=== PATIENT | male | born 1965 | race Caucasian/White ===

== ENCOUNTER 2023-09-25 12:35 | Outpatient (OUT) | payer BC, SELFPAY ==
--- NOTE | 2023-09-25 12:42 | US_ITS ---
[address] [address] Patient Name: YESSENIA BEST MRN: [id number] date: 1965 Sex: M Assigned Patient Location: [place] Current Patient Location: US Accession/Order Number: [id number] Exam Date: 09/25/2023 12:43 Report Date: 09/25/2023 13:12 At the request of: SHAIKH JACOB Procedure: US abdomen limited EXAM: US abdomen limited HISTORY: inguinal hernia of right side without obstruction K40.90 COMPARISON: None. TECHNIQUE: Real-time Limited abdomen ultrasound. Findings: There is a 1.1 x 1.2 x 1.9 cm fat-containing hernia to the patient's palpable abnormality. Impression 1. Small fat-containing hernia. Electronically authenticated by: KENYON SHIPMAN Date: 09/25/2023 13:12
== END 2023-09-25 12:36 | disposition home or self-care (01) ==
LOC: US 12:36
PROVIDERS: PCP Internal Medicine; Visit Provider Internal Medicine
DX: K40.90 Unilateral inguinal hernia, without obstruction or gangrene, not specified as recurrent (principal)
CPT/HCPCS: 76705

== ENCOUNTER 2024-07-03 06:31 | Outpatient (OUT) | payer SELFPAY ==
--- OUTSIDE RECORDS SUMMARY | 2024-07-03 06:35 | XMS_ITS | CCD ---
Author Organization [facility] Care Team Providers Care Pipe Changer Name Role Phone SHAIKH Yelitza JAMES Admitting Unavailable SHAIKH Yelitza JAMES Attending Unavailable RODNEY BECERRA Primary Care Unavailable SHAIKH Yelitza JAMES Consulting Unavailable RODNEY BECERRA Admitting Unavailable RODNEY BECERRA Attending Unavailable RODNEY BECERRA Primary Care Unavailable RODNEY BECERRA Consulting Unavailable SHAIKH JAMES Attending Unavailable SHAIKH JAMES Attending Unavailable LULU OLMSTEAD Attending Unavailable FAITH ZACARIAS Attending UnavailODILON Samson Attending Unavailable FAITH ZACARIAS Referring Ava James MD, Unavailable Luther Madrid MD Primary Care Provider Faith Zacarias NP Unavailable Medications Current Medications Medication Drug Class(es) Dates Sig (Normalized) Sig (Original) amLODIPine 5 mg oral tablet (2 sources) Dihydropyridine Calcium Channel Tera Start: 05-31-2024 take 1 tablet by mouth once daily amLODIPine (Norvasc) 5 MG tablet Indications: Essential (primary) hypertension (CMS/HCC) Take 1 tablet (5 mg) by mouth Daily 30 tablet 2 05/31/2024 Active Start: 08-20-2023 End: 05-27-2024 take 1 tablet by mouth in the morning amLODIPine (Norvasc) 5 MG tablet Take 1 tablet by mouth in the morning. 08/20/2023 05/27/2024 Discontinued (Reorder) atorvastatin 40 mg oral tablet (2 sources) HMG-CoA Reductase Inhibitor Start: 05-31-2024 take 1 tablet by mouth once daily atorvastatin (Lipitor) 40 MG tablet Indications: Other hyperlipidemia (CMS/HCC) Take 1 tablet (40 mg) by mouth Daily 90 tablet 05/31/2024 Active Start: 08-30-2023 End: 05-27-2024 take 1 tablet by mouth in the morning atorvastatin (Lipitor) 40 MG tablet Take 1 tablet by mouth in the morning. 08/30/2023 05/27/2024 Discontinued (Reorder) hydroCHLOROthiazide 25 mg / losartan potassium 100 mg oral tablet (2 sources) Thiazide Diuretic, Angiotensin 2 Receptor Tera Start: 05-31-2024 take 1 tablet by mouth once daily losartan-hydroCHLOROthiazide (Hyzaar) 100-25 MG tablet Indications: Essential (primary) hypertension (CMS/HCC) , Benign essential hypertension (CMS/HCC) Take 1 tablet by mouth Daily 90 tablet 1 05/31/2024 Active Start: 12-08-2023 End: 05-27-2024 take 1 tablet by mouth once daily losartan-hydroCHLOROthiazide (Hyzaar) 10 0-25 MG tablet Indications: Essential (primary) hypertension (CMS/HCC) , Benign essential hypertension (CMS/HCC) TAKE 1 TABLET BY MOUTH EVERY DAY 90 tablet 1 12/08/2023 05/27/2024 Discontinued (Reorder) 3 ml insulin aspart, human 100 unt/ml pen injector (2 sources) Insulin Analog Start: 05-31-2024 insulin aspart (NovoLOG FLEXPEN) 100 UNIT/ML pen Indications: Type 2 diabetes mellitus without complication, with long-term current use of insulin (CMS/HCC) Inject 10 Units under the skin in the morning and 10 Units at noon and 10 Units in the evening. Inject before meals. (Max daily 45 units/day; add 2 units 151-200; 4 units 201-250; 6 units 251-300; 8 units 301-350). 10 mL 2 05/31/2024 Active Start: 07-07-2023 End: 05-27-2024 NovoLOG FLEXPEN 100 UNIT/ML pen Inject 10 Units under the skin in the morning and 10 Units at noon and 10 Units in the evening. Inject before meals. (Max daily 45 units/day; add 2 units 151-200; 4 units 201-250; 6 units 251-300; 8 units 301-350). 07/07/2023 05/27/2024 Discontinued (Reorder) 3 ml insulin glargine 100 unt/ml pen injector (2 sources) Insulin Analog Start: 05-31-2024 End: 11-27-2024 insulin glargine (Lantus SoloStar) 100 UNIT/ML pen Indications: Type 2 Diabetes Mellitus Inject 40 Units under the skin at bedtime 36 mL 1 05/31/2024 11/27/2024 Active Start: 10-06-2023 End: 05-27-2024 insulin glargine (Lantus Felicitas oStar) 100 UNIT/ML pen Indications: Type 2 Diabetes Mellitus Inject 40 Units under the skin at bedtime 36 mL 1 10/06/2023 05/27/2024 Discontinued (Reorder) latanoprost 0.05 mg/ml ophthalmic solution (1 source) Prostaglandin Analog Start: 07-04-2023 take 1 drop(s) into the eye(s) at bedtime latanoprost (Xalatan) 0.005 % ophthalmic solution Administer 1 drop into both eyes at bedtime 07/04/2023 Active omeprazole 40 mg delayed release oral capsule (2 sources) Proton Pump Inhibitor Start: 05-31-2024 End: 11-27-2024 take 1 capsule by mouth before mealtime omeprazole (PriLOSEC) [address] capsule Indications: Gastroesophageal reflux disease without esophagitis Take 1 capsule (40 mg) by mouth in the morning. Take before meals. Do not crush or chew.. 90 capsule 1 05/31/2024 11/27/2024 Active Start: 02-23-2024 End: 05-27-2024 take 1 capsule by mouth before mealtime omeprazole (PriLOSEC) [address] capsule Indications: Gastroesophageal reflux disease without esophagitis Take 1 capsule (40 mg) by mouth in the morning. Take before meals. Do not crush or chew.. 90 capsule 1 02/23/2024 05/27/2024 Discontinued (Reorder) semaglutide 7 mg oral tablet (2 sources) Start: 05-31-2024 End: 08-29-2024 take 1 tablet by mouth before mealtime semaglutide (Rybelsus) 7 MG tablet Indications: Type 2 diabetes mellitus without complication, with long-term current use of insulin ([facility]) Take 1 tablet (7 mg) by mouth in the morning. Take before meals. Do not eat for 30 minutes after using the medications. 90 tablet 05/31/2024 08/29/2024 Active Start: 04-21-2024 End: 05-27-2024 take 1 tablet by mouth before mealtime semaglutide (Rybelsus) 7 MG tablet Indications: Type 2 diabetes mellitus without complication, with long-term current use of insulin ([facility]) Take 1 tablet (7 mg) by mouth in the morning. Take before meals. Do not eat for 30 minutes after using the medications. 90 tablet 04/21/2024 05/27/2024 Discontinued (Reorder) Problems Active Problems Problem Classification Problem Date Documented Da te Episodic/Chronic Diabetes mellitus with complications (5 sources) Type 2 diabetes mellitus with unspecified complications; Translations: [TYPE 2 DM W/UNS COMPLICATIONS] Onset: 06-28-2021 Chronic Diabetes mellitus without complication (3 sources) Type 2 diabetes mellitus without complication; Translations: [Type 2 diabetes mellitus without complications] Onset: 10-06-2023 05-31-2024 Chronic Disorders of lipid metabolism (3 sources) Hyperlipidemia, unspecified; Translations: [Hyperlipidemia] Onset: 06-05-2022 05-31-2024 Chronic Esophageal disorders (3 sources) Gastro-esophageal reflux disease without esophagitis; Translations: [Gastroesophageal reflux disease without esophagitis] Onset: 06-28-2021 05-27-2024 Chronic Essential hypertension (4 sources) Essential (primary) hypertension; Translations: [Essential hypertension] Onset: 06-05-2022 05-27-2024 Chronic Other screening for suspected conditions (not mental disorders or infectious disease) (2 sources) Encounter for screening for malignant neoplasm of prostate; Translations: [Patient encounter status] Onset: 06-28-2021 04-21-2024 Episodic Past or Other Problems Problem Classification Problem Date Documented Da te Episodic/Chronic Abdominal hernia (1 source) Right inguinal hernia ; Translations: [Unilateral inguinal hernia, without obstruction or gangrene, not specified as recurrent] Onset: 10-06-2023 10-06-2023 Episodic Other gastrointestinal disorders (1 source) Esophageal dysphagia; Translations: [Other dysphagia] Onset: 10-06-2023 10-06-2023 Episodic Other skin disorders (1 source) Eruption; Translations: [Rash and other nonspecific skin eruption] Onset: 01-01-2024 01-01-2024 Episodic Spondylosis; intervertebral disc disorders; other back problems (1 source) Chronic low back pain; Translations: [Chronic right-sided low back pain without sciatica] Onset: 10-06-2023 10-06-2023 Episodic Results Test Name Value Interpretation Reference Range Facil ity CBC AUTO DIFFon 05-31-2022 BASO # 0.0 103/ul Normal 0.0-0.1 [facility] Comment on above: Performed By: #### C BC #### [facility] [address] [place] [address] Dr. Karen Sawyer Basophils/100 WBC (Bld) 0.4 % Normal 0.2-2.0 [facility] Comment on above: Performed By: #### C BC #### [facility] [address] [place] [address] Dr. Karen Sawyer EO # 0.2 103/ul Normal 0.0-0.7 [facility] Comment on above: Performed By: #### C BC #### [facility] [address] [place] [address] Dr. Karen Sawyer Eosinophils/100 WBC (Bld) 3.1 % Normal 0.9-7.0 [facility] Comment on above: Performed By: #### C BC #### [facility] [address] [place] [address] Dr. Karen Sawyer Erythrocyte distribution width (RBC) [Ratio] 12.3 % Normal 11.0-15.0 [facility] Comment on above: Performed By: #### C BC #### [facility] [address] [place] [address] Dr. Karen Sawyer Hematocrit (Bld) [Volume fraction] 38.6 % Critically low 42.0-54.0 [facility] Comment on above: Performed By: #### C BC #### [facility] [address] [place] [address] Dr. Karen Sawyer Hemoglobin (Bld) [Mass/Vol] 12.9 g/dL Critically low 14.0-18.0 [facility] Comment on above: Performed By: #### C BC #### [facility] [address] [place] [address] Dr. Karen Sawyer IG # 0.03 10e3/ul Normal 0.00-0.03 [facility] Comment on above: Performed By: #### C BC #### [facility] [address] [place] [address] Dr. Karen Sawyer IG % 0.6 % Critically high 0.0-0.5 [facility] Comment on above: Performed By: #### C BC #### [facility] [address] [place] [address] Dr. Karen Sawyer LYMPH # 1.7 103/ul Normal 1.2-3.8 [facility] Comment on above: Performed By: #### C BC #### [facility] [address] [place] [address] Dr. Karen Sawyer Lymphocytes/100 WBC (Bld) 32.1 % Normal 20.5-60.0 [facility] Comment on above: Performed By: #### C BC #### [facility] [address] [place] [address] Dr. Karen Sawyer MANUAL DIFF REQ NO Normal [facility] Comment on above: Performed By: #### C BC #### [facility] [address] [place] [address] Dr. Karen Sawyer MCH (RBC) [Entitic mass] 31.2 pg Normal 25.9-34.0 [facility] Comment on above: Performed By: #### C BC #### [facility] [address] [place] [address] Dr. Karen Sawyer MCHC (RBC) [Mass/Vol] 33.4 g/dL Normal 29.9-35.2 [facility] Comment on above: Performed By: #### C BC #### [facility] [address] [place] [address] Dr. Karen Sawyer MCV (RBC) [Entitic vol] 93.2 fL Normal 80.0-94.0 [facility] Comment on above: Performed By: #### C BC #### [facility] [address] [place] [address] Dr. Karen Sawyer MONO # 0.3 103/ul Normal 0.3-0.8 [facility] Comment on above: Performed By: #### C BC #### [facility] [address] [address] [address] Karen Sawyer Monocytes/100 WBC (Bld) 6.0 % Normal 1.7-12.0 [facility] Comment on above: Performed By: #### C BC #### [facility] [address] [address] [address] Karen Sawyer NEUT # 3.0 103/ul Normal 1.4-6.5 [facility] Comment on above: Performed By: #### C BC #### [facility] [address] [address] [address] Karen Sawyer Neutrophils/100 WBC (Bld) 57.8 % Normal 43.0-75.0 [facility] Comment on above: Performed By: #### C BC #### [facility] [address] [place] [address] Dr. Karen Sawyer Platelet mean volume (Bld) [Entitic vol] 8.2 fL Critically low 9.5-13.5 [facility] Comment on above: Performed By: #### C BC #### [facility] [address] [place] [address] Dr. Karen Sawyer PLT 175 103/ul Normal 150-450 [facility] Comment on above: Performed By: #### C BC #### [facility] [address] [place] [address] Dr. Karen Sawyer RBC 4.14 106/ul Critically low 4.70-6.10 [facility] Comment on above: Performed By: #### C BC #### [facility] [address] [place] [address] Dr. Karen Sawyer WBC 5.2 103/ul Normal 4.0-11.0 [facility] Comment on above: Performed By: #### C BC #### [facility] [address] [place] [address] Dr. Karen Sawyer GLYCOHEMOGLOBIN A1Con 2021 ADA RECOMMENDATION SEE BELOW Normal [facility] Comment on above: Result Comment: ADA RECOMMENDED LIMIT 4.0 - 6.0 ADA THERAPEUTIC TARGET < 7.0 ACTION SUGGESTED > 7.0 Performed By: #### A 1C #### [facility] [address] [place] [address] Dr. Karen Sawyer Glucose [Mass/Vol] 134 mg/dL Normal [facility] Comment on above: Performed By: #### A 1C #### [facility] [address] [place] [address] Dr. Karen Sawyer HbA1c (Bld) [Mass fraction] 6.3 % Critically high 4.5-6.2 [facility] Comment on above: Performed By: #### A 1C #### [facility] [address] [place] [address] Dr. Karen Sawyer LIPID PROFILEon 05-31-2022 CHOL-HDL RATIO NORM SEE BELOW Normal [facility] Comment on above: Result Comment: 3.3 - 4.4 LOW RISK 4.4 - 7.1 AVERAGE RISK 7.1 - 11.0 MODERATE RISK >11.0 HIGH RISK Performed By: #### C MP, LIPID #### [facility] [address] [place] [address] Dr. Karen Sawyer Cholesterol [Mass/Vol] 127 mg/dL Normal <=200 [facility] Comment on above: Performed By: #### C MP, LIPID #### [facility] [address] [place] [address] Dr. Karen Sawyer Cholesterol in HDL [Mass/Vol] 46 mg/dL Normal 40-60 [facility] Comment on above: Performed By: #### C MP, LIPID #### [facility] [address] [place] [address] Dr. Karen Sawyer Cholesterol in LDL [Mass/Vol] 66.6 mg/dL Normal [facility] Comment on above: Performed By: #### C MP, LIPID #### [facility] [address] [place] [address] Dr. Karen Sawyer Cholesterol.total/Cho lesterol in HDL [Mass ratio] 2.8 {ratio} Normal [facility] Comment on above: Performed By: #### C MP, LIPID #### [facility] [address] [address] [address] Karen Sawyer HDL NORMAL > or = 60 mg/dl - LOW CARDIOVASCULAR RISK <40 mg/dl - HIGH CARDIOVASCULAR RISK Normal [facility] Comment on above: Performed By: #### C MP, LIPID #### [facility] [address] [address] [address] Karen Sawyer LDL CALC NORMAL SEE BELOW Normal [facility] Comment on above: Result Comment: <100 mg/dl OPTIMAL 100 - 129 mg/dl NEAR OR ABOVE OPTIMAL 130 - 159 mg/dl BORDERLINE HIGH 160 - 189 mg/dl HIGH >190 mg/dl VERY HIGH Performed By: #### C MP, LIPID #### [facility] [address] [place] [address] Dr. Karen Sawyer Triglyceride [Mass/Vol] 72 mg/dL Normal <=150 [facility] Comment on above: Performed By: #### C MP, LIPID #### [facility] [address] [place] [address] Dr. Karen Sawyer VLDL CALC 14.4 mg/dL Normal [facility] Comment on above: Performed By: #### C MP, LIPID #### [facility] [address] [place] [address] Dr. Karen Sawyer PROF 14(COMP METB)on 022 Albumin [Mass/Vol] 3.8 g/dL Normal 3.4-5.0 [facility] Comment on above: Performed By: #### C MP, LIPID #### [facility] [address] [place] [address] Dr. Karen Sawyer Albumin/Globulin [Mass ratio] 1.1 {ratio} Normal [facility] Comment on above: Performed By: #### C MP, LIPID #### [facility] [address] [place] [address] Dr. Karen Sawyer ALP [Catalytic activity/Vol] 65 U/L Normal 46-116 [facility] Comment on above: Performed By: #### C MP, LIPID #### [facility] [address] [place] [address] Dr. Karen Sawyer ALT [Catalytic activity/Vol] 42 U/L Normal 16-63 [facility] Comment on above: Performed By: #### C MP, LIPID #### [facility] [address] [place] [address] Dr. Karen Sawyer Anion gap [Moles/Vol] 12.1 mmol/L Normal [facility] Comment on above: Performed By: #### C MP, LIPID #### [facility] [address] [address] [address] Karen Sawyer AST [Catalytic activity/Vol] 21 U/L Normal 15-37 [facility] Comment on above: Performed By: #### C MP, LIPID #### [facility] [address] [place] [address] Dr. Karen Sawyer Bilirubin [Mass/Vol] 0.2 mg/dL Normal 0.2-1.0 [facility] Comment on above: Performed By: #### C MP, LIPID #### [facility] [address] [place] [address] Dr. Karen Sawyer Calcium [Mass/Vol] 8.8 mg/dL Normal 8.5-10.1 [facility] Comment on above: Performed By: #### C MP, LIPID #### [facility] [address] [place] [address] Dr. Karen Sawyer Chloride [Moles/Vol] 105 mmol/L Normal 98-107 [facility] Comment on above: Performed By: #### C MP, LIPID #### [facility] [address] [place] [address] Dr. Karen Sawyer CO2 [Moles/Vol] 25.6 mmol/L Normal 21.0-32.0 [facility] Comment on above: Performed By: #### C MP, LIPID #### [facility] [address] [place] [address] Dr. Karen Sawyer Creatinine [Mass/Vol] 1.03 mg/dL Normal 0.70-1.30 [facility] Comment on above: Performed By: #### C MP, LIPID #### [facility] [address] [place] [address] Dr. Karen Sawyer EGFR-AF SAMOAN >60 Normal >=60 [facility] Comment on above: Performed By: #### C MP, LIPID #### [facility] [address] [address] [address] Karen Sawyer EGFR-NON AF SAMOAN >60 Normal >=60 [facility] Comment on above: Performed By: #### C MP, LIPID #### [facility] [address] [address] [address] Karen Sawyer Globulin (S) [Mass/Vol] 3.5 g/dL Normal [facility] Comment on above: Performed By: #### C MP, LIPID #### [facility] [address] [address] [address] Karen Sawyer Glucose [Mass/Vol] 118 mg/dL Critically high 74-106 [facility] Comment on above: Performed By: #### C MP, LIPID #### [facility] [address] [address] [address] Karen Sawyer Potassium [Moles/Vol] 4.7 mmol/L Normal 3.5-5.1 [facility] Comment on above: Performed By: #### C MP, LIPID #### [facility] [address] [address] [address] Karen Sawyer Protein [Mass/Vol] 7.3 g/dL Normal 6.4-8.2 [facility] Comment on above: Performed By: #### C MP, LIPID #### [facility] [address] [address] [address] Karen Sawyer Sodium [Moles/Vol] 138 mmol/L Normal 136-145 [facility] Comment on above: Performed By: #### C MP, LIPID #### [facility] [address] [address] [address] Karen Sawyer Urea nitrogen [Mass/Vol] 20.0 mg/dL Critically high 7.0-18.0 [facility] Comment on above: Performed By: #### C MP, LIPID #### [facility] [address] [address] [address] Karen Sawyer Urea nitrogen/Creatinine [Mass ratio] 19.4 mg/mg Normal [facility] Comment on above: Performed By: #### C MP, LIPID #### [facility] [address] [place] [address] Dr. Karen Sawyer CBC AUTO DIFFon 06-21-2021 BASO # 0.0 103/ul Normal 0.0-0.1 [facility] Comment on above: Performed By: #### C BC #### [facility] [address] [place] [address] Dr. Karen Sawyer Basophils/100 WBC (Bld) 0.4 % Normal 0.2-2.0 [facility] Comment on above: Performed By: #### C BC #### [facility] [address] [place] [address] Dr. Karen Sawyer EO # 0.1 103/ul Normal 0.0-0.7 [facility] Comment on above: Performed By: #### C BC #### [facility] [address] [place] [address] Dr. Karen Sawyer Eosinophils/100 WBC (Bld) 2.7 % Normal 0.9-7.0 [facility] Comment on above: Performed By: #### C BC #### [facility] [address] [place] [address] Dr. Karen Sawyer Erythrocyte distribution width (RBC) [Ratio] 12.2 % Normal 11.0-15.0 [facility] Comment on above: Performed By: #### C BC #### [facility] [address] [place] [address] Dr. Karen Sawyer Hematocrit (Bld) [Volume fraction] 37.7 % Critically low 42.0-54.0 [facility] Comment on above: Performed By: #### C BC #### [facility] [address] [place] [address] Dr. Karen Sawyer Hemoglobin (Bld) [Mass/Vol] 12.9 g/dL Critically low 14.0-18.0 [facility] Comment on above: Performed By: #### C BC #### [facility] [address] [place] [address] Dr. Karen Sawyer IG # 0.02 10e3/ul Normal 0.00-0.03 [facility] Comment on above: Performed By: #### C BC #### [facility] [address] [place] [address] Dr. Karen Sawyer IG % 0.4 % Normal 0.0-0.5 [facility] Comment on above: Performed By: #### C BC #### [facility] [address] [place] [address] Dr. Karen Sawyer LYMPH # 1.7 103/ul Normal 1.2-3.8 [facility] Comment on above: Performed By: #### C BC #### [facility] [address] [place] [address] Dr. Karen Sawyer Lymphocytes/100 WBC (Bld) 37.6 % Normal 20.5-60.0 [facility] Comment on above: Performed By: #### C BC #### [facility] [address] [place] [address] Dr. Karen Sawyer MANUAL DIFF REQ NO Normal [facility] Comment on above: Performed By: #### C BC #### [facility] [address] [place] [address] Dr. Karen Sawyer MCH (RBC) [Entitic mass] 31.2 pg Normal 25.9-34.0 [facility] Comment on above: Performed By: #### C BC #### [facility] [address] [place] [address] Dr. Karen Sawyer MCHC (RBC) [Mass/Vol] 34.2 g/dL Normal 29.9-35.2 [facility] Comment on above: Performed By: #### C BC #### [facility] [address] [place] [address] Dr. Karen Sawyer MCV (RBC) [Entitic vol] 91.3 fL Normal 80.0-94.0 [facility] Comment on above: Performed By: #### C BC #### [facility] [address] [place] [address] Dr. Karen Sawyer MONO # 0.2 103/ul Critically low 0.3-0.8 [facility] Comment on above: Performed By: #### C BC #### [facility] [address] [address] [address] Karen Sawyer Monocytes/100 WBC (Bld) 5.1 % Normal 1.7-12.0 [facility] Comment on above: Performed By: #### C BC #### [facility] [address] [address] [address] Karen Sawyer NEUT # 2.4 103/ul Normal 1.4-6.5 [facility] Comment on above: Performed By: #### C BC #### [facility] [address] [address] [address] Karen Sawyer Neutrophils/100 WBC (Bld) 53.8 % Normal 43.0-75.0 [facility] Comment on above: Performed By: #### C BC #### [facility] [address] [address] [address] Karen Sawyer Platelet mean volume (Bld) [Entitic vol] 8.6 fL Critically low 9.5-13.5 [facility] Comment on above: Performed By: #### C BC #### [facility] [address] [address] [address] Karen Sawyer PLT 142 103/ul Critically low 150-450 [facility] Comment on above: Performed By: #### C BC #### [facility] [address] [address] [address] Karen Sawyer RBC 4.13 106/ul Critically low 4.70-6.10 [facility] Comment on above: Performed By: #### C BC #### [facility] [address] [address] [address] Karen Sawyer WBC 4.5 103/ul Normal 4.0-11.0 [facility] Comment on above: Performed By: #### C BC #### [facility] [address] [address] [address] Karen Sawyer GLYCOHEMOGLOBIN A1Con 2020 ADA RECOMMENDATION ADA THERAPEUTIC TARGET 6.0 - 7.0 ACTION SUGGESTED > 7.0 Normal [facility] Comment on above: Performed By: #### A 1C #### [facility] [address] [address] [address] Karen Sawyer Glucose [Mass/Vol] 137 mg/dL Normal [facility] Comment on above: Performed By: #### A 1C #### [facility] [address] [place] [address] Dr. Karen Sawyer HbA1c (Bld) [Mass fraction] 6.4 % Critically high <=6.0 [facility] Comment on above: Performed By: #### A 1C #### [facility] [address] [place] [address] Dr. Karen Sawyer H PYLORI ANTIBODYon 06-21-20 21 H PYLORI Negative Normal NEGATIVE [facility] Comment on above: Performed By: #### H PYL #### [facility] [address] [place] [address] Dr. Karen Sawyer LIPID PROFILEon 06-21-2021 CHOL-HDL RATIO NORM SEE BELOW Normal [facility] Comment on above: Result Comment: 3.3 - 4.4 LOW RISK 4.4 - 7.1 AVERAGE RISK 7.1 - 11.0 MODERATE RISK >11.0 HIGH RISK Performed By: #### L IPID, BMP #### [facility] [address] [place] [address] Dr. Karen Sawyer Cholesterol [Mass/Vol] 146 mg/dL Normal <=200 [facility] Comment on above: Performed By: #### L IPID, BMP #### [facility] [address] [place] [address] Dr. Karen Sawyer Cholesterol in HDL [Mass/Vol] 58 mg/dL Normal [facility] Comment on above: Performed By: #### L IPID, BMP #### [facility] [address] [place] [address] Dr. Karen Sawyer Cholesterol in LDL [Mass/Vol] 56.8 mg/dL Normal [facility] Comment on above: Performed By: #### L IPID, BMP #### [facility] [address] [place] [address] Dr. Karen Sawyer Cholesterol.total/Cho lesterol in HDL [Mass ratio] 2.5 {ratio} Normal [facility] Comment on above: Performed By: #### L IPID, BMP #### [facility] [address] [address] [address] Karen Sawyer HDL NORMAL > or = 60 mg/dl - LOW CARDIOVASCULAR RISK <40 mg/dl - HIGH CARDIOVASCULAR RISK Normal [facility] Comment on above: Performed By: #### L IPID, BMP #### [facility] [address] [address] [address] Karen Sawyer LDL CALC NORMAL SEE BELOW Normal [facility] Comment on above: Result Comment: <100 mg/dl OPTIMAL 100 - 129 mg/dl NEAR OR ABOVE OPTIMAL 130 - 159 mg/dl BORDERLINE HIGH 160 - 189 mg/dl HIGH >190 mg/dl VERY HIGH Performed By: #### L IPID, BMP #### [facility] [address] [address] [address] Karen Sawyer Triglyceride [Mass/Vol] 156 mg/dL Critically high <=150 [facility] Comment on above: Performed By: #### L IPID, BMP #### [facility] [address] [address] [address] Karen Sawyer VLDL CALC 31.2 mg/dL Normal [facility] Comment on above: Performed By: #### L IPID, BMP #### [facility] [address] [address] [address] Karen Sawyer PROF CHEM 8 (BAS METB)on Anion gap [Moles/Vol] 17.4 mmol/L Normal [facility] Comment on above: Performed By: #### L IPID, BMP #### [facility] [address] [address] [address] Karen Sawyer Calcium [Mass/Vol] 8.8 mg/dL Normal 8.4-10.2 [facility] Comment on above: Performed By: #### L IPID, BMP #### [facility] [address] [address] [address] Karen Sawyer Chloride [Moles/Vol] 103 mmol/L Normal 98-107 [facility] Comment on above: Performed By: #### L IPID, BMP #### [facility] [address] [address] [address] Karen Sawyer CO2 [Moles/Vol] 23.8 mmol/L Normal 22.0-30.0 [facility] Comment on above: Performed By: #### L IPID, BMP #### [facility] [address] [address] [address] Karen Sawyer Creatinine [Mass/Vol] 1.01 mg/dL Normal 0.66-1.25 [facility] Comment on above: Performed By: #### L IPID, BMP #### [facility] [address] [place] [address] Dr. Karen Sawyer EGFR-AF SAMOAN >60 Normal >=60 [facility] Comment on above: Performed By: #### L IPID, BMP #### [facility] [address] [place] [address] Dr. Karen Sawyer EGFR-NON AF SAMOAN >60 Normal >=60 [facility] Comment on above: Performed By: #### L IPID, BMP #### [facility] [address] [address] [address] Karen Sawyer Glucose [Mass/Vol] 158 mg/dL Critically high 74-106 [facility] Comment on above: Performed By: #### L IPID, BMP #### [facility] [address] [address] [address] Karen Sawyer Potassium [Moles/Vol] 4.2 mmol/L Normal 3.4-5.0 [facility] Comment on above: Performed By: #### L IPID, BMP #### [facility] [address] [address] [address] Karen Sawyer Sodium [Moles/Vol] 140 mmol/L Normal 137-145 [facility] Comment on above: Performed By: #### L IPID, BMP #### [facility] [address] [address] [address] Karen Sawyer Urea nitrogen [Mass/Vol] 21.0 mg/dL Critically high 9.0-20.0 [facility] Comment on above: Performed By: #### L IPID, BMP #### [facility] [address] [address] [address] Karen Sawyer Urea nitrogen/Creatinine [Mass ratio] 20.8 mg/mg Normal [facility] Comment on above: Performed By: #### L IPID, BMP #### [facility] [address] [address] [address] 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 Phone: [facility] Comment on above: Other hyperlipidemia (CMS/HCC) (Primary Dx); Type 2 diabetes mellitus without complication, with long-term current use of insulin (CMS/HCC); Essential (primary) hypertension (CMS/HCC); Benign essential hypertension (CMS/HCC); Gastroesophageal reflux disease without esophagitis Start: 05-06-2024 End: 05-06-2024 ambulatory ODILON SOFIA Not Available Start: 04-21-2024 End: 04-21-2024 ambulatory FAITH ZACARIAS Not Available Start: 01-28-2024 End: 01-28-2024 ambulatory LULU OLMSTEAD Not Available Start: 01-01-2024 End: 01-01-2024 ambulatory SHAIKH JACOB Not Available Start: 10-06-2023 End: 10-06-2023 ambulatory SHAIKH JACOB Not Available Start: 05-31-2022 End: 06-01-2022 ambulatory SHAIKH Yelitza JAMES Facility:[facility] Start: 06-28-2021 Encounter for genera l adult medical examination without abnormal findings RODNEY BECERRA [facility] Start: 06-21-2021 End: 06-22-2021 ambulatory RODNEY BECERRA Facility:[facility] Start: 06-21-2021 End: 06-22-2021 Encounter for general adult medical examination without abnormal findings RODNEY BECERRA Facility:[facility] Procedures Date Procedure Procedure Detail Performing Clinician Start: 06-21-2021 PSA screening SHAIKH COLT HARVEY Comment on above: Performed By: #### P [facility] #### [facility] [address] [address] [address] Karen Sawyer Plan of Treatment Date Care Activity Detail Author Start: 05-14-2025 Glaucoma screening Diabetes: R etinopathy Screening [facility] Start: 07-22-2024 End: 07-22-2024 Patient encounter procedure 07/22/2024 9:00 AM EST Office Visit [facility] [address] [facility] [address] [place] [id number] Odilon Sofia, DPBrown [address] [facility] [address] [place] [address] [facility] Start: 07-21-2024 End: 07-21-2024 Patient encounter procedure 07/21/2024 8:00 AM EST Office Visit [facility] [address] [place] [phone] Faith Zacarias, YARELY [address] [place] [phone] [facility] Start: 04-18-2024 Influenza vaccination Influenza Vacc ine (#1) [facility] Start: 11-28-2023 Hemoglobin A1c measurement Diabetes: Hemoglobin A1C [facility] Start: 09-25-2019 Urine screening for protein Diabetes: Urine Protein Screening [facility] Start: 1965 Screening for malign ant neoplasm of colon [facility] Payers Date Payer Category Payer [facility] [id number] 2022 Unknown [id number] 1965 Unknown [id number] 1964 Unknown [id number] 1964 Unknown [id number] 1964 Unknown [id number] 1964 Unknown [id number] 1964 Unknown [id number] 1964 Unknown [id number] 1959 Private Health Insurance [id number] Social History Date Type Detail Facility Start: 01-01-2024 Tobacco smoking stat [facility] Never smoked tobacco [facility] Start: 05-06-2024 Alcoholic beverage intake Current drinker of alcohol (finding) [facility] Start: 04-21-2024 End: 05-06-2024 Alcoholic beverage intake [facility] Start: 04-21-2024 End: 05-06-2024 Tobacco use panel [facility] Start: 1965 Sex assigned at Not on file [facility] NEGATED: Highlighted rowStart: NINF History of tobacco use Passive smoker [facility] Medical Equipment Procedure Code Equipment Code Equipment Origin al Text Equipment Identifier Dates [id number] Start: 11-28-2022 End: 05-27-2024 Inject 1 Lancet under the skin 4 (four) times a day as needed (Hyperglycemia) [id number] Start: 05-31-2024 Evaluation note Note Date & Type Note Facility Evaluation note Diagnosis Primary hypertension ([facility])- Primary Unspecified essential hypertension Gastroesophageal reflux disease without esophagitis Esophageal reflux Type 2 diabetes mellitus without complication, with long-term current use of insulin (CMS/HCC) Other hyperlipidemia (CMS/HCC) Esophageal dysphagia Dysphagia, pharyngoesophageal phase Chronic right-sided low back pain without sciatica Reducible right inguinal hernia Primary hypertension (CMS/HCC)- Primary Unspecified essential hypertension Gastroesophageal reflux disease without esophagitis Esophageal reflux Reducible right inguinal hernia Type 2 diabetes mellitus without complication, with long-term current use of insulin (CMS/HCC) Other hyperlipidemia (CMS/HCC) Rash Rash and other nonspecific skin eruption Primary hypertension (CMS/HCC)- Primary Unspecified essential hypertension Gastroesophageal reflux disease without esophagitis Esophageal reflux Type 2 diabetes mellitus without complication, with long-term current use of insulin (CMS/HCC) Other hyperlipidemia (CMS/HCC) Screening for colon cancer Special screening for malignant neoplasms, colon Lumbar back pain Lumbago Other hyperlipidemia (CMS/HCC)- Primary Type 2 diabetes mellitus without complication, with long-term current use of insulin (CMS/HCC) Essential (primary) hypertension (CMS/HCC) Unspecified essential hypertension Benign essential hypertension (CMS/HCC) Essential hypertension, benign Gastroesophageal reflux disease without esophagitis Esophageal reflux documented in this encounter [facility] Summary Purpose Family History No Family History Records FoundNo Family History Records Found Advance Directives No Advanced Directives Records FoundNo Advanced Directives Records Found Additional Source Comments (unrecognized sect ion and content) No Status Records FoundNo Status Records Found INFORMATION SOURCE (unrecogn ized section and content) DATE CREATED AUTHOR 06/10/2022 [facility] DATE CREATED AUTHOR AUTHOR'S ORGANIZ ATION 05/08/2024 [facility] Care Teams (unrecognized sec tion and content) Pipe Changer Relationship Specialty Start Date End Date Shaikh James MD [address] [place] [phone] PCP - [place] [facility] 11/17/23 Luther Madrid MD [address] [place] [phone] PCP - General Family Medicine 04/08/24 Faith Zacarias NP [address] [place] [address] Nurse Practitioner Family Medicine 04/08/24 FOR RECORDS PERTAINING TO PATIENTS WHO ARE OR HAVE BEEN ENROLLED IN A CHEMICAL DEPENDENCY/SUBSTANCEABUSE PROGRAM, SOME INFORMATION MAY BE OMITTED. This clinical summary was aggregated from multiple sources. Caution should be exercised in using it in the provision of clinical care. This summary normalizes information from multiple sources, and as a consequence, information in this document may materially change the coding, format and clinical context of patient data. In addition, data may be omitted in some cases. CLINICAL DECISIONS SHOULD BE BASED ON THE PRIMARY CLINICAL RECORDS. [employer] provides no warranty or guarantee of the accuracy or completeness of information in this document.
[2024-07-03 07:38] LABS: Creatinine Urine Random 113.51 mg/dL (20.00-300.00); Microalbumin Urine Random <1.3 mg/dL (<=30.0)
== END 2024-07-03 06:32 | disposition home or self-care (01) ==
LOC: LAB 06:32
PROVIDERS: PCP Internal Medicine; Visit Provider Internal Medicine
DX: E78.49 Other hyperlipidemia (principal); E11.9 Type 2 diabetes mellitus without complications; Z79.4 Long term (current) use of insulin
CPT/HCPCS: 36415; 82043; 82570; 83721

== ENCOUNTER 2024-07-16 08:33 | Outpatient (OUT) | payer BC, SELFPAY ==
--- OUTSIDE RECORDS SUMMARY | 2024-07-16 08:37 | XMS_ITS | CCD ---
Author Organization [facility] Care Team Providers Care Product Manufacturing Professional Name Role Phone SHAIKH Madhuri MARQUEZ Admitting Unavailable SHAIKH Madhuri MARQUEZ Attending Unavailable RODNEY BECERRA Primary Care Unavailable SHAIKH Madhuri MARQUEZ Consulting Unavailable RODNEY BECERRA Admitting Unavailable RODNEY BECERRA Attending Unavailable RODNEY BECERRA Primary Care Unavailable RODNEY BECERRA Consulting Unavailable SHAIKH MARQUEZ Attending Unavailable SHAIKH MARQUEZ Attending Unavailable LULU OLMSTEAD Attending Unavailable FAITH HAYWARD Attending UnavailODILON Samson Attending Unavailable FAITH HAYWARD Referring Ava Marquez MD, Unavailable Luther Madrid MD Primary Care Provider [phone] Faith Hayward NP Unavailable Medications Current Medications Medication Drug Class(es) Dates Sig (Normalized) Sig (Original) amLODIPine 5 mg oral tablet (3 sources) Dihydropyridine Calcium Channel Tera Start: 05-31-2024 [...] Discontinued (Reorder) atorvastatin 40 mg oral tablet (3 sources) HMG-CoA Reductase Inhibitor Start: 05-31-2024 take [...] / losartan potassium 100 mg oral tablet (3 sources) Thiazide Diuretic, Angiotensin 2 Receptor Tera [...] insulin aspart, human 100 unt/ml pen injector (3 sources) Insulin Analog Start: 05-31-2024 insulin aspart [...] ml insulin glargine 100 unt/ml pen injector (3 sources) Insulin Analog Start: 05-31-2024 End: 11-27-2024 [...] Discontinued (Reorder) latanoprost 0.05 mg/ml ophthalmic solution (2 sources) Prostaglandin Analog Start: 07-04-2023 take 1 drop(s) into the eye(s) at bedtime latanoprost (Xalatan) 0.005 % ophthalmic solution Administer 1 drop into both eyes at bedtime 07/04/2023 Active omeprazole 40 mg delayed release oral capsule (3 sources) Proton Pump Inhibitor Start: 05-31-2024 End: [...] Discontinued (Reorder) semaglutide 7 mg oral tablet (3 sources) Start: 05-31-2024 End: 08-29-2024 take 1 tablet by mouth before mealtime semaglutide (Rybelsus) 7 MG tablet Indications: Type 2 diabetes mellitus without complication, with long-term current use of insulin ([facility]) Take 1 tablet (7 mg) by mouth in the morning. Take before meals. Do not eat for 30 minutes after using the medications. 90 tablet 05/31/2024 08/29/2024 Active Start: 04-21-2024 End: 05-27-2024 take 1 tablet by mouth before mealtime semaglutide (Rybelsus) 7 MG tablet Indications: Type 2 diabetes mellitus without complication, with long-term current use of insulin ([facility]) Take 1 tablet (7 mg) by mouth [...] Onset: 06-28-2021 Chronic Diabetes mellitus without complication (4 sources) Type 2 diabetes mellitus without complication; Translations: [Type 2 diabetes mellitus without complications] Onset: 10-06-2023 05-31-2024 Chronic Disorders of lipid metabolism (4 sources) Hyperlipidemia, unspecified; Translations: [Hyperlipidemia] Onset: 06-05-2022 05-31-2024 Chronic Esophageal disorders (4 sources) Gastro-esophageal reflux disease without esophagitis; Translations: [Gastroesophageal reflux disease without esophagitis] Onset: 06-28-2021 05-27-2024 Chronic Essential hypertension (5 sources) Essential (primary) hypertension; Translations: [Essential hypertension] Onset: 06-05-2022 05-27-2024 Chronic Other screening for suspected conditions (not mental disorders or infectious disease) (3 sources) Encounter for screening for malignant neoplasm of prostate; Translations: [Patient encounter status] Onset: 06-28-2021 04-21-2024 Episodic Past or Other Problems Problem Classification Problem Date Documented Da te Episodic/Chronic Abdominal hernia (2 sources) Right inguinal hernia ; Translations: [Unilateral inguinal hernia, without obstruction or gangrene, not specified as recurrent] Onset: 10-06-2023 10-06-2023 Episodic Other gastrointestinal disorders (2 sources) Esophageal dysphagia; Translations: [Other dysphagia] Onset: 10-06-2023 10-06-2023 Episodic Other skin disorders (2 sources) Eruption; Translations: [Rash and other nonspecific skin eruption] Onset: 01-01-2024 01-01-2024 Episodic Spondylosis; intervertebral disc disorders; other back problems (2 sources) Chronic low back pain; Translations: [Chronic right-sided low back pain without sciatica] Onset: 10-06-2023 10-06-2023 Episodic Results Test Name Value Interpretation Reference Range Facility PARAS CMPon 07-05-2024 Albumin [Mass/Vol] 3.7 g/dL 3.4 - 5.0 g/dL NO [facility] ALBUMIN GLOBULIN RATIO 0.9 [facility] ALP [Catalytic activity/Vol] 68 U/L 46 - 116 U/L [facility] ALT [Catalytic activity/Vol] 54 U/L 16 - 63 U/L [facility] Anion gap [Moles/Vol] 19 mmol/L NOM [facility] AST [Catalytic activity/Vol] 45 U/L High 15 - 37 U/L [facility] Bilirubin [Mass/Vol] 0.5 mg/dL 0.2 - 1 .0 mg/dL [facility] Calcium [Mass/Vol] 9.3 mg/dL 8.5 - 10. 1 mg/dL [facility] Chloride [Moles/Vol] 104 mmol/L 98 - 10 7 mmol/L [facility] CO2 [Moles/Vol] 23.3 mmol/L 21.0 - 32.0 mmol/L [facility] Creatinine [Mass/Vol] 1.39 mg/dL High 0.70 - 1.30 mg/dL [facility] GFR/1.73 sq M.predicted CKD-EPI (S/P/Bld) [Vol rate/Area] >60 >=60 mL/min/1.73m 2 [facility] Globulin (S) [Mass/Vol] 4 g/dL [facility] Glucose [Mass/Vol] 153 mg/dL High 74 - 106 mg/dL NO [facility] Potassium [Moles/Vol] 4.3 mmol/L 3.5 - 5.1 mmol/L [facility] Protein [Mass/Vol] 7.7 g/dL 6.4 - 8.2 g/dL NO [facility] Sodium [Moles/Vol] 142 mmol/L 136 - 145 mmol/L [facility] TBH EGFR-NON AF SALVADOREAN 52 Low >=60 mL/min/1.73m 2 [facility] Urea nitrogen [Mass/Vol] 19 mg/dL High 7.0 - 18.0 mg/dL [facility] Urea nitrogen/Creatinine [Mass ratio] 13.7 mg/mg [facility] LIPID PANELon 07-05-2024 CHOL HDL RATIO 3.5 [facility] Comment on above: 3.3 - 4.4 LOW RISK 4.4 - 7.1 AVERAGE RISK 7.1 - 11.0 MODERATE RISK >11.0 HIGH RISK Cholesterol [Mass/Vol] 135 mg/dL NINF - 200 mg/dL [facility] Cholesterol in HDL [Mass/Vol] 39 mg/dL Low 40 - 60 mg/dL [facility] Comment on above: > or =60 mg/dl - LOW CARDIOVASCULAR RISK <40 mg/dl - HIGH CARDIOVASCULAR RISK Magnesium [Mass/Vol] 128.8 mg/dL [facility] Triglyceride [Mass/Vol] 644 mg/dL High NINF - 150 mg/dL [facility] No Panel Informationon 07-05 Interpretation and review of laboratory results Abnormal [facility] CBC AUTO DIFFon 07-05-20 24 BASOPHILS ABSOLUTE AUTO 0 [facility] Basophils/100 WBC (Bld) 0.8 % 0.2 - 2.0 % [facility] Eosinophils/100 WBC (Bld) 3.8 % 0.9 - 7.0 % [facility] Erythrocyte distribution width (RBC) [Ratio] 13 % 11.0 - 15.0 % [facility] Hematocrit (Bld) [Volume fraction] 38.9 % Low 42.0 - 54.0 % [facility] Hemoglobin (Bld) [Mass/Vol] 13.5 g/dL Low 14.0 - 18.0 g/dL [facility] IMMATURE GRANULOCYTES ABS AUTO 0.02 [facility] Immature granulocytes/100 WBC (Bld) 0.4 % 0.0 - 0.5 % [facility] LYMPHOCYTES ABSOLUTE AUTO 1.6 [facility] Lymphocytes/100 WBC (Bld) 33.1 % 20.5 - 60.0 % [facility] MCH (RBC) [Entitic mass] 31.7 pg 25.9 - 34.0 pg [facility] MCHC (RBC) [Mass/Vol] 34.7 g/dL 29.9 - 35.2 g/dL [facility] MCV (RBC) [Entitic vol] 91.3 fL 80.0 - 94.0 fL [facility] MONOCYTES ABSOLUTE AUTO 0.2 Low [facility] Monocytes/100 WBC (Bld) 5 % 1.7 - 12.0 % [facility] NEUTROPHILS ABSOLUTE AUTO 2.7 [facility] Neutrophils/100 WBC (Bld) 56.9 % 43.0 - 75.0 % [facility] Platelet mean volume (Bld) [Entitic vol] 8.9 fL Low 9.5 - 13.5 fL [facility] EO # 0.2 [facility]BC [facility]T [facility] RBC 4.26 Low [facility] WBC 4.8 [facility] DIRECT LDLon 07-05-2024 Magnesium [Mass/Vol] 38 mg/dL [facility] Comment on above: <100 mg/dl OPTIMAL 100-129 mg/dl NEAR OR ABOVE OPTIMAL 130-159 mg/dl BORDERLINE HIGH 160-189 mg/dl HIGH >190 mg/dl VERY HIGH TBH GLYCOHEMOGLOBIN A1Con Glucose [Mass/Vol] 143 mg/dL [facility] HbA1c (Bld) [Mass fraction] 6.6 % High 4.5 - 6.2 % [facility] Comment on above: ADA RECOMMENDED LIMI T 4.0 - 6.0 ADA THERAPEUTIC TARGET < 7.0 ACTION SUGGESTED > 7.0 PARAS CMPon 07-03-2024 Albumin [Mass/Vol] 3.7 g/dL 3.4 - 5.0 g/dL [facility] ALBUMIN GLOBULIN RATIO 0.9 [facility] ALP [Catalytic activity/Vol] 68 U/L 46 - 116 U/L [facility] ALT [Catalytic activity/Vol] 54 U/L 16 - 63 U/L [facility] Anion gap [Moles/Vol] 19 mmol/L [facility] AST [Catalytic activity/Vol] 45 U/L High 15 - 37 U/L [facility] Bilirubin [Mass/Vol] 0.5 mg/dL 0.2 - 1 .0 mg/dL [facility] Calcium [Mass/Vol] 9.3 mg/dL 8.5 - 10. 1 mg/dL [facility] Chloride [Moles/Vol] 104 mmol/L 98 - 10 7 mmol/L [facility] CO2 [Moles/Vol] 23.3 mmol/L 21.0 - 32.0 mmol/L [facility] Creatinine [Mass/Vol] 1.39 mg/dL High 0.70 - 1.30 mg/dL [facility] GFR/1.73 sq M.predicted CKD-EPI (S/P/Bld) [Vol rate/Area] >60 >=60 mL/min/1.73m 2 [facility] Globulin (S) [Mass/Vol] 4 g/dL [facility] Glucose [Mass/Vol] 153 mg/dL High 74 - 106 mg/dL NO [facility] Potassium [Moles/Vol] 4.3 mmol/L 3.5 - 5.1 mmol/L [facility] Protein [Mass/Vol] 7.7 g/dL 6.4 - 8.2 g/dL NO [facility] Sodium [Moles/Vol] 142 mmol/L 136 - 145 mmol/L [facility] EGFR-NON AF [place] 52 Low >=60 mL/min/1.73m 2 [facility] Urea nitrogen [Mass/Vol] 19 mg/dL High 7.0 - 18.0 mg/dL [facility] Urea nitrogen/Creatinine [Mass ratio] 13.7 mg/mg [facility] LIPID PANELon 07-03-2024 CHOL HDL RATIO 3.5 [facility] hcare Comment on above: 3.3 - 4.4 LOW RISK 4.4 - 7.1 AVERAGE RISK 7.1 - 11.0 MODERATE RISK >11.0 HIGH RISK Cholesterol [Mass/Vol] 135 mg/dL NINF - 200 mg/dL [facility] Cholesterol in HDL [Mass/Vol] 39 mg/dL Low 40 - 60 mg/dL [facility] Comment on above: > or =60 mg/dl - LOW CARDIOVASCULAR RISK <40 mg/dl - HIGH CARDIOVASCULAR RISK Magnesium [Mass/Vol] 128.8 mg/dL [facility] Triglyceride [Mass/Vol] 644 mg/dL High NINF - 150 mg/dL [facility] No Panel Informationon 07-03 Interpretation and review of laboratory results Abnormal [facility] CBC AUTO DIFFon 07-03-20 24 BASOPHILS ABSOLUTE AUTO 0 [facility] Basophils/100 WBC (Bld) 0.8 % 0.2 - 2.0 % [facility] Eosinophils/100 WBC (Bld) 3.8 % 0.9 - 7.0 % [facility] Erythrocyte distribution width (RBC) [Ratio] 13 % 11.0 - 15.0 % [facility] Hematocrit (Bld) [Volume fraction] 38.9 % Low 42.0 - 54.0 % [facility] Hemoglobin (Bld) [Mass/Vol] 13.5 g/dL Low 14.0 - 18.0 g/dL [facility] IMMATURE GRANULOCYTES ABS AUTO 0.02 [facility] Immature granulocytes/100 WBC (Bld) 0.4 % 0.0 - 0.5 % [facility] Interpretation and review of laboratory results Abnormal [facility] LYMPHOCYTES ABSOLUTE AUTO 1.6 [facility] Lymphocytes/100 WBC (Bld) 33.1 % 20.5 - 60.0 % [facility] MCH (RBC) [Entitic mass] 31.7 pg 25.9 - 34.0 pg [facility] MCHC (RBC) [Mass/Vol] 34.7 g/dL 29.9 - 35.2 g/dL [facility] MCV (RBC) [Entitic vol] 91.3 fL 80.0 - 94.0 fL [facility] MONOCYTES ABSOLUTE AUTO 0.2 Low [facility] Monocytes/100 WBC (Bld) 5 % 1.7 - 12.0 % [facility] NEUTROPHILS ABSOLUTE AUTO 2.7 [facility] Neutrophils/100 WBC (Bld) 56.9 % 43.0 - 75.0 % [facility] Platelet mean volume (Bld) [Entitic vol] 8.9 fL Low 9.5 - 13.5 fL [facility] EO # 0.2 [facility] NRBC 0 [facility] PLT 183 [facility] RBC 4.26 Low [facility] WBC 4.8 [facility] DIRECT LDLon 07-03-2024 Magnesium [Mass/Vol] 38 mg/dL [facility] Comment on above: <100 mg/dl OPTIMAL 100-129 mg/dl NEAR OR ABOVE OPTIMAL 130-159 mg/dl BORDERLINE HIGH 160-189 mg/dl HIGH >190 mg/dl VERY HIGH TB GLYCOHEMOGLOBIN A1Con Glucose [Mass/Vol] 143 mg/dL [facility] HbA1c (Bld) [Mass fraction] 6.6 % High 4.5 - 6.2 % [facility] Comment on above: ADA RECOMMENDED LIMI T 4.0 - 6.0 ADA THERAPEUTIC TARGET < 7.0 ACTION SUGGESTED > 7.0 Interpretation and review of laboratory results Abnormal [facility] MICROALB CREAT RATIO RAN DOMon 07-03-2024 CREATININE URINE RANDOM 113.51 mg/dL 20.00 - 300.00 mg/dL [facility] MICROALBUMIN URINE RANDOM <1.3 NINF - 30.0 mg/dL [facility]O DIFFon 05-31-2022 BASO # 0.0 103/ul Normal 0.0-0.1 [facility] Comment on above: Performed By: #### C BC #### [facility] [address] [place] [address] Dr. Karen Sawyer Basophils/100 WBC (Bld) 0.4 % Normal 0.2-2.0 [facility] Comment on above: Performed By: #### C BC #### [facility] [address] [place] [address] Dr. Karen Sawyer EO # 0.2 103/ul Normal 0.0-0.7 [facility] Comment on above: Performed By: #### C BC #### [facility] [address] [place] [address] Dr. Karen Sawyer Eosinophils/100 WBC (Bld) 3.1 % Normal 0.9-7.0 [facility] Comment on above: Performed By: #### C BC #### [facility] [address] [place] [address] Dr. Karen Sawyer Erythrocyte distribution width (RBC) [Ratio] 12.3 % Normal 11.0-15.0 [facility] Comment on above: Performed By: #### C BC #### [facility] [address] [place] [address] Dr. Karen Sawyer Hematocrit (Bld) [Volume fraction] 38.6 % Critically low 42.0-54.0 [facility] Comment on above: Performed By: #### C BC #### [facility] [address] [place] [address] Dr. Karen Sawyer Hemoglobin (Bld) [Mass/Vol] 12.9 g/dL Critically low 14.0-18.0 [facility] Comment on above: Performed By: #### C BC #### [facility] [address] [place] [address] Dr. Karen Sawyer IG # 0.03 10e3/ul Normal 0.00-0.03 [facility] Comment on above: Performed By: #### C BC #### [facility] [address] [place] [address] Dr. Karen Sawyer IG % 0.6 % Critically high 0.0-0.5 [facility] Comment on above: Performed By: #### C BC #### [facility] [address] [place] [address] Dr. Karen Sawyer LYMPH # 1.7 103/ul Normal 1.2-3.8 [facility] Comment on above: Performed By: #### C BC #### [facility] [address] [place] [address] Dr. Karen Sawyer Lymphocytes/100 WBC (Bld) 32.1 % Normal 20.5-60.0 [facility] Comment on above: Performed By: #### C BC #### [facility] [address] [place] [address] Dr. Karen Sawyer MANUAL DIFF REQ NO Normal [facility] Comment on above: Performed By: #### C BC #### [facility] [address] [place] [address] Dr. Karen Sawyer MCH (RBC) [Entitic mass] 31.2 pg Normal 25.9-34.0 [facility] Comment on above: Performed By: #### C BC #### [facility] [address] [place] [address] Dr. Karen Sawyer MCHC (RBC) [Mass/Vol] 33.4 g/dL Normal 29.9-35.2 [facility] Comment on above: Performed By: #### C BC #### [facility] [address] [place] [address] Dr. Karen Sawyer MCV (RBC) [Entitic vol] 93.2 fL Normal 80.0-94.0 [facility] Comment on above: Performed By: #### C BC #### [facility] [address] [place] [address] Dr. Karen Sawyer MONO # 0.3 103/ul Normal 0.3-0.8 [facility] Comment on above: Performed By: #### C BC #### [facility] [address] [address] [address] Karen Sawyer Monocytes/100 WBC (Bld) 6.0 % Normal 1.7-12.0 [facility] Comment on above: Performed By: #### C BC #### [facility] [address] [place] [address] Dr. Karen Sawyer NEUT # 3.0 103/ul Normal 1.4-6.5 [facility] Comment on above: Performed By: #### C BC #### [facility] [address] [place] [address] Dr. Karen Sawyer Neutrophils/100 WBC (Bld) 57.8 % Normal 43.0-75.0 [facility] Comment on above: Performed By: #### C BC #### [facility] [address] [place] [address] Dr. Karen Sawyer Platelet mean volume (Bld) [Entitic vol] 8.2 fL Critically low 9.5-13.5 [facility] Comment on above: Performed By: #### C BC #### [facility] [address] [place] [address] Dr. Karen Sawyer PLT 175 103/ul Normal 150-450 [facility] Comment on above: Performed By: #### C BC #### [facility] [address] [place] [address] Dr. Karen Sawyer RBC 4.14 106/ul Critically low 4.70-6.10 [facility] Comment on above: Performed By: #### C BC #### [facility] [address] [place] [address] Dr. Karen Sawyer WBC 5.2 103/ul Normal 4.0-11.0 [facility] Comment on above: Performed By: #### C BC #### [facility] [address] [place] [address] Dr. Karen Sawyer GLYCOHEMOGLOBIN A1Con 2021 ADA RECOMMENDATION SEE BELOW Normal [facility] Comment on above: Result Comment: ADA RECOMMENDED LIMIT 4.0 - 6.0 ADA THERAPEUTIC TARGET < 7.0 ACTION SUGGESTED > 7.0 Performed By: #### A 1C #### [facility] [address] [place] [address] Dr. Karen Sawyer Glucose [Mass/Vol] 134 mg/dL Normal [facility] Comment on above: Performed By: #### A 1C #### [facility] [address] [place] [address] Dr. Karen Sawyer HbA1c (Bld) [Mass fraction] 6.3 % Critically high 4.5-6.2 [facility] Comment on above: Performed By: #### A 1C #### [facility] [address] [place] [address] Dr. Karen Sawyer LIPID PROFILEon 05-31-2022 CHOL-HDL RATIO NORM SEE BELOW Normal [facility] Comment on above: Result Comment: 3.3 - 4.4 LOW RISK 4.4 - 7.1 AVERAGE RISK 7.1 - 11.0 MODERATE RISK >11.0 HIGH RISK Performed By: #### C MP, LIPID #### [facility] [address] [place] [address] Dr. Karen Sawyer Cholesterol [Mass/Vol] 127 mg/dL Normal <=200 [facility] Comment on above: Performed By: #### C MP, LIPID #### [facility] [address] [place] [address] Dr. Karen Sawyer Cholesterol in HDL [Mass/Vol] 46 mg/dL Normal 40-60 [facility] Comment on above: Performed By: #### C MP, LIPID #### [facility] [address] [place] [address] Dr. Karen Sawyer Cholesterol in LDL [Mass/Vol] 66.6 mg/dL Normal [facility] Comment on above: Performed By: #### C MP, LIPID #### [facility] [address] [address] [address] Karen Sawyer Cholesterol.total/Cho lesterol in HDL [Mass ratio] 2.8 {ratio} Normal [facility] Comment on above: Performed By: #### C MP, LIPID #### [facility] [address] [address] [address] Karen Sawyer HDL NORMAL > or = 60 mg/dl - LOW CARDIOVASCULAR RISK <40 mg/dl - HIGH CARDIOVASCULAR RISK Normal [facility] Comment on above: Performed By: #### C MP, LIPID #### [facility] [address] [address] [address] Karen Sawyer LDL CALC NORMAL SEE BELOW Normal [facility] Comment on above: Result Comment: <100 mg/dl OPTIMAL 100 - 129 mg/dl NEAR OR ABOVE OPTIMAL 130 - 159 mg/dl BORDERLINE HIGH 160 - 189 mg/dl HIGH >190 mg/dl VERY HIGH Performed By: #### C MP, LIPID #### [facility] [address] [address] [address] Karen Sawyer Triglyceride [Mass/Vol] 72 mg/dL Normal <=150 [facility] Comment on above: Performed By: #### C MP, LIPID #### [facility] [address] [place] [address] Dr. Karen Sawyer VLDL CALC 14.4 mg/dL Normal [facility] Comment on above: Performed By: #### C MP, LIPID #### [facility] [address] [address] [address] Karen Sawyer PROF 14(COMP METB)on 022 Albumin [Mass/Vol] 3.8 g/dL Normal 3.4-5.0 [facility] Comment on above: Performed By: #### C MP, LIPID #### [facility] [address] [place] [address] Dr. Karen Sawyer Albumin/Globulin [Mass ratio] 1.1 {ratio} Normal [facility] Comment on above: Performed By: #### C MP, LIPID #### [facility] [address] [address] [address] Karen Sawyer ALP [Catalytic activity/Vol] 65 U/L Normal 46-116 [facility] Comment on above: Performed By: #### C MP, LIPID #### [facility] [address] [place] [address] Dr. Karen Sawyer ALT [Catalytic activity/Vol] 42 U/L Normal 16-63 [facility] Comment on above: Performed By: #### C MP, LIPID #### [facility] [address] [place] [address] Dr. Karen Sawyer Anion gap [Moles/Vol] 12.1 mmol/L Normal [facility] Comment on above: Performed By: #### C MP, LIPID #### [facility] [address] [place] [address] Dr. Karen Sawyer AST [Catalytic activity/Vol] 21 U/L Normal 15-37 [facility] Comment on above: Performed By: #### C MP, LIPID #### [facility] [address] [place] [address] Dr. Karen Sawyer Bilirubin [Mass/Vol] 0.2 mg/dL Normal 0.2-1.0 [facility] Comment on above: Performed By: #### C MP, LIPID #### [facility] [address] [place] [address] Dr. Karen Sawyer Calcium [Mass/Vol] 8.8 mg/dL Normal 8.5-10.1 [facility] Comment on above: Performed By: #### C MP, LIPID #### [facility] [address] [place] [address] Dr. Karen Sawyer Chloride [Moles/Vol] 105 mmol/L Normal 98-107 [facility] Comment on above: Performed By: #### C MP, LIPID #### [facility] [address] [place] [address] Dr. Karen Sawyer CO2 [Moles/Vol] 25.6 mmol/L Normal 21.0-32.0 [facility] Comment on above: Performed By: #### C MP, LIPID #### [facility] [address] [place] [address] Dr. Karen Sawyer Creatinine [Mass/Vol] 1.03 mg/dL Normal 0.70-1.30 [facility] Comment on above: Performed By: #### C MP, LIPID #### [facility] [address] [address] [address] Karen Sawyer EGFR-AF SALVADOREAN >60 Normal >=60 [facility] Comment on above: Performed By: #### C MP, LIPID #### [facility] [address] [address] [address] Karen Sawyer EGFR-NON AF SALVADOREAN >60 Normal >=60 [facility] Comment on above: Performed By: #### C MP, LIPID #### [facility] [address] [address] [address] Karen Sawyer Globulin (S) [Mass/Vol] 3.5 g/dL Normal [facility] Comment on above: Performed By: #### C MP, LIPID #### [facility] [address] [place] [address] Dr. Karen Sawyer Glucose [Mass/Vol] 118 mg/dL Critically high 74-[address] [facility] Comment on above: Performed By: #### C MP, LIPID #### [facility] [address] [address] [address] Karen Sawyer Potassium [Moles/Vol] 4.7 mmol/L Normal 3.5-5.1 [facility] Comment on above: Performed By: #### C MP, LIPID #### [facility] [address] [place] [address] Dr. Karen Sawyer Protein [Mass/Vol] 7.3 g/dL Normal 6.4-8.2 [facility] Comment on above: Performed By: #### C MP, LIPID #### [facility] [address] [address] [address] Karen Sawyer Sodium [Moles/Vol] 138 mmol/L Normal 136-145 [facility] Comment on above: Performed By: #### C MP, LIPID #### [facility] [address] [address] [address] Karen Sawyer Urea nitrogen [Mass/Vol] 20.0 mg/dL Critically high 7.0-18.0 [facility] Comment on above: Performed By: #### C MP, LIPID #### [facility] [address] [place] [address] Dr. Karen Sawyer Urea nitrogen/Creatinine [Mass ratio] 19.4 mg/mg Normal [facility] Comment on above: Performed By: #### C MP, LIPID #### [facility] [address] [place] [address] Dr. Karen Sawyer CBC AUTO DIFFon 06-21-2021 BASO # 0.0 103/ul Normal 0.0-0.1 [facility] Comment on above: Performed By: #### C BC #### [facility] [address] [place] [address] Dr. Karen Sawyer Basophils/100 WBC (Bld) 0.4 % Normal 0.2-2.0 [facility] Comment on above: Performed By: #### C BC #### [facility] [address] [place] [address] Dr. Karen Sawyer EO # 0.1 103/ul Normal 0.0-0.7 [facility] Comment on above: Performed By: #### C BC #### [facility] [address] [place] [address] Dr. Karen Sawyer Eosinophils/100 WBC (Bld) 2.7 % Normal 0.9-7.0 [facility] Comment on above: Performed By: #### C BC #### [facility] [address] [place] [address] Dr. Karen Sawyer Erythrocyte distribution width (RBC) [Ratio] 12.2 % Normal 11.0-15.0 [facility] Comment on above: Performed By: #### C BC #### [facility] [address] [place] [address] Dr. Karen Sawyer Hematocrit (Bld) [Volume fraction] 37.7 % Critically low 42.0-54.0 [facility] Comment on above: Performed By: #### C BC #### [facility] [address] [place] [address] Dr. Karen Sawyer Hemoglobin (Bld) [Mass/Vol] 12.9 g/dL Critically low 14.0-18.0 [facility] Comment on above: Performed By: #### C BC #### [facility] [address] [place] [address] Dr. Karen Sawyer IG # 0.02 10e3/ul Normal 0.00-0.03 [facility] Comment on above: Performed By: #### C BC #### [facility] [address] [place] [address] Dr. Karen Sawyer IG % 0.4 % Normal 0.0-0.5 [facility] Comment on above: Performed By: #### C BC #### [facility] [address] [place] [address] Dr. Karen Sawyer LYMPH # 1.7 103/ul Normal 1.2-3.8 [facility] Comment on above: Performed By: #### C BC #### [facility] [address] [place] [address] Dr. Karen Sawyer Lymphocytes/100 WBC (Bld) 37.6 % Normal 20.5-60.0 [facility] Comment on above: Performed By: #### C BC #### [facility] [address] [place] [address] Dr. Karen Sawyer MANUAL DIFF REQ NO Normal [facility] Comment on above: Performed By: #### C BC #### [facility] [address] [place] [address] Dr. Karen Sawyer MCH (RBC) [Entitic mass] 31.2 pg Normal 25.9-34.0 [facility] Comment on above: Performed By: #### C BC #### [facility] [address] [place] [address] Dr. Karen Sawyer MCHC (RBC) [Mass/Vol] 34.2 g/dL Normal 29.9-35.2 [facility] Comment on above: Performed By: #### C BC #### [facility] [address] [place] [address] Dr. Karen Sawyer MCV (RBC) [Entitic vol] 91.3 fL Normal 80.0-94.0 [facility] Comment on above: Performed By: #### C BC #### [facility] [address] [address] [address] Karen Sawyer MONO # 0.2 103/ul Critically low 0.3-0.8 [facility] Comment on above: Performed By: #### C BC #### [facility] [address] [address] [address] Karen Sawyer Monocytes/100 WBC (Bld) 5.1 % Normal 1.7-12.0 [facility] Comment on above: Performed By: #### C BC #### [facility] [address] [place] [address] Dr. Karen Sawyer NEUT # 2.4 103/ul Normal 1.4-6.5 [facility] Comment on above: Performed By: #### C BC #### [facility] [address] [place] [address] Dr. Karen Sawyer Neutrophils/100 WBC (Bld) 53.8 % Normal 43.0-75.0 [facility] Comment on above: Performed By: #### C BC #### [facility] [address] [place] [address] Dr. Karen Sawyer Platelet mean volume (Bld) [Entitic vol] 8.6 fL Critically low 9.5-13.5 [facility] Comment on above: Performed By: #### C BC #### [facility] [address] [place] [address] Dr. Karen Sawyer PLT 142 103/ul Critically low 150-450 [facility] Comment on above: Performed By: #### C BC #### [facility] [id number] [address] Karen Sawyer RBC 4.13 106/ul Critically low 4.70-6.10 [facility] Comment on above: Performed By: #### C BC #### [facility] [address] [place] [address] Dr. Karen Sawyer WBC 4.5 103/ul Normal 4.0-11.0 [facility] Comment on above: Performed By: #### C BC #### [facility] [address] [address] [address] Karen Sawyer GLYCOHEMOGLOBIN A1Con 2020 ADA RECOMMENDATION ADA THERAPEUTIC TARGET 6.0 - 7.0 ACTION SUGGESTED > 7.0 Normal [facility] Comment on above: Performed By: #### A 1C #### [facility] [address] [address] [address] Karen Sawyer Glucose [Mass/Vol] 137 mg/dL Normal [facility] Comment on above: Performed By: #### A 1C #### [facility] [address] [address] [address] Karen Sawyer HbA1c (Bld) [Mass fraction] 6.4 % Critically high <=6.0 [facility] Comment on above: Performed By: #### A 1C #### [facility] [address] [address] [address] Karen Sawyer H PYLORI ANTIBODYon 06-21-20 21 H PYLORI Negative Normal NEGATIVE [facility] Comment on above: Performed By: #### H PYL #### [facility] [address] [address] [address] Karen Sawyer LIPID PROFILEon 06-21-2021 CHOL-HDL RATIO NORM SEE BELOW Normal [facility] Comment on above: Result Comment: 3.3 - 4.4 LOW RISK 4.4 - 7.1 AVERAGE RISK 7.1 - 11.0 MODERATE RISK >11.0 HIGH RISK Performed By: #### L IPID, BMP #### [facility] [address] [place] [address] Dr. Karen Sawyer Cholesterol [Mass/Vol] 146 mg/dL Normal <=200 [facility] Comment on above: Performed By: #### L IPID, BMP #### [facility] [address] [address] [address] Karen Sawyer Cholesterol in HDL [Mass/Vol] 58 mg/dL Normal [facility] Comment on above: Performed By: #### L IPID, BMP #### [facility] [address] [address] [address] Karen Sawyer Cholesterol in LDL [Mass/Vol] 56.8 mg/dL Normal [facility] Comment on above: Performed By: #### L IPID, BMP #### [facility] [address] [address] [address] Karen Sawyer Cholesterol.total/Cho lesterol in HDL [Mass ratio] 2.5 {ratio} Normal [facility] Comment on above: Performed By: #### L IPID, BMP #### [facility] [address] [address] [address] Karen Sawyer HDL NORMAL > or = 60 mg/dl - LOW CARDIOVASCULAR RISK <40 mg/dl - HIGH CARDIOVASCULAR RISK Normal [facility] Comment on above: Performed By: #### L IPID, BMP #### [facility] [address] [place] [address] Dr. Karen Sawyer LDL CALC NORMAL SEE BELOW Normal [facility] Comment on above: Result Comment: <100 mg/dl OPTIMAL 100 - 129 mg/dl NEAR OR ABOVE OPTIMAL 130 - 159 mg/dl BORDERLINE HIGH 160 - 189 mg/dl HIGH >190 mg/dl VERY HIGH Performed By: #### L IPID, BMP #### [facility] [address] [place] [address] Dr. Karen Sawyer Triglyceride [Mass/Vol] 156 mg/dL Critically high <=150 [facility] Comment on above: Performed By: #### L IPID, BMP #### [facility] [address] [place] [address] Dr. Karen Sawyer VLDL CALC 31.2 mg/dL Normal [facility] Comment on above: Performed By: #### L IPID, BMP #### [facility] [address] [place] [address] Dr. Karen Sawyer PROF CHEM 8 (BAS METB)on Anion gap [Moles/Vol] 17.4 mmol/L Normal [facility] Comment on above: Performed By: #### L IPID, BMP #### [facility] [address] [place] [address] Dr. Karen Sawyer Calcium [Mass/Vol] 8.8 mg/dL Normal 8.4-10.2 [facility] Comment on above: Performed By: #### L IPID, BMP #### [facility] [address] [place] [address] Dr. Karen Sawyer Chloride [Moles/Vol] 103 mmol/L Normal 98-107 [facility] Comment on above: Performed By: #### L IPID, BMP #### [facility] [address] [place] [address] Dr. Kaern Sawyer CO2 [Moles/Vol] 23.8 mmol/L Normal 22.0-30.0 [facility] Comment on above: Performed By: #### L IPID, BMP #### [facility] [address] [place] [address] Dr. Karen Sawyer Creatinine [Mass/Vol] 1.01 mg/dL Normal 0.66-1.25 [facility] Comment on above: Performed By: #### L IPID, BMP #### [facility] [address] [place] [address] Dr. Karen Sawyer EGFR-AF SALVADOREAN >60 Normal >=60 [facility] Comment on above: Performed By: #### L IPID, BMP #### [facility] [address] [place] [address] Dr. Karen Sawyer EGFR-NON AF SALVADOREAN >60 Normal >=60 [facility] Comment on above: Performed By: #### L IPID, BMP #### [facility] [address] [place] [address] Dr. Karen Sawyer Glucose [Mass/Vol] 158 mg/dL Critically high 74-[address] [facility] Comment on above: Performed By: #### L IPID, BMP #### [facility] [address] [place] [address] Dr. Karen Sawyer Potassium [Moles/Vol] 4.2 mmol/L Normal 3.4-5.0 [facility] Comment on above: Performed By: #### L IPID, BMP #### [facility] [address] [place] [address] Dr. Karen Sawyer Sodium [Moles/Vol] 140 mmol/L Normal 137-145 [facility] Comment on above: Performed By: #### L IPID, BMP #### [facility] [address] [address] [address] Karen Sawyer Urea nitrogen [Mass/Vol] 21.0 mg/dL Critically high 9.0-20.0 [facility] Comment on above: Performed By: #### L IPID, BMP #### [facility] [address] [address] [address] Karen Sawyer Urea nitrogen/Creatinine [Mass ratio] 20.8 mg/mg Normal [facility] Comment on above: Performed By: #### L IPID, BMP #### [facility] [address] [address] [address] Karen Sawyer Encounters Encounter Date Encounter Type Care Provider Facility Start: 07-03-2024 End: 07-03-2024 Clinisync Result Encounter Shaikh Jimmy ZHONG Work Phone: [facility] Unsolicited Start: 07-03-2024 End: 07-03-2024 Clinisync Result Encounter Shaikh Jimmy ZHONG Work Phone: [facility] Unsolicited Start: 05-27-2024 End: 05-31-2024 Refill Faith Hayward CERTIFIED FI[employer] INVESTIGATOR Work Phone: [facility] Comment on above: Other hyperlipidemia (CMS/HCC) (Primary Dx); Type 2 diabetes mellitus without complication, with long-term current use of insulin (CMS/HCC); Essential (primary) hypertension (CMS/HCC); Benign essential hypertension (CMS/HCC); Gastroesophageal reflux disease without esophagitis Start: 05-06-2024 End: 05-06-2024 ambulatory ODILON SOFIA Not Available Start: 04-21-2024 End: 04-21-2024 ambulatory FAITH HAYWARD Not Available Start: 01-28-2024 End: 01-28-2024 ambulatory LULU OLMSTEAD Not Available Start: 01-01-2024 End: 01-01-2024 ambulatory SHAIKH JIMMY Not Available Start: 10-06-2023 End: 10-06-2023 ambulatory SHAIKH JIMMY Not Available Start: 05-31-2022 End: 06-01-2022 ambulatory SHAIKH Madhuri MARQUEZ Facility:[facility] Start: 06-28-2021 Encounter for genera l adult medical examination without abnormal findings RODNEY BECERRA [facility] Start: 06-21-2021 End: 06-22-2021 ambulatory RODNEY BECERRA Facility:[facility] Start: 06-21-2021 End: 06-22-2021 Encounter for general adult medical examination without abnormal findings RODNEY BECERRA Facility:[facility] Procedures Date Procedure Procedure Detail Performing Clinician Start: 07-03-2024 PARAS CMP Shaikh Caesar pepe MD Work Phone: Start: 07-03-2024 Lipid panel Shaikh Caesar pepe MD Work Phone: Start: 07-03-2024 [facility] CBC AUTO DIFF Shaik madhuri Marquez MD Work Phone: Start: 07-03-2024 [facility] DIRECT LDL Shaikh Shavon burgos MD Work Phone: Start: 07-03-2024 [facility] GLYCOHEMOGLOBIN A1C Shaikh Jimmy ZHONG Work Phone: Start: 07-03-2024 [facility] MICROALB CREAT R ATIO RANDOM Shaikh Jimmy ZHONG Work Phone: Start: 06-21-2021 PSA screening SHAIKH [facility]T [facility] Comment on above: Performed By: #### P [facility] #### [facility] [address] [place] [address] Dr. Karen Sawyer Plan of Treatment Date Care Activity Detail Author Start: 05-14-2025 Glaucoma screening Diabetes: R etinopathy Screening [facility] Start: 07-22-2024 End: 07-22-2024 Patient encounter procedure 07/22/2024 9:00 AM EST Office Visit [facility] [address] [facility] [address] [place] [id number] Odilon Sofia, VALERIO [address] [address] [facility] Start: 07-21-2024 End: 07-21-2024 Patient encounter procedure 07/21/2024 8:00 AM EST Office Visit [facility] [address] [place] [address] Faith Hayward, YARELY [address] [place] [address] [facility] Start: 04-18-2024 Influenza vaccination Influenza Vacc ine (#1) [facility] Start: 11-28-2023 Hemoglobin A1c measurement Diabetes: Hemoglobin A1C [facility] Start: 09-25-2019 Urine screening for protein Diabetes: Urine Protein Screening [facility] Start: 1965 Screening for malign ant neoplasm of colon [facility] Payers Date Payer Category Payer [facility] er [id number] 2022 Unknown [id number] 1965 Unknown [id number] 1965 Unknown [id number] [id number] 1964 Unknown [id number] 1964 Unknown [id number] 1964 Unknown [id number] 1964 Unknown [id number] 1964 Unknown [id number] 1960 Private Health Insurance [id number] Social History Date Type Detail Facility Start: 01-01-2024 Tobacco smoking stat [facility] Never smoked tobacco [facility] Start: 05-06-2024 Alcoholic beverage intake Current drinker of alcohol (finding) [facility] Start: 04-21-2024 End: 05-06-2024 Alcoholic beverage intake [facility] Start: 04-21-2024 End: 05-06-2024 Tobacco use panel [facility] Start: 1965 Sex assigned at Not on file [facility] NEGATED: Highlighted rowStart: NINF History of tobacco use Passive smoker [facility] Medical Equipment Procedure Code Equipment Code Equipment Origin al Text Equipment Identifier Dates [id number] Start: 11-28-2022 End: 05-27-2024 Inject 1 Lancet under the skin 4 (four) times a day as needed (Hyperglycemia) [id number] Start: 05-31-2024 Evaluation note Note Date & Type Note Facility Evaluation note Diagnosis Primary hypertension ([facility]/HCC)- Primary Unspecified essential hypertension Gastroesophageal reflux disease [...] content) DATE CREATED AUTHOR 06/10/2022 [facility] DATE CREATED AUTHOR AUTHOR'S ORGANIZ ATION 05/08/2024 [facility] Care Teams (unrecognized sec tion and content) Product Manufacturing Professional Relationship Specialty Start Date End Date Shaikh Marquez MD [address] [place] [id number] PCP - [employer] 11/17/23 Luther Madrid MD [address] [place] [address] PCP - General Family Medicine 04/08/24 Faith Hayward NP [address] [place] [address] Nurse Practitioner Family Medicine 04/08/24 Product Manufacturing Professional Relationship Specialty Start Date End Date Shaikh Marquez MD [address] [place] [address] PCP - [employer] 11/17/23 Luther Madrid MD [address] [place] [address] PCP - General Family Medicine 04/08/24 Faith Hayward NP [address] [place] [address] [place] [address] Nurse Practitioner Family Medicine 04/08/24 FOR RECORDS [...] BE BASED ON THE PRIMARY CLINICAL RECORDS. [employer] provides no warranty or guarantee of the accuracy or completeness of information in this document.
--- NOTE | 2024-07-16 08:43 | XR_ITS ---
The [address] [address] Patient Name: YESSENIA BEST MRN: [id number] date: 1965 Sex: M Assigned Patient Location: [facility] Current Patient Location: Accession/Order Number: [id number] Exam Date: 07/16/2024 08:45 Report Date: 07/18/2024 12:26 At the request of: FRANCIA ZACARIAS Procedure: XR lumbar spine 6V w bending EXAMINATION: XR lumbar spine 6V w bending HISTORY: Lumbar back pain M54.50 COMPARISON: No relevant comparison available. FINDINGS: BONES: Mild/moderate degenerative facet arthropathy L4-L5, L5-S1. Normal height and alignment of the vertebral bodies. No fracture spondylolisthesis; no change in alignment during flexion and extension. DISC SPACES: No significant disc height narrowing, subluxation, or endplate abnormality. PARASPINOUS: Negative. No paraspinous abnormality is seen. OTHER: Negative. XR/XR lumbar spine 6V w bending IMPRESSION: 1. No appreciable acute abnormality. 2. Mild degenerative changes. Electronically authenticated by: TALON GIANG Date: 07/18/2024 12:26
== END 2024-07-16 08:34 | disposition home or self-care (01) ==
LOC: RAD 08:35
DX: M54.50 Low back pain, unspecified (principal)
CPT/HCPCS: 72114

== ENCOUNTER 2024-07-28 07:57 | Outpatient (OUT) | payer BC, SELFPAY ==
--- OUTSIDE RECORDS SUMMARY | 2024-07-28 08:04 | XMS_ITS | CCD ---
Author Organization [facility] Care Team Providers Care As400 Administrator Name Role Phone SHAIKH Madhuri MARQUEZ Admitting Unavailable SHAIKH Madhuri MARQUEZ Attending Unavailable RODNEY BECERRA Primary Care Unavailable SHAIKH Madhuri MARQUEZ Consulting Unavailable RODNEY BECERRA Admitting Unavailable RODNEY BECERRA Attending Unavailable RODNEY BECERRA Primary Care Unavailable RODNEY BECERRA Consulting Unavailable Shaikh Marquez MD Unavailable Luther Madrid MD Primary Care Provider [phone] Faith Hayward NP Unavailable SHAIKH MARQUEZ Attending Unavailable SHAIKH MARQUEZ Attending Unavailable LULU OLMSTEAD Attending Unavailable FAITH HAYWARD Attending ODILON Son Attending Unavailable FAITH HAYWARD Referring FAITH Real Attending Ava blue Medications Current Medications Medication Drug Class(es) Dates Sig (Normalized) Sig (Original) amLODIPine 10 mg oral tablet (8 sources) Dihydropyridine Calcium Channel Tear Start: 07-21-2024 End: 07-21-2025 take 1 tablet by mouth once daily amLODIPine (Norvasc) 10 MG tablet Indications: Essential (primary) hypertension (CMS/HCC) Take 1 tablet (10 mg) by mouth Daily 30 tablet 11 07/21/2024 07/21/2025 Active Start: 05-31-2024 End: 07-21-2024 take 1 tablet by mouth once daily amLODIPine (Norvasc) 5 MG tablet Indications: Essential (primary) hypertension (CMS/HCC) Take 1 tablet (5 mg) by mouth Daily 30 tablet 2 05/31/2024 07/21/2024 Discontinued (Dose adjustment) Start: 08-20-2023 End: 05-27-2024 take 1 tablet by mouth in the morning amLODIPine (Norvasc) 5 MG tablet Take 1 tablet by mouth in the morning. 08/20/2023 05/27/2024 Discontinued (Reorder) atorvastatin 40 mg oral tablet (6 sources) HMG-CoA Reductase Inhibitor Start: 05-31-2024 take [...] / losartan potassium 100 mg oral tablet (6 sources) Thiazide Diuretic, Angiotensin 2 Receptor Tera [...] insulin aspart, human 100 unt/ml pen injector (6 sources) Insulin Analog Start: 05-31-2024 insulin aspart [...] ml insulin glargine 100 unt/ml pen injector (6 sources) Insulin Analog Start: 05-31-2024 End: 11-27-2024 [...] Discontinued (Reorder) latanoprost 0.05 mg/ml ophthalmic solution (5 sources) Prostaglandin Analog Start: 07-04-2023 take 1 drop(s) into the eye(s) at bedtime latanoprost (Xalatan) 0.005 % ophthalmic solution Administer 1 drop into both eyes at bedtime 07/04/2023 Active omeprazole 40 mg delayed release oral capsule (6 sources) Proton Pump Inhibitor Start: 05-31-2024 End: [...] Discontinued (Reorder) semaglutide 7 mg oral tablet (6 sources) Start: 05-31-2024 End: 08-29-2024 take 1 tablet by mouth before mealtime semaglutide (Rybelsus) 7 MG tablet Indications: Type 2 diabetes mellitus without complication, with long-term current use of insulin (CMS/HCC) Take 1 tablet (7 mg) by mouth in the morning. Take before meals. Do not eat for 30 minutes after using the medications. 90 tablet 05/31/2024 08/29/2024 Active Start: 04-21-2024 End: 05-27-2024 take 1 tablet by mouth before mealtime semaglutide (Rybelsus) 7 MG tablet Indications: Type 2 diabetes mellitus without complication, with long-term current use of insulin (CMS/HCC) Take 1 tablet (7 mg) by mouth [...] Onset: 06-28-2021 Chronic Diabetes mellitus without complication (9 sources) Type 2 diabetes mellitus without complication; Translations: [Type 2 diabetes mellitus without complications] Onset: 10-06-2023 05-31-2024 Chronic Disorders of lipid metabolism (9 sources) Hyperlipidemia, unspecified; Translations: [Hyperlipidemia] Onset: 06-05-2022 05-31-2024 Chronic Esophageal disorders (7 sources) Gastro-esophageal reflux disease without esophagitis; Translations: [Gastroesophageal reflux disease without esophagitis] Onset: 06-28-2021 05-27-2024 Chronic Essential hypertension (12 sources) Essential (primary) hypertension; Translations: [Essential hypertension] Onset: 06-05-2022 05-27-2024 Chronic Immunizations and screening for infectious disease (4 sources) Needs influenza immunization; Translations: [Encounter for immunization] Onset: 07-21-2024 07-21-2024 Episodic Other screening for suspected conditions (not mental disorders or infectious disease) (6 sources) Encounter for screening for malignant neoplasm of prostate; Translations: [Patient encounter status] Onset: 06-28-2021 04-21-2024 Episodic Spondylosis; intervertebral disc disorders; other back problems (4 sources) Disorder of lumbar spine; Translations: [Spondylosis without myelopathy or radiculopathy, lumbar region] Onset: 07-21-2024 07-21-2024 Chronic Spondylosis; intervertebral disc disorders; other back problems (11 sources) Chronic low back pain; Translations: [Chronic right-sided low back pain without sciatica] Onset: 10-06-2023 10-06-2023 Episodic Past or Other Problems Problem Classification Problem Date Documented Da te Episodic/Chronic Abdominal hernia (5 sources) Right inguinal hernia ; Translations: [Unilateral inguinal hernia, without obstruction or gangrene, not specified as recurrent] Onset: 10-06-2023 10-06-2023 Episodic Other gastrointestinal disorders (5 sources) Esophageal dysphagia; Translations: [Other dysphagia] Onset: 10-06-2023 10-06-2023 Episodic Other skin disorders (5 sources) Eruption; Translations: [Rash and other nonspecific skin eruption] Onset: 01-01-2024 01-01-2024 Episodic Results Test Name Value Interpretation Reference Range Facility PARAS CMPon 07-05-2024 Albumin [Mass/Vol] 3.7 g/dL 3.4 - 5.0 g/dL [facility] ALBUMIN GLOBULIN RATIO 0.9 [facility] ALP [Catalytic activity/Vol] 68 U/L 46 - 116 U/L [facility] ALT [Catalytic activity/Vol] 54 U/L 16 - 63 U/L [facility] Anion gap [Moles/Vol] 19 mmol/L [facility] AST [Catalytic activity/Vol] 45 U/L High 15 - 37 U/L [facility] Bilirubin [Mass/Vol] 0.5 mg/dL 0.2 - 1 .0 mg/dL [facility] Calcium [Mass/Vol] 9.3 mg/dL 8.5 - 10. 1 mg/dL [facility] Chloride [Moles/Vol] 104 mmol/L 98 - 10 7 mmol/L [facility] CO2 [Moles/Vol] 23.3 mmol/L 21.0 - 32.0 mmol/L [facility] Creatinine [Mass/Vol] 1.39 mg/dL High 0.70 - 1.30 mg/dL [facility] GFR/1.73 sq M.predicted CKD-EPI (S/P/Bld) [Vol rate/Area] >60 >=60 mL/min/1.73m 2 [facility] Globulin (S) [Mass/Vol] 4 g/dL [facility] Glucose [Mass/Vol] 153 mg/dL High 74 - 106 mg/dL NO MS [facility] Potassium [Moles/Vol] 4.3 mmol/L 3.5 - 5.1 mmol/L [facility] Protein [Mass/Vol] 7.7 g/dL 6.4 - 8.2 g/dL NO [facility] Sodium [Moles/Vol] 142 mmol/L 136 - 145 mmol/L [facility] TB EGFR-NON AF AUSTRALIAN 52 Low >=60 mL/min/1.73m 2 [facility] Urea nitrogen [Mass/Vol] 19 mg/dL High 7.0 - 18.0 mg/dL [facility] Urea nitrogen/Creatinine [Mass ratio] 13.7 mg/mg [facility] LIPID PANELon 07-05-2024 CHOL HDL RATIO 3.5 [facility] Comment on above: 3.3 - 4.4 LOW RISK 4.4 - 7.1 AVERAGE RISK 7.1 - 11.0 MODERATE RISK >11.0 HIGH RISK Cholesterol [Mass/Vol] 135 mg/dL NINF - 200 mg/dL [facility] Cholesterol in HDL [Mass/Vol] 39 mg/dL Low 40 - 60 mg/dL [facility] Comment on above: > or =60 mg/dl - LOW CARDIOVASCULAR RISK <40 mg/dl - HIGH CARDIOVASCULAR RISK Magnesium [Mass/Vol] 128.8 mg/dL [facility] Triglyceride [Mass/Vol] 644 mg/dL High NINF - 150 mg/dL [facility] No Panel Informationon 07-05 Interpretation and review of laboratory results Abnormal [facility] e TB CBC AUTO DIFFon 07-05-20 24 BASOPHILS ABSOLUTE AUTO 0 [facility] Basophils/100 WBC (Bld) 0.8 % 0.2 - 2.0 % [facility] Eosinophils/100 WBC (Bld) 3.8 % 0.9 - 7.0 % [facility] Erythrocyte distribution width (RBC) [Ratio] 13 % 11.0 - 15.0 % [facility] Hematocrit (Bld) [Volume fraction] 38.9 % Low 42.0 - 54.0 % [facility] Hemoglobin (Bld) [Mass/Vol] 13.5 g/dL Low 14.0 - 18.0 g/dL [facility] IMMATURE GRANULOCYTES ABS AUTO 0.02 [facility] Immature granulocytes/100 WBC (Bld) 0.4 % 0.0 - 0.5 % [facility] LYMPHOCYTES ABSOLUTE AUTO 1.6 [facility] Lymphocytes/100 WBC (Bld) 33.1 % 20.5 - 60.0 % [facility] MCH (RBC) [Entitic mass] 31.7 pg 25.9 - 34.0 pg [facility] MCHC (RBC) [Mass/Vol] 34.7 g/dL 29.9 - 35.2 g/dL [facility] MCV (RBC) [Entitic vol] 91.3 fL 80.0 - 94.0 fL [facility] MONOCYTES ABSOLUTE AUTO 0.2 Low [facility] Monocytes/100 WBC (Bld) 5 % 1.7 - 12.0 % [facility] NEUTROPHILS ABSOLUTE AUTO 2.7 [facility] Neutrophils/100 WBC (Bld) 56.9 % 43.0 - 75.0 % [facility] Platelet mean volume (Bld) [Entitic vol] 8.9 fL Low 9.5 - 13.5 fL [facility] EO # 0.2 [facility] NRBC 0 [facility] TB PLT 183 [facility] RBC 4.26 Low [facility] TB WBC 4.8 [facility] DIRECT LDLon 07-05-2024 Magnesium [Mass/Vol] 38 mg/dL [facility] Comment on above: <100 mg/dl OPTIMAL 100-129 mg/dl NEAR OR ABOVE OPTIMAL 130-159 mg/dl BORDERLINE HIGH 160-189 mg/dl HIGH >190 mg/dl VERY HIGH TB GLYCOHEMOGLOBIN A1Con Glucose [Mass/Vol] 143 mg/[facility] HbA1c (Bld) [Mass fraction] 6.6 % High 4.5 - 6.2 % [facility] Comment on above: ADA RECOMMENDED LIMI T 4.0 - 6.0 ADA THERAPEUTIC TARGET < 7.0 ACTION SUGGESTED > 7.0 PARAS CMPon 07-03-2024 Albumin [Mass/Vol] 3.7 g/dL 3.4 - 5.0 g/dL NO [facility] ALBUMIN GLOBULIN RATIO 0.9 [facility] ALP [Catalytic activity/Vol] 68 U/L 46 - 116 U/L [facility] ALT [Catalytic activity/Vol] 54 U/L 16 - 63 U/L [facility] Anion gap [Moles/Vol] 19 mmol/L [facility] AST [Catalytic activity/Vol] 45 U/L High 15 - 37 U/L [facility] Bilirubin [Mass/Vol] 0.5 mg/dL 0.2 - 1 .0 mg/dL [facility] Calcium [Mass/Vol] 9.3 mg/dL 8.5 - 10. 1 mg/dL [facility] Chloride [Moles/Vol] 104 mmol/L 98 - 10 7 mmol/L [facility] CO2 [Moles/Vol] 23.3 mmol/L 21.0 - 32.0 mmol/L [facility] Creatinine [Mass/Vol] 1.39 mg/dL High 0.70 - 1.30 mg/dL [facility] GFR/1.73 sq M.predicted CKD-EPI (S/P/Bld) [Vol rate/Area] >60 >=60 mL/min/1.73m 2 [facility] Globulin (S) [Mass/Vol] 4 g/dL [facility] Glucose [Mass/Vol] 153 mg/dL High 74 - 106 mg/dL NO [facility] Potassium [Moles/Vol] 4.3 mmol/L 3.5 - 5.1 mmol/L [facility] Protein [Mass/Vol] 7.7 g/dL 6.4 - 8.2 g/dL NO [facility] Sodium [Moles/Vol] 142 mmol/L 136 - 145 mmol/L [facility] TBH EGFR-NON AF AUSTRALIAN 52 Low >=60 mL/min/1.73m 2 [facility] Urea nitrogen [Mass/Vol] 19 mg/dL High 7.0 - 18.0 mg/dL [facility] Urea nitrogen/Creatinine [Mass ratio] 13.7 mg/mg [facility] LIPID PANELon 07-03-2024 CHOL HDL RATIO 3.5 [facility] Comment on above: 3.3 - 4.4 LOW RISK 4.4 - 7.1 AVERAGE RISK 7.1 - 11.0 MODERATE RISK >11.0 HIGH RISK Cholesterol [Mass/Vol] 135 mg/dL NINF - 200 mg/dL [facility] Cholesterol in HDL [Mass/Vol] 39 mg/dL Low 40 - 60 mg/dL [facility] Comment on above: > or =60 mg/dl - LOW CARDIOVASCULAR RISK <40 mg/dl - HIGH CARDIOVASCULAR RISK Magnesium [Mass/Vol] 128.8 mg/dL [facility] Triglyceride [Mass/Vol] 644 mg/dL High NINF - 150 mg/dL [facility] No Panel Informationon 07-03 Interpretation and review of laboratory results Abnormal [facility] CBC AUTO DIFFon 07-03-20 24 BASOPHILS ABSOLUTE AUTO 0 [facility] Basophils/100 WBC (Bld) 0.8 % 0.2 - 2.0 % [facility] Eosinophils/100 WBC (Bld) 3.8 % 0.9 - 7.0 % [facility] Erythrocyte distribution width (RBC) [Ratio] 13 % 11.0 - 15.0 % [facility] Hematocrit (Bld) [Volume fraction] 38.9 % Low 42.0 - 54.0 % [facility] Hemoglobin (Bld) [Mass/Vol] 13.5 g/dL Low 14.0 - 18.0 g/dL [facility] IMMATURE GRANULOCYTES ABS AUTO 0.02 [facility] Immature granulocytes/100 WBC (Bld) 0.4 % 0.0 - 0.5 % [facility] Interpretation and review of laboratory results Abnormal [facility] LYMPHOCYTES ABSOLUTE AUTO 1.6 [facility] Lymphocytes/100 WBC (Bld) 33.1 % 20.5 - 60.0 % [facility] MCH (RBC) [Entitic mass] 31.7 pg 25.9 - 34.0 pg [facility] MCHC (RBC) [Mass/Vol] 34.7 g/dL 29.9 - 35.2 g/dL [facility] MCV (RBC) [Entitic vol] 91.3 fL 80.0 - 94.0 fL [facility] MONOCYTES ABSOLUTE AUTO 0.2 Low [facility] Monocytes/100 WBC (Bld) 5 % 1.7 - 12.0 % [facility] NEUTROPHILS ABSOLUTE AUTO 2.7 [facility] Neutrophils/100 WBC (Bld) 56.9 % 43.0 - 75.0 % [facility] Platelet mean volume (Bld) [Entitic vol] 8.9 fL Low 9.5 - 13.5 fL [facility] are TBH EO # 0.2 [facility] NRBC 0 [facility] TB PLT 183 [facility] TB RBC 4.26 Low [facility] TB WBC 4.8 [facility] DIRECT LDLon 07-03-2024 Magnesium [Mass/Vol] 38 mg/dL [facility] Comment on above: <100 mg/dl OPTIMAL 100-129 mg/dl NEAR OR ABOVE OPTIMAL 130-159 mg/dl BORDERLINE HIGH 160-189 mg/dl HIGH >190 mg/dl VERY HIGH TBH GLYCOHEMOGLOBIN A1Con Glucose [Mass/Vol] 143 mg/dL [facility] HbA1c (Bld) [Mass fraction] 6.6 % High 4.5 - 6.2 % [facility] Comment on above: ADA RECOMMENDED LIMI T 4.0 - 6.0 ADA THERAPEUTIC TARGET < 7.0 ACTION SUGGESTED > 7.0 Interpretation and review of laboratory results Abnormal [facility] MICROALB CREAT RATIO RAN DOMon 07-03-2024 CREATININE URINE RANDOM 113.51 mg/dL 20.00 - 300.00 mg/dL [facility] MICROALBUMIN URINE RANDOM <1.3 NINF - 30.0 mg/dL [facility] CBC AUTO DIFFon 05-31-2022 BASO # 0.0 103/ul Normal 0.0-0.1 [facility] Comment on above: Performed By: #### C BC #### [facility] [address] [place] [address] Dr. Karen Sawyer Basophils/100 WBC (Bld) 0.4 % Normal 0.2-2.0 [facility] Comment on above: Performed By: #### C BC #### [facility] [address] [place] [address] Dr. Karen Sawyer EO # 0.2 103/ul Normal 0.0-0.7 [facility] Comment on above: Performed By: #### C BC #### [facility] [address] [place] [address] Dr. Karen Sawyer Eosinophils/100 WBC (Bld) 3.1 % Normal 0.9-7.0 [facility] Comment on above: Performed By: #### C BC #### [facility] [address] [place] [address] Dr. Karen Sawyer Erythrocyte distribution width (RBC) [Ratio] 12.3 % Normal 11.0-15.0 [facility] Comment on above: Performed By: #### C BC #### [facility] [address] [place] [address] Dr. Karen Sawyer Hematocrit (Bld) [Volume fraction] 38.6 % Critically low 42.0-54.0 [facility] Comment on above: Performed By: #### C BC #### [facility] [address] [place] [address] Dr. Karen Sawyer Hemoglobin (Bld) [Mass/Vol] 12.9 g/dL Critically low 14.0-18.0 [facility] Comment on above: Performed By: #### C BC #### [facility] [address] [place] [address] Dr. Karen Sawyer IG # 0.03 10e3/ul Normal 0.00-0.03 [facility] Comment on above: Performed By: #### C BC #### [facility] [address] [place] [address] Dr. Karen Sawyer IG % 0.6 % Critically high 0.0-0.5 [facility] Comment on above: Performed By: #### C BC #### [facility] [address] [place] [address] Dr. Karen Sawyer LYMPH # 1.7 103/ul Normal 1.2-3.8 [facility] Comment on above: Performed By: #### C BC #### [facility] [address] [place] [address] Dr. Karen Sawyer Lymphocytes/100 WBC (Bld) 32.1 % Normal 20.5-60.0 [facility] Comment on above: Performed By: #### C BC #### [facility] [address] [place] [address] Dr. Karen Sawyer MANUAL DIFF REQ NO Normal [facility] Comment on above: Performed By: #### C BC #### [facility] [address] [place] [address] Dr. Karen Sawyer MCH (RBC) [Entitic mass] 31.2 pg Normal 25.9-34.0 [facility] Comment on above: Performed By: #### C BC #### [facility] [address] [place] [address] Dr. Karen Sawyer MCHC (RBC) [Mass/Vol] 33.4 g/dL Normal 29.9-35.2 [facility] Comment on above: Performed By: #### C BC #### [facility] [address] [place] [address] Dr. Karen Sawyer MCV (RBC) [Entitic vol] 93.2 fL Normal 80.0-94.0 [facility] Comment on above: Performed By: #### C BC #### [facility] [address] [place] [address] Dr. Karen Sawyer MONO # 0.3 103/ul Normal 0.3-0.8 [facility] Comment on above: Performed By: #### C BC #### [facility] [address] [place] [address] Dr. Karen Sawyer Monocytes/100 WBC (Bld) 6.0 % Normal 1.7-12.0 [facility] Comment on above: Performed By: #### C BC #### [facility] [address] [place] [address] Dr. Karen Saweyr NEUT # 3.0 103/ul Normal 1.4-6.5 [facility] Comment on above: Performed By: #### C BC #### [facility] [address] [place] [address] Dr. Karen Sawyer Neutrophils/100 WBC (Bld) 57.8 % Normal 43.0-75.0 [facility] Comment on above: Performed By: #### C BC #### [facility] [address] [place] [address] Dr. Karen Sawyer Platelet mean volume (Bld) [Entitic vol] 8.2 fL Critically low 9.5-13.5 [facility] Comment on above: Performed By: #### C BC #### [facility] [address] [place] [address] Dr. Karen Sawyer PLT 175 103/ul Normal 150-450 [facility] Comment on above: Performed By: #### C BC #### [facility] [address] [address] [address] Karen Sawyer RBC 4.14 106/ul Critically low 4.70-6.10 [facility] Comment on above: Performed By: #### C BC #### [facility] [address] [address] [address] Karen Sawyer WBC 5.2 103/ul Normal 4.0-11.0 [facility] Comment on above: Performed By: #### C BC #### [facility] [address] [place] [address] Dr. Karen Sawyer GLYCOHEMOGLOBIN A1Con 2021 ADA RECOMMENDATION SEE BELOW Normal [facility] Comment on above: Result Comment: ADA RECOMMENDED LIMIT 4.0 - 6.0 ADA THERAPEUTIC TARGET < 7.0 ACTION SUGGESTED > 7.0 Performed By: #### A 1C #### [facility] [address] [place] [address] Dr. Karen Sawyer Glucose [Mass/Vol] 134 mg/dL Normal [facility] Comment on above: Performed By: #### A 1C #### [facility] [address] [place] [address] Dr. Karen Sawyer HbA1c (Bld) [Mass fraction] 6.3 % Critically high 4.5-6.2 [facility] Comment on above: Performed By: #### A 1C #### [facility] [address] [place] [address] Dr. Karen Sawyer LIPID PROFILEon 05-31-2022 CHOL-HDL RATIO NORM SEE BELOW Normal [facility] Comment on above: Result Comment: 3.3 - 4.4 LOW RISK 4.4 - 7.1 AVERAGE RISK 7.1 - 11.0 MODERATE RISK >11.0 HIGH RISK Performed By: #### C MP, LIPID #### [facility] [address] [address] [address] Karen Sawyer Cholesterol [Mass/Vol] 127 mg/dL Normal <=200 [facility] Comment on above: Performed By: #### C MP, LIPID #### [facility] [address] [address] [address] Karen Sawyer Cholesterol in HDL [Mass/Vol] 46 mg/dL Normal 40-60 [facility] Comment on above: Performed By: #### C MP, LIPID #### [facility] [address] [address] [address] Karen Sawyer Cholesterol in LDL [Mass/Vol] 66.6 mg/dL Normal [facility] Comment on above: Performed By: #### C MP, LIPID #### [facility] [address] [address] [address] Karen Sawyer Cholesterol.total/Cho lesterol in HDL [Mass ratio] 2.8 {ratio} Normal [facility] Comment on above: Performed By: #### C MP, LIPID #### [facility] [address] [address] [address] Karen Sawyer HDL NORMAL > or = 60 mg/dl - LOW CARDIOVASCULAR RISK <40 mg/dl - HIGH CARDIOVASCULAR RISK Normal [facility] Comment on above: Performed By: #### C MP, LIPID #### [facility] [address] [address] [address] Karen Sawyer LDL CALC NORMAL SEE BELOW Normal [facility] Comment on above: Result Comment: <100 mg/dl OPTIMAL 100 - 129 mg/dl NEAR OR ABOVE OPTIMAL 130 - 159 mg/dl BORDERLINE HIGH 160 - 189 mg/dl HIGH >190 mg/dl VERY HIGH Performed By: #### C MP, LIPID #### [facility] [address] [address] [address] Karen Sawyer Triglyceride [Mass/Vol] 72 mg/dL Normal <=150 [facility] Comment on above: Performed By: #### C MP, LIPID #### [facility] [address] [address] [address] Karen Sawyer VLDL CALC 14.4 mg/dL Normal [facility] Comment on above: Performed By: #### C MP, LIPID #### [facility] [address] [place] [address] Dr. Karen Sawyer PROF 14(COMP METB)on 05-31- 022 Albumin [Mass/Vol] 3.8 g/dL Normal 3.4-5.0 [facility] Comment on above: Performed By: #### C MP, LIPID #### [facility] [address] [place] [address] Dr. Karen Sawyer Albumin/Globulin [Mass ratio] 1.1 {ratio} Normal [facility] Comment on above: Performed By: #### C MP, LIPID #### [facility] [address] [place] [address] Dr. Karen Sawyer ALP [Catalytic activity/Vol] 65 U/L Normal 46-116 [facility] Comment on above: Performed By: #### C MP, LIPID #### [facility] [address] [place] [address] Dr. Karen Sawyer ALT [Catalytic activity/Vol] 42 U/L Normal 16-63 [facility] Comment on above: Performed By: #### C MP, LIPID #### [facility] [address] [place] [address] Dr. Karen Sawyer Anion gap [Moles/Vol] 12.1 mmol/L Normal [facility] Comment on above: Performed By: #### C MP, LIPID #### [facility] [address] [place] [address] Dr. Karen Sawyer AST [Catalytic activity/Vol] 21 U/L Normal 15-37 [facility] Comment on above: Performed By: #### C MP, LIPID #### [facility] [address] [place] [address] Dr. Karen Sawyer Bilirubin [Mass/Vol] 0.2 mg/dL Normal 0.2-1.0 [facility] Comment on above: Performed By: #### C MP, LIPID #### [facility] [address] [place] [address] Dr. Karen Sawyer Calcium [Mass/Vol] 8.8 mg/dL Normal 8.5-10.1 [facility] Comment on above: Performed By: #### C MP, LIPID #### [facility] [address] [place] [address] Dr. Karen Sawyer Chloride [Moles/Vol] 105 mmol/L Normal 98-107 [facility] Comment on above: Performed By: #### C MP, LIPID #### [facility] [address] [place] [address] Dr. Karen Sawyer CO2 [Moles/Vol] 25.6 mmol/L Normal 21.0-32.0 [facility] Comment on above: Performed By: #### C MP, LIPID #### [facility] [address] [place] [address] Dr. Karen Sawyer Creatinine [Mass/Vol] 1.03 mg/dL Normal 0.70-1.30 [facility] Comment on above: Performed By: #### C MP, LIPID #### [facility] [address] [place] [address] Dr. Karen Sawyer EGFR-AF AUSTRALIAN >60 Normal >=60 [facility] Comment on above: Performed By: #### C MP, LIPID #### [facility] [address] [place] [address] Dr. Karen Sawyer EGFR-NON AF AUSTRALIAN >60 Normal >=60 [facility] Comment on above: Performed By: #### C MP, LIPID #### [facility] [address] [place] [address] Dr. Karen Sawyer Globulin (S) [Mass/Vol] 3.5 g/dL Normal [facility] Comment on above: Performed By: #### C MP, LIPID #### [facility] [address] [place] [address] Dr. Karen Sawyer Glucose [Mass/Vol] 118 mg/dL Critically high 74-106 [facility] Comment on above: Performed By: #### C MP, LIPID #### [facility] [address] [place] [address] Dr. Karen Sawyer Potassium [Moles/Vol] 4.7 mmol/L Normal 3.5-5.1 [facility] Comment on above: Performed By: #### C MP, LIPID #### [facility] [address] [place] [address] Dr. Karen Sawyer Protein [Mass/Vol] 7.3 g/dL Normal 6.4-8.2 [facility] Comment on above: Performed By: #### C MP, LIPID #### [facility] [address] [place] [address] Dr. Karen Sawyer Sodium [Moles/Vol] 138 mmol/L Normal 136-145 [facility] Comment on above: Performed By: #### C MP, LIPID #### [facility] [address] [place] [address] Dr. Karen Sawyer Urea nitrogen [Mass/Vol] 20.0 mg/dL Critically high 7.0-18.0 [facility] Comment on above: Performed By: #### C MP, LIPID #### [facility] [address] [place] [address] Dr. Karen Sawyer Urea nitrogen/Creatinine [Mass ratio] 19.4 mg/mg Normal [facility] Comment on above: Performed By: #### C MP, LIPID #### [facility] [address] [place] [address] Dr. Karen Sawyer CBC AUTO DIFFon 06-21-2021 BASO # 0.0 103/ul Normal 0.0-0.1 [facility] Comment on above: Performed By: #### C BC #### [facility] [address] [place] [address] Dr. Karen Sawyer Basophils/100 WBC (Bld) 0.4 % Normal 0.2-2.0 [facility] Comment on above: Performed By: #### C BC #### [facility] [address] [place] [address] Dr. Karen Sawyer EO # 0.1 103/ul Normal 0.0-0.7 [facility] Comment on above: Performed By: #### C BC #### [facility] [address] [place] [address] Dr. Karen Sawyer Eosinophils/100 WBC (Bld) 2.7 % Normal 0.9-7.0 [facility] Comment on above: Performed By: #### C BC #### [facility] [address] [place] [address] Dr. Karen Sawyer Erythrocyte distribution width (RBC) [Ratio] 12.2 % Normal 11.0-15.0 [facility] Comment on above: Performed By: #### C BC #### [facility] [address] [place] [address] Dr. Karen Sawyer Hematocrit (Bld) [Volume fraction] 37.7 % Critically low 42.0-54.0 [facility] Comment on above: Performed By: #### C BC #### [facility] [address] [place] [address] Dr. Karen Sawyer Hemoglobin (Bld) [Mass/Vol] 12.9 g/dL Critically low 14.0-18.0 [facility] Comment on above: Performed By: #### C BC #### [facility] [address] [place] [address] Dr. Karen Sawyer IG # 0.02 10e3/ul Normal 0.00-0.03 [facility] Comment on above: Performed By: #### C BC #### [facility] [address] [place] [address] Dr. Karen Sawyer IG % 0.4 % Normal 0.0-0.5 [facility] Comment on above: Performed By: #### C BC #### [facility] [address] [place] [address] Dr. Karen Sawyer LYMPH # 1.7 103/ul Normal 1.2-3.8 [facility] Comment on above: Performed By: #### C BC #### [facility] [address] [place] [address] Dr. Karen Sawyer Lymphocytes/100 WBC (Bld) 37.6 % Normal 20.5-60.0 [facility] Comment on above: Performed By: #### C BC #### [facility] [address] [place] [address] Dr. Karen Sawyer MANUAL DIFF REQ NO Normal [facility] Comment on above: Performed By: #### C BC #### [facility] [address] [place] [address] Dr. Karen Sawyer MCH (RBC) [Entitic mass] 31.2 pg Normal 25.9-34.0 [facility] Comment on above: Performed By: #### C BC #### [facility] [address] [place] [address] Dr. Karen Sawyer MCHC (RBC) [Mass/Vol] 34.2 g/dL Normal 29.9-35.2 [facility] Comment on above: Performed By: #### C BC #### [facility] [address] [place] [address] Dr. Karen Sawyer MCV (RBC) [Entitic vol] 91.3 fL Normal 80.0-94.0 [facility] Comment on above: Performed By: #### C BC #### [facility] [address] [place] [address] Dr. Karen Sawyer MONO # 0.2 103/ul Critically low 0.3-0.8 [facility] Comment on above: Performed By: #### C BC #### [facility] [address] [place] [address] Dr. Karen Sawyer Monocytes/100 WBC (Bld) 5.1 % Normal 1.7-12.0 [facility] Comment on above: Performed By: #### C BC #### [facility] [address] [place] [address] Dr. Karen Sawyer NEUT # 2.4 103/ul Normal 1.4-6.5 [facility] Comment on above: Performed By: #### C BC #### [facility] [address] [place] [address] Dr. Karen Sawyer Neutrophils/100 WBC (Bld) 53.8 % Normal 43.0-75.0 [facility] Comment on above: Performed By: #### C BC #### [facility] [address] [place] [address] Dr. Karen Sawyer Platelet mean volume (Bld) [Entitic vol] 8.6 fL Critically low 9.5-13.5 [facility] Comment on above: Performed By: #### C BC #### [facility] [address] [address] [address] Karen Sawyer PLT 142 103/ul Critically low 150-450 [facility] Comment on above: Performed By: #### C BC #### [facility] [address] [address] [address] Karen Sawyer RBC 4.13 106/ul Critically low 4.70-6.10 [facility] Comment on above: Performed By: #### C BC #### [facility] [address] [address] [address] Karen Sawyer WBC 4.5 103/ul Normal 4.0-11.0 [facility] Comment on above: Performed By: #### C BC #### [facility] [address] [address] [address] Karen Sawyer GLYCOHEMOGLOBIN A1Con 2020 ADA RECOMMENDATION ADA THERAPEUTIC TARGET 6.0 - 7.0 ACTION SUGGESTED > 7.0 Normal [facility] Comment on above: Performed By: #### A 1C #### [facility] [address] [address] [address] Karen Sawyer Glucose [Mass/Vol] 137 mg/dL Normal [facility] Comment on above: Performed By: #### A 1C #### [facility] [address] [address] [address] Karen Sawyer HbA1c (Bld) [Mass fraction] 6.4 % Critically high <=6.0 [facility] Comment on above: Performed By: #### A 1C #### [facility] [address] [address] [address] Karen Sawyer H PYLORI ANTIBODYon 06-21-20 21 H PYLORI Negative Normal NEGATIVE [facility] Comment on above: Performed By: #### H PYL #### [facility] [address] [address] [address] Karen Sawyer LIPID PROFILEon 06-21-2021 CHOL-HDL RATIO NORM SEE BELOW Normal [facility] Comment on above: Result Comment: 3.3 - 4.4 LOW RISK 4.4 - 7.1 AVERAGE RISK 7.1 - 11.0 MODERATE RISK >11.0 HIGH RISK Performed By: #### L IPID, BMP #### [facility] [address] [address] [address] Karen Sawyer Cholesterol [Mass/Vol] 146 mg/dL Normal <=200 [facility] Comment on above: Performed By: #### L IPID, BMP #### [facility] [address] [address] [address] Karen Sawyer Cholesterol in HDL [Mass/Vol] 58 mg/dL Normal [facility] Comment on above: Performed By: #### L IPID, BMP #### [facility] [address] [address] [address] Karen Sawyer Cholesterol in LDL [Mass/Vol] 56.8 mg/dL Normal [facility] Comment on above: Performed By: #### L IPID, BMP #### [facility] [address] [address] [address] Karen Sawyer Cholesterol.total/Cho lesterol in HDL [Mass ratio] 2.5 {ratio} Normal [facility] Comment on above: Performed By: #### L IPID, BMP #### [facility] [address] [address] [address] Karen Sawyer HDL NORMAL > or = 60 mg/dl - LOW CARDIOVASCULAR RISK <40 mg/dl - HIGH CARDIOVASCULAR RISK Normal [facility] Comment on above: Performed By: #### L IPID, BMP #### [facility] [address] [address] [address] Karen Sawyer LDL CALC NORMAL SEE BELOW Normal [facility] Comment on above: Result Comment: <100 mg/dl OPTIMAL 100 - 129 mg/dl NEAR OR ABOVE OPTIMAL 130 - 159 mg/dl BORDERLINE HIGH 160 - 189 mg/dl HIGH >190 mg/dl VERY HIGH Performed By: #### L IPID, BMP #### [facility] [address] [address] [address] Karen Sawyer Triglyceride [Mass/Vol] 156 mg/dL Critically high <=150 [facility] Comment on above: Performed By: #### L IPID, BMP #### [facility] [address] [place] [address] Dr. Karen Sawyer VLDL CALC 31.2 mg/dL Normal [facility] Comment on above: Performed By: #### L IPID, BMP #### [facility] [address] [place] [address] Dr. Karen Sawyer PROF CHEM 8 (BAS METB)on Anion gap [Moles/Vol] 17.4 mmol/L Normal [facility] Comment on above: Performed By: #### L IPID, BMP #### [facility] [address] [place] [address] Dr. Karen Sawyer Calcium [Mass/Vol] 8.8 mg/dL Normal 8.4-10.2 [facility] Comment on above: Performed By: #### L IPID, BMP #### [facility] [address] [place] [address] Dr. Karen Sawyer Chloride [Moles/Vol] 103 mmol/L Normal 98-107 [facility] Comment on above: Performed By: #### L IPID, BMP #### [facility] [address] [place] [address] Dr. Karen Sawyer CO2 [Moles/Vol] 23.8 mmol/L Normal 22.0-30.0 [facility] Comment on above: Performed By: #### L IPID, BMP #### [facility] [address] [place] [address] Dr. Karen Sawyer Creatinine [Mass/Vol] 1.01 mg/dL Normal 0.66-1.25 [facility] Comment on above: Performed By: #### L IPID, BMP #### [facility] [address] [place] [address] Dr. Karen Sawyer EGFR-AF AUSTRALIAN >60 Normal >=60 [facility] Comment on above: Performed By: #### L IPID, BMP #### [facility] [address] [place] [address] Dr. Karen Sawyer EGFR-NON AF AUSTRALIAN >60 Normal >=60 [facility] Comment on above: Performed By: #### L IPID, BMP #### [facility] [address] [place] [address] Dr. Karen Sawyer Glucose [Mass/Vol] 158 mg/dL Critically high 74-106 [facility] Comment on above: Performed By: #### L IPID, BMP #### [facility] [address] [place] [address] Dr. Karen Sawyer Potassium [Moles/Vol] 4.2 mmol/L Normal 3.4-5.0 [facility] Comment on above: Performed By: #### L IPID, BMP #### [facility] [address] [place] [address] Dr. Karen Sawyer Sodium [Moles/Vol] 140 mmol/L Normal 137-145 [facility] Comment on above: Performed By: #### L IPID, BMP #### [facility] [address] [place] [address] Dr. Karen Sawyer Urea nitrogen [Mass/Vol] 21.0 mg/dL Critically high 9.0-20.0 [facility] Comment on above: Performed By: #### L IPID, BMP #### [facility] [address] [place] [address] Dr. Karen Sawyer Urea nitrogen/Creatinine [Mass ratio] 20.8 mg/mg Normal [facility] Comment on above: Performed By: #### L IPID, BMP #### [facility] [address] [place] [address] Dr. Karen Sawyer Vital Signs Date Time Vital Sign Value Performing Clinician Rodney quinonez 07-21-2024 07:53-0500 Body height 188 cm Faith Hayward [employer]REE FELLER OPERATOR Work Phone: [facility] 07-21-2024 07:53-0500 Body mass index (BMI) [Ratio] 30.96 kg/m2 Faith Hayward [employer]REE FELLER OPERATOR Work Phone: [facility] 07-21-2024 07:53-0500 Body temperature 97.7 [degF] Faith Caputok TREE FELLER OPERATOR Work Phone: [facility] 07-21-2024 07:53-0500 Body weight 109.36 kg Faith Caputok TREE FELLER OPERATOR Work Phone: [facility] 07-21-2024 07:53-0500 Diastolic blood pressure 82 mm[Hg] Faith Legertrick TREE FELLER OPERATOR Work Phone: [facility] 07-21-2024 07:53-0500 Heart rate 78 /min Faith Legertrick TREE FELLER OPERATOR Work Phone: [facility] 07-21-2024 07:53-0500 Respiratory rate 16 /min Faith Caputok TREE FELLER OPERATOR Work Phone: [facility] 07-21-2024 07:53-0500 SaO2% (BldA) [Mass fraction] 98 % Faith Caputok TREE FELLER OPERATOR Work Phone: [facility] 07-21-2024 07:53-0500 Systolic blood pressure 142 mm[Hg] Faith Legertrick TREE FELLER OPERATOR Work Phone: [facility] Encounters Encounter Date Encounter Type Care Provider Facility Start: 07-21-2024 End: 07-21-2024 Bamboo flowsheet Faith Caputok TREE FELLER OPERATOR Work Phone: [facility] Start: 07-21-2024 End: 07-21-2024 Bamboo flowsheet Faith Legertrick TREE FELLER OPERATOR Work Phone: [facility] Start: 07-21-2024 End: 07-21-2024 Office outpatient visit 15 minutes Faith Caputok TREE FELLER OPERATOR Work Phone: [facility] Comment on above: Flu vaccine need (Pr imary Dx); Essential (primary) hypertension (CMS/HCC); Other hyperlipidemia (CMS/HCC); Type 2 diabetes mellitus without complication, with long-term current use of insulin (CMS/HCC); Primary hypertension (CMS/HCC); Chronic right-sided low back pain without sciatica; Lumbar arthropathy Start: 07-21-2024 End: 07-21-2024 ambulatory FAITH COOKZPATRICK Not Available Start: 07-03-2024 End: 07-03-2024 Clinisync Result Encounter Shaikh Jimmy ZHONG Work Phone: [facility] Unsolicited Start: 07-03-2024 End: 07-03-2024 Clinisync Result Encounter Shaikh Jimmy ZHONG Work Phone: [facility] Unsolicited Start: 05-27-2024 End: 05-31-2024 Refill Faith Cookzpatrick TREE FELLER OPERATOR Work Phone: [facility] Comment on above: Other hyperlipidemia (CMS/HCC) (Primary Dx); Type 2 diabetes mellitus without complication, with long-term current use of insulin (CMS/HCC); Essential (primary) hypertension (CMS/HCC); Benign essential hypertension (CMS/HCC); Gastroesophageal reflux disease without esophagitis Start: 05-06-2024 End: 05-06-2024 ambulatory ODILON Barron VINCENT Not Available Start: 04-21-2024 End: 04-21-2024 ambulatory FAITH COOKZPATRICK Not Available Start: 01-28-2024 End: 01-28-2024 ambulatory LULU OLMSTEAD Not Available Start: 01-01-2024 End: 01-01-2024 ambulatory SHAIKH JIMMY Not Available Start: 10-06-2023 End: 10-06-2023 ambulatory SHAIKH JIMMY Not Available Start: 05-31-2022 End: 06-01-2022 ambulatory SHAIKH Madhuri MARQUEZ Facility:[facility]1 Start: 06-28-2021 Encounter for genera l adult medical examination without abnormal findings RODNEY BECERRA [facility] Start: 06-21-2021 End: 06-22-2021 ambulatory RODNEY BECERRA Facility:[facility] Start: 06-21-2021 End: 06-22-2021 Encounter for general adult medical examination without abnormal findings RODNEY BECERRA Facility:[facility] Procedures Date Procedure Procedure Detail Performing Clinician Start: 07-03-2024 PARAS CMP Shaikh Caesar pepe MD Work Phone: Start: 07-03-2024 Lipid panel Shaikh Caesar pepe MD Work Phone: Start: 07-03-2024 [facility] CBC AUTO DIFF Shaik madhuri Marquez MD Work Phone: Start: 07-03-2024 [facility] DIRECT LDL Shaikh Shavon burgos MD Work Phone: Start: 07-03-2024 [facility] GLYCOHEMOGLOBIN A1C Shaikh Jimmy ZHONG Work Phone: Start: 07-03-2024 [facility] MICROALB CREAT R ATIO RANDOM Shaikh Jimmy ZHONG Work Phone: Start: 06-21-2021 PSA screening SHAIKH COLT HARVEY Comment on above: Performed By: #### [facility] #### [facility] [address] [place] [address] Dr. Karen Sawyer Plan of Treatment Date Care Activity Detail Author Start: 05-14-2025 Glaucoma screening Diabetes: R etinopathy Screening [facility] Start: 10-20-2024 End: 10-20-2024 Patient encounter procedure 10/20/2024 7:30 AM EST Office Visit [facility] [address] [place] [address] Faith Hayward NP [address] [place] [address] [facility] Start: 07-22-2024 End: 07-22-2024 Patient encounter procedure 07/22/2024 9:00 AM EST Office Visit [facility] [address] [facility] [address] [place] [address] Odilon Sofia DPM [address] [facility] [address] [place] [address] [facility] Start: 07-21-2024 End: 07-21-2024 Patient encounter procedure [facility] Comment on above: Arrived Start: 04-18-2024 Influenza vaccination Influenza Vacc ine (#1) [facility] Start: 11-28-2023 Hemoglobin A1c measurement Diabetes: Hemoglobin A1C [facility] Start: 09-25-2019 Urine screening for protein Diabetes: Urine Protein Screening [facility] Start: 1965 Screening for malign ant neoplasm of colon [facility] Immunizations Immunization Date Immunization Notes Care Provider Fa carolinety 07-21-2024 Influenza, injectabl e, Madin Rhona Canine Kidney, preservative free, quadrivalent Faith Hayward TREE FELLER OPERATOR Work Phone: [facility] Payers Date Payer Category Payer [facility] er [id number] 2022 Unknown [id number] 1965 Unknown [id number] 1964 Unknown [id number] 1964 Unknown [id number] 1964 Unknown [id number] 1964 Unknown [id number] 1964 Unknown [id number] 1964 Unknown [id number] 1964 Unknown [id number] 1960 Private Health Insurance [id number] Social History Date Type Detail Facility Start: 01-01-2024 Tobacco smoking stat [facility] Never smoked tobacco [facility] Start: 05-06-2024 Alcoholic beverage intake Current drinker of alcohol (finding) [facility] Start: 04-21-2024 End: 05-06-2024 Alcoholic beverage intake [facility] Start: 04-21-2024 End: 05-06-2024 Tobacco use panel [facility] Start: 1965 Sex assigned at Not on file [facility] NEGATED: Highlighted rowStart: NINF History of tobacco use Passive smoker [facility] Medical Equipment Procedure Code Equipment Code Equipment Origin al Text Equipment Identifier Dates [id number] Start: 11-28-2022 End: 05-27-2024 Inject 1 Lancet under the skin 4 (four) times a day as needed (Hyperglycemia) [id number] Start: 05-31-2024 History of Present illness Narrative 07-21-2024 Faith Hayward, YARELY - 07/21/2024 8:21 AM Margoth Hayward, YARELY - 07/21/2024 8:21 AM Margoth Hayward NP - 07/21/2024 8:21 AM Margoth Hayward, YARELY - 07/21/2024 8:00 AM EST Note Date & Type Note Facility 07-21-2024 History of Presen t illness Narrative Associated Problem(s): Type 2 diabetes mellitus without complication, with long-term current use of insulin ([facility]) A1C needs completed Novolog 10units TID Lantus 40u nightly Rybelsus 7mg Most recent labs: hemoglobin A1C Average FSBS range from BGs range between 105 and 230 No episode of hypoglycemia No medication adverse effects reported by the patient. Patient educated on lifestyle modifications, dietary restrictions, signs and symptoms of hypoglycemia/hyperglycemia and importance of eating regular consistent meals. Stressed upon importance of checking blood glucose at home and bring blood glucose log to appointments. All questions, concerns answered and addressed. Encouraged to call office if persistent hypoglycemia/hyperglycemia on home glucose monitoring noted. Associated Problem(s): Other hyperlipidemia (CMS/HCC) Currently taking Atorvastatin 40mg Denies any myalgias. Continue current regimen. Associated Problem(s): Essential (primary) hypertension (CMS/HCC) Labs need completed Currently taking Amlodipine 5mg Losartan- hydrochlorothiazide 25-100mg Checks BP at home; Averages are 130's-150's. Denies orthostatic changes, dizziness, cough, shortness of breath, swelling in extremities. Will increase amlodipine to 10mg today Subjective Patient ID: Padilla Haro is a 59 y.o. male who presents for Follow-up, Hypertension, and Hyperlipidemia. HPI Is scheduled for colonoscopy on 08/04/2024 Had Xrays done- shows mild facet arthropathy. Is agreeable to PM referral at this time. HTN: Labs need completed Currently taking Amlodipine 5mg Losartan- hydrochlorothiazide 25-100mg Checks BP at home; Averages are 130's-150's. Denies orthostatic changes, dizziness, cough, shortness of breath, swelling in extremities. Will increase amlodipine to 10mg today HLD: Currently taking Atorvastatin 40mg Denies any myalgias. Continue current regimen. Component Ref Range & Units 2 wk ago (07/03/24) 2 wk ago (07/03/24) 2 wk ago (07/03/24) 2 wk ago (07/03/24) 2 wk ago (07/03/24) 2 wk ago (07/03/24) 2 wk ago (07/03/24) TRIGLYCERIDES <=150 mg/dL 644 High 142 R 33.1 R 644 High 142 R 33.1 R 113.51 R CHOLESTEROL <=200 mg/dL 135 4.3 R 0.4 R 135 4.3 R 0.4 R HDL CHOLESTEROL 40 - 60 mg/dL 39 Low 19.0 R 2.7 R 39 Low CM 19.0 R 2.7 R Comment: > or =60 mg/dl - LOW CARDIOVASCULAR RISK <40 mg/dl - HIGH CARDIOVASCULAR RISK VLDL CHOLESTEROL mg/dL 128.8 153 High R 1.6 R 128.8 153 High R 1.6 R CHOL HDL RATIO 3.5 0.5 R 0.2 Low R 3.5 CM 0.5 R 0.2 Low R Comment: 3.3 - 4.4 LOW RISK 4.4 - 7.1 AVERAGE RISK 7.1 - 11.0 MODERATE RISK >11.0 HIGH RISK ASPARTATE AMINO TRANSFERASE 45 High R 0.02 R 45 High R 0.02 R ALANINE AMINOTRANSFERASE 54 R 54 R ALKALINE PHOSPHATASE 68 R 68 R TOTAL PROTEIN 7.7 R 7.7 R ALBUMIN LEVEL 3.7 R 3.7 R ALBUMIN GLOBULIN RATIO 0.9 0.9 Resulting Agency [facility] DMII: A1C needs completed Novolog 10units TID Lantus 40u nightly Rybelsus 7mg Most recent labs: hemoglobin A1C Average FSBS range from BGs range between 105 and 230 No episode of hypoglycemia No medication adverse effects reported by the patient. Patient educated on lifestyle modifications, dietary restrictions, signs and symptoms of hypoglycemia/hyperglycemia and importance of eating regular consistent meals. Stressed upon importance of checking blood glucose at home and bring blood glucose log to appointments. All questions, concerns answered and addressed. Encouraged to call office if persistent hypoglycemia/hyperglycemia on home glucose monitoring noted. Review of Systems Constitutional: Negative for activity change, appetite change, chills, diaphoresis, fatigue, fever and unexpected weight change. HENT: Negative for congestion, ear pain, rhinorrhea, sinus pressure, sinus pain, sneezing, sore throat, trouble swallowing and voice change. Eyes: Negative for visual disturbance. Respiratory: Negative for cough, chest tightness, shortness of breath and wheezing. Cardiovascular: Negative for chest pain, palpitations and leg swelling. Gastrointestinal: Negative for abdominal distention, abdominal pain, blood in stool, constipation, diarrhea and vomiting. Genitourinary: Negative for decreased urine volume, dysuria, flank pain, frequency, hematuria and urgency. Musculoskeletal: Positive for arthralgias. Negative for gait problem, joint swelling and myalgias. Skin: Negative for rash. Neurological: Negative for dizziness, tremors, syncope, weakness, light-headedness and headaches. Psychiatric/Behavioral: Negative for decreased concentration and suicidal ideas. The patient is not nervous/anxious. Hematological: Does not bruise/bleed easily. Endocrine: Negative for cold intolerance, heat intolerance, polydipsia, polyphagia and polyuria. Objective Physical Exam Vitals reviewed. Constitutional: Appearance: Normal appearance. HENT: Head: Normocephalic and atraumatic. Right Ear: Tympanic membrane normal. Left Ear: Tympanic membrane normal. Nose: Nose normal. Mouth/Throat: Mouth: Mucous membranes are moist. Pharynx: Oropharynx is clear. Eyes: Pupils: Pupils are equal, round, and reactive to light. Cardiovascular: Rate and Rhythm: Normal rate and regular rhythm. Pulses: Normal pulses. Heart sounds: Normal heart sounds. Pulmonary: Effort: Pulmonary effort is normal. Breath sounds: Normal breath sounds. Abdominal: General: Abdomen is flat. Bowel sounds are normal. Palpations: Abdomen is soft. Musculoskeletal: General: Normal range of motion. Cervical back: Normal range of motion. Skin: General: Skin is warm and dry. Capillary Refill: Capillary refill takes less than 2 seconds. Neurological: General: No focal deficit present. Mental Status: He is alert and oriented to person, place, and time. Psychiatric: Mood and Affect: Mood normal. Behavior: Behavior normal. Assessment/Plan Problem List Items Addressed This Visit Essential (primary) hypertension ([facility]) - Primary Labs need completed Currently taking Amlodipine 5mg Losartan- hydrochlorothiazide 25-100mg Checks BP at home; Averages are 130's-150's. Denies orthostatic changes, dizziness, cough, shortness of breath, swelling in extremities. Will increase amlodipine to 10mg today Relevant Medications amLODIPine (Norvasc) 10 MG tablet Other hyperlipidemia ([facility]) Currently taking Atorvastatin 40mg Denies any myalgias. Continue current regimen. Type 2 diabetes mellitus without complication, with long-term current use of insulin ([facility]) A1C needs completed Novolog 10units TID Lantus 40u nightly Rybelsus 7mg Most recent labs: hemoglobin A1C Average FSBS range from BGs range between 105 and 230 No episode of hypoglycemia No medication adverse effects reported by the patient. Patient educated on lifestyle modifications, dietary restrictions, signs and symptoms of hypoglycemia/hyperglycemia and importance of eating regular consistent meals. Stressed upon importance of checking blood glucose at home and bring blood glucose log to appointments. All questions, concerns answered and addressed. Encouraged to call office if persistent hypoglycemia/hyperglycemia on home glucose monitoring noted. Chronic right-sided low back pain without sciatica Relevant Orders Ambulatory referral to Pain Medicine Lumbar arthropathy Relevant Orders Ambulatory referral to Pain Medicine documented in this encounter [facility] Evaluation note Note Date & Type Note Facility Evaluation note Diagnosis Primary hypertension (CMS/HCC)- Primary Unspecified essential hypertension [...] reflux documented in this encounter [facility] Evaluation note Note Date & Type Note Facility Evaluation note Diagnosis Primary hypertension (CMS/HCC)- Primary Unspecified essential hypertension [...] malignant neoplasms, colon Lumbar back pain Lumbago Flu vaccine need- Primary Essential (primary) hypertension (CMS/HCC) Unspecified essential hypertension Other hyperlipidemia (CMS/HCC) Type 2 diabetes mellitus without complication, with long-term current use of insulin (CMS/HCC) Primary hypertension (CMS/HCC) Unspecified essential hypertension Chronic right-sided low back pain without sciatica Lumbar arthropathy Lumbosacral spondylosis without myelopathy Tinea pedis, unspecified laterality- Primary Diabetes mellitus due to underlying condition with diabetic polyneuropathy, 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) Onychomycosis Dermatophytosis of nail Toe pain, left Pain in soft tissues of limb Toe pain, right Pain in soft tissues of limb documented in this encounter [facility] Summary Purpose Family History No Family History Records FoundNo Family History Records Found Advance Directives No Advanced Directives Records FoundNo Advanced Directives Records Found Additional Source Comments (unrecognized sect ion and content) No Status Records FoundNo Status Records Found INFORMATION SOURCE (unrecogn ized section and content) DATE CREATED AUTHOR 06/10/2022 [facility] DATE CREATED AUTHOR AUTHOR'S ORGANIZ ATION 07/23/2024 [facility] EPIC Care Teams (unrecognized sec tion and content) [id number] Administrator Relationship Specialty Start Date End Date Shaikh Marquez MD [address] [place] [address] PCP - [place] [employer] 11/17/23 Luther Madrid MD [address] [place] [phone] PCP - General Family Medicine 04/08/24 Faith Hayward NP [address] [place] [address] Nurse Practitioner Family Medicine 04/08/24 [email or web address] Administrator Relationship Specialty Start Date End Date Shaikh Marquez MD [address] [place] [phone] PCP - [place] [employer] 11/17/23 Luther Madrid MD [address] [place] [phone] PCP - General Family Medicine 04/08/24 Faith Hayward NP [address] [place] [address] Nurse Practitioner Family Medicine 04/08/24 [email or web address] Administrator Relationship Specialty Start Date End Date Shaikh Marquez MD [address] [place] [phone] PCP - [place] [employer] 11/17/23 Luther Madrid MD [address] [place] [phone] PCP - General Family Medicine 04/08/24 Faith Hayward NP [address] [place] [address] Nurse Practitioner Family Medicine 04/08/24 [id number] Administrator Relationship Specialty Start Date End Date Shaikh Marquez MD [address] [place] [address] PCP - [facility] 11/17/23 Luther Madrid MD [address] [place] [address] PCP - General Family Medicine 04/08/24 Faith Hayward NP [address] [place] [address] Nurse Practitioner Family Medicine 04/08/24 Reason for Visit (unrecogniz ed section and content) Reason Comments Follow-up Hypertension Hyperlipidemia FOR RECORDS PERTAINING TO PATIENTS WHO ARE [...] BE BASED ON THE PRIMARY CLINICAL RECORDS. [facility]. provides no warranty or guarantee of the accuracy or completeness of information in this document.
--- NOTE | 2024-07-28 08:14 | P.CN_ITS ---
Consult Note: HPI Data of Consult Patient: new to practice Requesting Physician: Leesa Hernandez NP Primary Care Provider: FRANCIA ZACARIAS Consult Narrative Reason for consult: chronic low back pain Narrative: Padilla Haro a pleasant 59 year old male presents for evaluation of chronic low back pain. Patient reports pain worsened 1 year ago without incident. Low back pain right>left without weakness of LE, denies loss of bowel or bladder. 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 Patient has continued to engage in HEP without benefit. no change with heat or ice. Has trialed sophie aspirin with mild relief. Pt states he was not given any muscle relaxers, NSAIDs, or steroids for his pain. Recent lumbar xray shows facet arthropathy and lumbar DDD. cc:: CC: Leesa Hernandez NP Review of Systems ROS Status of ROS 10 or more systems reviewed and unremark able except as noted in history and below Musculoskeletal Reports: back pain; Denies: extremity pain Exam Constitutional Documenting provider has reviewed patient's vital signs: yes Common normals: no apparent distress, oriented x3, healthy appearing, alert and well nourished General appearance: cooperative HENMT Common normals: normocephalic, hearing grossly normal bilaterally and moist oral mucous membranes Head and scalp: normocephalic Eye Common normals: PERRL Pupil: PERRL Neck & C-Spine Common normals: full ROM General: normal visual inspection Chest Common normals: inspection of chest normal Respiratory Common normals: normal respiratory effort, no retractions and no use of acces cam muscles Back & Pelvis Lumbar spine/lower back: ROM limited, pain with ROM, lumbar spinal tenderness, paraspinal muscle tenderness and paraspinal muscle spasm Sacroiliac joints: SI joints normal Other: positive facet loading spasming noted to right paralumbar muscle negative radiculopathy positive right SLR negative right wilfrid(patricks), gaenslens, thigh thrust, compression test Neuro Common normals: oriented x3, CN's II-XII intact bilaterally, moves all extremities, no focal motor deficits, no sensory deficits noted and deep tendon reflexes 2+ bilaterally Sensorium/orientation: alert Motor exam: strength 5/5 throughout and no movement abnormalities noted Psych Common normals: mental status grossly normal, thought process normal, cooperative, affect normal, speech normal and activity/motor behavior normal Speech: normal speech Thought process: normal thought process Results Additional Findings Additional findings: If on a controlled substance or opioids, I have checked an [place] report on this patient and there are no aberrancies noted in the prescribing history.??If on a controlled substance or opioid a drug screen was completed and reviewed within the last year, and if there has not been a drug screen completed we ordered one today to monitor higher risk, state monitored pain medication use. As part of providing excellent, safe, comprehensive care, the following was completed at our patient's visit: 1. A medication reconciliation and review to ensure accurate knowledge of current/active medications, including asking our patients to inform us about any [id number] medications or herbal remedies/nutritional supplements/alternative remedies. 2. A review to specifically ensure our patients have had annual screening for screening for depression, screening for tobacco use, and screening for unhealthy alcohol use. For concerning screenings had a discussion with the patient, provided patient education, and recommended follow-up with primary care provider when appropriate. If patient noted with a risk of falling, they received education on strength, gait, and balance training to prevent future risk of falling. Assessment and Plan Assessment and Plan (1) Lumbar degenerative disc disease: (2) Chronic bilateral low back pain without sciatica: (3) Myalgia: (4) Lumbar spondylosis: Plan update lumbar MRI without contrast to further assess lumbar DDD to assess for interventional therapy vs NS consult as pt has had chronic low back pain for 1 year without improvement start baclofen 5-10mg TID PRN pain/spasms, risks vs benefits reviewed continue HEP as tolerated continue sophie ASA PRN f/u to review MRI
== END 2024-07-28 07:58 | disposition home or self-care (01) ==
PROVIDERS: Visit Provider Nurse Practitioner
DX: M51.369 Other intervertebral disc degeneration, lumbar region without mention of lumbar back pain or lower extremity pain (principal); M54.50 Low back pain, unspecified; M79.18 Myalgia, other site; M47.816 Spondylosis without myelopathy or radiculopathy, lumbar region
CPT/HCPCS: G0463

== ENCOUNTER 2024-07-30 07:14 | Outpatient (OUT) | payer BC, SELFPAY ==
--- OUTSIDE RECORDS SUMMARY | 2024-07-30 07:16 | XMS_ITS | CCD ---
Author Organization [facility] Care Team Providers Care Shingle Catcher Name Role Phone SHAIKH Madhuri MARQUEZ Admitting Unavailable SHAIKH Madhuri MARQUEZ Attending Unavailable RODNEY BECERRA Primary Care Unavailable SHAIKH Madhuri MARQUEZ Consulting Unavailable RODNEY BECERRA Admitting Unavailable RODNEY BECERRA Attending Unavailable RODNEY BECERRA Primary Care Unavailable RODNEY BECERRA Consulting Unavailable Shaikh Marquez MD Unavailable Luther Madrid MD Primary Care Provider [phone] Faith Hayward NP Unavailable SHAIKH MARQUEZ Attending Unavailable SHAIKH MARQUEZ Attending Unavailable LULU OLMSTEAD Attending Unavailable FAITH HAYWARD Attending ODILON Son Attending Unavailable FAITH HAYWARD Referring FAITH Real Attending Ava blue Medications Current Medications Medication Drug Class(es) Dates Sig (Normalized) Sig (Original) amLODIPine 10 mg oral tablet (8 sources) Dihydropyridine Calcium Channel Tera Start: 07-21-2024 End: 07-21-2025 take 1 tablet [...] [Mass/Vol] 3.7 g/dL 3.4 - 5.0 g/dL [facility] ALBUMIN GLOBULIN RATIO 0.9 [facility] ALP [Catalytic activity/Vol] 68 U/L 46 - 116 U/L [facility] ALT [Catalytic activity/Vol] 54 U/L 16 - 63 U/L [facility] Anion gap [Moles/Vol] 19 mmol/L [facility] AST [Catalytic activity/Vol] 45 U/L High 15 - 37 U/L [facility] Bilirubin [Mass/Vol] 0.5 mg/dL 0.2 - 1 .0 mg/dL [facility] Calcium [Mass/Vol] 9.3 mg/dL 8.5 - 10. 1 mg/dL [facility] Chloride [Moles/Vol] 104 mmol/L 98 - 10 7 mmol/L [facility] CO2 [Moles/Vol] 23.3 mmol/L 21.0 - 32.0 mmol/L [facility] Creatinine [Mass/Vol] 1.39 mg/dL High 0.70 - 1.30 mg/dL [facility] GFR/1.73 sq M.predicted CKD-EPI (S/P/Bld) [Vol rate/Area] >60 >=60 mL/min/1.73m 2 [facility] Globulin (S) [Mass/Vol] 4 g/dL [facility] Glucose [Mass/Vol] 153 mg/dL High 74 - 106 mg/dL NO MS [facility] Potassium [Moles/Vol] 4.3 mmol/L 3.5 - 5.1 mmol/L [facility] Protein [Mass/Vol] 7.7 g/dL 6.4 - 8.2 g/dL NO [facility] Sodium [Moles/Vol] 142 mmol/L 136 - 145 mmol/L [facility] TB EGFR-NON AF NAMIBIAN 52 Low >=60 mL/min/1.73m 2 [facility] Urea nitrogen [Mass/Vol] 19 mg/dL High 7.0 - 18.0 mg/dL [facility] Urea nitrogen/Creatinine [Mass ratio] 13.7 mg/mg [facility] LIPID PANELon 07-05-2024 [facility]5 [facility] Comment on above: 3.3 - 4.4 LOW RISK 4.4 - 7.1 AVERAGE RISK 7.1 - 11.0 MODERATE RISK >11.0 HIGH RISK Cholesterol [Mass/Vol] 135 mg/dL NINF - 200 mg/dL [facility] Cholesterol in HDL [Mass/Vol] 39 mg/dL Low 40 - 60 mg/dL [facility] Comment on above: > or =60 mg/dl - LOW CARDIOVASCULAR RISK <40 mg/dl - HIGH CARDIOVASCULAR RISK Magnesium [Mass/Vol] 128.8 mg/dL [facility] Triglyceride [Mass/Vol] 644 mg/dL High NINF - 150 mg/dL [facility] No Panel Informationon 07-05 Interpretation and review of laboratory results Abnormal [facility] e TB CBC AUTO DIFFon 07-05-20 24 BASOPHILS ABSOLUTE AUTO 0 [facility] Basophils/100 WBC (Bld) 0.8 % 0.2 - 2.0 % [facility] Eosinophils/100 WBC (Bld) 3.8 % 0.9 - 7.0 % [facility] Erythrocyte distribution width (RBC) [Ratio] 13 % 11.0 - 15.0 % [facility] Hematocrit (Bld) [Volume fraction] 38.9 % Low 42.0 - 54.0 % [facility] Hemoglobin (Bld) [Mass/Vol] 13.5 g/dL Low 14.0 - 18.0 g/dL [facility] IMMATURE GRANULOCYTES ABS AUTO 0.02 [facility] Immature granulocytes/100 WBC (Bld) 0.4 % 0.0 - 0.5 % [facility] LYMPHOCYTES ABSOLUTE AUTO 1.6 [facility] Lymphocytes/100 WBC (Bld) 33.1 % 20.5 - 60.0 % [facility] MCH (RBC) [Entitic mass] 31.7 pg 25.9 - 34.0 pg [facility] MCHC (RBC) [Mass/Vol] 34.7 g/dL 29.9 - 35.2 g/dL [facility] MCV (RBC) [Entitic vol] 91.3 fL 80.0 - 94.0 fL [facility] MONOCYTES ABSOLUTE AUTO 0.2 Low [facility] Monocytes/100 WBC (Bld) 5 % 1.7 - 12.0 % [facility] NEUTROPHILS ABSOLUTE AUTO 2.7 [facility] Neutrophils/100 WBC (Bld) 56.9 % 43.0 - 75.0 % [facility] Platelet mean volume (Bld) [Entitic vol] 8.9 fL Low 9.5 - 13.5 fL [facility]H EO # 0.2 [facility] NRBC 0 [facility] TB PLT 183 [facility] RBC 4.26 Low [facility] TB WBC 4.8 [facility] TB[facility] DIRECT LDLon 07-05-2024 Magnesium [Mass/Vol] 38 mg/dL [facility] Comment on above: <100 mg/dl OPTIMAL 100-129 mg/dl NEAR OR ABOVE OPTIMAL 130-159 mg/dl BORDERLINE HIGH 160-189 mg/dl HIGH >190 mg/dl VERY HIGH TB GLYCOHEMOGLOBIN A1Con Glucose [Mass/Vol] 143 mg/dL [facility] HbA1c (Bld) [Mass fraction] 6.6 % High 4.5 - 6.2 % [facility] Comment on above: ADA RECOMMENDED LIMI T 4.0 - 6.0 ADA THERAPEUTIC TARGET < 7.0 ACTION SUGGESTED > 7.0 PARAS CMPon 07-03-2024 Albumin [Mass/Vol] 3.7 g/dL 3.4 - 5.0 g/dL NO [facility] ALBUMIN GLOBULIN RATIO 0.9 [facility] ALP [Catalytic activity/Vol] 68 U/L 46 - 116 U/L [facility] ALT [Catalytic activity/Vol] 54 U/L 16 - 63 U/L [facility] Anion gap [Moles/Vol] 19 mmol/L [facility] AST [Catalytic activity/Vol] 45 U/L High 15 - 37 U/L [facility] Bilirubin [Mass/Vol] 0.5 mg/dL 0.2 - 1 .0 mg/dL [facility] Calcium [Mass/Vol] 9.3 mg/dL 8.5 - 10. 1 mg/dL [facility] Chloride [Moles/Vol] 104 mmol/L 98 - 10 7 mmol/L [facility] CO2 [Moles/Vol] 23.3 mmol/L 21.0 - 32.0 mmol/L [facility] Creatinine [Mass/Vol] 1.39 mg/dL High 0.70 - 1.30 mg/dL [facility] GFR/1.73 sq M.predicted CKD-EPI (S/P/Bld) [Vol rate/Area] >60 >=60 mL/min/1.73m 2 [facility] Globulin (S) [Mass/Vol] 4 g/dL [facility] Glucose [Mass/Vol] 153 mg/dL High 74 - 106 mg/dL NO [facility] Potassium [Moles/Vol] 4.3 mmol/L 3.5 - 5.1 mmol/L [facility] Protein [Mass/Vol] 7.7 g/dL 6.4 - 8.2 g/dL NO [facility] Sodium [Moles/Vol] 142 mmol/L 136 - 145 mmol/L [facility] TBH EGFR-NON AF NAMIBIAN 52 Low >=60 mL/min/1.73m 2 [facility] Urea nitrogen [Mass/Vol] 19 mg/dL High 7.0 - 18.0 mg/dL [facility] Urea nitrogen/Creatinine [Mass ratio] 13.7 mg/mg [facility] LIPID PANELon 07-03-2024 CHOL HDL RATIO 3.5 [facility] Comment on above: 3.3 - 4.4 LOW RISK 4.4 - 7.1 AVERAGE RISK 7.1 - 11.0 MODERATE RISK >11.0 HIGH RISK Cholesterol [Mass/Vol] 135 mg/dL NINF - 200 mg/dL [facility] Cholesterol in HDL [Mass/Vol] 39 mg/dL Low 40 - 60 mg/dL [facility] Comment on above: > or =60 mg/dl - LOW CARDIOVASCULAR RISK <40 mg/dl - HIGH CARDIOVASCULAR RISK Magnesium [Mass/Vol] 128.8 mg/dL [facility] Triglyceride [Mass/Vol] 644 mg/dL High NINF - 150 mg/dL [facility] No Panel Informationon 07-03 Interpretation and review of laboratory results Abnormal [facility] CBC AUTO DIFFon 07-03-20 24 BASOPHILS ABSOLUTE AUTO 0 [facility] Basophils/100 WBC (Bld) 0.8 % 0.2 - 2.0 % [facility] Eosinophils/100 WBC (Bld) 3.8 % 0.9 - 7.0 % [facility] Erythrocyte distribution width (RBC) [Ratio] 13 % 11.0 - 15.0 % [facility] Hematocrit (Bld) [Volume fraction] 38.9 % Low 42.0 - 54.0 % [facility] Hemoglobin (Bld) [Mass/Vol] 13.5 g/dL Low 14.0 - 18.0 g/dL [facility] IMMATURE GRANULOCYTES ABS AUTO 0.02 [facility] Immature granulocytes/100 WBC (Bld) 0.4 % 0.0 - 0.5 % [facility] Interpretation and review of laboratory results Abnormal [facility] LYMPHOCYTES ABSOLUTE AUTO 1.6 [facility] Lymphocytes/100 WBC (Bld) 33.1 % 20.5 - 60.0 % [facility] MCH (RBC) [Entitic mass] 31.7 pg 25.9 - 34.0 pg [facility] MCHC (RBC) [Mass/Vol] 34.7 g/dL 29.9 - 35.2 g/dL [facility] MCV (RBC) [Entitic vol] 91.3 fL 80.0 - 94.0 fL [facility] MONOCYTES ABSOLUTE AUTO 0.2 Low [facility] Monocytes/100 WBC (Bld) 5 % 1.7 - 12.0 % [facility] NEUTROPHILS ABSOLUTE AUTO 2.7 [facility] Neutrophils/100 WBC (Bld) 56.9 % 43.0 - 75.0 % [facility] Platelet mean volume (Bld) [Entitic vol] 8.9 fL Low 9.5 - 13.5 fL [facility] are TBH EO # 0.2 [facility] NRBC 0 [facility] TB PLT 183 [facility] TB RBC 4.26 Low [facility] TB WBC 4.8 [facility] DIRECT LDLon 07-03-2024 Magnesium [Mass/Vol] 38 mg/dL [facility] Comment on above: <100 mg/dl OPTIMAL 100-129 mg/dl NEAR OR ABOVE OPTIMAL 130-159 mg/dl BORDERLINE HIGH 160-189 mg/dl HIGH >190 mg/dl VERY HIGH TBH GLYCOHEMOGLOBIN A1Con Glucose [Mass/Vol] 143 mg/dL [facility] HbA1c (Bld) [Mass fraction] 6.6 % High 4.5 - 6.2 % [facility] Comment on above: ADA RECOMMENDED LIMI T 4.0 - 6.0 ADA THERAPEUTIC TARGET < 7.0 ACTION SUGGESTED > 7.0 Interpretation and review of laboratory results Abnormal [facility] MICROALB CREAT RATIO RAN DOMon 07-03-2024 CREATININE URINE RANDOM 113.51 mg/dL 20.00 - 300.00 mg/dL [facility] MICROALBUMIN URINE RANDOM <1.3 NINF - 30.0 mg/dL [facility] e CBC AUTO DIFFon 05-31-2022 BASO # 0.0 103/ul Normal 0.0-0.[address] [facility] Comment on above: Performed By: #### C BC #### [facility] [address] [place] [address] Dr. Karen Sawyer Basophils/100 WBC (Bld) 0.4 % Normal 0.2-2.0 [facility] Comment on above: Performed By: #### C BC #### [facility] [address] [place] [address] Dr. Karen Sawyer EO # 0.2 103/ul Normal 0.0-0.7 [facility] Comment on above: Performed By: #### C BC #### [facility] [address] [place] [address] Dr. Karen Sawyer Eosinophils/100 WBC (Bld) 3.1 % Normal 0.9-7.[address] [facility] Comment on above: Performed By: #### C BC #### [facility] [address] [place] [address] Dr. Karen Sawyer Erythrocyte distribution width (RBC) [Ratio] 12.3 % Normal 11.0-15.[address] [facility] Comment on above: Performed By: #### C BC #### [facility] [address] [place] [address] Dr. Karen Sawyer Hematocrit (Bld) [Volume fraction] 38.6 % Critically low 42.0-54.[address] [facility] Comment on above: Performed By: #### C BC #### [facility] [address] [place] [address] Dr. Karen Sawyer Hemoglobin (Bld) [Mass/Vol] 12.9 g/dL Critically low 14.0-18.[address] [facility] Comment on above: Performed By: #### C BC #### [facility] [address] [place] [address] Dr. Karen Sawyer IG # 0.03 10e3/ul Normal 0.00-0.[address] [facility] Comment on above: Performed By: #### C BC #### [facility] [address] [place] [address] Dr. Karen Sawyer IG % 0.6 % Critically high 0.0-0.5 [facility] Comment on above: Performed By: #### C BC #### [facility] [address] [place] [address] Dr. Karen Sawyer LYMPH # 1.7 103/ul Normal 1.2-3.8 [facility] Comment on above: Performed By: #### C BC #### [facility] [address] [place] [address] Dr. Karen Sawyer Lymphocytes/100 WBC (Bld) 32.1 % Normal 20.5-60.[address] [facility] Comment on above: Performed By: #### C BC #### [facility] [address] [place] [address] Dr. Karen Sawyer MANUAL DIFF REQ NO Normal [facility] Comment on above: Performed By: #### C BC #### [facility] [address] [place] [address] Dr. Karen Sawyer MCH (RBC) [Entitic mass] 31.2 pg Normal 25.9-34.[address] [facility] Comment on above: Performed By: #### C BC #### [facility] [address] [place] [address] Dr. Karen Sawyer MCHC (RBC) [Mass/Vol] 33.4 g/dL Normal 29.9-35.[address] [facility] Comment on above: Performed By: #### C BC #### [facility] [address] [place] [address] Dr. Karen Sawyer MCV (RBC) [Entitic vol] 93.2 fL Normal 80.0-94.[address] [facility] Comment on above: Performed By: #### C BC #### [facility] [address] [place] [address] Dr. Karen Sawyer MONO # 0.3 103/ul Normal 0.3-0.[address] [facility] Comment on above: Performed By: #### C BC #### [facility] [address] [place] [address] Dr. Karen Sawyer Monocytes/100 WBC (Bld) 6.0 % Normal 1.7-12.[address] [facility] Comment on above: Performed By: #### C BC #### [facility] [address] [place] [address] Dr. Karen Sawyer NEUT # 3.0 103/ul Normal 1.4-6.5 [facility] Comment on above: Performed By: #### C BC #### [facility] [address] [place] [address] Dr. Karen Sawyer Neutrophils/100 WBC (Bld) 57.8 % Normal 43.0-75.[address] [facility] Comment on above: Performed By: #### C BC #### [facility] [address] [place] [address] Dr. Karen Sawyer Platelet mean volume (Bld) [Entitic vol] 8.2 fL Critically low 9.5-13.[address] [facility] Comment on above: Performed By: #### C BC #### [facility] [address] [place] [address] Dr. Karen Sawyer PLT 175 103/ul Normal 150-[address] [facility] Comment on above: Performed By: #### C BC #### [facility] [address] [address] [address] Karen Sawyer RBC 4.14 106/ul Critically low 4.70-6.10 [facility] Comment on above: Performed By: #### C BC #### [facility] [address] [address] [address] Karen Sawyer WBC 5.2 103/ul Normal 4.0-11.[address] [facility] Comment on above: Performed By: #### C BC #### [facility] [address] [place] [address] Dr. Karen Sawyer GLYCOHEMOGLOBIN A1Con 2021 ADA RECOMMENDATION SEE BELOW Normal [facility] Comment on above: Result Comment: ADA RECOMMENDED LIMIT 4.0 - 6.0 ADA THERAPEUTIC TARGET < 7.0 ACTION SUGGESTED > 7.0 Performed By: #### A 1C #### [facility] [address] [place] [address] Dr. Karen Sawyer Glucose [Mass/Vol] 134 mg/dL Normal [facility] Comment on above: Performed By: #### A 1C #### [facility] [address] [place] [address] Dr. Karen Sawyer HbA1c (Bld) [Mass fraction] 6.3 % Critically high 4.5-6.[address] [facility] Comment on above: Performed By: #### A 1C #### [facility] [address] [place] [address] Dr. Karen Sawyer LIPID PROFILEon 05-31-2022 CHOL-HDL RATIO NORM SEE BELOW Normal [facility] Comment on above: Result Comment: 3.3 - 4.4 LOW RISK 4.4 - 7.1 AVERAGE RISK 7.1 - 11.0 MODERATE RISK >11.0 HIGH RISK Performed By: #### C MP, LIPID #### [facility] [address] [address] [address] Karen Sawyer Cholesterol [Mass/Vol] 127 mg/dL Normal <=[address] [facility] Comment on above: Performed By: #### C MP, LIPID #### [facility] [address] [address] [address] Karen Sawyer Cholesterol in HDL [Mass/Vol] 46 mg/dL Normal 40-[address] [facility] Comment on above: Performed By: #### C MP, LIPID #### [facility] [address] [address] [address] Karen Sawyer Cholesterol in LDL [Mass/Vol] 66.6 mg/dL Normal [facility] Comment on above: Performed By: #### C MP, LIPID #### [facility] [address] [address] [address] Karen Sawyer Cholesterol.total/Cho lesterol in HDL [Mass ratio] 2.8 {ratio} Normal [facility] Comment on above: Performed By: #### C MP, LIPID #### [facility] [address] [address] [address] Karen Sawyer HDL NORMAL > or = 60 mg/dl - LOW CARDIOVASCULAR RISK <40 mg/dl - HIGH CARDIOVASCULAR RISK Normal [facility] Comment on above: Performed By: #### C MP, LIPID #### [facility] [address] [address] [address] Karen Sawyer LDL CALC NORMAL SEE BELOW Normal [facility] Comment on above: Result Comment: <100 mg/dl OPTIMAL 100 - 129 mg/dl NEAR OR ABOVE OPTIMAL 130 - 159 mg/dl BORDERLINE HIGH 160 - 189 mg/dl HIGH >190 mg/dl VERY HIGH Performed By: #### C MP, LIPID #### [facility] [address] [address] [address] Karen Sawyer Triglyceride [Mass/Vol] 72 mg/dL Normal <=[address] [facility] Comment on above: Performed By: #### C MP, LIPID #### [facility] [address] [address] [address] Karen Sawyer VLDL CALC 14.4 mg/dL Normal [facility] Comment on above: Performed By: #### C MP, LIPID #### [facility] [address] [place] [address] Dr. Karen Sawyer PROF 14(COMP METB)on 05-31- 022 Albumin [Mass/Vol] 3.8 g/dL Normal 3.4-5.0 [facility] Comment on above: Performed By: #### C MP, LIPID #### [facility] [address] [place] [address] Dr. Karen Sawyer Albumin/Globulin [Mass ratio] 1.1 {ratio} Normal [facility] Comment on above: Performed By: #### C MP, LIPID #### [facility] [address] [place] [address] Dr. Karen Sawyer ALP [Catalytic activity/Vol] 65 U/L Normal 46-[address] [facility] Comment on above: Performed By: #### C MP, LIPID #### [facility] [address] [place] [address] Dr. Karen Sawyer ALT [Catalytic activity/Vol] 42 U/L Normal 16-[address] [facility] Comment on above: Performed By: #### C MP, LIPID #### [facility] [address] [place] [address] Dr. Karen Sawyer Anion gap [Moles/Vol] 12.1 mmol/L Normal [facility] Comment on above: Performed By: #### C MP, LIPID #### [facility] [address] [place] [address] Dr. Kraen Sawyer AST [Catalytic activity/Vol] 21 U/L Normal 15-[address] [facility] Comment on above: Performed By: #### C MP, LIPID #### [facility] [address] [place] [address] Dr. Karen Sawyer Bilirubin [Mass/Vol] 0.2 mg/dL Normal 0.2-1.[address] [facility] Comment on above: Performed By: #### C MP, LIPID #### [facility] [address] [place] [address] Dr. Karen Sawyer Calcium [Mass/Vol] 8.8 mg/dL Normal 8.5-10.1 [facility] Comment on above: Performed By: #### C MP, LIPID #### [facility] [address] [place] [address] Dr. Karen Sawyer Chloride [Moles/Vol] 105 mmol/L Normal 98-[address] [facility] Comment on above: Performed By: #### C MP, LIPID #### [facility] [address] [place] [address] Dr. Karen Sawyer CO2 [Moles/Vol] 25.6 mmol/L Normal 21.0-32.[address] [facility] Comment on above: Performed By: #### C MP, LIPID #### [facility] [address] [place] [address] Dr. Karen Sawyer Creatinine [Mass/Vol] 1.03 mg/dL Normal 0.70-1.[address] [facility] Comment on above: Performed By: #### C MP, LIPID #### [facility] [address] [place] [address] Dr. Karen Sawyer EGFR-AF NAMIBIAN >60 Normal >=[address] [facility] Comment on above: Performed By: #### C MP, LIPID #### [facility] [address] [place] [address] Dr. Karen Sawyer EGFR-NON AF NAMIBIAN >60 Normal >=[address] [facility] Comment on above: Performed By: #### C MP, LIPID #### [facility] [address] [place] [address] Dr. Karen Sawyer Globulin (S) [Mass/Vol] 3.5 g/dL Normal [facility] Comment on above: Performed By: #### C MP, LIPID #### [facility] [address] [place] [address] Dr. Karen Sawyer Glucose [Mass/Vol] 118 mg/dL Critically high 74-106 [facility] Comment on above: Performed By: #### C MP, LIPID #### [facility] [address] [place] [address] Dr. Karen Sawyer Potassium [Moles/Vol] 4.7 mmol/L Normal 3.5-5.[address] [facility] Comment on above: Performed By: #### C MP, LIPID #### [facility] [address] [place] [address] Dr. Karen Sawyer Protein [Mass/Vol] 7.3 g/dL Normal 6.4-8.2 [facility] Comment on above: Performed By: #### C MP, LIPID #### [facility] [address] [place] [address] Dr. Karen Sawyer Sodium [Moles/Vol] 138 mmol/L Normal 136-145 [facility] Comment on above: Performed By: #### C MP, LIPID #### [facility] [address] [place] [address] Dr. Karen Sawyer Urea nitrogen [Mass/Vol] 20.0 mg/dL Critically high 7.0-18.[address] [facility] Comment on above: Performed By: #### C MP, LIPID #### [facility] [address] [place] [address] Dr. Karen Sawyer Urea nitrogen/Creatinine [Mass ratio] 19.4 mg/mg Normal [facility] Comment on above: Performed By: #### C MP, LIPID #### [facility] [address] [place] [address] Dr. Karen Sawyer CBC AUTO DIFFon 06-21-2021 BASO # 0.0 103/ul Normal 0.0-0.[address] [facility] Comment on above: Performed By: #### C BC #### [facility] [address] [place] [address] Dr. Karen Sawyer Basophils/100 WBC (Bld) 0.4 % Normal 0.2-2.0 [facility] Comment on above: Performed By: #### C BC #### [facility] [address] [place] [address] Dr. Karen Sawyer EO # 0.1 103/ul Normal 0.0-0.[address] [facility] Comment on above: Performed By: #### C BC #### [facility] [address] [place] [address] Dr. Karen Sawyer Eosinophils/100 WBC (Bld) 2.7 % Normal 0.9-7.[address] [facility] Comment on above: Performed By: #### C BC #### [facility] [address] [place] [address] Dr. Karen Sawyer Erythrocyte distribution width (RBC) [Ratio] 12.2 % Normal 11.0-15.[address] [facility] Comment on above: Performed By: #### C BC #### [facility] [address] [place] [address] Dr. Karen Sawyer Hematocrit (Bld) [Volume fraction] 37.7 % Critically low 42.0-54.[address] [facility] Comment on above: Performed By: #### C BC #### [facility] [address] [place] [address] Dr. Karen Sawyer Hemoglobin (Bld) [Mass/Vol] 12.9 g/dL Critically low 14.0-18.[address] [facility] Comment on above: Performed By: #### C BC #### [facility] [address] [place] [address] Dr. Karen Sawyer IG # 0.02 10e3/ul Normal 0.00-0.[address] [facility] Comment on above: Performed By: #### C BC #### [facility] [address] [place] [address] Dr. Karen Sawyer IG % 0.4 % Normal 0.0-0.[address] [facility] Comment on above: Performed By: #### C BC #### [facility] [address] [place] [address] Dr. Karen Sawyer LYMPH # 1.7 103/ul Normal 1.2-3.8 [facility] Comment on above: Performed By: #### C BC #### [facility] [address] [place] [address] Dr. Karen Sawyer Lymphocytes/100 WBC (Bld) 37.6 % Normal 20.5-60.[address] [facility] Comment on above: Performed By: #### C BC #### [facility] [address] [place] [address] Dr. Karen Sawyer MANUAL DIFF REQ NO Normal [facility] Comment on above: Performed By: #### C BC #### [facility] [address] [place] [address] Dr. Karen Sawyer MCH (RBC) [Entitic mass] 31.2 pg Normal 25.9-34.[address] [facility] Comment on above: Performed By: #### C BC #### [facility] [address] [place] [address] Dr. Karen Sawyer MCHC (RBC) [Mass/Vol] 34.2 g/dL Normal 29.9-35.[address] [facility] Comment on above: Performed By: #### C BC #### [facility] [address] [place] [address] Dr. Karen Sawyer MCV (RBC) [Entitic vol] 91.3 fL Normal 80.0-94.[address] [facility] Comment on above: Performed By: #### C BC #### [facility] [address] [place] [address] Dr. Karen Sawyer MONO # 0.2 103/ul Critically low 0.3-0.8 [facility] Comment on above: Performed By: #### C BC #### [facility] [address] [place] [address] Dr. Karen Sawyer Monocytes/100 WBC (Bld) 5.1 % Normal 1.7-12.[address] [facility] Comment on above: Performed By: #### C BC #### [facility] [address] [place] [address] Dr. Karen Sawyer NEUT # 2.4 103/ul Normal 1.4-6.5 [facility] Comment on above: Performed By: #### C BC #### [facility] [address] [place] [address] Dr. Karen Sawyer Neutrophils/100 WBC (Bld) 53.8 % Normal 43.0-75.[address] [facility] Comment on above: Performed By: #### C BC #### [facility] [address] [place] [address] Dr. Karen Sawyer Platelet mean volume (Bld) [Entitic vol] 8.6 fL Critically low 9.5-13.[address] [facility] Comment on above: Performed By: #### C BC #### [facility] [address] [address] [address] Karen Sawyer PLT 142 103/ul Critically low 150-450 [facility] Comment on above: Performed By: #### C BC #### [facility] [address] [address] [address] Karen Sawyer RBC 4.13 106/ul Critically low 4.70-6.10 [facility] Comment on above: Performed By: #### C BC #### [facility] [address] [address] [address] Karen Sawyer WBC 4.5 103/ul Normal 4.0-11.[address] [facility] Comment on above: Performed By: #### C BC #### [facility] [address] [address] [address] Karen Sawyer GLYCOHEMOGLOBIN A1Con 2020 ADA RECOMMENDATION ADA THERAPEUTIC TARGET 6.0 - 7.0 ACTION SUGGESTED > 7.[address] [facility] Comment on above: Performed By: #### A 1C #### [facility] [address] [address] [address] Karen Sawyer Glucose [Mass/Vol] 137 mg/dL Normal [facility] Comment on above: Performed By: #### A 1C #### [facility] [address] [address] [address] Karen Sawyer HbA1c (Bld) [Mass fraction] 6.4 % Critically high <=6.[address] [facility] Comment on above: Performed By: #### A 1C #### [facility] [address] [address] [address] Karen Sawyer H PYLORI ANTIBODYon 06-21-20 21 H PYLORI Negative Normal NEGATIVE [facility] Comment on above: Performed By: #### H PYL #### [facility] [address] [address] [address] Karen Sawyer LIPID PROFILEon 06-21-2021 CHOL-HDL RATIO NORM SEE BELOW Normal [facility] Comment on above: Result Comment: 3.3 - 4.4 LOW RISK 4.4 - 7.1 AVERAGE RISK 7.1 - 11.0 MODERATE RISK >11.0 HIGH RISK Performed By: #### L IPID, BMP #### [facility] [address] [address] [address] Karen Sawyer Cholesterol [Mass/Vol] 146 mg/dL Normal <=[address] [facility] Comment on above: Performed By: #### L IPID, BMP #### [facility] [address] [address] [address] Karen Sawyer Cholesterol in HDL [Mass/Vol] 58 mg/dL Normal [facility] Comment on above: Performed By: #### L IPID, BMP #### [facility] [address] [address] [address] Karen Sawyer Cholesterol in LDL [Mass/Vol] 56.8 mg/dL Normal [facility] Comment on above: Performed By: #### L IPID, BMP #### [facility] [address] [address] [address] Karen Sawyer Cholesterol.total/Cho lesterol in HDL [Mass ratio] 2.5 {ratio} Normal [facility] Comment on above: Performed By: #### L IPID, BMP #### [facility] [address] [address] [address] Karen Sawyer HDL NORMAL > or = 60 mg/dl - LOW CARDIOVASCULAR RISK <40 mg/dl - HIGH CARDIOVASCULAR RISK Normal [facility] Comment on above: Performed By: #### L IPID, BMP #### [facility] [address] [address] [address] Karen Sawyer LDL CALC NORMAL SEE BELOW Normal [facility] Comment on above: Result Comment: <100 mg/dl OPTIMAL 100 - 129 mg/dl NEAR OR ABOVE OPTIMAL 130 - 159 mg/dl BORDERLINE HIGH 160 - 189 mg/dl HIGH >190 mg/dl VERY HIGH Performed By: #### L IPID, BMP #### [facility] [address] [address] [address] Karen Sawyer Triglyceride [Mass/Vol] 156 mg/dL Critically high <=150 [facility] Comment on above: Performed By: #### L IPID, BMP #### [facility] [address] [place] [address] Dr. Karen Sawyer VLDL CALC 31.2 mg/dL Normal [facility] Comment on above: Performed By: #### L IPID, BMP #### [facility] [address] [place] [address] Dr. Karen Sawyer PROF CHEM 8 (BAS METB)on Anion gap [Moles/Vol] 17.4 mmol/L Normal [facility] Comment on above: Performed By: #### L IPID, BMP #### [facility] [address] [place] [address] Dr. Karen Sawyer Calcium [Mass/Vol] 8.8 mg/dL Normal 8.4-10.2 [facility] Comment on above: Performed By: #### L IPID, BMP #### [facility] [address] [place] [address] Dr. Karen Sawyer Chloride [Moles/Vol] 103 mmol/L Normal 98-[address] [facility] Comment on above: Performed By: #### L IPID, BMP #### [facility] [address] [place] [address] Dr. Karen Sawyer CO2 [Moles/Vol] 23.8 mmol/L Normal 22.0-30.[address] [facility] Comment on above: Performed By: #### L IPID, BMP #### [facility] [address] [place] [address] Dr. Karen Sawyer Creatinine [Mass/Vol] 1.01 mg/dL Normal 0.66-1.[address] [facility] Comment on above: Performed By: #### L IPID, BMP #### [facility] [address] [place] [address] Dr. Karen Saywer EGFR-AF NAMIBIAN >60 Normal >=[address] [facility] Comment on above: Performed By: #### L IPID, BMP #### [facility] [address] [place] [address] Dr. Karen Sawyer EGFR-NON AF NAMIBIAN >60 Normal >=[address] [facility] Comment on above: Performed By: #### L IPID, BMP #### [facility] [address] [place] [address] Dr. Karen Sawyer Glucose [Mass/Vol] 158 mg/dL Critically high 74-106 [facility] Comment on above: Performed By: #### L IPID, BMP #### [facility] [address] [place] [address] Dr. Karen Sawyer Potassium [Moles/Vol] 4.2 mmol/L Normal 3.4-5.[address] [facility] Comment on above: Performed By: #### L IPID, BMP #### [facility] [address] [place] [address] Dr. Karen Sawyer Sodium [Moles/Vol] 140 mmol/L Normal 137-145 [facility] Comment on above: Performed By: #### L IPID, BMP #### [facility] [address] [place] [address] Dr. Karen Sawyer Urea nitrogen [Mass/Vol] 21.0 mg/dL Critically high 9.0-20.[address] [facility] Comment on above: Performed By: #### L IPID, BMP #### [facility] [address] [place] [address] Dr. Karen Sawyer Urea nitrogen/Creatinine [Mass ratio] 20.8 mg/mg Normal [facility] Comment on above: Performed By: #### L IPID, BMP #### [facility] [address] [place] [address] Dr. Karen Sawyer Vital Signs Date Time Vital Sign Value Performing Clinician Rodney quinonez 07-21-2024 07:53-0500 Body height 188 cm Faith Hayward [employer] Work Phone: [facility] 07-21-2024 07:53-0500 Body mass index (BMI) [Ratio] 30.96 kg/m2 Faith Hayward [employer] Work Phone: [facility] 07-21-2024 07:53-0500 Body temperature 97.7 [degF] Faith Caputok [employer] Work Phone: [facility] 07-21-2024 07:53-0500 Body weight 109.36 kg Faith Caputok [employer] Work Phone: [facility] 07-21-2024 07:53-0500 Diastolic blood pressure 82 mm[Hg] Faith Legertrick [employer] Work Phone: [facility] 07-21-2024 07:53-0500 Heart rate 78 /min Faith Legertrick [employer] Work Phone: [facility] 07-21-2024 07:53-0500 Respiratory rate 16 /min Faith Caputok [employer] Work Phone: [facility] 07-21-2024 07:53-0500 SaO2% (BldA) [Mass fraction] 98 % Faith Caputok [employer] Work Phone: [facility] 07-21-2024 07:53-0500 Systolic blood pressure 142 mm[Hg] Faith Legertrick [employer] Work Phone: [facility] Encounters Encounter Date Encounter Type Care Provider Facility Start: 07-21-2024 End: 07-21-2024 Bamboo flowsheet Faith Caputok [employer] Work Phone: [facility] Start: 07-21-2024 End: 07-21-2024 Bamboo flowsheet Faith Legertrick [employer] Work Phone: [facility] Start: 07-21-2024 End: 07-21-2024 Office outpatient visit 15 minutes Faith Caputok [employer] Work Phone: [facility] Comment on above: Flu vaccine [...] Start: 05-27-2024 End: 05-31-2024 Refill Faith Cookzpatrick [employer] Work Phone: [facility] Comment on [...] medical examination without abnormal findings RODNEY BECERRA [facility] Start: 06-21-2021 End: 06-22-2021 ambulatory RODNEY BECERRA Facility:[facility]1 Start: 06-21-2021 End: 06-22-2021 Encounter for general adult medical examination without abnormal findings RODNEY BECERRA Facility:[facility]1 Procedures Date Procedure Procedure Detail Performing Clinician Start: 07-03-2024 PARAS CMP Shaikh Caesar pepe MD Work Phone: Start: 07-03-2024 Lipid panel Shaikh Caesar pepe MD Work Phone: Start: 07-03-2024 [facility] CBC AUTO DIFF Shaik madhuri Marquez MD Work Phone: Start: 07-03-2024 [facility] DIRECT LDL Shaikh Shavon burgos MD Work Phone: Start: 07-03-2024 [facility] GLYCOHEMOGLOBIN A1C Shaikh Jimmy ZHONG Work Phone: Start: 07-03-2024 [facility] MICROALB CREAT R ATIO RANDOM Shaikh Jimmy ZHONG Work Phone: Start: 06-21-2021 PSA screening SHAIKH COLT HARVEY Comment on above: Performed By: #### P [facility] #### [facility] [address] [place] [address] Dr. Karen Sawyer Plan of Treatment Date Care Activity Detail Author Start: 05-14-2025 Glaucoma screening Diabetes: R etinopathy Screening [facility] Start: 10-20-2024 End: 10-20-2024 Patient encounter procedure 10/20/2024 7:30 AM EST Office Visit [facility] [address] [place] [address] Faith Hayward NP [address] [facility] [place] [address] [facility] Start: 07-22-2024 End: 07-22-2024 Patient encounter procedure 07/22/2024 9:00 AM EST Office Visit [facility] [address] [facility] [address] [place] [address] Odilon Sofia DPM [address] [facility] [address] [place] [address] [facility] Start: 07-21-2024 [...] Canine Kidney, preservative free, quadrivalent Faith Hayward [employer] Work Phone: [facility] Payers Date Payer Category Payer [facility] [id number] 2022 Unknown [id number] 1965 Unknown [id number] 1965 Unknown [id number] [id number] 1965 Unknown [id number] [id number] 1964 Unknown [id number] [id number] 1964 Unknown [id number] [id number] 1964 Unknown [id number] 1964 Unknown [id number] [id number] 1965 Unknown [id number] 1960 Private Health Insurance [id number] Social History Date Type Detail Facility Start: 01-01-2024 Tobacco smoking stat [facility] Never smoked tobacco [facility] Start: 05-06-2024 Alcoholic beverage intake Current drinker of alcohol (finding) [facility] Start: 04-21-2024 End: 05-06-2024 Alcoholic beverage intake [facility] Start: 04-21-2024 End: 05-06-2024 Tobacco use panel [facility] Start: 1965 Sex assigned at Not on file [facility] NEGATED: Highlighted rowStart: NINF History of tobacco use Passive smoker [facility] Medical Equipment Procedure Code Equipment Code Equipment Origin al Text Equipment Identifier Dates [id number] Start: 11-28-2022 End: 05-27-2024 Inject 1 Lancet under the skin 4 (four) times a day as needed (Hyperglycemia) [id number] Start: 05-31-2024 History of Present illness Narrative [...] complication, with long-term current use of insulin ([facility]) A1C needs completed Novolog 10units TID Lantus [...] ALBUMIN GLOBULIN RATIO 0.9 0.9 Resulting Agency [facility] DMII: A1C needs completed Novolog 10units TID [...] Items Addressed This Visit Essential (primary) hypertension ([facility]) - Primary Labs need completed Currently taking Amlodipine 5mg Losartan- hydrochlorothiazide 25-100mg Checks BP at home; Averages are 130's-150's. Denies orthostatic changes, dizziness, cough, shortness of breath, swelling in extremities. Will increase amlodipine to 10mg today Relevant Medications amLODIPine (Norvasc) 10 MG tablet Other hyperlipidemia ([facility]) Currently taking Atorvastatin 40mg Denies any myalgias. Continue current regimen. 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 ([facility]) Onychomycosis Dermatophytosis of nail Toe pain, left [...] content) DATE CREATED AUTHOR 06/10/2022 [facility] pital DATE CREATED AUTHOR AUTHOR'S ORGANIZ ATION 07/23/2024 [facility] dical Specialists EPIC Care Teams (unrecognized sec tion and content) Shingle Catcher Relationship Specialty Start Date End Date Shaikh Marquez MD [address] [place] [address] PCP - [employer] 11/17/23 Luther Madrid MD [address] [place] [address] PCP - General Family Medicine 04/08/24 Faith Hayward NP [address] [place] [address] Nurse Practitioner Family Medicine 04/08/24 Shingle Catcher Relationship Specialty Start Date End Date Shaikh Marquez MD [address] [place] [address] PCP - [employer] 11/17/23 Luther Madrid MD [address] [place] [address] PCP - General Family Medicine 04/08/24 Faith Hayward NP [address] [place] [address] Nurse Practitioner Family Medicine 04/08/24 Shingle Catcher Relationship Specialty Start Date End Date Shaikh Marquez MD [address] [place] [address] PCP - [employer] 11/17/23 Luther Madrid MD [address] [place] [address] PCP - General Family Medicine 04/08/24 Faith Hayward NP [address] [place] [address] Nurse Practitioner Family Medicine 04/08/24 Shingle Catcher Relationship Specialty Start Date End Date Shaikh Marquez MD [address] [place] [address] PCP - [facility] 11/17/23 Luther Madrid MD [address] [place] [address] PCP - General Family Medicine 04/08/24 Faith Hayward NP [address] [place] [address] Nurse Practitioner Family Medicine 04/08/24 [...] BE BASED ON THE PRIMARY CLINICAL RECORDS. [facility] [employer] [facility]. provides no warranty or guarantee of the accuracy or completeness of information in this document.
--- NOTE | 2024-07-30 07:20 | MR_ITS ---
The [address] [address] Patient Name: YESSENIA BEST MRN: [id number] date: 1965 Sex: M Assigned Patient Location: [facility] Current Patient Location: [facility] Accession/Order Number: [id number] Exam Date: 07/30/2024 08:04 Report Date: 07/30/2024 14:44 At the request of: LINDA LEBLANC Procedure: MR lumbar spine wo con EXAMINATION: MR lumbar spine wo con HISTORY: intervertebral disc degeneration, lumbar region COMPARISON: No relevant comparison available. TECHNIQUE: A variety of imaging planes and parameters were utilized for visualization of suspected pathology. FINDINGS: For the purposes of numbering, sagittal T2 image # 8 extends from the T11 vertebral body superiorly to the S2 level inferiorly. PARASPINAL AREA: Normal with no visible mass. BONES: Normal alignment of the lumbar vertebral bodies with no acute fracture or spondylolisthesis. Mild degenerative spondylosis and facet osteoarthropathy CORD/CAUDA EQUINA: Normal caliber, contour, and signal intensity. DISC LEVELS: 12-L1: No significant disc/facet abnormality, spinal stenosis, or foraminal stenosis. L1-L2: No significant disc/facet abnormality, spinal stenosis, or foraminal stenosis. L2-L3: No significant disc/facet abnormality, spinal stenosis, or foraminal stenosis. L3-L4: No significant disc/facet abnormality, spinal stenosis, or foraminal stenosis. L4-L5: No significant disc/facet abnormality, spinal stenosis, or foraminal stenosis. L5-S1: No significant disc/facet abnormality, spinal stenosis, or foraminal stenosis. MR/MR lumbar spine wo con IMPRESSION: No significant disc bulge or herniation. No central or foraminal stenosis. Electronically authenticated by: ANGIE AMADO Date: 07/30/2024 14:44
--- NOTE | 2024-07-30 07:20 | XR_ITS ---
The [address] [address] Patient Name: YESSENIA BEST MRN: [id number] date: 1965 Sex: M Assigned Patient Location: [facility] Current Patient Location: [facility] Accession/Order Number: [id number] Exam Date: 07/30/2024 07:30 Report Date: 07/30/2024 07:58 At the request of: LINDA LEBLANC Procedure: XR ankle RT 2V PROCEDURE: XR ankle RT 2V COMPARISON: None. HISTORY: PRE-MRI SCREENING FINDINGS: BONES:Remote fibular fracture with internal fixation utilizing a plate and screws. Moderate degenerative changes with joint space narrowing marginal osteophyte formation. Moderate enthesopathic spurring of the calcaneus SOFT TISSUES:Negative. No visible soft tissue swelling. EFFUSION:None visible. OTHER: Negative. XR/XR ankle RT 2V IMPRESSION: Moderate degenerative changes. Remote internal fixation of a fibular fracture with a metallic plate Electronically authenticated by: ANGIE AMADO Date: 07/30/2024 07:58
== END 2024-07-30 07:15 | disposition home or self-care (01) ==
LOC: RAD 07:14
PROVIDERS: Visit Provider Nurse Practitioner
DX: M51.369 Other intervertebral disc degeneration, lumbar region without mention of lumbar back pain or lower extremity pain (principal); M54.50 Low back pain, unspecified
CPT/HCPCS: 72148; 73600

== ENCOUNTER 2025-05-10 13:24 | Emergency (ER) | payer BC, SELFPAY ==
[2025-05-10 13:42] VITALS: BP 158/93; PULSE 96; TEMP 36.7; O2SAT 98; BMI 31.2
[2025-05-10 17:40] LABS: Glucose Urine UA NEGATIVE (NEGATIVE)
--- NOTE | 2025-05-10 17:44 | CT_ITS ---
[address] [address] Patient Name: YESSENIA BEST MRN: [id number] date: 1965 Sex: M Assigned Patient Location: ER Current Patient Location: ER Accession/Order Number: [id number] Exam Date: 05/10/2025 17:53 Report Date: 05/10/2025 18:13 At the request of: GISELA FOURNIER Procedure: CT abdomen pelvis wo con CT ABDOMEN AND PELVIS WITHOUT INTRAVENOUS CONTRAST: CLINICAL HISTORY: right flank pain COMPARISON: None TECHNIQUE: Spiral images were obtained through the abdomen and pelvis without intravenous contrast. This CT exam was performed using one or more following dose reduction techniques: Automated exposure control, adjustment of the mA and/or kV according to patient size, or use of iterative reconstruction technique. FINDINGS: Lung Bases: [No focal opacity. Minimal left basilar atelectasis and or scarring.] Organs:Fatty liver. Gallbladder with gallstones versus sludge. Spleen, adrenals, pancreas unremarkable. Right renal calculus 3 to 4 mm in size involving the interpolar region. No hydronephrosis. No left-sided calculi or left-sided hydronephrosis. No urolithiasis.[ GI: Mild retained stool throughout the colon. No bowel obstruction. Colonic diverticulosis. Appendix unremarkable.[ Pelvis:[Bladder wall thickening could relate to under distention versus cystitis. Prostate slightly heterogeneous. Tiny fat-containing inguinal hernias.] Peritoneum/Retroperitoneum:No free air or free fluid. Oxhv-mw-dwtymtob plaque involving the nonaneurysmal aorta. No bulky adenopathy.[ Abd wall/Bones:No suspicious osseous lesion. Hdgo-ui-vqtsrkzf changes.[ CT/CT abdomen pelvis wo con IMPRESSION: Right-sided interpolar calculus 3-4 mm in size. No hydronephrosis. Bladder wall thickening possibly related to under distention versus cystitis, correlate with urinalysis findings. Suspected gallstones versus sludge within the gallbladder. Fatty infiltration liver. Colonic diverticulosis. Impression dictated by: Parmjit Lima M.D. 05/10/2025 6:13 PM Dictation Location: [address] [place] [address] Electronically authenticated by: [id number] Y Date: 05/10/2025 18:13
--- OUTSIDE RECORDS SUMMARY | 2025-05-10 17:45 | XMS_ITS | Encounter Summary ---
Author Organization [facility] Address [address] [place] [address] Care Team Providers Care Meter Installer Name Role Phone Shaikh FARHEEN Marquez Unavailable [phone] Luther Madrid MD Primary Care Provider [phone] Faith Hayward STAVE AND BOLT EQUALIZER Unavailable [phone] Carmela Tate OD Unavailable Luther Madrid MD Primary Care Provider [phone] Encounter Details Date Type Department Care Team (Late st Contact Info) Description 07/30/2024 Clinisync Result Encounter [facility] External Department Unsolicited Provider, Generic External Data Social History Tobacco Use Types Packs/Day Years Used Date Smoking Tobacco: Never Passive Smoke Exposure: Never Alcohol Use Standard Drinks/Week Comments Yes 24 (1 standard drink = 0.6 oz pu re alcohol) PHQ-2 Answer Date Recorded Patient Health Questionnaire-2 Score 0 01/01/2024 Sex and Gender Information Value Date Recorded Sex Assigned at Not on file Legal Sex Male 7:16 PM EDT Gender Identity Not on file Sexual Orientation Not on file documented as of this encounter Plan of Treatment Not on file documented as of this encounter Procedures Procedure Name Priority Date/Time Associated Diagnosis Comments MR LUMBAR SPINE WO CON 07/30/2024 2:44 PM EST documented in this encounter Results * MR LUMBAR SPINE WO CON (07/30/2024 2:44 PM EST) Anatomical Region Laterality Modality Other 07/30/2024 2:44 PM EST Narrative 07/30/2024 2:46 PM [place] [address] Magnetic Resonance Report Signed Patient: PADILLA HARO MR#: [id number] : 1965 Acct:[id number] Age/Sex: 59 / M ADM Date: 07/30/24 Loc: [facility] Attending Dr: Leesa Leblanc NP Ordering Physician: Leesa Leblanc NP Date of Service: 07/30/24 Procedure(s): MR lumbar spine wo con Accession Number(s): [id number] cc: FAITH HAYWARD; Leesa Leblanc NP [place] [address] Patient Name: PADILLA HARO MRN: [id number] date: 1965 Sex: M Assigned Patient Location: [facility] Current Patient Location: [facility] Accession/Order Number: [id number] Exam Date: 07/30/2024 08:04 Report Date: 07/30/2024 14:44 At the request of: LEESA LEBLANC Procedure: MR lumbar spine wo con EXAMINATION: MR lumbar spine wo con HISTORY: intervertebral disc degeneration, lumbar region COMPARISON: No relevant comparison available. TECHNIQUE: A variety of imaging planes and parameters were utilized for visualization of suspected pathology. FINDINGS: For the purposes of numbering, sagittal T2 image # 8 extends from the T11 vertebral body superiorly to the S2 level inferiorly. PARASPINAL AREA: Normal with no visible mass. BONES: Normal alignment of the lumbar vertebral bodies with no acute fracture or spondylolisthesis. Mild degenerative spondylosis and facet osteoarthropathy CORD/CAUDA EQUINA: Normal caliber, contour, and signal intensity. DISC LEVELS: 12-L1: No significant disc/facet abnormality, spinal stenosis, or foraminal stenosis. L1-L2: No significant disc/facet abnormality, spinal stenosis, or foraminal stenosis. L2-L3: No significant disc/facet abnormality, spinal stenosis, or foraminal stenosis. L3-L4: No significant disc/facet abnormality, spinal stenosis, or foraminal stenosis. L4-L5: No significant disc/facet abnormality, spinal stenosis, or foraminal stenosis. L5-S1: No significant disc/facet abnormality, spinal stenosis, or foraminal stenosis. MR/MR lumbar spine wo con IMPRESSION: No significant disc bulge or herniation. No central or foraminal stenosis. Electronically authenticated by: ANGIE AMADO Date: 07/30/2024 14:44 Dictated By: Angie Amado M.D. Signed By: 07/30/24 1446 DD/ 43 TD/TT: Commercial Sales Representative: Procedure Note Radiology, Radiologist, MD - 07/30/2024 [place] [address] Magnetic Resonance Report Signed Patient: PADILLA HARO DMR#: [id number] : 1965Acct:[id number] Age/Sex: 59 / MADM Date: 07/30/24 Loc: [facility] Attending Dr: Leesa Leblanc NP Ordering Physician: Leesa Leblanc NP Date of Service: 07/30/24 Procedure(s): MR lumbar spine wo con Accession Number(s): [id number] cc: ANDRZEJ HAYWARD Anna NP [place] [address] Patient Name: PADILLA HARO MRN: [id number] date: 1965 Sex: M Assigned Patient Location: [facility] Current Patient Location: [facility] Accession/Order Number: [id number] Exam Date: 07/30/2024 08:04 Report Date: 07/30/2024 14:44 At the request of: LEESA LEBLANC Procedure: MR lumbar spine wo con EXAMINATION: MR lumbar spine wo con HISTORY: intervertebral disc degeneration, lumbar region COMPARISON: No relevant comparison available. TECHNIQUE: A variety of imaging planes and parameters were utilized for visualization of suspected pathology. FINDINGS: For the purposes of numbering, sagittal T2 image # 8 extends from the T11 vertebral body superiorly to the S2 level inferiorly. PARASPINAL AREA: Normal with no visible mass. BONES: Normal alignment of the lumbar vertebral bodies with no acutefracture or spondylolisthesis. Mild degenerative spondylosis and facetosteoarthropathy CORD/CAUDA EQUINA: Normal caliber, contour, and signal intensity. DISC LEVELS: 12-L1: No significant disc/facet abnormality, spinal stenosis, orforaminal stenosis. L1-L2: No significant disc/facet abnormality, spinal stenosis, orforaminal stenosis. L2-L3: No significant disc/facet abnormality, spinal stenosis, orforaminal stenosis. L3-L4: No significant disc/facet abnormality, spinal stenosis, orforaminal stenosis. L4-L5: No significant disc/facet abnormality, spinal stenosis, orforaminal stenosis. L5-S1: No significant disc/facet abnormality, spinal stenosis, orforaminal stenosis. MR/MR lumbar spine wo con IMPRESSION: No significant disc bulge or herniation. No central or foraminal stenosis. Electronically authenticated by: ANGIE AMADO Date: 07/30/2024 14:44 Dictated By: Angie Amado M.D. Signed By:07/30/241445 DD/ 43 TD/TT: Commercial Sales Representative: us Generic External Data Provider [facility] Final Result documented in this encounter Visit Diagnoses Not on filedocumented in this encounter Care Teams Meter Installer Relationship Specialty Start Date End Date Shaikh Marquez MD [address] [place] [address] PCP - [facility] 11/17/23 Luther Madrid MD [address] [place] [address] PCP - General Family Medicine 04/08/24 12/28/24 Luther Madrid MD [address] [place] [address] PCP - General Family Medicine 12/29/24 Faith Hayward NP [address] [place] [address] Nurse Practitioner Family Medicine 04/08/24 10/18/24 Carmela Tate OD [address] [place] [address] Referring Physician Optometry 09/21/24 documented as of this encounter
--- OUTSIDE RECORDS SUMMARY | 2025-05-10 17:45 | XMS_ITS | Encounter Summary ---
Author Organization [facility] Address [address] [place] [address] Care Team Providers Care Fundraising Director Name Role Phone Shaikh FARHEEN Marquez Unavailable [phone] Luther Madrid MD Primary Care Provider [phone] Faith Hayward HEAD SUGAR REPROCESS OPERATOR Unavailable Carmela Tate OD Unavailable Luther Madrid MD Primary Care Provider [phone] Encounter Details Date Type Department Care Team [...] Procedure Name Priority Date/Time Associated Diagnosis Comments XR ANKLE 2 VIEWS RIGHT 07/30/2024 7:58 AM EST documented in this encounter Results * XR ankle 2 views right (07/30/2024 7:58 AM EST) Anatomical Region Laterality Modality Lower Extremities, Ankle Right Radiogr aphic Imaging 07/30/2024 7:58 AM EST Narrative 07/30/2024 8:00 [place] [address] XRay Report Signed Patient: PADILLA HARO MR#: [id number] : 1965 Acct:[id number] Age/Sex: 59 / M ADM Date: 07/30/24 Loc: [facility] Attending Dr: Leesa Leblanc NP Ordering Physician: Leesa Leblanc NP Date of Service: 07/30/24 Procedure(s): XR ankle RT 2V Accession Number(s): [id number] cc: ANDRZEJ HAYWARD Anna NP [place] [address] Patient Name: PADILLA HARO MRN: [id number] date: 1965 Sex: M Assigned Patient Location: [facility] Current Patient Location: [facility] Accession/Order Number: [id number] Exam Date: 07/30/2024 07:30 Report Date: 07/30/2024 07:58 At the request of: LEESA LEBLANC Procedure: XR ankle RT 2V PROCEDURE: XR ankle RT 2V COMPARISON: None. HISTORY: PRE-MRI SCREENING FINDINGS: BONES:Remote fibular fracture with internal fixation utilizing a plate and screws. Moderate degenerative changes with joint space narrowing marginal osteophyte formation. Moderate enthesopathic spurring of the calcaneus SOFT TISSUES:Negative. No visible soft tissue swelling. EFFUSION:None visible. OTHER: Negative. XR/XR ankle RT 2V IMPRESSION: Moderate degenerative changes. Remote internal fixation of a fibular fracture with a metallic plate Electronically authenticated by: ANGIE AMADO Date: 07/30/2024 07:58 Dictated By: Angie Amado M.D. Signed By: 07/30/24 0800 DD/ 0758 TD/TT: Windows Deployment Technician: Procedure Note Radiology, Radiologist, - 07/30/2024 The [place] [id number] XRay Report Signed Patient: PADILLA HARO DMR#: [id number] : 1965Acct:[id number] Age/Sex: 59 / MADM Date: 07/30/24 Loc: RAD Attending Dr: Leesa Leblanc HEAD SUGAR REPROCESS OPERATOR Ordering Physician: Leesa Leblanc NP Date of Service: 07/30/24 Procedure(s): XR ankle RT 2V Accession Number(s): [id number] cc: ANDRZEJ HAYWARD Anna NP [place] [id number] Patient Name: PADILLA HARO MRN: [facility]:[id number] date: 1965 Sex: M Assigned Patient Location: [facility] Current Patient Location: RAD Accession/Order Number: [id number] Exam Date: 07/30/2024 07:30 Report Date: 07/30/2024 07:58 At the request of: LEESA LEBLANC Procedure: XR ankle RT 2V PROCEDURE: XR ankle RT 2V COMPARISON: None. HISTORY: PRE-MRI SCREENING FINDINGS: BONES:Remote fibular fracture with internal fixation utilizing a plate and screws. Moderate degenerative changes with joint space narrowing marginal osteophyte formation. Moderate enthesopathic spurring of the calcaneus SOFT TISSUES:Negative. No visible soft tissue swelling. EFFUSION:None visible. OTHER: Negative. XR/XR ankle RT 2V IMPRESSION: Moderate degenerative changes. Remote internal fixation of a fibular fracture with a metallic plate Electronically authenticated by: ANGIE AMADO Date: 07/30/2024 07:58 Dictated By: Angie Amado M.D. Signed By:07/30/24 0800 DD/ 0758 TD/TT: Windows Deployment Technician: Generic External Data Provider IMG XR PROCEDURES Final Result documented in this encounter Visit Diagnoses Not on filedocumented in this encounter Care Teams Fundraising Director Relationship Specialty Start Date End Date Shaikh Marquez MD [address] [place] [phone] PCP - [facility] 11/17/23 Luther Madrid MD [address] [place] [address] PCP - General Family Medicine 04/08/24 12/28/24 Luther Madrid MD [address] [place] [address] PCP - General Family Medicine 12/29/24 Faith Hayward NP [address] [place] [address] Nurse Practitioner Family Medicine 04/08/24 10/18/24 Carmela Tate OD [address] [place] [address] Referring Physician Optometry 09/21/24 documented as of this encounter
--- OUTSIDE RECORDS SUMMARY | 2025-05-10 17:45 | XMS_ITS | Encounter Summary ---
Author Organization [facility] Address [address] [place] [address] Care Team Providers Care Internet Specialist Name Role Phone Shaikh FARHEEN Marquez Unavailable [phone] Luther Madrid MD Primary Care Provider [phone] Faith Hayward WAGON DRILLER Unavailable [phone] Carmela Tate OD Unavailable Luther Madrid MD Primary Care Provider [phone] Encounter Details Date Type Department Care Team (Late st Contact Info) Description 07/18/2024 Clinisync Result Encounter [facility] External Department Unsolicited Faith Hayward NP Social History Tobacco Use Types Packs/Day Years [...] Name Priority Date/Time Associated Diagnosis Comments XR LUMBAR SPINE 6V W BENDING 07/18/2024 12:26 PM EST documented in this encounter Results * XR LUMBAR SPINE 6V W BENDING (07/18/2024 12:26 PM EST) Anatomical Region Laterality Modality Other 07/18/2024 12:2 6 PM EST Narrative 07/18/2024 12:29 PM EST The [address] [address] XRay Report Signed Patient: PADILLA HARO MR#: [id number] : 1965 Acct:[id number] Age/Sex: 59 / M ADM Date: 07/16/24 Loc: [facility] Attending Dr: FAITH HAYWARD Ordering Physician: FAITH HAYWARD Date of Service: 07/16/24 Procedure(s): XR lumbar spine 6V w bending Accession Number(s): [id number] cc: FAITH HAYWARD [place] [address] Patient Name: PADILLA HARO MRN: [id number] date: 1965 Sex: M Assigned Patient Location: [facility] Current Patient Location: Accession/Order Number: [id number] Exam Date: 07/16/2024 08:45 Report Date: 07/18/2024 12:26 At the request of: FAITH HAYWARD Procedure: XR lumbar spine 6V w bending EXAMINATION: XR lumbar spine 6V w bending HISTORY: Lumbar back pain M54.50 COMPARISON: No relevant comparison available. FINDINGS: BONES: Mild/moderate degenerative facet arthropathy L4-L5, L5-S1. Normal height and alignment of the vertebral bodies. No fracture spondylolisthesis; no change in alignment during flexion and extension. DISC SPACES: No significant disc height narrowing, subluxation, or endplate abnormality. PARASPINOUS: Negative. No paraspinous abnormality is seen. OTHER: Negative. XR/XR lumbar spine 6V w bending IMPRESSION: 1. No appreciable acute abnormality. 2. Mild degenerative changes. Electronically authenticated by: ELMO KNOX Date: 07/18/2024 12:26 Dictated By: Elmo Konx M.D. Signed By: 07/18/24 1229 DD/ 1226 TD/TT: Balance Recesser: Procedure Note Radiology, Radiologist, MD - 07/18/[address] [place] [address] XRay Report Signed Patient: PADILLA HARO DMR#: [id number] : 1965Acct:[id number] Age/Sex: 59 / MADM Date: 07/16/24 Loc: [facility] Attending Dr: FAITH HAYWARD Ordering Physician: FAITH HAYWARD Date of Service: 07/16/24 Procedure(s): XR lumbar spine 6V w bending Accession Number(s): [id number] cc: FAITH HAYWARD [place] [address] Patient Name: PADILLA HARO MRN: [id number] date: 1965 Sex: M Assigned Patient Location: [facility] Current Patient Location: Accession/Order Number: [id number] Exam Date: 07/16/2024 08:45 Report Date: 07/18/2024 12:26 At the request of: FAITH HAYWARD Procedure: XR lumbar spine 6V w bending EXAMINATION: XR lumbar spine 6V w bending HISTORY: Lumbar back pain M54.50 COMPARISON: No relevant comparison available. FINDINGS: BONES: Mild/moderate degenerative facet arthropathy L4-L5, L5-S1. Normal height and alignment of the vertebral bodies. No fracture spondylolisthesis; no change in alignment during flexion and extension. DISC SPACES: No significant disc height narrowing, subluxation, orendplate abnormality. PARASPINOUS: Negative. No paraspinous abnormality is seen. OTHER: Negative. XR/XR lumbar spine 6V w bending IMPRESSION: 1. No appreciable acute abnormality. 2. Mild degenerative changes. Electronically authenticated by: ELMO KNOX Date: 07/18/2024 12:26 Dictated By: Elmo Knox M.D. Signed By:07/18/24 1229 DD/ 1226 TD/TT: Balance Recesser: Faith Hayward WAGON DRILLER [facility] Final Result documented in this encounter Visit Diagnoses Not on filedocumented in this encounter Care Teams Internet Specialist Relationship Specialty Start Date End Date Shaikh Marquez MD [address] [place] [address] [facility] 11/17/23 Luther Madrid MD [address] [place] [address] PCP - General Family Medicine 04/08/24 12/28/24 Luther Madrid MD [address] [place] [address] PCP - General Family Medicine 12/29/24 Faith Hayward NP [address] [place] [address] Nurse Practitioner Family Medicine 04/08/24 10/18/24 Carmela Tate OD [address] [place] [address] Referring Physician Optometry 09/21/24 documented as of this encounter
--- OUTSIDE RECORDS SUMMARY | 2025-05-10 17:45 | XMS_ITS | Encounter Summary ---
Author Organization [facility] Address [address] [place] [address] Care Team Providers Care Dough Sheeter Name Role Phone Shaikh FARHEEN Marquez Primary Care Provider [phone] Shaikh FARHEEN Marquez Primary Care Provider Shaikh FARHEEN Marquez Unavailable [phone] Luther Madrid MD Primary Care Provider Faith Hayward HANDBAG DESIGNER Unavailable Carmela Tate OD Unavailable Luther Madrid MD Primary Care Provider [phone] Encounter Details Date Type Department Care Team (Late st Contact Info) Description 09/25/2023 Clinisync Result Encounter [facility] External Department Unsolicited Shaikh Marquez MD [address] [place] [address] Social History Tobacco Use Types Packs/Day Years Used Date Smoking Tobacco: Never Assessed Sex and Gender Information Value Date Recorded Sex Assigned at Not on file Legal Sex Male 7:16 PM EDT Gender Identity Not on file Sexual Orientation Not on file documented as of this encounter Plan of Treatment Not on file documented as of this encounter Procedures Procedure Name Priority Date/Time Associated Diagnosis Comments US ABDOMEN LIMITED 09/25/2023 1: 12 PM EST documented in this encounter Results * US ABDOMEN LIMITED (09/25/2023 1:12 PM EST) Anatomical Region Laterality Modality Other 09/25/2023 1:12 PM EST Narrative 09/25/2023 1:15 [place] [address] Ultrasound Report Signed Patient: PADILLA HARO MR#: [id number] : 1965 Acct:[id number] Age/Sex: 58 / M ADM Date: 09/25/23 Loc: US Attending Dr: Shaikh Jimmy Cortes Ordering Physician: Shaikh Sophia Marquez Date of Service: 09/25/23 Procedure(s): US abdomen limited Accession Number(s): [id number] cc: Shaikh Sophia Marquez [place] [address] Patient Name: PADILLA HARO MRN: [id number] date: 1965 Sex: M Assigned Patient Location: US Current Patient Location: [place] Accession/Order Number: [id number] Exam Date: 09/25/2023 12:43 Report Date: 09/25/2023 13:12 At the request of: SHAIKH JIMMY Procedure: US abdomen limited EXAM: US abdomen limited HISTORY: inguinal hernia of right side without obstruction K40.90 COMPARISON: None. TECHNIQUE: Real-time Limited abdomen ultrasound. Findings: There is a 1.1 x 1.2 x 1.9 cm fat-containing hernia to the patient's palpable abnormality. Impression 1. Small fat-containing hernia. Electronically authenticated by: KENYON HAMILTON Date: 09/25/2023 13:12 Dictated By: Kenyon Hamilton M.D. Signed By: 09/25/23 1315 DD/ 1312 TD/TT: Respiratory Scientist: Procedure Note Radiology, Radiologist, - 09/25/2023 The [place] [id number] Ultrasound Report Signed Patient: PADILLA HARO DMR#: [id number] : 1965Acct:[id number] Age/Sex: 58 / MADM Date: 09/25/23 Loc: US Attending Dr: Shaikh Jimmy Cortes Ordering Physician: Shaikh Sophia Marquez Date of Service: 09/25/23 Procedure(s): US abdomen limited Accession Number(s): [id number] cc: Shaikh Sophia Marquez [place] [address] Patient Name: PADILLA HARO MRN: [facility]:[id number] date: 1965 Sex: M Assigned Patient Location: US Current Patient Location: US Accession/Order Number: [id number] Exam Date: 09/25/2023 12:43 Report Date: 09/25/2023 13:12 At the request of: SHAIKH JIMMY Procedure: US abdomen limited EXAM: US abdomen limited HISTORY: inguinal hernia of right side without obstruction K40.90 COMPARISON: None. TECHNIQUE: Real-time Limited abdomen ultrasound. Findings: There is a 1.1 x 1.2 x 1.9 cm fat-containing hernia to the patient'spalpable abnormality. Impression 1. Small fat-containing hernia. Electronically authenticated by: KENYON HAMILTON Date: 09/25/2023 13:12 Dictated By: Kenyon Hamilton M.D. Signed By:09/25/23 1315 DD/ 1312 TD/TT: Respiratory Scientist: Shaikh Jimmy ZHONG [facility] Final Result documented in this encounter Visit Diagnoses Not on filedocumented in this encounter Care Teams Dough Sheeter Relationship Specialty Start Date End Date Shaikh Marquez MD PCP - General Internal Medicine 08/18/22 09/30/23 Shaikh Marquez MD [address] [place] [address] PCP - General Internal Medicine 10/01/23 04/07/24 Shaikh Marquez MD [address] [place] [address] PCP - [facility] 11/17/23 Luther Madrid MD [address] [place] [address] PCP - General Family Medicine 04/08/24 12/28/24 Luther Madrid MD [address] [place] [address] PCP - General Family Medicine 12/29/24 Faith Hayward NP [address] [place] [address] Nurse Practitioner Family Medicine 04/08/24 10/18/24 Carmela Tate OD [address] [place] [address] Referring Physician Optometry 09/21/24 documented as of this encounter
--- OUTSIDE RECORDS SUMMARY | 2025-05-10 17:45 | XMS_ITS | Encounter Summary ---
Author Organization [facility] Address [address] [facility] [place] [place] [address] Care Team Providers Care Stenotype Operator Name Role Phone Shaikh FARHEEN Marquez Primary Care Provider [phone] Shaikh FARHENE Marquez Unavailable [phone] Luther Madrid MD Primary Care Provider [phone] Faith Hayward MISSION COORDINATOR Unavailable [phone] Carmela Tate OD Unavailable Luther Madrid MD Primary Care Provider [phone] Encounter Details Date Type Department Care Team (Late st Contact Info) Description 10/15/2023 Orders Only [facility] [place] [facility] [address] [place] [address] Shaikh Marquez MD [address] [place] [address] Social History Tobacco Use Types Packs/Day Years Used Date Smoking Tobacco: Never Passive Smoke Exposure: Past Alcohol Use Standard Drinks/Week Comments Yes 24 (1 standard drink = 0.6 oz pu re alcohol) PHQ-2 Answer Date Recorded Patient Health Questionnaire-2 Score 0 10/06/2023 Sex and Gender Information Value Date Recorded Sex Assigned at Not on file Legal Sex Male 7:16 PM EDT Gender Identity Not on file Sexual Orientation Not on file documented as of this encounter Plan of Treatment Not on file documented as of this encounter Procedures Procedure Name Priority Date/Time Associated Diagnosis Comments US ABDOMEN Routine 09/25/2023 9:30 AM EST documented in this encounter Results * US abdomen (09/25/2023 9:30 AM EST) Anatomical Region Laterality Modality Abdomen Ultrasound us Shaikh Jimmy ZHONG IMG US PROCEDURES Final Result documented in this encounter Visit Diagnoses Not on filedocumented in this encounter Care Teams Stenotype Operator Relationship Specialty Start Date End Date Shaikh Marquez MD [address] [place] [address] PCP - General Internal Medicine 10/01/23 04/07/24 Shaikh Marquez MD [address] [place] [address] PCP - [facility] 11/17/23 Luther Madrid MD [address] [place] [address] PCP - General Family Medicine 04/08/24 12/28/24 Luther Madrid MD [address] [place] [address] PCP - General Family Medicine 12/29/24 Faith Hayward NP [address] [place] [address] Nurse Practitioner Family Medicine 04/08/24 10/18/24 Carmela Tate OD [address] [place] [address] Referring Physician Optometry 09/21/24 documented as of this encounter
--- OUTSIDE RECORDS SUMMARY | 2025-05-10 17:45 | XMS_ITS | Clinical Summary ---
Author Organization nap- [facility] Att[facility] Parents tem Address [id number] [address] [place] [address] Care Team Providers Care Puddler Pile Driving Name Role Phone Berny Parra MD Primary Care Provider [phone] Social History Tobacco Use Types Packs/Day Years Used Date Smoking Tobacco: Never Assessed Childcare Answer Date Recorded Childcare Unknown 01/27/2019 Employment Answer Date Recorded Employment Unknown 01/27/2019 Purpose - Life Answer Date Recorded Purpose and direction in life Unknown Sex and Gender Information Value Date Recorded Sex Assigned at Not on file Legal Sex Male 11:21 AM EDT Gender Identity Not on file Sexual Orientation Not on file Plan of Treatment Not on file Medical Devices Not on file Insurance [employer] Care Teams Puddler Pile Driving Relationship Specialty Start Date End Date Berny Parra MD [address] [place] [address] PCP - General Family Medicine 09/25/18
--- OUTSIDE RECORDS SUMMARY | 2025-05-10 17:45 | XMS_ITS | Encounter Summary ---
Author Organization [facility] Address [address] [facility] [place] [address] Care Team Providers Care Assistant Softball Coach Name Role Phone Shaikh FARHEEN Marquez Primary Care Provider [phone] Shaikh FARHEEN Marquez Unavailable [phone] Luther Madrid MD Primary Care Provider [phone] Faith Hayward [place] ATTENDANT Unavailable [phone] Carmela Tate OD Unavailable Luther Madrid MD Primary Care Provider [phone] Reason for Visit * Reason Comments Med Refill Encounter Details Date Type Department Care Team (Late st Contact Info) Description [facility]/10[facility] [address] [place] [address] Shaikh Marquez MD [address] [place] [id number] Type 2 diabetes mellitus with unspecified complications (HCC) Social History Tobacco Use Types Packs/Day Years [...] on file documented as of this encounter Miscellaneous Notes * Telephone Encounter - Shaikh Jimmy MD - 12/11/2023 9:40 AM EDT Approving, but needs appt for additional refills. documented in this encounter Plan of Treatment Not on file documented as of this encounter Visit Diagnoses Diagnosis Type 2 diabetes mellitus with unspecified complications (HCC) documented in this encounter Care Teams Assistant Softball Coach Relationship Specialty Start Date End Date Shaikh Marquez MD [address] [place] [phone] PCP - General Internal Medicine 10/01/23 04/07/24 Shaikh Marquez MD [address] [place] [address] PCP - [facility] 11/17/23 Luther Madrid MD [address] [place] [phone] PCP - General Family Medicine 04/08/24 12/28/24 Luther Madrid MD [address] [place] [phone] PCP - General Family Medicine 12/29/24 Faith Hayward NP [address] [place] [address] Nurse Practitioner Family Medicine 04/08/24 10/18/24 Carmela Tate OD [address] [place] [address] Referring Physician Optometry 09/21/24 documented as of this encounter
--- OUTSIDE RECORDS SUMMARY | 2025-05-10 17:45 | XMS_ITS | Clinical Summary ---
Author Organization [facility] Address [address] [place] [address] Care Team Providers Care Biosolids Management Technician Name Role Phone Shaikh FARHEEN Marquez Unavailable [phone] Carmela Tate OD Unavailable Luther Madrid MD Primary Care Provider [phone] Allergies No known active allergies Medications latanoprost (Xalatan) 0.005 % ophthalmic solution Administer 1 drop into both eyes at bedtime 3 Active insulin pen needle (B-D UF III MINI PEN NEEDLES) 31G x 5 mm miscIndications:Ty pe 2 diabetes mellitus without complication, with long-term current use of insulin (HCC) Inject 1 each under the skin in the morning and 1 each at noon and 1 each in the evening and 1 each before bedtime. 100 each 3 4 Active Microlet Lancets miscIndications:Ty pe 2 diabetes mellitus without complication, with long-term current use of insulin (HCC) Inject 1 Lancet under the skin 4 (four) times a day as needed (Hyperglycemia ) 100 each 3 4 Active insulin aspart (NovoLOG FLEXPEN) 100 UNIT/ML penIndications:Typ e 2 diabetes mellitus without complication, with long-term current use of insulin (HCC) Inject 10 Units under the skin in the morning and 10 Units at noon and 10 Units in the evening. Inject before meals. (Max daily 45 units/day; add 2 units 151-200; 4 units 201-250; 6 units 251-300; 8 units 301-350). 10 mL 2 4 Active amLODIPine (Norvasc) 10 MG tabletIndications: Essential (primary) hypertension Take 1 tablet (10 mg) by mouth Daily 30 tablet 11 4 025 Active Prednisolon-Moxifl ox-Bromfenac 1-0.5-0.075 % solutionIndication s:Age-related nuclear cataract of both eyes Administer 1 drop into affected eye(s) in the morning and 1 drop at noon and 1 drop in the evening and 1 drop before bedtime. 10 mL 1 5 Active losartan-hydroCHLO ROthiazide (Hyzaar) 100-25 MG tabletIndications: Essential (primary) hypertension,Benig n essential hypertension TAKE 1 TABLET BY MOUTH EVERY DAY 90 tablet 1 5 Active insulin glargine (Lantus SoloStar) 100 UNIT/ML penIndications:Typ e 2 Diabetes Mellitus INJECT 40 UNITS UNDER THE SKIN AT BEDTIME 45 each 1 5 Active celecoxib (CeleBREX) 200 MG capsuleIndications :Lumbar spondylosis Take 1 capsule (200 mg) by mouth in the morning and 1 capsule (200 mg) before bedtime. Take with food. 60 capsule 3 5 Active semaglutide (Rybelsus) 7 MG tabletIndications: Type 2 diabetes mellitus without complication, with long-term current use of insulin (HCC) Take 1 tablet (7 mg) by mouth in the morning. Take before meals. Do not eat for 30 minutes after using the medications. 90 tablet 5 Active Prednisolon-Moxifl ox-Bromfenac 1-0.5-0.075 % solutionIndication s:Age-related nuclear cataract of both eyes Administer 1 drop into affected eye(s) in the morning and 1 drop at noon and 1 drop in the evening and 1 drop before bedtime. 10 mL 1 5 Active atorvastatin (Lipitor) 40 MG tabletIndications: Other hyperlipidemia Take 1 tablet (40 mg) by mouth Daily 90 tablet 5 Active omeprazole (PriLOSEC) [address] capsuleIndications :Gastroesophageal reflux disease without esophagitis Take 1 capsule (40 mg) by mouth in the morning. Take before meals. Do not crush or chew. 90 capsule 1 5 025 Active methocarbamol (Robaxin) 750 MG tabletIndications: Lumbar spondylosis Take 1 tablet (750 mg) by mouth 4 (four) times a day as needed for muscle spasms 60 tablet 2 Active Active Problems Problem Noted Date Diagnosed Date Pseudophakia 12/01/2024 Type 2 diabetes mellitus with polyneuropathy 11/2024 Assessment & Plan (10/19/2024 9:58 AM EST): Follow with podiatry. Age-related nuclear cataract of both eyes 2024 Primary open angle glaucoma (POAG) of both eyes, mild stage 09/21/2024 Lumbar spondylosis 07/21/2024 Assessment & Plan (01/21/2025 9:40 AM EDT): Pain unchanged and try robaxin PRN. Use heat and massage PRN. Continue home PT exercises. Assessment & Plan (10/19/2024 9:57 AM EST): Pain unchanged and start celebrex daily. Use zanaflex PRN. Use heat and massage PRN. Continue home PT exercises. Flu vaccine need 07/21/2024 Screening for colon cancer 04/21/2024 Essential (primary) hypertension 10/06/2023 Assessment & Plan (01/21/2025 9:39 AM EDT): BP elevated but controlled at home and monitor PRN. Assessment & Plan (10/19/2024 9:56 AM EST): BP controlled and monitor PRN. Assessment & Plan (07/21/2024 8:21 AM EST): Labs need completed Currently taking Amlodipine 5mg Losartan- hydrochlorothiazide 25-100mg Checks BP at home; Averages are 130's-150's. Denies orthostatic changes, dizziness, cough, shortness of breath, swelling in extremities. Will increase amlodipine to 10mg today Assessment & Plan (04/21/2024 8:14 AM EDT): Labs need completed Currently taking Amlodipine 5mg Losartan- hydrochlorothiazide 25-100mg Checks BP at home; Averages are 130's-150's. Denies orthostatic changes, dizziness, cough, shortness of breath, swelling in extremities. Continue current regimen. Assessment & Plan (01/01/2024 9:08 AM EDT): BP well controlled. On average less than 130/90. Tolerating Anti hypertensive w/o adverse effects. C/w norvasc, losartan/hydrochlorothiazide. Order labs Assessment & Plan (10/06/2023 10:13 AM EST): BP well controlled. On average less than 130/90. Tolerating Anti hypertensive w/o adverse effects. Denies lightheadedness, dizziness, syncope, presyncope. Patient encouraged to continue with home BP monitoring and call office if he experiences orthostatic symptoms or persistently elevated BP. Labs reviewed - normal electrolytes. C/w norvasc, losartan/hydrochlorothiazide. Hypertriglyceridemia 10/06/2023 Assessment & Plan (07/21/2024 8:21 AM EST): Currently taking Atorvastatin 40mg Denies any myalgias. Continue current regimen. Assessment & Plan (04/21/2024 8:14 AM EDT): Currently taking Atorvastatin 40mg Denies any myalgias. Continue current regimen. Lipid panel needs completed Assessment & Plan (01/01/2024 9:15 AM EDT): LDL at goal but elevated TAG> 400 - patient was not fasting. C/w lipitor Risk factors - T2 DM, HTN, Obesity Cw/ same. Fasting lipid panel ordered Assessment & Plan (10/06/2023 10:18 AM EST): LDL at goal but elevated TAG> 400 - patient was not fasting. C/w lipitor Risk factors - T2 DM, HTN, Obesity Cw/ same. Fasting lipid panel before next appt. Type 2 diabetes mellitus wit hout complication, with long-term current use of insulin 10/06/2023 Assessment & Plan (01/21/2025 9:40 AM EDT): Not checking BS and due for A1C. Stick to ADA diet and limit carbs. Assessment & Plan (10/19/2024 9:57 AM EST): BS variable and due for A1C. Stick to ADA diet and limit carbs. Assessment & Plan (07/21/2024 8:21 AM EST): A1C needs completed Novolog 10units TID Lantus [...] persistent hypoglycemia/hyperglycemia on home glucose monitoring noted. Assessment & Plan (04/21/2024 8:17 AM EDT): A1C needs completed Novolog 10units TID Lantus [...] persistent hypoglycemia/hyperglycemia on home glucose monitoring noted. Continue current regimen Assessment & Plan (01/01/2024 9:14 AM EDT): Most recent labs: hemoglobin A1C 6.8 09/10 Average FSBS range from BGs consistently in an acceptable range No episode of hypoglycemia No medication adverse effects reported by the patient. On 40 units, Novolog 10 units TID. He is also supposed to be on Trulicity 3 mg/week but has not been able to use it because of shortage. Will switch to Rybelsus. Assessment & Plan (10/06/2023 10:17 AM EST): Most recent labs: hemoglobin A1C 6.8 09/10 Average FSBS range from BGs consistently in an acceptable range No episode of hypoglycemia No medication adverse [...] persistent hypoglycemia/hyperglycemia on home glucose monitoring noted. Switched to Lantus from Levemir due to coverage - c/w 40 units, Novolog 10 units TID. He is also on Trulicity 3 mg/week. Previously was on Ozempic but had to switch due to drug shortage/low supplies. Gastroesophageal reflux disease without esophagi tis 10/06/2023 Assessment & Plan (01/21/2025 9:39 AM EDT): Symptoms controlled with omeprazole and continue. Assessment & Plan (10/19/2024 9:56 AM EST): Symptoms controlled with omeprazole and continue. Assessment & Plan (04/21/2024 8:18 AM EDT): On Omeprazole 40mg Daily. Reports symptoms feel well controlled at this time. Continue current regimen. Assessment & Plan (01/01/2024 9:09 AM EDT): Started on omeprazole for reflux symptoms, along with dysphagia. Symptoms resolved with Omeprazole. Did not see GI and did not get EGD Assessment & Plan (10/06/2023 10:16 AM EST): Reports daily reflux symptoms, along with dysphagia. He feels food gets stuck in his chest and he has move it down with water. Denies weight loss. Symptoms present daily for a few months. Never had EGD. Trial of Omeprazole. Refer to GI for EGD as patient is above 55, has associated dysphagia. Esophageal dysphagia 10/06/2023 Reducible right inguinal hernia 10/06/2023 Assessment & Plan (01/01/2024 9:10 AM EDT): Reducible, intermittently painful. US shows small fat containing hernia. Referred to General Surgery for their recommendation. Assessment & Plan (10/06/2023 10:15 AM EST): Reducible, intermittently painful. US shows small fat containing hernia. Referred to General Surgery for their recommendation. Educated patient on worrisome signs and symptoms and that he should seek urgent/emergent care if he has persistent/intractable pain. Resolved Problems Problem Noted Date Diagnosed Date Resolved Date Rash 01/01/2024 01/21/2025 Assessment & Plan (01/01/2024 9:27 AM EDT): Maculopapular rash over hands. Not pruritic. Suspect this could be due to wearing gloves at work. Patient started using new pair of gloves issues to him by his work. Recommended switching gloves and re-assess if rash improves. Rash has not progressed since onset and stable. Ongoing for a month Chronic right-sided low back pain without sciatica 10/06/2023 10/19/2024 Assessment & Plan (10/06/2023 10:19 AM EST): Reports intermittent right sided low back pain. Usually when he gets up from seated position. No hx of trauma/surgery. No radiation or neurological symptoms. Given his age, ongoing symptoms for over a year or so, will get an XR. Conservatives measures/treatment for now. Immunizations Immunization Administration Dates Next Due Influenza, injectable, MDCK, preservative free, quadrivalent 07/21/2024 Family History Medical History Relation Name Comments Diabetes Father Pts parents pas sed away at a very young age Diabetes Mother Pts parents pas sed away at a very young age Relation Name Status Comments Father Mother Social History Tobacco Use Types Packs/Day Years Used Date Smoking Tobacco: Never Passive Smoke Exposure: Never Tobacco Cessation:Counseling Given: Yes Alcohol Use Standard Drinks/Week Comments Yes 24 (1 standard drink = 0.6 oz pu re alcohol) PHQ-2 Answer Date Recorded Patient Health Questionnaire-2 Score 0 01/01/2024 Sex and Gender Information Value Date Recorded Sex Assigned at Not on file Legal Sex Male 7:16 PM EDT Gender Identity Not on file Sexual Orientation Not on file Last Filed Vital Signs Vital Sign Reading Time Taken Comments Blood Pressure 160/72 01/21/2025 9:09 AM EDT Pulse 102 01/21/2025 9:09 AM EDT Temperature 36.6 C (97.8 F) 01/21/2025 9:09 AM EDT Respiratory Rate 18 01/21/2025 9:09 AM EDT Oxygen Saturation 95% 01/21/2025 9:09 AM EDT Inhaled Oxygen Concentration - - Weight 107 kg (236 lb) 01/21/2025 9:09 AM EDT Height 188 cm (6' 2 ) 01/21/2025 9:09 AM EDT Body Mass Index 30.3 01/21/2025 9:09 AM EDT Plan of Treatment Health Maintenance Due Date Last Done Comments CT Colonography 1964 FIT-DNA 1964 FIT 1965 FOBT 1965 Sigmoidoscopy 1965 Diabetes: Hemoglobin A1C 12/31/2024 024, 08/29/2023, 09/25/2018 Influenza Vaccine (#1) 2025 07/21/2024 Diabetes: Urine Protein Screening 07/03/2025 07/03/2024, 09/25/2018, 09/25/2018 Diabetes: Retinopathy Screening 09/21/2026 09/21/2024, 09/21/2024, 09/21/2024, Additional history exists Colonoscopy 08/04/2034 08/04/2024, 08/04/2024 Colorectal Cancer Screening 08/04/2034 Procedures Procedure Name Priority Date/Time Associated Diagnosis Comments DIABETIC RETINOPATHY SCREENING - OU - BOTH EYES Routine 07/26/2024 8:29 AM EST from Last 3 Months or Most Recently Relevant to Health Maintenance Results * Diabetic Retinopathy Screening - OU - Both Eyes (07/26/2024 8:29 AM EST) Anatomical Region Laterality Modality Head Other Faith Hayward NP OPHTH PHOTOGRAPHY Final Result from Last 3 Months or Most Recently Relevant to Health Maintenance Insurance BS Care Teams Biosolids Management Technician Relationship Specialty Start Date End Date Shaikh Marquez MD [address] [place] [address] PCP - [employer] 11/17/23 Luther Madrid MD [address] [place] [address] PCP - General Family Medicine 12/29/24 Carmela Tate OD [address] [place] [address] Referring Physician Optometry 09/21/24
[2025-05-10 18:02] LABS: Hematocrit 41.2 % (42.0-54.0); Hemoglobin 14.4 g/dL (14.0-18.0); Immature Granulocytes Abs Auto 0.01 10^3/uL (0.00-0.03); Immature Granulocytes Pct Auto 0.2 % (0.0-0.5); Lymphocytes Absolute Auto 1.6 10^3/uL (1.2-3.8); Mean Corpuscular HGB Conc 35.0 g/dL (29.9-35.2); Mean Corpuscular Hemoglobin 32.0 pg (25.9-34.0); Mean Corpuscular Volume 91.6 fL (80.0-94.0); Platelet Count 184 10^3/uL (150-450); Red Blood Count 4.50 10^6/uL (4.70-6.10); White Blood Count 4.2 10^3/uL (4.0-11.0)
[2025-05-10] MEDS: KETOROLAC TROMETHAMINE 30 MG/ML VIAL IVP (18:03)
[2025-05-10] MEDS: ORPHENADRINE 60 MG/2 ML VIAL IV (18:03)
[2025-05-10 18:21] LABS: Alanine Aminotransferase 37 U/L (16-63); Albumin Globulin Ratio 0.9; Albumin Level 4.4 g/dL (3.4-5.0); Alkaline Phosphatase 83 U/L (46-116); Anion Gap 14.4; Aspartate Amino Transferase 20 U/L (15-37); Blood Urea Nitrogen 28.0 mg/dL (7.0-18.0); Calcium 9.7 mg/dL (8.5-10.1); Carbon Dioxide 25.4 mmol/L (21.0-32.0); Chloride 100 mmol/L (98-107); Estimated GFR (African America 54 (>=60 mL/min/1.73m^2); Estimated GFR (Non-African Ame 44 (>=60 mL/min/1.73m^2); Globulin 4.7 g/dL; Glucose 141 mg/dL (74-106); Potassium 3.8 mmol/L (3.5-5.1); Sodium 136 mmol/L (136-145); Total Protein 9.1 g/dL (6.4-8.2)
--- NOTE | 2025-05-10 18:21 | US_ITS ---
[facility] [place] [id number] Patient Name: YESSENIA BEST MRN: [id number] date: 1965 Sex: M Assigned Patient Location: ED.MAIN Current Patient Location: ED.MAIN Accession/Order Number: [id number] Exam Date: 05/10/2025 18:42 Report Date: 05/10/2025 19:48 At the request of: GISELA FOURNIER Procedure: US right upper quadrant Right upper quadrant ultrasound Indication right upper quadrant pain getting worse Comparison CT abdomen pelvis 05/10/2025 FINDINGS: Fatty infiltration liver. Normal hepatopedal blood flow main portal vein. Echogenic foci within the gallbladder suggestive of sludge and/or gallstones. Negative Cardona's sign. Unremarkable wall thickness. No pericholecystic fluid. Pancreas obscured by bowel gas. Right kidney 12.6 x 5.4 x 5.6 cm in size. No hydronephrosis. Echogenic stone noted 6 x 5 x 5 mm in size. US/US right upper quadrant IMPRESSION: Fatty infiltration liver.. Right-sided calculus, nonobstructive. Cholelithiasis versus sludge. Obscured pancreas Impression dictated by: Parmjit Lima M.D. 05/10/2025 7:48 PM Dictation Location: [place] [address] Electronically authenticated by: [id number] Y Date: 05/10/2025 19:48
[2025-05-10] MEDS: 0.9 % SODIUM CHLORIDE 1,000 ML 1000 ML IV (18:37)
[2025-05-10 19:05] LABS: Lipase 43.0 U/L (16.0-77.0)
--- NOTE | 2025-05-10 20:55 | ED_ITS ---
HPI HPI - General Adult General Chief complaint: Back Pain/Injury Stated complaint: back pain Time Seen by Provider: 05/10/25 14:46 Source: patient Mode of arrival: walk-in Limitations: no limitations History of Present Illness HPI narrative: Patient presents to the ED with right-sided flank pain that has been present for approximately 2? weeks. He was previously evaluated by his primary care provider and was prescribed baclofen for a presumed muscle strain. He also followed up with pain management, where a spinal injection was discussed, but he reports the pain feels deeper and is sometimes positional. The pain does not radiate and is not associated with numbness, weakness, saddle anesthesia, bowel incontinence, or urinary retention. He denies fevers, chills, nausea, vomiting, or history of kidney disease. No recent illnesses. Related Data Home Medications ?Medication ?Instructions ?Recorded ?Confirmed amlodipine 10 mg tablet 10 mg PO DAILY 07/28/2407/18 baclofen 10 mg tablet 10 mg PO TID 07/28/24 insulin aspart U-100 100 unit/mL 1 sliding scale dose subcut 07/28/24 07/28/24 (3 mL) subcutaneous pen (Novolog USEASDIRECTD FlexPen U-100 Insulin aspart) insulin glargine 100 unit/mL (3 40 unit subcut QPM 07/1107/28/24 mL) subcutaneous pen (Lantus Solostar U-100 Insulin) losartan 100 1 tab PO DAILY 07/28/2407/18 mg-hydrochlorothiazide 25 mg tablet (Hyzaar) omeprazole 40 mg capsule,delayed 40 mg PO DAILY 07/28/24 release semaglutide 7 mg tablet (Rybelsus) 7 mg PO DAILY 07/2807/28/24 Previous Rx's ?Medication ?Instructions ?Recorded baclofen 10 mg tablet See Rx Instructions .Route 1 09/28/23 .COMPLEX PRN muscle spasm #90 tabs hydrocodone 5 mg-acetaminophen 325 1 tab PO Q8H PRN pa in #10 tabs 05/10/25 mg tablet ketorolac 10 mg tablet 10 mg PO Q8H PRN Pain, Moder ate 5 05/10/25 days #15 tabs Allergies Allergy/AdvReac Type Severity Reaction Status Date / Time No Known Drug Allergies Allergy Verified 05/10/25 13:38 Opioid HPI Opioid Management Most Recent Opioid Data: Last Pain Scale 10 Today, 17:55 PFSH PFSH Social History Little interest or pleasure in doing things: not at all Feeling down, depressed, or hopeless: not at all Exam Narrative Exam Narrative: * General: Appears uncomfortable but is alert, oriented, and nontoxic-appearing. * Vital Signs: Stable and afebrile. * Cardiac: Regular rate and rhythm, no murmurs. * Respiratory: Clear to auscultation bilaterally, no distress. * Abdomen: Soft, nondistended, nontender, no rebound or guarding. * Back: Right CVA tenderness present. No midline vertebral tenderness. * Neuro: Negative straight leg raise bilaterally. No focal neurologic deficits. * Extremities: Good distal pulses in all four extremities. No edema. Constitutional Vital Signs, click to edit/add: Last Vital Signs Temp 98.1 F 05/10/25 13:42 Pulse 96 H 05/10/25 13:42 Resp 20 05/10/25 13:42 BP 158/93 H 05/10/25 13:42 Pulse Ox 98 05/10/25 13:42 O2 Del Method Room Air 05/10/25 13:42 Course Vital Signs Vital signs: Vital Signs Temperature 98.1 F 05/10/25 13:42 Pulse Rate 96 H 05/10/25 13:42 Respiratory Rate 20 05/10/25 13:42 Blood Pressure 158/93 H 05/10/25 13:42 Pulse Oximetry 98 05/10/25 13:42 Oxygen Delivery Method Room Air 05/10/25 13:42 Temperature 98.1 F 05/10/25 13:42 Pulse Rate 96 H 05/10/25 13:42 Respiratory Rate 20 05/10/25 13:42 Blood Pressure 158/93 H 05/10/25 13:42 Pulse Oximetry 98 05/10/25 13:42 Oxygen Delivery Method Room Air 05/10/25 13:42 Medical Decision Making MDM Narrative Medical decision making narrative: This is a patient presenting with right flank pain of 2? weeks? duration. He is afebrile, hemodynamically stable, and without red flag neurologic symptoms. Exam is notable for right CVA tenderness but no midline spinal tenderness or abdominal peritoneal signs. Labs reveal mild renal insufficiency (Cr 1.5, BUN 28) but otherwise unremarkable electrolytes and normal white count, arguing against infection. CT imaging shows a 4?5 mm right kidney stone without hydronephrosis. RUQ ultrasound showed gallstones or sludge but no evidence of acute cholecystitis or biliary obstruction, and LFTs are normal. There is no evidence of UTI or sepsis. Patient was treated with IV fluids, Toradol, and Norflex with significant improvement in pain. Given reassuring workup, lack of obstruction, and absence of systemic symptoms, patient is safe for outpatient management. He was advised to follow up with urology for further evaluation and management of nephrolithiasis. Supportive care at home, including pain management, hydration, and return precautions for worsening pain, fever, inability to urinate, or vomiting, were discussed and agreed upon. Diagnostics: * CT abdomen/pelvis: 4?5 mm right kidney stone, no hydronephrosis * Ultrasound: Gallstones/sludge noted but no obstruction, normal bile ducts * Labs: Creatinine 1.5, BUN 28, glucose 141, protein 9.1, electrolytes unremarkable, WBC 4.2, LFTs normal, UA negative Lab Data Labs: Lab Results 05/10/25 05/10/25 05/10/25 Range/Units 16:00 17:32 17:52 WBC 4.2 (4.0-11.0) 10^3/uL RBC 4.50 L (4.70-6.10) 10^6/uL Hgb 14.4 (14.0-18.0) g/dL Hct 41.2 L (42.0-54.0) % MCV 91.6 (80.0-94.0) fL MCH 32.0 (25.9-34.0) pg MCHC 35.0 (29.9-35.2) g/dL RDW 12.9 (11.0-15.0) % Plt Count 184 (150-450) 10^3/uL MPV 9.0 L (9.5-13.5) fL Neut % (Auto) 51.6 (43.0-75.0) % Lymph % (Auto) 37.8 (20.5-60.0) % Haskell % (Auto) 5.5 (1.7-12.0) % Eos % (Auto) 3.9 (0.9-7.0) % Baso % (Auto) 1.0 (0.2-2.0) % Neut # (Auto) 2.1 (1.4-6.5) 10^3/uL Lymph # (Auto) 1.6 (1.2-3.8) 10^3/uL Haskell # (Auto) 0.2 L (0.3-0.8) 10^3/uL Eos # (Auto) 0.2 (0.0-0.7) 10^3/uL Baso # (Auto) 0.0 (0.0-0.1) 10^3/uL Abs Immat Gran (auto) 0.01 (0.00-0.03) 10^3/uL Imm/Tot Granulo (auto) 0.2 (0.0-0.5) % Sodium 136 (136-145) mmol/L Potassium 3.8 (3.5-5.1) mmol/L Chloride 100 (98-107) mmol/L Carbon Dioxide 25.4 (21.0-32.0) mmol/L Anion Gap 14.4 BUN 28.0 H (7.0-18.0) mg/dL Creatinine 1.59 H (0.70-1.30) mg/dL Est GFR ( Amer) 54 L (>=60 mL/min/1.73m^2) Est GFR (Non-Af Amer) 44 L (>=60 mL/min/1.73m^2) BUN/Creatinine Ratio 17.6 Glucose 141 H (74-106) mg/dL Calcium 9.7 (8.5-10.1) mg/dL Total Bilirubin 0.6 (0.2-1.0) mg/dL AST 20 (15-37) U/L ALT 37 (16-63) U/L Alkaline Phosphatase 83 (46-116) U/L Total Protein 9.1 H (6.4-8.2) g/dL Albumin 4.4 (3.4-5.0) g/dL Globulin 4.7 g/dL Albumin/Globulin Ratio 0.9 Lipase 43.0 (16.0-77.0) U/L Urine Color Lt. yellow (YELLOW) Urine Clarity Clear (CLEAR) Urine pH 6.0 (5.0-9.0) Ur Specific [place] 1.020 (1.005-1.025) Urine Protein Negative (NEG/TRACE) mg/dL Urine Glucose (UA) Negative (NEGATIVE) mg/dL Urine Ketones Negative (NEGATIVE) mg/dL Urine Occult Blood Negative (NEGATIVE) Urine Nitrite Negative (NEGATIVE) Urine Bilirubin Negative (NEGATIVE) Urine Urobilinogen 0.2 (0.2-1.0) EU/dL Ur Leukocyte Esterase Negative (NEGATIVE) Discharge Plan Discharge Chief Complaint: Back Pain/Injury Clinical Impression: Acute right flank pain, Renal calculus, right Patient Disposition: Home, Self-Care Time of Disposition Decision: 21:02 Condition: Good Prescriptions / Home Meds: New hydrocodone-acetaminophen 5-325 mg tablet 1 tab PO Q8H PRN (Reason: pain) Qty: 10 0RF ketorolac 10 mg tablet 10 mg PO Q8H PRN (Reason: Pain, Moderate) 5 Days Qty: 15 0RF No Action amlodipine 10 mg tablet 10 mg PO DAILY insulin glargine [Lantus Solostar U-100 Insulin] 100 unit/mL (3 mL) insulin pen 40 unit subcut QPM losartan-hydrochlorothiazide [Hyzaar] 100-25 mg tablet 1 tab PO DAILY insulin aspart U-100 [Novolog FlexPen U-100 Insulin] 100 unit/mL (3 mL) insulin pen 1 sliding scale dose subcut USEASDIRECTD omeprazole 40 mg capsule,delayed release(DR/EC) 40 mg PO DAILY Rybelsus 7 mg tablet 7 mg PO DAILY baclofen 10 mg tablet 10 mg PO TID baclofen 10 mg tablet See Rx Instructions .ROUTE .COMPLEX PRN (Reason: muscle spasm) Qty: 90 0RF Rx Instructions: 5-10MG PO TID PRN Print Language: Belarusian Instructions: Renal Colic (ED) Additional Instructions: Diagnosis: Right kidney stone (5?4 mm) What We Found Today: * Your CT scan showed a small kidney stone on the right side. * No signs of infection or blockage of the kidney were found. * Your liver and gallbladder tests were normal. * Bloodwork showed normal kidney function except for a slightly elevated creatinine. * Pain improved after IV medications. Care at Home: * Take Toradol as prescribed for pain. Use only as directed. Do not take additional NSAIDs (ibuprofen, naproxen, etc.) while on Toradol. * Drink plenty of water (at least 8?10 glasses daily) unless told otherwise by your doctor. Staying hydrated helps pass the stone. * Use a strainer (if provided) to try and catch the stone for your urologist to examine. * Rest and avoid heavy lifting until you feel better. Follow-Up: * You have been referred to urology. Please call their office to schedule an appointment as soon as possible. * Follow up with your primary care doctor for ongoing monitoring. Return to the ED Immediately If: * Fever or chills develop * Severe worsening flank or abdominal pain * Nausea/vomiting prevents you from keeping fluids down * Blood in urine increases or urine output decreases significantly * New weakness, numbness, or inability to urinate Additional Notes: * Pain may come and go as the stone moves. * Passing the stone can take days to weeks, depending on its size and location. Referrals: Luther Madrid MD [Primary Care Provider, Family Practice] - 1 week Frankie Chambers MD [Physician, Urology] - As soon as possible Referral Note: Call tomorrow to set up follow up
[2025-05-10] MEDS: HYDROCODONE/ACET 5-325 MG TABLET 1 TAB PO (21:29)
== END 2025-05-10 21:42 | disposition home or self-care (01) ==
PROVIDERS: Physician Assistant; Emergency Provider Emergency Medicine; PCP Family Medicine
DX: N20.0 Calculus of kidney (principal); R10.9 Unspecified abdominal pain
CPT/HCPCS: 36415; 74176; 76705; 80053; 81003; 83690; 85025; 96374; 96375; 99284; 99285; J1885; J2360

== ENCOUNTER 2025-08-17 07:15 | Outpatient (OUT) | payer BC, SELFPAY ==
--- OUTSIDE RECORDS SUMMARY | 2025-08-17 07:18 | XMS_ITS | Clinical Summary ---
Author Organization [facility] Healthcare Address [address] [place] [address] Care Team Providers Care Seat Scooper Machine Name Role Phone Shaikh FARHEEN Marquez Unavailable [phone] Carmela Tate OD Unavailable Luther Madrid MD Primary Care Provider [phone] Allergies No known active allergies Medications MedicationSigDispense QuantityRefillsLast FilledStart DateEnd DateStatus latanoprost (Xalatan) 0.005 % ophthalmic solution Administer 1 drop into both eyes at ooajoxv6907/04/2023ctive insulin pen needle (B-D UF III MINI PEN NEEDLES) 31G x 5 mm misc Indications:Type 2 diabetes mellitus without complication, with long-term current use of insulin (HCC)Inject 1 each under the skin in the morning and 1 each at noon and 1 each in the evening and 1 eachbefore bedtime. 100 each ctive Microlet Lancets misc Indications:Type 2 diabetes mellitus without complication, with long-term current use of insulin (HCC)Inject 1 Lancet under the skin 4 (four) times a day as needed (Hyperglycemia) 100 each ctive insulin aspart (NovoLOG FLEXPEN) 100 UNIT/ML pen Indications:Type 2 diabetes mellitus without complication, with long-term current use of insulin (HCC)Inject 10 Units under the skin in the morning and 10 Units at noon and 10 Units in the evening. Inject before meals. (Max daily 45 units/day; add 2 units 151-200; 4 units 201-250; 6 units 251-300; 8 units 301-350). 10 mL ctive amLODIPine (Norvasc) 10 MG tablet Indications:Essential (primary) hypertensionTake 1 tablet (10 mg) by mouth Daily 30 tablet 1114Active Ypbffpgyhqm-Hoppiahs-Zzkgggaik 1-0.5-0.075 % solution Indications:Age-related nuclear cataract of both eyesAdminister 1 drop into affected eye(s) in the morning and 1 drop at noon and 1 drop in the evening and 1 drop before bedtime. 10 mL 5Active losartan-hydroCHLOROthiazide (Hyzaar) 100-25 MG tablet Indications:Essential (primary) hypertension,Benign essential hypertensionTAKE 1 TABLET BY MOUTH EVERY DAY 90 tablet 5Active insulin glargine (Lantus SoloStar) 100 UNIT/ML pen Indications:Type 2 Diabetes MellitusINJECT 40 UNITS UNDER THE SKIN AT BEDTIME 45 each 5Active celecoxib (CeleBREX) 200 MG capsule Indications:Lumbar spondylosisTake 1 capsule (200 mg) by mouth in the morning and 1 capsule (200 mg) before bedtime. Take with food. 60 capsule 5Active semaglutide (Rybelsus) 7 MG tablet Indications:Type 2 diabetes mellitus without complication, with long-term current use of insulin (HCC)Take 1 tablet (7 mg) by mouth in the morning. Take before meals. Do not eat for 30 minutes after using the medications. 90 tablet 5Active Zwxhxoclspf-Mfymtutv-Gedfakrpx 1-0.5-0.075 % solution Indications:Age-related nuclear cataract of both eyesAdminister 1 drop into affected eye(s) in the morning and 1 drop at noon and 1 drop in the evening and 1 drop before bedtime. 10 mL 5Active atorvastatin (Lipitor) 40 MG tablet Indications:Other hyperlipidemiaTake 1 tablet (40 mg) by mouth Daily 90 tablet 5Active omeprazole (PriLOSEC) [address] capsule Indications:Gastroesophageal reflux disease without esophagitisTake 1 capsule (40 mg) by mouth in the morning. Take before meals. Do not crush or chew. 90 capsule 5Active methocarbamol (Robaxin) 750 MG tablet Indications:Lumbar spondylosisTake 1 tablet (750 mg) by mouth 4 (four) times a day as needed for muscle spasms 60 tablet 5Active Active Problems ProblemNoted DateDiagnosed ZnbxGzemdkmnkgca16/16/2025Type 2 diabetes mellitus with xrnppkbpatocnf99/04/2025 Assessment & Plan (10/19/2024 9:58 AM EST): Follow with podiatry. Age-related nuclear cataract of both eyes09/21/2024Primary open angle glaucoma (POAG) of both eyes, mild stage09/21/2024Lumbar yuahrybdwdt32/04/2024 Assessment & Plan (01/21/2025 9:40 AM EDT): Pain unchanged and try robaxin PRN. Use heat and massage PRN. Continue home PT exercises. Assessment & Plan (10/19/2024 9:57 AM EST): Pain unchanged and start celebrex daily. Use zanaflex PRN. Use heat and massage PRN. Continue home PT exercises. Flu vaccine need07/21/2024Screening for colon ymykvj2404/21/2024Essential (primary) zrhtviztdxsd49/19/2024 Assessment & Plan (01/21/2025 9:39 AM EDT): [...] reviewed - normal electrolytes. C/w norvasc, losartan/hydrochlorothiazide. Snqzmqypneeveqjmswix61/19/2024 Assessment & Plan (07/21/2024 8:21 AM EST): [...] before next appt. Type 2 diabetes mellitus without complication, with long-term current use of mxoisoq3810/06/2023 Assessment & Plan (01/21/2025 9:40 AM EDT): [...] EDT): Most recent labs: hemoglobin A1C 6.8 1 Average FSBS range from BGs consistently in [...] Novolog 10 units TID. He is also onTrulicity 3 mg/week. Previously was on Ozempic but had to switch due to drug shortage/low supplies. Gastroesophageal reflux disease without ywhzaamhick66/19/2024 Assessment & Plan (01/21/2025 9:39 AM EDT): [...] symptoms, along with dysphagia. Symptoms resolved with Omeprazole.Did not see GI and did not get [...] is above 55, has associated dysphagia. Esophageal qmwiuvkbd95/19/2024educible right inguinal foadty3810/06/2023 Assessment & Plan (01/01/2024 9:10 AM EDT): [...] if he has persistent/intractable pain. Resolved Problems ProblemNoted DateDiagnosed DateResolved WmheUhvs43/01/2025 Assessment & Plan (01/01/2024 9:27 AM EDT): Maculopapular rash over hands. Not pruritic. Suspect this could be due to wearing gloves at work. Patient started using new pair of gloves issues to him by his work. Recommended switching gloves and re-assess if rash improves. Rash has not progressed since onset and stable. Ongoing for a month Chronic right-sided low back pain without tqgnntab59/11/2024 Assessment & Plan (10/06/2023 10:19 AM EST): Reports intermittent right sided low back pain. Usually when he gets up from seated position. No hxof trauma/surgery. No radiation or neurological symptoms. Given his age, ongoing symptoms for over a year or so, will get an XR. Conservatives measures/treatment for now. Immunizations ImmunizationAdministration DatesNext DueInfluenza, injectable, MDCK, preservative free, torhjrqvetqy40/04/2024 Family History Medical HistoryRelationNameCommentsDiabetesFatherPts parents at a very young ageDiabetesMotherPts parents at a very young ageRelation NameStatusCommentsFatherDeceasedMotherDeceased Social History Tobacco UseTypesPacks/DayYears UsedDateSmoking Tobacco: NeverPassive Smoke Exposure: Never Tobacco Cessation:Counseling Given: Yes Alcohol UseStandard Drinks/ZgyfYdivytjnXaz61 (1 standard drink = 0.6 oz pure alcohol)PHQ-2AnswerDate RecordedPatient Health Questionnaire-2 Ihrnd254 Sex and Gender InformationValueDate RecordedSex Assigned at BirthNot on file Legal VzaYvga7910/30/2022 7:16 PM EDTGender IdentityNot on fileSexual Orientation Not on file Last Filed Vital Signs Vital SignReadingTime TakenCommentsBlood Qnenejux193/7206 9:09 AM EDT Ghzcw54920 9:09 AM TNXMnfdimzwxwg69.6 ??C (97.8 ??F)01/21/2025 9:09 AM EDTRespiratory Agjw5373 9:09 AM EDTOxygen Pxgpivvkgs87%01/21/2025 9:09 AM EDTInhaled Oxygen Concentration--Saowpf609 kg (236 lb)01/21/2025 9:09 AM EDT Axvyns708 cm (6' 2 )01/21/2025 9:09 AM EDTBody Mass Index30.306 9:09 AM EDT Plan of Treatment Health MaintenanceDue DateLast DoneCommentsCT Sdjtfxejjagn1964FIT-DNA 1964FIT1964FOBT03/23/19643052Jdbhzkypdmemu1964Pneumococcal Vaccine: Pediatrics (0 to 5 Years) and At-Risk Patients (6 to 64 Years) (1 of 2 - PCV)1983Diabetes: Hemoglobin A1C, 08/29/2023, 09/25/2018Influenza Vaccine (#1)/4Diabetes: Urine Protein Pvayucgsb66, 09/25/2018, 09/25/2018Diabetes: Retinopathy Neqaumyam88, 09/21/2024, 09/21/2024, Additional history exists Zqhyvpntymk93, 4Colorectal Cancer Yjfktsklz06/18/2034 Procedures Procedure NamePriorityDate/TimeAssociated DiagnosisCommentsDIABETIC RETINOPATHY SCREENING - OU - BOTH ROBFQkdjwdz98/09/2024 8:29 AM ESTfrom Last 3 Months or Most Recently Relevant to Health Maintenance Results * Diabetic Retinopathy Screening - OU - Both Eyes (07/26/2024 8:29 AM EST) Anatomical RegionLateralityModalityHeadOther Narrative Authorizing ProviderResult TypeResult StatusBrabida Hayward NPOPHTH PHOTOGRAPHYFinal Result from Last 3 Months or Most Recently Relevant to Health Maintenance Insurance Care Teams Team MemberRelationshipSpecialtyStart DateEnd Date ElizwShaikh pepe MD [address] [place] [address] PCP - [place] [facility]11/17/23 Luther Madrid MD [address] [place] [address] PCP - GeneralFamily Medicine12/29/24 Carmela Tate OD [address] [place] [address] Referring PhysicianOptometry09/21/24
--- OUTSIDE RECORDS SUMMARY | 2025-08-17 07:19 | XMS_ITS | CCD ---
Author Organization [facility] Care Team Providers Care Human Factors Specialist Name Role Phone SHAIKH Yelitza MARQUEZ Admitting Unavailable SHAIKH Yelitza MARQUEZ Attending Unavailable RODNEY BECERRA Primary Care Unavailable SHAIKH Yelitza MARQUEZ Consulting Unavailable RODNEY BECERRA Admitting Unavailable RODNEY BECERRA Attending Unavailable RODNEY BECERRA Primary Care Unavailable RODNEY BECERRA Consulting Unavailable Shaikh Marquez MD Unavailable Luther Church MD Primary Care Provider [phone] Yesy PRITCHETT, Francia Unavailable Carlos Escobedo Attending Unavailable Carlos Escobedo Admitting Unavailable Francia Hayward Primary Care Unavaila Carmela High OD Unavailable Yesy BULL RIVETER, Francia Unavailable [phone] Luther Church MD Primary Care Provider [phone] JOSSELIN AMAYA Attending Unavailable LUTHER CHURCH Attending Unavailable JOSSELIN AMAYA Attending Unavailable JOSSELIN AMAYA Attending Unavailable LUTHER CHURCH Attending Unavailable LULU OLMSTEAD Attending Unavailable FRANCIA HAYWARD Attending UnavailODILON Samson Attending Unavailable FRANCIA HAYWARD Referring UnavailFRANCIA Leon Attending UnavailLUTHER Burns Primary Care Physician [phone] Shaikh Marquez MD Unavailable Luther Church MD Primary Care Provider Yesy PRITCHETT, Francia Unavailable Luther Church MD Primary Care Provider [phone] Shaikh Marquez MD Primary Care Provider Shaikh Marquez MD Primary Care Provider [phone] Ana Lilia Mendoza Attending Unavailable Ana Lilia Mendoza Referring Unavailable Ana Lilia Mendoza Admitting Unavailable Ana Lilia Mendoza Attending Unavailable Ana Lilia Mendoza Attending Unavailable Allergies Allergy ClassificationReported Allergen(s)Allergy TypeDate of OnsetReaction(s) Facility (1 source)No Known Medication Allergies; Translations: [No Known Medication Allergies]Propensity to adverse reactions (disorder)[facility] Medications Current Medications MedicationDrug Class(es)DatesSig (Normalized)Sig (Original)3 ML insulin glargine-yfgn 100 UNT/ML Pen Injector (1 source)Start: 84-17-1702Kbmwgdc Glargine Prefilled Pen 100 units/mL subcutaneous solution See Instructions, Refills(s) 0 Start Date: 06/13/25 Status: Ordered Repeat number: 1amLODIPine 10 mg oral tablet (20 sources)Dihydropyridine Calcium Channel BlockerStart: 07-21-2024 End: 74-87-8089lhpg 1 tablet by mouth once dailyamLODIPine (Norvasc) 10 MG tablet Indications: Essential (primary) hypertension Take 1 tablet (10 mg) by mouth Daily 30 tablet 11 07/21/2024 07/21/2025 ActiveStart: 05-31-2024 End: 34-76-3593bblm 1 tablet by mouth once dailyamLODIPine (Norvasc) 5 MG tablet Indications: Essential (primary) hypertension (CMS/HCC) Take 1 tablet (5 mg) by mouth Daily 30 tablet 2 05/31/2024 07/21/2024 Discontinued (Dose adjustment) Start: 08-20-2023 End: 33-82-1475qlqt 1 tablet by mouth in the morningamLODIPine (Norvasc) 5 MG tablet Take 1 tablet by mouth in the morning. 08/20/2023 05/27/2024 Discontinued (Reorder)atorvastatin 40 mg oral tablet (20 sources)HMG-CoA Reductase InhibitorStart: 00-84-2973nbolsuxhlqfi 40 mg Tab 40 mg = 1 tab(s), Refills(s) 0 Start Date: 06/13/25 Status: Ordered Repeat nu mber: 1Start: 48-36-7016hkkg 1 tablet by mouth once dailyatorvastatin (Lipitor) 40 MG tablet Indications: Other hyperlipidemia Take 1 tablet (40 mg) by mouth Daily 90 tablet 12/02/2024 ActiveStart: 05-31-2024 End: 35-29-1487eazb 1 tablet by mouth once dailyatorvastatin (Lipitor) 40 MG tablet Indications: Other hyperlipidemia TAKE 1 TABLET BY MOUTH EVERY DAY 90 tablet 08/30/2024 ActiveStart: 08-30-2023 End: 92-85-9220jzuv 1 tablet by mouth in the morningatorvastatin (Lipitor) 40 MG tablet Take 1 tablet by mouth in the morning. 08/30/2023 05/27/2024 Discontinued (Reorder)baclofen 10 mg oral tablet (2 sources)gamma-Aminobutyric Acid-ergic AgonistStart: 07-28-2024 End: 54-18-3796rkdk 0.5-1 tablets by mouth three times daily as needed for muscle spasmsbaclofen (Lioresal) 10 MG tablet TAKE 0.5 TO 1 TABLET BY MOUTH 3 TIMES A DAY NEEDED FOR MUSCLE SPASMS 07/28/2024 10/19/2024 Discontinued celecoxib 200 mg oral capsule (8 sources)Nonsteroidal Anti-inflammatory DrugStart: 40-70-9073cilf 1 capsule by mouth in the morningcelecoxib (CeleBREX) 200 MG capsule Indications: Lumbar spondylosis Take 1 capsule (200 mg) by mouth in the morning and 1 capsule (200 mg) before bedtime. Take with food. 60 capsule 3 10/19/2024 Active hydroCHLOROthiazide 25 mg / losartan potassium 100 mg oral tablet (20 sources)Thiazide Diuretic, Angiotensin 2 Receptor BlockerStart: 06-13-2025 hydrochlorothiazide-losartan 25 mg-100 mg Tab 1 tab(s), Refill(s) 0 Start Date: 06/13/25 Status: Ordered Repeat number: 1Start: 05-31-2024 End: 82-87-1219ynne 1 tablet by mouth once dailylosartan-hydroCHLOROthiazide (Hyzaar) 100-25 MG tablet Indications: Essential (primary) hypertension (CMS/HCC) , Benign essential hypertension (CMS/HCC) TAKE 1 TABLET BY MOUTH EVERY DAY 90 tablet 1 09/28/2024 ActiveStart: 12-08-2023 End: 44-18-5791cwsu 1 tablet by mouth once dailylosartan-hydroCHLOROthiazide (Hyzaar) 100-25 MG tablet Indications: Essential (primary) hypertension (CMS/HCC) , Benign essential hypertension (CMS/HCC) TAKE 1 TABLET BY MOUTH EVERY DAY 90 tablet 1 12/08/2023 05/27/2024 Discontinued (Reorder)3 ml insulin aspart, human 100 unt/ml pen injector (20 sources)Insulin AnalogStart: 28-65-3637qcuboqb aspart (NovoLOG FLEXPEN) 100 UNIT/ML pen Indications: Type 2 diabetes mellitus without complication, with long-term current use of insulin ([facility]) Inject 10 Units under the skin in the morning and 10 Units at noon and 10 Units in the evening. Inject before meals. (Max daily 45 units/day; add 2 units 151-200; 4 units 201-250; 6 units 251-300; 8 units 301-350). 10 mL 2 05/31/2024 ActiveStart: 07-07-2023 End: 81-67-6855DjxoIRY FLEXPEN 100 UNIT/ML pen Inject 10 Units under the skin in the morning and 10 Units at noon and 10 Units in the evening. Inject before meals. (Max daily 45 units/day; add 2 units 151-200; 4 units 201-250; 6 units 251-300; 8 units 301-350). 07/07/2023 05/27/2024 Discontinued (Reorder)3 ml insulin glargine 100 unt/ml pen injector (20 sources)Insulin AnalogStart: 19-09-3214Msmkxl Solostar Pen 100 units/mL subcutaneous solution See Instructions, Refills(s) 0 Start Date: 06/13/25 Status: Ordered Repeat number: 1Start: 05-31-2024 End: 53-63-8282oscitkp glargine (Lantus SoloStar) 100 UNIT/ML pen Indications: Type 2 Diabetes Mellitus INJECT 40 UNITS UNDER THE SKIN AT BEDTIME 45 each 1 10/08/2024 04/06/2025 ActiveStart: 10-06-2023 End: 81-59-2435rxxpiff glargine (Lantus SoloStar) 100 UNIT/ML pen Indications: Type 2 Diabetes Mellitus Inject 40 Units under the skin at bedtime 36 mL 1 10/06/2023 05/27/2024 Discontinued (Reorder)methocarbamol 750 mg oral tablet (3 sources)Muscle RelaxantStart: 38-97-2450erihrptcqdfgq 750 mg Tab 1,500 mg = 2 tab(s), Refills(s) 0 Start Date: 06/13/25 Status: Ordered Repeat number: 1Start: 79-10-8079cuqd 1 tablet by mouth four times daily as needed for muscle spasms methocarbamol (Robaxin) 750 MG tablet Indications: Lumbar spondylosis Take 1 tablet (750 mg) by mouth 4 (four) times a day as needed for muscle spasms 60 tablet 2 01/21/2025 ActiveStart: 67-43-0113htaw 1 tablet by mouth four times daily as needed for muscle spasmsmethocarbamol (Robaxin) 750 MG tablet Indications: Lumbar spondylosis Take 1 tablet (750 mg) by mouth 4 (four) times a day as needed for muscle spasms 60 tablet 2 01/21/2025 Activeomeprazole 40 mg delayed release oral capsule (20 sources)Proton Pump InhibitorStart: 12-29-2024 End: 54-83-2672akkymnvrzb 40 mg Cap-DR 40 mg = 1 cap(s), Refills(s) 0 Start Date: 06/13/25 Status: Ordered Repeat number: 1Start: 02-23-2024 End: 41-88-9793ilse 1 capsule by mouth before mealtimeomeprazole (PriLOSEC) [address] capsule Indications: Gastroesophageal reflux disease without esophagitis Take 1 capsule (40 mg) by mouth in the morning. Take before meals. Do not crush or chew.. 90 capsule 1 05/31/2024 CgbezbVtyrjmkibtp-Nmqvdqrd-Umepaeuyn 1-0.5-0.075 % solution (17 sources)Start: 68-58-1054Sxdddridsmp-Moxiflox-Bromfenac 1-0.5-0.075 % solution Indications: Age-related nuclear cataract of both eyes Administer 1 drop into affected eye(s) in the morning and 1 drop at noon and 1 drop in the evening and 1 drop before bedtime. 10 mL 1 11/02/2024 ActiveStart: 09-21-2024 Fpsieapabqq-Iakvsdth-Tvaxaliei 1-0.5-0.075 % solution Indications: Age-related nuclear cataract of both eyes Administer 1 drop into affected eye(s) in the morning and 1 drop at noon and 1 drop in theevening and 1 drop before bedtime. 10 mL 1 09/21/2024 Activesemaglutide 7 mg oral tablet (20 sources)Start: 10-26-2024 End: 03-68-6278drdh 1 tablet by mouth before mealtimesemaglutide (Rybelsus) 7 MG tablet Indications: Type 2 diabetes mellitus without complication, withlong-term current use of insulin Take 1 tablet (7 mg) by mouth in the morning. Take before meals. Do not eat for 30 minutes after using the medications. 90 tablet 10/26/2024 01/24/2025 ActiveStart: 01-01-2024 End: 99-31-5590mgyk 1 tablet by mouth before mealtimesemaglutide (Rybelsus) 7 MG tablet Indications: Type 2 diabetes mellitus without complication, withlong-term current use of insulin ([facility]) Take 1 tablet (7 mg) by mouth in the morning. Take before meals. Do not eat for 30 minutes after using the medications. 90 tablet 05/31/2024 Activetamsulosin hydrochloride 0.4 mg oral capsule (1 source)alpha-Adrenergic BlockerStart: 00-17-9019zavt 1 capsule by mouth once dailyFlomax 0.4 mg Cap 0.4 mg = 1 cap(s), Oral, Daily, # 30 cap(s), Refills(s) 3, Pharmacy: [facility]/pharmacy#[id number], 188, cm, 06/13/25 9:15:00 EDT, Height/Length Dosing, 113.3, kg, 06/13/25 9:15:00 EDT, WeightDosing Start Date: 06/13/25 Status: Ordered Quantity: 30.0 Unit: cap(s) Repeat number: 4tiZANidine 4 mg oral tablet (8 sources)Central alpha-2 Adrenergic AgonistStart: 10-19-2024 End: 50-96-7941zfpg 1 tablet by mouth three times daily as needed for muscle spasmstiZANidine (Zanaflex) 4 MG tablet Indications: Lumbar spondylosis Take 1 tablet (4 mg) by mouth 3 (three) times a day as needed for muscle spasms 60 tablet 2 10/19/2024 01/21/2025 Discontinued Completed/Discontinued Medications MedicationDrug Class(es)DatesSig (Normalized)Sig (Original)latanoprost 0.05 mg/ml ophthalmic solution (20 sources)Prostaglandin AnalogStart: 67-86-9126ymfengjgdan Opth 0.005% Felicitas 1 drop(s), Refill(s) 0 Start Date: 06/13/25 Status: Ordered Repeat number: 1Start: 77-79-3722cdwg 1 drop(s) into the eye(s) at bedtimelatanoprost (Xalatan) 0.005 % ophthalmic solution Administer 1 drop into both eyes at bedtime 07/04/2023 Active Problems Active Problems Problem ClassificationProblemDateDocumented DateEpisodic/ChronicCalculus of urinary tract (1 source)Kidney stone; Translations: [Calculus of kidney]Onset: 06-13-2025 EpisodicCataract (20 sources)Bilateral age-related nuclear cataracts; Translations: [Age-related nuclear cataract, bilateral]Onset: 217180-30-0369FpwpjuqDaljpugk mellitus with complications (20 sources)Type 2 diabetes mellitus with unspecified complications; Translations: [Polyneuropathy due to diabetes mellitus]Onset: 99-73-2966Xsztwvd Diabetes mellitus without complication (20 sources)Type 2 diabetes mellitus without complication; Translations: [Type 2 diabetes mellitus without complications]Onset: hronic Disorders of lipid metabolism (20 sources)Hyperlipidemia, unspecified; Translations: [Hyperlipidemia]Onset: 028099-49-0156XezeocpXnbvgbqwhc disorders (20 sources)Gastro-esophageal reflux disease without esophagitis; Translations: [Gastroesophageal reflux disease without esophagitis]Onset: ChronicEssential hypertension (20 sources)Essential (primary) hypertension; Translations: [Essential hypertension]Onset: 134504-53-4667NtzhekeBxvbfqtp (16 sources)Primary open angle glaucoma; Translations: [Primary open-angle glaucoma, bilateral, mild stage]Onset: 111972-77-4848TwhxhowNhurgpjq (1 source)GlaucomaOnset: 707350-13-7762Axtgqonnebn; intervertebral disc disorders; other back problems (20 sources)Disorder of lumbar spine; Translations: [Spondylosis without myelopathy or radiculopathy, lumbar region]Onset: hronic Unclassified (1 source)Patient encounter statusOnset: Past or Other Problems Problem ClassificationProblemDateDocumented DateEpisodic/ChronicAbdominal hernia (20 sources)Right inguinal hernia ; Translations: [Unilateral inguinal hernia, without obstruction or gangrene,not specified as recurrent]Onset: 10-06-2023 13-14-2584QfivgpwdVtfaqxiuiodug and screening for infectious disease (20 sources)Needs influenza immunization; Translations: [Encounter for immunization]Onset: 421834-40-6123FzrklkffMtvlfuj (4 sources)Onychomycosis; Translations: [Tinea unguium]31-13-8368KohaojeqMmnio connective tissue disease (2 sources)Pain of toes of bilateral feet; Translations: [Pain in right toe(s)] 88-55-7529KzdekpmqNomah gastrointestinal disorders (20 sources)Esophageal dysphagia; Translations: [Other dysphagia]Onset: 697180-34-8386HyuqffgoWmbvl screening for suspected conditions (not mental disorders or infectious disease) (20 sources)Encounter for screening for malignant neoplasm of prostate; Translations: [Patient encounter status]Onset: 788287-62-9726ZkvcehhoLemes skin disorders (20 sources)Eruption; Translations: [Rash and other nonspecific skin eruption] Onset: 01-01-2024 Resolved: 271792-21-3826ExunjpukAdkfnvod codes; unclassified (1 source)Requires influenza virus vaccinationOnset: EpisodicSpondylosis; intervertebral disc disorders; other back problems (20 sources)Chronic low back pain; Translations: [Chronic right-sided low back pain without sciatica]Onset: 10-06-2023 Resolved: 996571-60-6642FfmwwzfrEzpdhhkgjamm (1 source)Flank pain, unspecified side; Translations: [Flank pain, unspecified side]Onset: 06-13-2025 Results Test NameValueInterpretationReference RangeFacilityUS Renalon [id number] Renal Exam Date/Time: 06/20/2025 07:58 EST Reason for Exam: N20.0;Pain Report IMPRESSION: NEGATIVE ULTRASOUND OF THE KIDNEYS. CLINICAL HISTORY: Pain, N20.0. Right low back pain COMPARISON: None available. COMMENT: The right kidney measures approximately 12.3 cm in length, with renal cortical thickness of approximately 1.5 cm. The left kidney measures approximately 13.1 cm in length, with renal cortical thickness of approximately 2.0 cm. Cortical medullary differentiation is maintained. No solid or cystic renal lesions. No shadowing calculi or hydronephrosis. Ordering Provider: Ana Lilia Mendoza FINAL REPORT Dictated: 06/21/2025 2:26 pm Sean Mazariegos DO Signed (Electronic Signature): 06/21/2025 2:26 pm Signed by: Sean Mazariegos DO Transcribed by: RADHA Technologist: STEPHANIAThe University of Toledo Medical CenterXR Abdomen 1 Viewon [id number] Abdomen 1 ViewExam Date/Time: 06/20/2025 07:28 EST Reason for Exam: N20.0;Flank pain Report IMPRESSION: NO URINARY TRACT CALCULI IDENTIFIED BY RADIOGRAPHY. EXAMINATION: XR Abdomen 1 View HISTORY: Flank pain TECHNIQUE: Frontal view of the abdomen and pelvis COMPARISON: None available FINDINGS: No calcifications identified over the bilateral renal shadows or expected course of the ureters. Nonobstructive bowel gas pattern. No evidence of free air. No acute osseous abnormality. Ordering Provider: Ana Lilia Mendoza FINAL REPORT Dictated: 06/21/2025 2:25 pm Sean Mazariegos DO Signed (Electronic Signature): 06/21/2025 2:25 pm Signed by: Sean Mazariegos DO Transcribed by: RADHA Technologist: LukeCincinnati Children's Hospital Medical CenterAmbulatory Visit Summaryon 83-13-3795Zyaejefhrs Visit SummaryAmbulatory Visit Summary YESSENIA HARO DOB:1965 Visit Date:06/13/2025 Ambulatory Visit Instructions Your Diagnosis Kidney stone Flank pain Your Care Team Attending Physician - Ana Lilia Borges Primary Care Physician - LUTHER CHURCH MD This Is Your Medications List tamsulosin (Flomax 0.4 mg Cap) Contact prescribing physician if questions or concerns amlodipine (amLODIPine 10 mg Tab) atorvastatin (atorvastatin 40 mg Tab) hydrochlorothiazide-losartan (hydrochlorothiazide-losartan 25 mg-100 mg Tab) insulin glargine (Insulin Glargine Prefilled Pen 100 units/mL subcutaneous solution) insulin glargine (Lantus Solostar Pen 100 units/mL subcutaneous solution) latanoprost ophthalmic (latanoprost Opth 0.005% Felicitas) methocarbamol (methocarbamol 750 mg Tab) omeprazole (omeprazole 40 mg Cap-DR) Discharge Vitals Heart Rate (Peripheral) 66 Respiratory Rate 16 Blood Pressure 128/70 Height 188 cm Height 74 in Weight 113.3 kg Weight 249.783 lb BMI 32.06 What to do next You Need to Schedule the Following Appointments Follow Up with Ana Lilia Borges, URL When: Comments: pending KUB/BOOM Where: You Need to Complete the Following US Renal, 06/13/25, Routine, Order for future visit, Transport Mode: Ambulatory, Reason: Pain, No, Kidney stone Flank pain, pp_set_radiology_subspecialty, [facility] - [facility] XR Abdomen 1 View, 06/13/25, Routine, Order for future visit, Transport Mode: Ambulatory, Reason: Flank pain, No, Kidney stone Flank pain, pp_set_radiology_subspecialty, [facility] - [facility] Medications What How Much When Instructions New tamsulosin (Flomax 0.4 mg Cap) 1 Capsules By Mouth Every day Refills: 3 Pickup at [facility]/pharmacy #[id number] Unchanged amlodipine (amLODIPine 10 mg Tab) 1 Tablets Contact prescribing physician if questions orconcerns Unchanged atorvastatin (atorvastatin 40 mg Tab) 1 Tablets Contact prescribing physician if questions or concerns Unchanged hydrochlorothiazide-losartan (hydrochlorothiazide-losartan 25 mg-100 mg Tab) 1 Tablets Contact prescribing physician if questions or concerns Unchanged insulin glargine (Insulin Glargine Prefilled Pen 100 units/ mL subcutaneous solution) Seeinstructions Contact prescribing physician if questions or concerns Unchanged insulin glargine (Lantus Solostar Pen 100 units/ mL subcutaneous solution) See instructions Contact prescribing physician if questions or concerns Unchanged latanoprost ophthalmic (latanoprost Opth 0.005% Felicitas) 1 Drops Contact prescribing physician if questions or concerns Unchanged methocarbamol (methocarbamol 750 mg Tab) 2 Tablets Contact prescribing physician if questions or concerns Unchanged omeprazole (omeprazole 40 mg Cap-DR) 1 Capsules Contact prescribing physician if questions or concerns Pharmacy Information [facility]/pharmacy #[id number]: [address], [place] [phone] Allergies No Known Medication Allergies Problems Ongoing - Any problem that you are currently receiving treatment for. Artificial lens present Bilateral age-related nuclear cataracts Esophageal dysphagia Essential hypertension Gastroesophageal reflux disease without esophagitis Hypertriglyceridemia Lumbar spondylosis Patient encounter status Polyneuropathy due to type 2 diabetes mellitus Primary open angle glaucoma of bilateral eyes Requires influenza virus vaccination.. Right inguinal hernia Type 2 diabetes mellitus Patient Survey You may receive a survey via text or e-mail asking about your office visit. Please share your experience with us by completing your survey. We appreciate your feedback and thank you for choosing us for your care. Education Materials Kidney Stones Kidney stones are rock-like masses that form inside of the kidneys. Kidneys are organs that make pee (urine). A kidney stone may move into other parts of the urinary tract, including: ??? The tubes that connect the kidneys to the bladder (ureters). ??? The bladder. ??? The tube that carries urine out of the body (urethra). Kidney stones can cause very bad pain and can block the flow of pee. The stone usually leaves your body through your pee. A doctor may need to take out the stone. What are the causes? Kidney stones may be caused by: ??? Too much calcium in the body. This may be caused by too much parathyroid hormone in the blood. ??? Uric acid crystals in the bladder. The body makes uric acid when you eat certain foods. ??? Narrowing of one or both of the ureters. ??? A kidney blockage that you were born with. ??? Past surgery on the kidney or the ureters. What increases the risk? You are more likely to develop this condition if: ??? You have had a kidney stone in the past. ??? Other people in your family have had kidney stones. ??? You do not drink enough water. ??? You eat a diet that is high in protein, salt (sodium) (more content not included)...NormalFisher [facility] CampusUrology Office/Clinic Noteon [id number] Office/Clinic NoteUrology Office/Clinic Note Chief Complaint Pt here for hospital follow up HPI Staff 60 year old male new patient here for follow up to [facility] 05/10/25 due to right flank pain CT abdomen & Pelvis wo con 05/10/25- right sided interpolar calculus 3-4mm- no hydronephrosis. Bladder wall thickening Creatinine 1.59 Pt is unable to produce urine sample today Pt complains of rt low flank pain and discomfort with voiding Pt denies pain/burning denies visible blood History of Present Illness Staff HPI reviewed and agree. Review of Systems PHQ Score Initial Depression Screen Score: 0 SCORE no fever, chills, malaise, myalgia. no rash/lesions. no chest pain, palpitations, or SOB. no abdominal pain, nausea, vomiting. no unilateral calf swelling, redness, pain Physical Exam Vitals & Measurements HR: 66(Peripheral) RR: 16 BP: 128/70 HT: 188 cm HT: 74 in WT: 113.3 kg WT: 249.783 lb BMI: 32.06 General: nontoxic, well-nourished, appears stated age Mouth: moist mucosa Lungs: normal respiratory effort Cardio: regular rate, good distal perfusion Abdomen: nondistended, no suprapubic distention or tenderness, no CVA tenderness Neurologic: Grossly normal Skin: No rashes or suspicious lesions Assessment/Plan New patient [facility] ER follow up. Pt present with his fiance today. 1. Kidney stone (N20.0: Calculus of kidney) 05/10/25 [facility] ER follow up for R flank pain x 2 1/2 weeks. 05/10/25 BUN 28, Cr 1.59, GFR 54 05/10/25 CT abd/pelvis w/o con - R renal calculus 3-4mm, no hydro. Bladder wall thickening possibly related to under distention vs cystitis. Pt here for ER follow up. Today, patient reports that pain initially was higher in his flank but now is around his belt line and radiates to the front of his abdomen. Pt reports weak stream. Pt denies any gross hematuria. Pt reports that he has been passing fragments for about 2 weeks after ER visit. Discussed with patient that typically stone will not break up on it's own and that stones that are in the kidney do not cause pain. I did discuss with patient that we should obtain some repeat imaging to see if the stone is moving as he now c/o pain in the front of his abdomen. Pt reports his pain is more of a discomfort and not severe like it was in ER. Pt requesting pain medication, advised patient to take Motrin/Ibuprofen at this time until imaging resulted. If severe pain returns, call our of office or go to ER. Pt agreeable. Will also provide patient with Flomax and advised him to greatly increase fluid intake. Advised patient that stones <5mm have a 95% chance of passing on their own. Based on imaging, will proceed with plan. Discussed that since it has been about a month and patient's kidney function was slightly elevated, if ureteral stone present, will schedule patientappt with MD to discuss stone treatment. If no ureteral stone present, can consider prostatitis treatment due to weak stream and pain. If flank pain continues after prostatitis treatment, discussed with patient that his pain may be more MS related. Pt reports that he has had a recent MRI at [facility] andwas set up to get epidural injections but did not return to pain clinic. Pt agreeable to plan. -KUB/BOOM at [facility] [place] now, will call with results -If ureteral stone present, schedule appt with MD to discuss surgical intervention -If no ureteral stone present, consider prostatitis treatment x6 weeks -Flomax 0.4mg PO daily for MET -Greatly increase fluid intake -Motrin/Ibuprofen for mild pain, return to ER for severe pain -If treating for prostatitis, follow up 8 weeks with PVR Ordered: E&M of New Patient Moderate 45-59 Min 67453 US Renal XR Abdomen 1 View 2. Flank pain (R10.A0: Flank pain, unspecified side) -See #1 Ordered: E&M of New Patient Moderate 45-59 Min 40898 US Renal XR Abdomen 1 View Orders: tamsulosin, 0.4 mg = 1 cap(s), Oral, Daily, # 30 cap(s), Refills(s) 3, Pharmacy: [facility]/pharmacy #[id number], 188, cm, 06/13/25 9:15:00 EDT, Height/Length Dosing, 113.3, kg, 06/13/25 9:15:00 EDT, Weight Dosing Follow-up With When Contact Information Ana Lilia Borges, URL Additional Instructions: pending KUB/BOOM Patient Education Kidney Stones, Mzup-uf-Vqlq Total time spent reviewing previous notes/results/external documents, preparing the chart, conducting the encounter with the patient and family, ordering tests/medications, and documenting the encounter was 40 minutes. Problem List/Past Medical History Ongoing Artificial lens present Bilateral age-related nuclear cataracts Esophageal dysphagia Essential hypertension Gastroesophageal reflux disease without esophagitis Hypertriglyceridemia Lumbar spondylosis Patient encounter status Polyneuropathy due to type 2 diabetes mellitus Primary open angle glaucoma of bilateral eyes Requires influenza virus vaccination.. Right inguinal hernia Type 2 diabetes mellitus Historical No qualifying data Medications amLODIPine 10 mg Tab, 10 mg= 1 tab (more content not included)...[facility] Mentor HospitalComment on above:Result Comment: Electronically Signed By: Ana Lilia Borges\.br\Date and Time Signed: 06/13/25 10:01 EDTOphthalmic OCT panelon 91-84-4552BKXMJefferson Memorial Hospital Eye Images reviewed and comparison made to baseline, Images reviewed. To assess optic nerve function and for use in future follow-up. Reliability: good and adequate. Left Eye Images reviewed and comparison made to baseline, Images reviewed. To assess optic nerve function and for use in future follow-up. Reliability: borderline. Notes Good nerve fiber layer (NFL) thickness both eyes (OU). Stable.[facility] LincolnOphthalmic OCT panelon 13-20-1484Jaxjhjtxm Study observation (narrative)[facility] [employer]US Eye+Orbit - bilateralon 54-84-3331Bumaeltha: Cataract both eyes (OU) Testing Indication: Performed for preop measurements in the determination of an intraocular lens (IOL) for both eyes (OU) Test Reliability: Good quality both eyes (OU) Interpretation: Good measurements for intraocular lens (IOL) calculation purposes. Calculation made for both eyes (OU).[facility] Radiology Study observation (narrative)[facility]okside CampusGlucose Poct Glucometerson 97-89-6340Zailyjz0Isq3: Cleaned MeterNoDuke Raleigh Hospital Physician GroupComment on above:Result Comment: PERFORMED BY: [facility] [place] [address] PATHOLOGIST RN TRANSITION DEMETRIS MAY M.D.Performed By: #### GLULS #### Point of Care testing ,Glucose [Mass/Vol]158 mg/dLUF Health Jacksonville Physician GroupComment on above: Result Comment: Random Glucose Reference Range is dependent on time and content of last meal. Glucose of more than 200 mg/dL in a nonstressed, ambulatory subject supports the diagnosis of Diabetes Mellitus.Performed By: #### GLULS #### Point of Care testing ,MR LUMBAR SPINE WO CONon 84-62-3305[place] [address] Magnetic Resonance Report Signed Patient: YESSENIA HARO MR#: [id number] : 1965 Acct:[id number] Age/Sex: 59 / M ADM Date: 07/30/24 Loc: LUIS Attending Dr: Linda Hernandez NP Ordering Physician: Linda Hernandez NP Date of Service: 07/30/24 Procedure(s): MR lumbar spine wo con Accession Number(s): [id number] cc: ANDRZEJ HAYWARD Anna NP [place] [id number] Patient Name: YESSENIA HARO MRN: [id number] date: 1965 Sex: M Assigned Patient Location: [facility] Current Patient Location: [facility] Accession/Order Number: [id number] Exam Date: 07/30/2024 08:04 Report Date: 07/30/2024 14:44 At the request of: LINDA HERNANDEZ Procedure: MR lumbar spine wo con EXAMINATION: [...] or foraminal stenosis. Electronically authenticated by: ANGIE KU Date: 07/30/2024 14:44 Dictated By: Angie Ku M.D. Signed By: 07/30/24 1446 DD/ 1444 TD/TT: Rust Proofer:TBHRadiology, Radiologist, MD - 07/30/2024 The [place] [id number] Magnetic Resonance Report Signed Patient: YESSENIA HARO MR#: [id number] : 1965 Acct:[id number] Age/Sex: 59 / M ADM Date: 07/30/24 Loc: RAD Attending Dr: Linda Hernandez NP Ordering Physician: Linda Hernandez NP Date of Service: 07/30/24 Procedure(s): MR lumbar spine wo con Accession Number(s): [id number] cc: ANDRZEJ HAYWARD Anna NP The [address] [address] Patient Name: YESSENIA HARO MRN: [facility]:[id number] date: 1965 Sex: M Assigned Patient Location: RAD Current Patient Location: RAD Accession/Order Number: [id number] Exam Date: 07/30/2024 08:04 Report Date: 07/30/2024 14:44 At the request of: LINDA HERNANDEZ Procedure: MR lumbar spine wo con EXAMINATION: [...] or foraminal stenosis. Electronically authenticated by: ANGIE KU Date: 07/30/2024 14:44 Dictated By: Angie Ku M.D. Signed By: 07/30/24 1446 DD/ 1444 TD/TT: Rust Proofer: NAOMI HealthcareRadiology Study observation (narrative)[facility] HealthcareNo Panel InformationOrdered By: Radiologist Radiology on 74-67-7035YIKJ Healthcare Work Phone: xr Ankle - right 2 Viewson 07-22-5326G[address] [address] XRay Report Signed Patient: YESSENIA HARO MR#: [id number] : 1965 Acct:[id number] Age/Sex: 59 / M ADM Date: 07/30/24 Loc: RAD Attending Dr: Linda Hernandez NP Ordering Physician: Linda Hernandez NP Date of Service: 07/30/24 Procedure(s): XR ankle RT 2V Accession Number(s): [id number] cc: ANDRZEJ HAYWARD Anna NP The [place] [id number] Patient Name: YESSENIA HARO MRN: [facility]:[id number] date: 1965 Sex: M Assigned Patient Location: RAD Current Patient Location: RAD Accession/Order Number: [id number] Exam Date: 07/30/2024 07:30 Report Date: 07/30/2024 07:58 At the request of: LINDA HERNANDEZ Procedure: XR ankle RT 2V PROCEDURE: XR [...] a metallic plate Electronically authenticated by: ANGIE KU Date: 07/30/2024 07:58 Dictated By: Angie Ku M.D. Signed By: 07/30/24 0800 DD/ 0758 TD/TT: Rust Proofer:TBHRadiology, Radiologist, MD - 07/30/2024 [place] [address] XRay Report Signed Patient: YESSENIA HARO MR#: [id number] : 1965 Acct:[id number] Age/Sex: 59 / M ADM Date: 07/30/24 Loc: RAD Attending Dr: Linda Hernandez NP Ordering Physician: Linda Hernandez NP Date of Service: 07/30/24 Procedure(s): XR ankle RT 2V Accession Number(s): [id number] cc: FRANCIA HAYWARD; Linda Hernandez BULL RIVETER [address] [id number] Patient Name: YESSENIA HARO MRN: [id number]:[id number] date: 1965 Sex: M Assigned Patient Location: RAD Current Patient Location: [facility] Accession/Order Number: [id number] Exam Date: 07/30/2024 07:30 Report Date: 07/30/2024 07:58 At the request of: LINDA HERNANDEZ Procedure: XR ankle RT 2V PROCEDURE: XR [...] a metallic plate Electronically authenticated by: ANGIE KU Date: 07/30/2024 07:58 Dictated By: Angie Ku M.D. Signed By: 07/30/24 0800 DD/ 0758 TD/TT: Rust Proofer: NAOMI HealthcareRadiology Study observation (narrative)[facility] HealthcareXR LUMBAR SPINE 6V W BENDINGon 47-95-1080Wdr[address] [address] XRay Report Signed Patient: YESSENIA HARO MR#: [id number] : 1965 Acct:[id number] Age/Sex: 59 / M ADM Date: 07/16/24 Loc: RAD Attending Dr: FRANCIA HAYWARD Ordering Physician: FRANCIA HAYWARD Date of Service: 07/16/24 Procedure(s): XR lumbar spine 6V w bending Accession Number(s): [id number] cc: FRANCIA HAYWARD [address] [address] Patient Name: YESSENIA HARO MRN: [id number]:[id number] date: 1965 Sex: M Assigned Patient Location: [facility] Current Patient Location: Accession/Order Number: [id number] Exam Date: 07/16/2024 08:45 Report Date: 07/18/2024 12:26 At the request of: FRANCIA HAYWARD Procedure: XR lumbar spine 6V w [...] 2. Mild degenerative changes. Electronically authenticated by: TALON GIANG Date: 07/18/2024 12:26 Dictated By: Talon Giang M.D. Signed By: 07/18/24 1229 DD/ 1226 TD/TT: Rust Proofer:NASREENHRadiologwilliam, Radiologist, - 07/18/2024 [place] [address] XRay Report Signed Patient: YESSENIA HARO MR#: [id number] : 1965 Acct:[id number] Age/Sex: 59 / M ADM Date: 07/16/24 Loc: RAD Attending Dr: FRANCIA HAYWARD Ordering Physician: FRANCIA HAYWARD Date of Service: 07/16/24 Procedure(s): XR lumbar spine 6V w bending Accession Number(s): [id number] cc: FRANCIA HAYWARD [place] [id number] Patient Name: YESSENIA HARO MRN: [id number]:[id number] date: 1965 Sex: M Assigned Patient Location: [facility] Current Patient Location: Accession/Order Number: [id number] Exam Date: 07/16/2024 08:45 Report Date: 07/18/2024 12:26 At the request of: FRANCIA HAYWARD Procedure: XR lumbar spine 6V w [...] 2. Mild degenerative changes. Electronically authenticated by: TALON GIANG Date: 07/18/2024 12:26 Dictated By: Talon Giang M.D. Signed By: 07/18/24 1229 DD/ 1226 TD/TT: Rust Proofer: NAOMI HealthcareRadiology Study observation (narrative)NOMS HealthcareXR LUMBAR SPINE 6V W BENDINGOrdered By: Radiologist Radiology on 93-42-0832NLHA Healthcare Work Phone: DAT CMPon 37-45-7459Lgyekag [Mass/Vol]3.7 g/dL3.4 - 5.0 g/dLNOMS HealthcareALBUMIN GLOBULIN RATIO0.9NODE HealthcareALP [Catalytic activity/Vol]68 U/L46 - 116 U/LNOMS HealthcareALT [Catalytic activity/Vol]54 U/L 16 - 63 U/LNOMS HealthcareAnion gap [Moles/Vol]19 mmol/LNOMS HealthcareAST [Catalytic activity/Vol]45 U/LHigh15 - 37 U/LNOMS HealthcareBilirubin [Mass/Vol] 0.5 mg/dL0.2 - 1.0 mg/dLNOMS HealthcareCalcium [Mass/Vol]9.3 mg/dL8.5 - 10.1 mg/dLNOMS HealthcareChloride [Moles/Vol]104 mmol/L98 - 107 mmol/LNOMS Healthcare CO2 [Moles/Vol]23.3 mmol/L21.0 - 32.0 mmol/LNOMS HealthcareCreatinine [Mass/Vol] 1.39 mg/dLHigh0.70 - 1.30 mg/dLNODE HealthcareGFR/1.73 sq M.predicted CKD-EPI (S/P/Bld) [Vol rate/Area]>60>=60 mL/min/1.73m 2NOMS HealthcareGlobulin (S) [Mass/Vol]4 g/dLNODE HealthcareGlucose [Mass/Vol]153 mg/rHBorp38 - 106 mg/dLNODE HealthcarePotassium [Moles/Vol]4.3 mmol/L3.5 - 5.1 mmol/LNOMS HealthcareProtein [Mass/Vol]7.7 g/dL6.4 - 8.2 g/dLNODE HealthcareSodium [Moles/Vol]142 mmol/L136 - 145 mmol/LNOMS HealthcareTB EGFR-NON AF UDHMMBSA65Nzj>=60 mL/min/1.73m 2NDRUMRIGHT REGIONAL HOSPITAL – DRUMRIGHT HealthcareUrea nitrogen [Mass/Vol]19 mg/dLHigh7.0 - 18.0 mg/dLNORusk Rehabilitation Center Urea nitrogen/Creatinine [Mass ratio]13.7 mg/mgNORusk Rehabilitation CenterLIPID PANELon 88-10-2252ZHJF HDL RATIO3.5NODE HealthcareComment on above:3.3 - 4.4 LOW RISK 4.4 - 7.1 AVERAGE RISK 7.1 - 11.0 MODERATE RISK >11.0 HIGH RISK Cholesterol [Mass/Vol]135 mg/dLNINF - 200 mg/dLNORusk Rehabilitation CenterCholesterol in HDL [Mass/Vol]39 mg/dLLow40 - 60 mg/dLNODE HealthcareComment on above:> or =60 mg/dl - LOW CARDIOVASCULAR RISK <40 mg/dl - HIGH CARDIOVASCULAR RISK Magnesium [Mass/Vol]128.8 mg/dLResearch Medical Center-Brookside CampusTriglyceride [Mass/Vol]644 mg/dL HighNINF - 150 mg/dLResearch Medical Center-Brookside CampusNo Panel Informationon 07-05-2024 Interpretation and review of laboratory resultsAbnormalNORusk Rehabilitation CenterCLINISYNC NOMS HealthcareTBH CBC AUTO DIFFon 83-23-2264FFRQBXKRK ABSOLUTE SVGU9GCMMRusk Rehabilitation CenterBasophils/100 WBC (Bld)0.8 %0.2 - 2.0 %[facility]ok[facility] CampusEosinophils/100 WBC (Bld)3.8 %0.9 - 7.0 %[facility]-Brookside CampusErythrocyte distribution width (RBC) [Ratio]13 %11.0 - 15.0 %[facility]okside CampusHematocrit (Bld) [Volume fraction]38.9 % Low42.0 - 54.0 %[facility]ok[facility] CampusHemoglobin (Bld) [Mass/Vol]13.5 g/dLLow14.0 - 18.0 g/dLResearch Medical Center-Brookside CampusIMMATURE GRANULOCYTES ABS AUTO0.02NOMS [facility] Immature granulocytes/100 WBC (Bld)0.4 %0.0 - 0.5 %[facility]ok[facility] CampusLYMPHOCYTES ABSOLUTE AUTO1.6NOMS [facility] Medical CenterLymphocytes/100 WBC (Bld)33.1 %20.5 - 60.0 %[facility] & Sports MedicineH (RBC) [Entitic mass]31.7 pg25.9 - 34.0 pgNOFreeman Cancer InstituteHC (RBC) [Mass/Vol]34.7 g/dL29.9 - 35.2 g/dLFreeman Orthopaedics & Sports MedicineV (RBC) [Entitic vol]91.3 fL 80.0 - 94.0 fLResearch Medical Center-Brookside CampusMONOCYTES ABSOLUTE AUTO0.2LowNHermann Area District Hospital Monocytes/100 WBC (Bld)5 %1.7 - 12.0 %[facility]ok[facility] CampusNEUTROPHILS ABSOLUTE AUTO 2.7NOMS [facility] Medical CenterNeutrophils/100 WBC (Bld)56.9 %43.0 - 75.0 %[facility] Platelet mean volume (Bld) [Entitic vol]8.9 fLLow9.5 - 13.5 fLWestern Missouri Medical Center EO #0.2NOMS [facility] Medical CenterTB KGVB4LXWFSaint Louis University Hospital UQB825RDCH [facility] RBC 4.26LowNOMS [facility] WBC4.8NOMS [facility] DIRECT LDLon 07-05-2024 Magnesium [Mass/Vol]38 mg/dLResearch Medical Center-Brookside CampusComment on above:<100 mg/dl OPTIMAL 100-129 mg/dl NEAR OR ABOVE OPTIMAL 130-159 mg/dl BORDERLINE HIGH 160-189 mg/dl HIGH >190 mg/dl VERY HIGH [facility] GLYCOHEMOGLOBIN A1Con 83-95-0562Uxcjlub [Mass/Vol]143 mg/dLNODE Healthcare HbA1c (Bld) [Mass fraction]6.6 %High4.5 - 6.2 %[facility] HealthcareComment on above: ADA RECOMMENDED LIMIT 4.0 - 6.0 ADA THERAPEUTIC TARGET < 7.0 ACTION SUGGESTED > 7.0 PARAS CMPon 05-24-4247Zozrokx [Mass/Vol]3.7 g/dL3.4 - 5.0 g/dLNODE Healthcare ALBUMIN GLOBULIN RATIO0.9NODE HealthcareALP [Catalytic activity/Vol]68 U/L46 - 116 U/LNOMS HealthcareALT [Catalytic activity/Vol]54 U/L16 - 63 U/LNOMS HealthcareAnion gap [Moles/Vol]19 mmol/LNOMS HealthcareAST [Catalytic activity/Vol]45 U/LHigh15 - 37 U/LNOMS HealthcareBilirubin [Mass/Vol]0.5 mg/dL 0.2 - 1.0 mg/dLNODE HealthcareCalcium [Mass/Vol]9.3 mg/dL8.5 - 10.1 mg/dLNODE HealthcareChloride [Moles/Vol]104 mmol/L98 - 107 mmol/LNOMS HealthcareCO2 [Moles/Vol]23.3 mmol/L21.0 - 32.0 mmol/LNOMS HealthcareCreatinine [Mass/Vol]1.39 mg/dLHigh0.70 - 1.30 mg/dLNODE HealthcareGFR/1.73 sq M.predicted CKD-EPI (S/P/Bld) [Vol rate/Area]>60>=60 mL/min/1.73m 2NOMS HealthcareGlobulin (S) [Mass/Vol]4 g/dLNOMS HealthcareGlucose [Mass/Vol]153 mg/bEKcec73 - 106 mg/dLNODE HealthcarePotassium [Moles/Vol]4.3 mmol/L3.5 - 5.1 mmol/LNOMS HealthcareProtein [Mass/Vol]7.7 g/dL6.4 - 8.2 g/dLNOMS HealthcareSodium [Moles/Vol]142 mmol/L136 - 145 mmol/LNOMS HealthcareTBH EGFR-NON AF OCMUKPHI43Gbb>=60 mL/min/1.73m 2NOMS HealthcareUrea nitrogen [Mass/Vol]19 mg/dLHigh7.0 - 18.0 mg/dLResearch Medical Center[facility] Urea nitrogen/Creatinine [Mass ratio]13.7 mg/mgResearch Medical Center-Brookside CampusLIPID PANELon 38-94-6007YMIW HDL RATIO3.5[facility] HealthcareComment on above:3.3 - 4.4 LOW RISK 4.4 - 7.1 AVERAGE RISK 7.1 - 11.0 MODERATE RISK >11.0 HIGH RISK Cholesterol [Mass/Vol]135 mg/dLNINF - 200 mg/dLResearch Medical Center-Brookside CampusCholesterol in HDL [Mass/Vol]39 mg/dLLow40 - 60 mg/dLHUNTSMAN MENTAL HEALTH INSTITUTE HealthcareComment on above:> or =60 mg/dl - LOW CARDIOVASCULAR RISK <40 mg/dl - HIGH CARDIOVASCULAR RISK Magnesium [Mass/Vol]128.8 mg/dLResearch Medical Center-Brookside CampusTriglyceride [Mass/Vol]644 mg/dL HighNINF - 150 mg/dLResearch Medical Center-Brookside CampusNo Panel Informationon 07-03-2024 Interpretation and review of laboratory resultsAbnormHelen M. Simpson Rehabilitation HospitalCLINISYNC [facility] CBC AUTO DIFFon 93-54-9709VTWZWYITT ABSOLUTE TAYS3HDCDRusk Rehabilitation CenterBasophils/100 WBC (Bld)0.8 %0.2 - 2.0 %[facility] CampusEosinophils/100 WBC (Bld)3.8 %0.9 - 7.0 %[facility]-Brookside CampusErythrocyte distribution width (RBC) [Ratio]13 %11.0 - 15.0 %[facility]ok[facility] CampusHematocrit (Bld) [Volume fraction]38.9 % Low42.0 - 54.0 %[facility] CampusHemoglobin (Bld) [Mass/Vol]13.5 g/dLLow14.0 - 18.0 g/dLResearch Medical Center-Brookside CampusIMMATURE GRANULOCYTES ABS AUTO0.02NORusk Rehabilitation Center Immature granulocytes/100 WBC (Bld)0.4 %0.0 - 0.5 %[facility] CampusInterpretation and review of laboratory resultsAbUP Health SystemLYMPHOCYTES ABSOLUTE AUTO1.6NOMS [facility] Medical CenterLymphocytes/100 WBC (Bld)33.1 %20.5 - 60.0 %[facility] (RBC) [Entitic mass]31.7 pg25.9 - 34.0 pgAlvin J. Siteman Cancer Center (RBC) [Mass/Vol]34.7 g/dL29.9 - 35.2 g/dLNORusk Rehabilitation CenterMCV (RBC) [Entitic vol]91.3 fL 80.0 - 94.0 fLNORusk Rehabilitation CenterMONOCYTES ABSOLUTE AUTO0.2LowNDRUMRIGHT REGIONAL HOSPITAL – DRUMRIGHT Healthcare Monocytes/100 WBC (Bld)5 %1.7 - 12.0 %[facility] CampusNEUTROPHILS ABSOLUTE AUTO 2.7NODE HealthcareNeutrophils/100 WBC (Bld)56.9 %43.0 - 75.0 %[facility] Platelet mean volume (Bld) [Entitic vol]8.9 fLLow9.5 - 13.5 fLResearch Medical Center-Brookside CampusTB EO #0.2NOMS HealthcareTB LFZO0DWVLRusk Rehabilitation CenterTB YED424ZEZISaint Louis [facility] Hospital RBC 4.26LowNORusk Rehabilitation CenterTB WBC4.8NORusk Rehabilitation CenterCLINISYNCNHermann Area District HospitalTBH DIRECT LDLon 90-97-0619Idgivrlvq [Mass/Vol]38 mg/dLNODE HealthcareComment on above:<100 mg/dl OPTIMAL 100-129 mg/dl NEAR OR ABOVE OPTIMAL 130-159 mg/dl BORDERLINE HIGH 160-189 mg/dl HIGH >190 mg/dl VERY HIGH TB[facility] GLYCOHEMOGLOBIN A1Con 29-67-6594Tvoxasn [Mass/Vol]143 mg/dLResearch Medical Center-Brookside Campus HbA1c (Bld) [Mass fraction]6.6 %High4.5 - 6.2 %[facility] HealthcareComment on above: ADA RECOMMENDED LIMIT 4.0 - 6.0 ADA THERAPEUTIC TARGET < 7.0 ACTION SUGGESTED > 7.0 Interpretation and review of laboratory resultsAbnormalNOCox Walnut LawnINISYNC [facility] MICROALB CREAT RATIO RANDOMon 48-43-4147SYGUSBDPYN URINE VERZYU481.51 mg/dL20.00 - 300.00 mg/dLResearch Medical Center-Brookside CampusMICROALBUMIN URINE RANDOM <1.3NINF - 30.0 mg/dLVanderbilt Rehabilitation HospitalYNFormerly Self Memorial HospitalUS ABDOMEN LIMITEDon 28-66-7975Yhe[address] [address] Ultrasound Report Signed Patient: YESSENIA HARO MR#: [id number] : 1965 Acct:[id number] Age/Sex: 58 / M ADM Date: 09/25/23 Loc: US Attending Dr: Shaikh Jimmy Cortes Ordering Physician: Shaikh Sophia Marquez Date of Service: 09/25/23 Procedure(s): US abdomen limited Accession Number(s): [id number] cc: Shaikh Sophia Marquez [address] [address] Patient Name: YESSENIA HARO MRN: [facility]:[id number] date: 1965 Sex: M Assigned Patient Location: US Current Patient Location: US Accession/Order Number: [id number] Exam Date: 09/25/2023 12:43 Report Date: 09/25/2023 [...] Signed By: 09/25/23 1315 DD/ 1312 TD/TT: Rust Proofer:NASREENHRadiology, Radiologist, MD - 09/25/2023 [place] [address] Ultrasound Report Signed Patient: YSESENIA HARO MR#: [id number] : 1965 Acct:[id number] Age/Sex: 58 / M ADM Date: 09/25/23 Loc: US Attending Dr: Shaikh Jimmy Cortes Ordering Physician: Shaikh Sophia Marquez Date of Service: 09/25/23 Procedure(s): US abdomen limited Accession Number(s): [id number] cc: Shaikh Sophia Marquez [address] [address] Patient Name: YESSENIA HARO MRN: [facility]:[id number] date: 1965 Sex: M Assigned Patient Location: US Current Patient Location: US Accession/Order Number: [id number] Exam Date: 09/25/2023 12:43 Report Date: 09/25/2023 [...] Signed By: 09/25/23 1315 DD/ 1312 TD/TT: Rust Proofer: NAOMI [facility] Medical CenterRadiology Study observation (narrative)[facility] HealthcareUS ABDOMEN LIMITEDOrdered By: Radiologist Radiology on 27-91-2533YLPY [employer] Work Phone: cbc AUTO DIFFon 57-66-6680EIVL #0.0 103/ulNormal 0.0-0.1Sheltering Arms HospitalComment on above:Performed By: #### CBC #### [facility] [address] [place] [address] Dr. Karen Sherwoodsophils/100 WBC (Bld)0.4 %Normal0.2-2.0[facility] Comment on above:Performed By: #### CBC #### [facility] [address] [place] [address] Dr. Karen Shoemaker #0.2 103/ulNormal0.0-0.7The [facility] HospitalComment on above: Performed By: #### CBC #### [facility] [address] [place] [address] Dr. Karen Mominosinophils/100 WBC (Bld)3.1 %Normal0.9-7.0The [facility] Comment on above:Performed By: #### CBC #### [facility] [address] [place] [address] Dr. Karen Mominrythrocyte distribution width (RBC) [Ratio]12.3 %Jcfopx42.0-15.0 [facility] HospitalComment on above:Performed By: #### CBC #### [facility] [address] [place] [address] Dr. Karen SawyerHematocrit (Bld) [Volume fraction]38.6 %Critically low42.0-54.0 The [facility] HospitalComment on above:Performed By: #### CBC #### [facility] [address] [place] [address] Dr. Karen SawyerHemoglobin (Bld) [Mass/Vol]12.9 g/dLCritically low14.0-18.0[facility] HospitalComment on above:Performed By: #### CBC #### [facility] [address] [place] [address] Dr. Karen Paiz #0.03 10e3/ulNormal0.00-0.03The [facility] HospitalComment on above:Performed By: #### CBC #### [facility] [address] [place] [address] Dr. Karen Paiz %0.6 %Critically high0.0-0.5The [facility] HospitalComment on above:Performed By: #### CBC #### [facility] [address] [place] [address] Dr. Karen Infante #1.7 103/ulNormal1.2-3.8The [facility] HospitalComment on above:Performed By: #### CBC #### [facility] [address] [place] [address] Dr. Karen Kumarihocytes/100 WBC (Bld)32.1 %Fztfkt72.5-60.0The [facility] HospitalComment on above:Performed By: #### CBC #### [facility] [address] [place] [address] Dr. Karen MedinaUAL DIFF REQNONormalThe [facility] HospitalComment on above: Performed By: #### CBC #### [facility] [address] [address] [address] Karen Daily (RBC) [Entitic mass]31.2 vbYzztht92.9-34.0The [facility] HospitalComment on above:Performed By: #### CBC #### [facility] [address] [place] [address] Dr. Karen Daily (RBC) [Mass/Vol]33.4 g/kGIizhco87.9-35.2The [facility] HospitalComment on above:Performed By: #### CBC #### [facility] [address] [place] [address] Dr. Karen Daily (RBC) [Entitic vol]93.2 nQOcovrs33.0-94.0The [facility] HospitalComment on above:Performed By: #### CBC #### [facility] [address] [place] [address] Dr. Karen Woodruff #0.3 103/ulNormal0.3-0.8The [facility] HospitalComment on above:Performed By: #### CBC #### [facility] [address] [place] [address] Dr. Karen Allenocytes/100 WBC (Bld)6.0 %Normal1.7-12.0The [facility] on above:Performed By: #### CBC #### [facility] [address] [place] [address] Dr. Karen Snow #3.0 103/ulNormal1.4-6.5The [facility] HospitalComment on above:Performed By: #### CBC #### [facility] [address] [place] [address] Dr. Karen Qureshiutrophils/100 WBC (Bld)57.8 %Iblzpc98.0-75.0The [facility] HospitalComment on above:Performed By: #### CBC #### [facility] Laboratory [address] [place] [address] Dr. Karen Guidolet mean volume (Bld) [Entitic vol]8.2 fLCritically low 9.5-13.5The [facility] HospitalComment on above:Performed By: #### CBC #### [facility] Laboratory [address] [place] [address] Dr. Karen SawyerPLT175 103/zyUcxvld741-661Qju [facility] HospitalComment on above: Performed By: #### CBC #### [facility] Laboratory [address] [place] [address] Dr. Karen SawyerRBC4.14 106/ulCritically low4.70-6.10The [facility] HospitalComment on above:Performed By: #### CBC #### [facility] [address] [place] [address] Dr. Karen SawyerWBC5.2 103/ulNormal4.0-11.0The [facility] HospitalComment on above: Performed By: #### CBC #### [facility] [address] [place] [address] Dr. Karen SawyerGLYCOHEMOGLOBIN A1Con [id number] RECOMMENDATIONSEE BELOWTrihealth Bethesda North HospitalComment on above:Result Comment: ADA RECOMMENDED LIMIT 4.0 - 6.0 ADA THERAPEUTIC TARGET < 7.0 ACTION SUGGESTED > 7.0Performed By: #### A1C #### [facility] [address] [place] [address] Dr. Karen SawyerGlucose [Mass/Vol]134 mg/dLNoSelect Medical Cleveland Clinic [facility] Hospital, Edwin ShawComkresge eye institute on above:Performed By: #### A1C #### [facility] [address] [place] [address] Dr. Karen SawyerHbA1c (Bld) [Mass fraction]6.3 %Critically high4.5-6.2The [facility] HospitalComment on above:Performed By: #### A1C #### [facility] Laboratory [address] [place] [address] Dr. Karen SawyerLIPID PROFILEon [id number]-HDL RATIO NORMSEE BELOWMount Carmel Health SystemComment on above:Result Comment: 3.3 - 4.4 LOW RISK 4.4 - 7.1 AVERAGE RISK 7.1 - 11.0 MODERATE RISK >11.0 HIGH RISKPerformed By: #### CMP, LIPID #### [facility] [address] [place] [address] Dr. Karen SawyerCholesterol [Mass/Vol]127 mg/dLNormal<=200[facility] Comment on above:Performed By: #### CMP, LIPID #### [facility] [address] [place] [address] Dr. Karen SawyerCholesterol in HDL [Mass/Vol]46 mg/rGTsxabl19-18NlkSheltering Arms HospitalComment on above:Performed By: #### CMP, LIPID #### [facility] [address] [place] [address] Dr. Karen SawyerCholesterol in LDL [Mass/Vol]66.6 mg/dLMount Carmel Health SystemComment on above:Performed By: #### CMP, LIPID #### [facility] Laboratory [address] [place] [address] Dr. Karen Goldsmithesterjohn.total/Cholesterol in HDL [Mass ratio]2.8 {ratio} NormalSheltering Arms HospitalComment on above:Performed By: #### CMP, LIPID #### [facility] [address] [place] [address] Dr. Karen Vann NORMAL> or = 60 mg/dl - LOW CARDIOVASCULAR RISK <40 mg/dl - HIGH CARDIOVASCULAR RISKMount Carmel Health SystemComment on above:Performed By: #### CMP, LIPID #### [facility] [address] [place] [address] Dr. Karen SawyerLDL CALC NORMALSEE BELOWMount Carmel Health SystemComment on above:Result Comment: <100 mg/dl OPTIMAL 100 - 129 mg/dl NEAR OR ABOVE OPTIMAL 130 - 159 mg/dl BORDERLINE HIGH 160 - 189 mg/dl HIGH >190 mg/dl VERY HIGH Performed By: #### CMP, LIPID #### [facility] [address] [place] [address] Dr. Karen SawyerTriglyceride [Mass/Vol]72 mg/dLNormal<=150[facility] Comment on above:Performed By: #### CMP, LIPID #### [facility] Laboratory [address] [address] [address] Karen SawyerVLDL CALC14.4 mg/dLNormalThe [facility] HospitalComment on above: Performed By: #### CMP, LIPID #### [facility] [address] [address] [address] Karen SawyerPROF 14(COMP METB)on [id number] [Mass/Vol]3.8 g/dLNormal 3.4-5.0The [facility] HospitalComment on above:Performed By: #### CMP, LIPID #### [facility] [address] [place] [address] Dr. Karen SawyerAlbumin/Globulin [Mass ratio]1.1 {ratio}NormalThe [facility] HospitalComment on above:Performed By: #### CMP, LIPID #### [facility] [address] [place] [address] Dr. Karen Espinal [Catalytic activity/Vol]65 U/SAkmmws85-876Oqq [facility] HospitalComment on above:Performed By: #### CMP, LIPID #### [facility] [address] [place] [address] Dr. Karen Jesus [Catalytic activity/Vol]42 U/PCtzljw60-17Ill [facility] HospitalComment on above:Performed By: #### CMP, LIPID #### [facility] [address] [address] [address] Karen Shepard gap [Moles/Vol]12.1 mmol/LNormalThe [facility] Comment on above:Performed By: #### CMP, LIPID #### [facility] [address] [place] [address] Dr. Karen Carrillo [Catalytic activity/Vol]21 U/JTjbviw06-78Iza [facility] HospitalComment on above:Performed By: #### CMP, LIPID #### [facility] [address] [place] [address] Dr. Karen SawyerBilirubin [Mass/Vol]0.2 mg/dLNormal0.2-1.0The [facility] Comment on above:Performed By: #### CMP, LIPID #### [facility] [address] [address] [address] Karen SawyerCalcium [Mass/Vol]8.8 mg/dLNormal8.5-10.1[facility] Comment on above:Performed By: #### CMP, LIPID #### [facility] [address] [address] [address] Karen SawyerChloride [Moles/Vol]105 mmol/YYjyrmb33-606Amb [facility] Comment on above:Performed By: #### CMP, LIPID #### [facility] [address] [place] [address] Dr. Karen SawyerCO2 [Moles/Vol]25.6 mmol/XFshndd66.0-32.0[facility] Comment on above:Performed By: #### CMP, LIPID #### [facility] [address] [place] [address] Dr. Karen SawyerCreatinine [Mass/Vol]1.03 mg/dLNormal0.70-1.30The [facility] HospitalComment on above:Performed By: #### CMP, LIPID #### [facility] [address] [place] [address] Dr. Karen MominGFR-AF CITIZEN [place]>60Normal>=60The [facility] HospitalComment on above:Performed By: #### CMP, LIPID #### [facility] [address] [place] [address] Dr. Karen Echeverria-NON AF CITIZEN OF [place]>60Normal>=60[facility] HospitalComment on above:Performed By: #### CMP, LIPID #### [facility] [address] [place] [address] Dr. Karen SawyerGlobulin (S) [Mass/Vol]3.5 g/dLNormalThe [facility] HospitalComment on above:Performed By: #### CMP, LIPID #### [facility] [address] [place] [address] Dr. Karen SawyerGlucose [Mass/Vol]118 mg/dLCritically tftk73-537Wuz [facility] HospitalComment on above:Performed By: #### CMP, LIPID #### [facility] [address] [place] [address] Dr. Karen SawyerPotassium [Moles/Vol]4.7 mmol/LNormal3.5-5.1[facility] Comment on above:Performed By: #### CMP, LIPID #### [facility] [address] [place] [address] Dr. Karen SawyerProtein [Mass/Vol]7.3 g/dLNormal6.4-8.2[facility] Comment on above:Performed By: #### CMP, LIPID #### [facility] [address] [place] [address] Dr. Karen Ocampodium [Moles/Vol]138 mmol/SQlitru809-979QtfSheltering Arms Hospital Comment on above:Performed By: #### CMP, LIPID #### [facility] [address] [place] [address] Dr. Karen SawyerUrea nitrogen [Mass/Vol]20.0 mg/dLCritically high7.0-18.0The [facility] HospitalComment on above:Performed By: #### CMP, LIPID #### [facility] [address] [place] [address] Dr. Karen Jacob nitrogen/Creatinine [Mass ratio]19.4 mg/mgNormalThe [facility] HospitalComment on above:Performed By: #### CMP, LIPID #### [facility] [address] [place] [address] Dr. Karen Rome AUTO DIFFon [id number] #0.0 103/ulNormal0.0-0.1[facility] HospitalComment on above:Performed By: #### CBC #### [facility] [address] [place] [address] Dr. Karen SawyerBasophils/100 WBC (Bld)0.4 %Normal0.2-2.0[facility] Comment on above:Performed By: #### CBC #### [facility] [address] [place] [address] Dr. Karen Shoemaker #0.1 103/ulNormal0.0-0.7The [facility] HospitalComment on above: Performed By: #### CBC #### [facility] [address] [place] [address] Dr. Karen Mominosinophils/100 WBC (Bld)2.7 %Normal0.9-7.0The [facility] Comment on above:Performed By: #### CBC #### [facility] [address] [place] [address] Dr. Karen Mominrythrocyte distribution width (RBC) [Ratio]12.2 %Gbivco41.0-15.0 The [facility] HospitalComment on above:Performed By: #### CBC #### [facility] [address] [place] [address] Dr. Karen aSwyerHematocrit (Bld) [Volume fraction]37.7 %Critically low42.0-54.0 The [facility] HospitalComment on above:Performed By: #### CBC #### [facility] [address] [place] [address] Dr. Karen SawyerHemoglobin (Bld) [Mass/Vol]12.9 g/dLCritically low14.0-18.0The [facility] Hospitalment on above:Performed By: #### CBC #### [facility] [address] [place] [address] Dr. Karen Paiz #0.02 10e3/ulNormal0.00-0.03The [facility] HospitalComment on above:Performed By: #### CBC #### [facility] [address] [place] [address] Dr. Karen Paiz %0.4 %Normal0.0-0.5The [facility] HospitalComment on above: Performed By: #### CBC #### [facility] [address] [place] [address] Dr. Karen nIfante #1.7 103/ulNormal1.2-3.8The [facility] HospitalComment on above:Performed By: #### CBC #### [facility] [address] [place] [address] Dr. Karen Thorntonmphocytes/100 WBC (Bld)37.6 %Bnysit88.5-60.0The [facility] HospitalComment on above:Performed By: #### CBC #### [facility] [address] [place] [address] Dr. Karen MedinaUAL DIFF REQNONormalThe [facility] HospitalComment on above: Performed By: #### CBC #### [facility] [address] [place] [address] Dr. Karen Daily (RBC) [Entitic mass]31.2 qaDkpdjl10.9-34.0The [facility] HospitalComment on above:Performed By: #### CBC #### [facility] [address] [place] [address] Dr. Karen Daily (RBC) [Mass/Vol]34.2 g/mGDepros04.9-35.2The [facility] HospitalComment on above:Performed By: #### CBC #### [facility] [address] [place] [address] Dr. Karen Daily (RBC) [Entitic vol]91.3 fGKztuab58.0-94.0The [facility] HospitalComment on above:Performed By: #### CBC #### [facility] [address] [place] [address] Dr. Karen Woodruff #0.2 103/ulCritically low0.3-0.8The [facility] HospitalComment on above:Performed By: #### CBC #### [facility] [address] [place] [address] Dr. Karen Allenocytes/100 WBC (Bld)5.1 %Normal1.7-12.0The [facility] Comment on above:Performed By: #### CBC #### [facility] [address] [place] [address] Dr. Karen Snow #2.4 103/ulNormal1.4-6.5The [facility] HospitalComment on above:Performed By: #### CBC #### [facility] [address] [address] [address] Karen SawyerNeutrophils/100 WBC (Bld)53.8 %Ovtkjx96.0-75.0The [facility] on above:Performed By: #### CBC #### [facility] [address] [address] [address] Karen SawyerPlatelet mean volume (Bld) [Entitic vol]8.6 fLCritically low 9.5-13.5The [facility] HospitalComment on above:Performed By: #### CBC #### [facility] [address] [address] [address] Karen SawyerPLT142 103/ulCritically yla442-511Xvr [facility] on above:Performed By: #### CBC #### [facility] [address] [place] [address] Dr. Karen SawyerRBC4.13 106/ulCritically low4.70-6.10The [facility] HospitalComkresge eye institute on above:Performed By: #### CBC #### [facility] [address] [address] [address] Karen SawyerWBC4.5 103/ulNormal4.0-11.0The [facility] on above: Performed By: #### CBC #### [facility] [address] [place] [address] Dr. Karen SawyerGLYCOHEMOGLOBIN A1Con [id number] RECOMMENDATIONADA THERAPEUTIC TARGET 6.0 - 7.0 ACTION SUGGESTED > 7.0NormZanesville City HospitalComkresge eye institute on above:Performed By: #### A1C #### [facility] [address] [place] [address] Dr. Karen SawyerGlucose [Mass/Vol]137 mg/dLNoSelect Medical [facility] Clinic Rehabilitation Hospital, Edwin ShawComkresge eye institute on above:Performed By: #### A1C #### [facility] [address] [place] [address] Dr. Karen SawyerHbA1c (Bld) [Mass fraction]6.4 %Critically high<=6.0The [facility] HospitalComment on above:Performed By: #### A1C #### [facility] [address] [address] [address] Karen Patel PYLORI ANTIBODYon 06-21-2021H PYLORINegativeNormalNEGATIVESheltering Arms HospitalComment on above:Performed By: #### HPYL #### [facility] [address] [address] [address] Karen LujanID PROFILEon [id number]-HDL RATIO NORMSEE BELOWMount Carmel Health SystemComment on above:Result Comment: 3.3 - 4.4 LOW RISK 4.4 - 7.1 AVERAGE RISK 7.1 - 11.0 MODERATE RISK >11.0 HIGH RISKPerformed By: #### LIPID, BMP #### [facility] [address] [address] [address] Karen SawyerCholesterol [Mass/Vol]146 mg/dLNormal<=200[facility] Comment on above:Performed By: #### LIPID, BMP #### [facility] [address] [address] [address] Karen SawyerCholesterol in HDL [Mass/Vol]58 mg/dLMount Carmel Health System Comment on above:Performed By: #### LIPID, BMP #### [facility] [address] [address] [address] Karen SawyerCholesterol in LDL [Mass/Vol]56.8 mg/dLMount Carmel Health SystemComment on above:Performed By: #### LIPID, BMP #### [facility] [address] [address] [address] Karen Sarmiento.total/Cholesterol in HDL [Mass ratio]2.5 {ratio} NormalSheltering Arms HospitalComment on above:Performed By: #### LIPID, BMP #### [facility] [address] [address] [address] Karen Vann NORMAL> or = 60 mg/dl - LOW CARDIOVASCULAR RISK <40 mg/dl - HIGH CARDIOVASCULAR RISKMount Carmel Health SystemComment on above:Performed By: #### LIPID, BMP #### [facility] [address] [address] [address] Karen Duke CALC NORMALSEE BELOWMount Carmel Health SystemComment on above:Result Comment: <100 mg/dl OPTIMAL 100 - 129 mg/dl NEAR OR ABOVE OPTIMAL 130 - 159 mg/dl BORDERLINE HIGH 160 - 189 mg/dl HIGH >190 mg/dl VERY HIGH Performed By: #### LIPID, BMP #### [facility] [address] [address] [address] Karen SawyerTriglyceride [Mass/Vol]156 mg/dLCritically high<=150The [facility] HospitalComment on above:Performed By: #### LIPID, BMP #### [facility] [address] [place] [address] Dr. Karen SawyerVLDL CALC31.2 mg/dLNoSelect Medical [facility] Clinic Rehabilitation Hospital, Edwin ShawComment on above: Performed By: #### LIPID, BMP #### [facility] [address] [place] [address] Dr. Karen SawyerPROF CHEM 8 (BAS METB)on [id number] gap [Moles/Vol]17.4 mmol/LNormalSheltering Arms HospitalComment on above:Performed By: #### LIPID, BMP #### [facility] [address] [place] [address] Dr. Karen SawyerCalcium [Mass/Vol]8.8 mg/dLNormal8.4-10.2[facility] Comment on above:Performed By: #### LIPID, BMP #### [facility] [address] [place] [address] Dr. Karen SawyerChloride [Moles/Vol]103 mmol/QAndpir59-014AxtSheltering Arms Hospital Comment on above:Performed By: #### LIPID, BMP #### [facility] [address] [place] [address] Dr. Karen SawyerCO2 [Moles/Vol]23.8 mmol/DPqilsx01.0-30.0[facility] Comment on above:Performed By: #### LIPID, BMP #### [facility] [address] [place] [address] Dr. Yilan ChangCreatinine [Mass/Vol]1.01 mg/dLNormal0.66-1.25The [facility] HospitalComment on above:Performed By: #### LIPID, BMP #### [facility] [address] [place] [address] Dr. Karen MominGFR-AF CITIZEN [place]>60Normal>=60The [facility] HospitalComment on above:Performed By: #### LIPID, BMP #### [facility] [address] [address] [address] Karen MominGFR-NON AF CITIZ[place]>60Normal>=60The [facility] HospitalComment on above:Performed By: #### LIPID, BMP #### [facility] [address] [place] [address] Dr. Karen SawyerGlucose [Mass/Vol]158 mg/dLCritically unss85-531Ldv [facility] Hospitalment on above:Performed By: #### LIPID, BMP #### [facility] [address] [place] [address] Dr. Karen SawyerPotassium [Moles/Vol]4.2 mmol/LNormal3.4-5.0[facility] Comment on above:Performed By: #### LIPID, BMP #### [facility] [address] [place] [address] Dr. Karen SawyerSodium [Moles/Vol]140 mmol/CHunssw325-333IxfSheltering Arms Hospital Comment on above:Performed By: #### LIPID, BMP #### [facility] [address] [place] [address] Dr. Karen SawyerUrea nitrogen [Mass/Vol]21.0 mg/dLCritically high9.0-20.0The [facility] HospitalComment on above:Performed By: #### LIPID, BMP #### [facility] [address] [place] [address] Dr. Karen Jacob nitrogen/Creatinine [Mass ratio]20.8 mg/mgNormalThe [facility] HospitalComment on above:Performed By: #### LIPID, BMP #### [facility] [address] [place] [address] Dr. Karen Sawyer Vital Signs Date TimeVital SignValuePerforming IccrxrnfiPhjndrlt88-02-4354 09:09-0400Body qpiizr353 cmLuther Church MD Work Phone: [facility] CampusYayhetrwje42-95-4709 09:09-0400Body mass index (BMI) [Ratio]30.3 kg/m2Luther Church MD Work Phone: [facility] CampusHcboojzttr98-07-2804 09:09-0400Body temperature 97.81 [degF]Luther Church MD Work Phone: [facility] CampusTfxnhoydxp89-97-3229 09:09-0400Body .05 kgLuther Church MD Work Phone: [facility] CampusJztbgojxdh26-21-6896 09:09-0400Diastolic blood ujzjqxyz46 mm[Hg]Luther Church MD Work Phone: [facility] CampusZjjvqsdnep19-47-9472 09:09-0400Heart zfrp267 /min Luther Church MD Work Phone: [facility] CampusYfcvafpgek74-43-9001 09:09-0400Respiratory rate18 /minLuther Church MD Work Phone: [facility] CampusMugljiwiih25-76-4935 09:09-7699TmW9% (BldA) [Mass fraction]95 %Luther Church MD Work Phone: [facility] CampusHvxrzlfcpq54-67-0999 09:09-0400Systolic blood hdrrygow900 mm[Hg]Luther Church MD Work Phone: [facility] CampusJlqrocymvx85-65-1511 09:24-0500Body znedod934 cm Luther Church MD Work Phone: [facility] CampusZcmrtvoltw88-42-4217 09:24-0500Body mass index (BMI) [Ratio]32.35 kg/m2Luther Church MD Work Phone: [facility] CampusKibomawiiz75-49-9914 09:24-0500Body temperature 97.3 [degF]Luther Church MD Work Phone: [facility] CampusOvlenvdbkp90-47-7346 09:24-0500Body ienhnt293.31 kgLuther Church MD Work Phone: [facility] CampusMmhqbhhbgt71-22-8386 09:24-0500Diastolic blood mmullrdp22 mm[Hg]Luther Church MD Work Phone: [facility] CampusMaezxflsvl71-72-4285 09:24-0500Heart rate97 /min Luther Church MD Work Phone: [facility] CampusHiloeqfanh59-91-9596 09:24-0500Respiratory rate18 /minLuther Church MD Work Phone: [facility] CampusTaheoigdda66-67-1059 09:24-8916AoW7% (BldA) [Mass fraction]94 %Luther Church MD Work Phone: [facility] CampusZpviqmbjby68-70-7297 09:24-0500Systolic blood nhxhosrs353 mm[Hg]Luther Church MD Work Phone: [facility] CampusZkhmsecogq56-49-2165 07:53-0500Body sbglny880 cm Francia Hayward [employer] Work Phone: [facility] CampusRhsgmlpwij62-68-0955 07:53-0500Body mass index (BMI) [Ratio]30.96 kg/x8Dnwftvcw Hayward [employer] Work Phone: [facility] CampusHukedzpsie06-63-9490 07:53-0500Body temperature 97.7 [degF]Francia Hayward [employer] Work Phone: [facility] CampusCkdpkoknde99-14-0652 07:53-0500Body deggwf615.36 kgFrancia Hayward [employer] Work Phone: [facility] CampusYmzwvjsmiv88-43-8658 07:53-0500Diastolic blood ityaqtxw12 mm[Hg]Francia Hayward [employer] Work Phone: [facility] CampusQaebjwlomc14-60-9186 07:53-0500Heart rate78 /min Francia Hayward [employer] Work Phone: [facility] CampusIhpurhnahy90-39-2044 07:53-0500Respiratory rate16 /minFrancia Hayward [employer] Work Phone: [facility] CampusPmepgqfanm83-24-2501 07:53-6258LrA4% (BldA) [Mass fraction]98 %Francia Hayward [employer] Work Phone: [facility] CampusGygvdfjwhc26-62-1573 07:53-0500Systolic blood tflefqrp766 mm[Hg]Francia Hayward [employer] Work Phone: [facility] CampusIqytyohbps90-75-3531 08:54-0400Body cm Odilon Kaur DPM Work Phone: [facility] CampusIwoaqirrjs46-98-5478 08:54-0400Body mass index (BMI) [Ratio]31.46 kg/c5OhgccwbuOdilon Kaur DPM Work Phone: [facility] CampusPvihgdfnxe40-37-5974 08:54-0400Body udzfpt768.13 kgOdilon Kaur DPM Work Phone: [address] [place] [address]Xcklkfbphg02-82-7832 08:54-0400Diastolic blood xrqlavjr70 mm[Hg]Odilon Kaur DPM Work Phone: [address] [place] [address]Swuptogppv45-32-9405 08:54-0400Heart rate76 /min Odilon Kaur DPM Work Phone: [address] [place] [address]Lfzjxuvckz07-56-1505 08:54-0400Respiratory rate18 /minOdilon Kaur DPM Work Phone: [address] [place] [address]Lcbjildcpv84-49-9086 08:54-0400Systolic blood mm[Hg]Odilon Kaur DPM Work Phone: [address] [place] [address]Eyqobzheky26-55-5361 07:58-0400Body kmybrg324 cm Francia Brarzpatrick [employer] Work Phone: [facility] CampusQllxggcssq85-79-2110 07:58-0400Body mass index (BMI) [Ratio]31.07 kg/g3OpfmgxibFrancia Hamiltonpatrick [employer] Work Phone: [facility] Uwpwfbschh58-38-8833 07:58-0400Body temperature 97.2 [degF]Francia Hamiltonpatrick [employer] Work Phone: [facility] Fzcntgkaff84-17-9762 07:58-0400Body .77 kgFrancia Hamiltonpatrick B[employer] RIVETER Work Phone: noms Mwuzveioxk77-04-7313 07:58-0400Diastolic blood mm[Hg]Francia Hamiltonpatrick B[employer] Work Phone: noms HealthcareComment on above:PT STATES HE JUST WOKE UP AND NO MEDS [id number] 07:58-0400Heart rate94 /minFrancia Hamiltonpatrick B[employer] RIVETER Work Phone: noms HealthcareComment on above:97% O112-79-1468 07:58-0400Systolic blood wbtprppi601 mm[Hg]Francia Hamiltonpatrick B[employer] RIV[employer]ER Work Phone: noms HealthcareComment on above:PT STATES HE JUST WOKE UP AND NO MEDS YET Encounters Encounter DateEncounter TypeCare ProviderFacilityStart: 35-56-4687lvgvyofwyg Ana Liliavirgen MendozaFacility:EU kStart: 06-20-2025 End: 96-13-4683qymxzhkonmKvxyjz J GaleaFacility:FTMCStart: 06-13-2025 End: 81-86-6152vvykjcnnfvHypsio J GaleaFacility:EU NorkStart: 06-13-2025 End: 16-61-4984Mwjabow encounter procedureAna Lilia Mendoza [facility] Start: 88-31-6825umtyhlwbpgLrhcll GaleaFacility:EU NorwalkStart: 01-21-2025 End: 72-14-1639Zxhhgk Michelle Church MD Work Phone: NOMS CWM FMStart: 01-21-2025 End: 78-39-6070Nkyxyu Michelle Church MD Work Phone: NOPJ CWM FMStart: 01-21-2025 End: 71-99-3221Kibwog outpatient visit 25 minutesLuther Church MD Work Phone: NOMS CWM FMComment on above:Type 2 diabetes mellitus without complication, with long-term current use of insulin (Primary Dx); Essential (primary) hypertension (CMS/HCC); Lumbar spondylosis; Gastroesophageal reflux disease without esophagitisStart: 01-21-2025 End: 81-25-4403zifmrpwakiSKMV NADERERNot AvailableStart: 12-03-2024 End: 82-41-0678Qniifi flowsheetJonathan D Zahler DO Work Phone: NOMS NB OPHTStart: 12-03-2024 End: 63-50-1481Ojymlo flowsheetJonathan D Zahler DO Work Phone: NOMS NB OPHTStart: 12-03-2024 End: 73-56-6966Krmaxu follow up visit related to original pxJonathan D Zahler DO Work Phone: NOMS NB OPHTComment on above:Pseudophakia (Primary Dx) Start: 12-03-2024 End: 86-59-8152pqokjswliiFKHYEZXY D ZAHLERNot AvailableStart: 12-01-2024 End: 40-68-4333Epcgbb follow up visit related to original pxJonathan D Zahler DO Work Phone: NOMS NB OPHTComment on above:Pseudophakia (Primary Dx) Start: 12-01-2024 End: 87-81-7323arragsmvzzXGPSWXLB D ZAHLERNot AvailableStart: 10-19-2024 End: 44-85-2567Oijuyd Michelle Church MD Work Phone: NOSF CWM FMStart: 10-19-2024 End: 42-05-1321Svmtvm flowsNathalia Church MD Work Phone: NOVM CWM FMStart: 10-19-2024 End: 29-40-7761Ljxkmk outpatient visit 25 minutesLuther Church MD Work Phone: NOGP CWM FMComment on above:Type 2 diabetes mellitus without complication, with long-term current use of insulin (CMS/HCC) (Primary Dx); Essential (primary) hypertension (CMS/HCC); Lumbar spondylosis; Gastroesophageal reflux disease without esophagitis; Hypertriglyceridemia (CMS/HCC); Type 2 diabetes mellitus with polyneuropathy (CMS/HCC); Type 2 diabetes mellitus with diabetic cataract (CMS/HCC); Type 2 diabetes mellitus with other specified complication (CMS/HCC)Start: 10-19-2024 End: 72-48-4392etcevlppuiPMMH NADERERNot AvailableStart: 09-28-2024 End: 36-00-0251FdrukzEglfhzypJonas Hayward NP Work Phone: noms CWM FMComment on above:Essential (primary) hypertension (CMS/HCC); Benign essential hypertension (CMS/HCC)Start: 09-21-2024 End: 09-72-2670Lqzthp outpatient new 45 minutesJosselin Amaya DO Work Phone: NOMS NB OPHTComment on above:Age-related nuclear cataract of both eyes (Primary Dx); Primary open angle glaucoma (POAG) of both eyes, mild stage (CMS/HCC)Start: 09-21-2024 End: 12-28-3586Gxtokm flowsheetJonathan Wayne Zahler DO Work Phone: NOMS NB OPHTStart: 09-21-2024 End: 33-73-1026Bsnqij flowsheetJonathan D Jackiehlfreya DO Work Phone: NOMS NB OPHTStart: 09-21-2024 End: 93-01-6483jvvpkckzajJVKFFGEG D ZAHLERNot AvailableStart: 08-29-2024 End: 89-81-8479RvfjgoRenygvly Hayward B[employer] RIV[employer]ER Work Phone: noms CWM FMComment on above:Other hyperlipidemia (CMS/HCC)Start: 08-04-2024 End: 65-54-6603ylgkuveyeeIjmypim J Dittycility:[facility] Healthtart: 07-30-2024 End: 53-68-6715Tdjjsfdej Result EncounterGeneric External Data ProviderNOMS External Department UnsolicitedStart: 07-30-2024 End: 48-31-9427Feeicgzxe Result EncounterGeneric External Data ProviderNOMS External Department UnsolicitedStart: 07-21-2024 End: 55-08-9363Ouydjx flowsheetFrancia Hayward B[employer] RIV[employer]ER Work Phone: noms CWM FMStart: 07-21-2024 End: 20-16-4952Nbfhur flowsheetFrancia Hayward B[employer] RIVETER Work Phone: noms CWM FMStart: 07-21-2024 End: 64-87-6266Ezryqx outpatient visit 15 minutesBrabida Legertrick B[employer] RIVETER Work Phone: noms CWM FMComment on above:Flu vaccine need (Primary Dx); Essential (primary) hypertension (CMS/HCC); Other hyperlipidemia (CMS/HCC); Type 2 diabetes mellitus without complication, with long-term current use of insulin (CMS/HCC); Primary hypertension (CMS/HCC); Chronic right-sided low back pain without sciatica; Lumbar arthropathyStart: 07-21-2024 End: 87-32-5778rlyzxbyoacJKQRXHWR FITZPATRICKNot AvailableStart: 07-18-2024 End: 60-06-0350Ttxsqzlrn Result EncounterBrittany Hayward B[employer] RIVETER Other Phone: noms External Department UnsolicitedStart: 07-18-2024 End: 70-71-0246Lysqhzalc Result EncounterBrittany Hayward B[employer] RIVETER Other Phone: noms External Department UnsolicitedStart: 07-03-2024 End: 74-88-5444Amvyznfht Result EncounterStyrone Marquez MD Work Phone: noms External Department UnsolicitedStart: 07-03-2024 End: 20-79-4671Dtrzxjvgh Result EncounterStyrone Marquez MD Work Phone: noms External Department UnsolicitedStart: 05-27-2024 End: 95-86-8817YltupeWmsrnwvy Fitzpatrick B[employer] RIVETER Work Phone: noms CWM FMComment on above:Other hyperlipidemia (CMS/HCC) (Primary Dx); Type 2 diabetes mellitus without complication, with long-term current use of insulin ([facility]); Essential (primary) hypertension (CMS/HCC); Benign essential hypertension (CMS/[facility]); Gastroesophageal reflux disease without esophagitisStart: 05-06-2024 End: 41-06-5512Tmykyr Eben Kaur DPM Work Phone: NOMS CI PODIATRYStart: 05-06-2024 End: 59-86-4743Fszybm Eben Kaur DPM Work Phone: noMS CI PODIATRYStart: 05-06-2024 End: 61-82-3818Otsiph outpatient new 30 minutesNicsg Kaur DPM Work Phone: noms CI PODIATRYComment on above:Tinea pedis, unspecified laterality (Primary Dx); Type 2 diabetes mellitus without complication, with long-term current use of insulin ([facility]); Diabetes mellitus due to underlying condition with diabetic polyneuropathy, unspecified whether intermediate insulin use ([facility]); Onychomycosis; Toe pain, bilateralStart: 05-06-2024 End: 26-09-4890dgyocsswzbNMFVYCPK A BROWNNot AvailableStart: 04-21-2024 End: 99-13-1959Rdeack Contreras Hayward [employer] R[employer]ER Work Phone: noms CWM FMStart: 04-21-2024 End: 51-25-8835Xqkspb flowsheetFrancia Hayward B[employer] RIV[employer]ER Work Phone: noms CWM FMStart: 04-21-2024 End: 65-22-1424Vletqw outpatient visit 25 minutesFrancia Haywrad B[employer] RIVETER Work Phone: noms CWM FMComment on above:Primary hypertension (CMS/HCC) (Primary Dx); Gastroesophageal reflux disease without esophagitis; Type 2 diabetes mellitus without complication, with long-term current use of insulin (CMS/HCC); Other hyperlipidemia (CMS/[facility]); Screening for colon cancer; Lumbar back painStart: 04-21-2024 End: 50-48-2607vswssbyujjKNJEABFO FITDannie AvailableStart: 01-28-2024 End: 66-79-7981dxfuwkpkooXJEH DUCKETTNot AvailableStart: 09-25-2023 End: 97-23-7381Kvcmaraos Result EncounterStyrone Marquez MD Work Phone: noms External Department UnsolicitedStart: 09-25-2023 End: 80-53-6978Lqubsalbf Result EncounterStyrone Marquez MD Work Phone: noms External Department UnsolicitedStart: 05-31-2022 End: 54-53-2223dbdjvchiohSHABQR H FAWWADFacility:S9Ljucq: 25-39-8424Ifjlqksyz for general adult medical examination without abnormal findingsSANAWAF FORTE [facility] Hospitaltart: 06-21-2021 End: 68-80-1824bsmkvhzdnkHOSKVH JANN MINOTFacility:W7Tyyad: 06-21-2021 End: 31-63-6600Qytenqkro for general adult medical examination without abnormal findingsSANAWAF BECERRAcility:H1 Procedures DateProcedureProcedure DetailPerforming ClinicianStart: 09-21-2024 End: 68-24-9014Cog bmtry prtl coher intrfrmtry io lens pwr Migel Amaya DO Work Phone: Start: 93-11-8327MobcrnxiagnYnih [facility] ZHONG Work Phone: Start: 95-06-1245AI LUMBAR SPINE WO CONGeneric External Data ProviderStart: 86-49-0864Hptekqugzb examination ankle 2 views Generic External Data ProviderStart: 72-95-8213RU LUMBAR SPINE 6V W BENDING Francia Hamiltonpatrick B[employer] RIVETER Other Phone: Start: 11-75-1402MRX CMPShaikh Jimmy ZHONG Work Phone: Start: 22-45-4431Fproj panelStyrone Marquez MD Work Phone: Start: 80-71-3658EQO CBC AUTO DIFFShaikh Jimmy ZHONG Work Phone: Start: 69-65-3141CSM DIRECT LDLShaikh Jimmy ZHONG Work Phone: Start: 87-69-2993BFA GLYCOHEMOGLOBIN T5NRkgeixShaikh Jimmy ZHONG Work Phone: Start: 40-42-9444FYJ MICROALB CREAT RATIO RANDOMShaikh Jimmy ZHONG Work Phone: Start: 62-33-4942KJ ABDOMEN LIMITEDShaikh Jimmy ZHONG Work Phone: Start: 16-13-5462WPR screeningSHAIKH JOSEPHDComment on above:Performed By: #### PSASC #### [facility] [address] [place] [address] Dr. Karen Sawyer Plan of Treatment DateCare ActivityDetailAuthorStart: 97-03-5619Nhdxutaby for malignant neoplasm of colonNOMS HealthcareStart: 40-53-5523Zonlsblq screeningDiabetes: Retinopathy ScreeningNOMS HealthcareStart: 42-52-7980Xwtqixne screeningDiabetes: Retinopathy ScreeningNOMS HealthcareStart: 07-25-2025 End: 14-69-2958Cdxvcre encounter elxbvpixj42/08/2025 8:00 AM EST Office Visit [facility] [address] [place] [address] Luther Church MD [address] [place] [address] [facility] FMStart: 01-55-5587Bqvag screening for proteinDiabetes: Urine Protein ScreeningNODE HealthcareStart: 39-82-8165Xrxvkgeg screeningDiabetes: Retinopathy ScreeningNODE HealthcareStart: 23-86-4980Bwvisaxyr vaccination Influenza Vaccine (#1)NOM HealthcareStart: 01-21-2025 End: 12-43-2470Iknublboai A1c/Hemoglobin.total in BloodHemoglobin A1c Lab Routine Type 2 diabetes mellitus without complication, with long-term current use of insulin Expected: 01/21/2025 (Approximate), Expires: 01/21/2026NODE Healthcare Work Phone: Comment on above:Expected: 01/21/2025 (Approximate), Expires: 01/21/2026Start: 01-21-2025 End: 19-66-9047Ehjqedj encounter procedureNOELKVIEW [facility] FMComment on above:Arrived Start: 62-34-1382Xtygmkbfya A1c measurementDiabetes: Hemoglobin F1WNTNF HealthcareStart: 12-03-2024 End: 43-38-5112Wgcurkq encounter cmeqrboqo85/18/2025 11:30 AM EDT Office Visit N[facility] [address] [place] [phone] Josselin Amaya DO [address] [place] [address] ArrivedNODE FRED OPHTComment on above:ArrivedStart: 10-20-2024 End: 81-05-6522Kirozzt encounter tadjtujak15/05/2025 7:30 AM EST Office Visit [facility] [address] [place] [address] Francia Hayward NP [address] [place] [address] NOMS CWM FMStart: 10-19-2024 End: 88-42-5713Tzpzitrmut A1c/Hemoglobin.total in BloodHemoglobin A1c Lab Routine Type 2 diabetes mellitus without complication, with long-term current use of insulin ([facility]) Expected: 10/19/2024 (Approximate), Expires: 10/19/2025 [facility] Work Phone: Comment on above:Expected: 10/19/2024 (Approximate), Expires: 10/19/2025Start: 10-19-2024 End: 52-14-8745Xfbtlch encounter wsyrvazrs84/04/2025 9:15 AM EST Office Visit [facility] [address] [place] [address] Luther Church MD [address] [place] [address] ArrivedNOMS CWM FMComment on above:ArrivedStart: 09-21-2024 End: 49-58-9585Wntmgfa encounter procedureNOMS NB OPHTComment on above:Arrived Start: 07-22-2024 End: 42-16-0788Esywabl encounter uriyezxsh77/05/2024 9:00 AM EST Office Visit [facility] [address] [facility] [address] [place] [address] Odilon Kaur DPM [address] [address] NOMS CI PODIATRYStart: 07-21-2024 End: 26-84-0346Fsyeeni encounter procedureNOMS CWM FMComment on above:Arrived Start: 05-06-2024 End: 88-71-2770Mrpgfun encounter yljqhxxfx51/19/2024 9:00 AM EDT Office Visit [facility] [address] [place] [address] Odilon Kaur DPM [address] [address] Type 2 diabetes mellitus without complication, with long-term current use of insulin ([facility]/HCC)NOMS CI PODIATRYComment on above:Type 2 diabetes mellitus without complication, with long-term current use of insulin ([facility]/HCC)Start: 04-21-2024 End: 40-24-7091IK Lumbar spine 4 ViewsXR LUMBAR SPINE AP/LAT/FLEX/EXT/OBLIQUES Imaging Routine Lumbar back pain Expected: 04/21/2024, Expires: 04[facility]25[facility] Work Phone: Comment on above:Expected: 04/21/2024, Expires: 04/21/2025Start: 04-21-2024 End: 30-18-9930Yrqmuwc encounter sdppcqyit18/04/2024 8:00 AM EDT Office Visit [facility] [place] [address] [facility] [place] [address] Francia Hayward, YARELY [address] [facility] [place] [address] Primary hypertension ([facility]/HCC) (Primary Dx); Gastroesophageal reflux disease without esophagitis; Type 2 diabetes mellitus without complication, with long-term current use of insulin ([facility]); Other hyperlipidemia ([facility]/HCC)NOMS CWM FMComment on above:Primary hypertension ([facility]/HCC) (Primary Dx); Gastroesophageal reflux disease without esophagitis; Type 2 diabetes mellitus without complication, with long-term current use of insulin ([facility]); Other hyperlipidemia ([facility]/HCC)Start: 94-60-8619Kohbqremn vaccinationInfluenza Vaccine (#1)[facility]Start: 11-45-2060Taxdplisew A1c measurementDiabetes: Hemoglobin W0BCPITResearch Medical Center-Brookside CampusStart: 97-25-4641Tpdyd screening for protein Diabetes: Urine Protein ScreeningHUNTSMAN MENTAL HEALTH INSTITUTE HealthcareStart: 98-02-2769Axqfmwswx for malignant neoplasm of colonNOMS Healthcare Immunizations Immunization DateImmunizationNotesCare VgborxlwOlbrjwaq43-00-4372Kayspemtl, injectable, Madin Rhona Canine Kidney, preservative free, quadrivalentFrancia Hayward B[employer] RIVETER Work Phone: NODE Qcqzpiekae50-16-8963bcznnihjh virus vaccine, unspecified formulationGeneric ProviderNODE Healthcare Payers DatePayer CategoryPayerPolicy [id number] Health Insurance [id number] [facility] John'S HospitalBCBS Member Subscriber Plan / Payer (Effective 2022-Present) Name: Yessenia Haro Relation to Subscriber: Self Name: Yessenia Haro Payer ID: Not on file Type: Not on file Address: [address] [place], [place] [id number] BCBS BCBS [id number] 2022-Present [phone] [place], [place] [id number] [id number] 2..1.781064.3.57[id number] 2..1.900860.3.57[id number] 2..1.650769.3.579.2.541252-42-6727Xlbjfju2050079 2.16.840.1.038375.3.57[id number] 2..840.1.700399.3.57[id number] 2.16.840.1.902495.3.57[id number] 2.840.1.660396.3.579.[id number] 2..840.1.208520.3.579.2.327606-06-8303Itebqcx3477357 2.840.1.414421.3.579.[id number] 2.840.1.765726.3.579.2.[id number] 2.840.1.831093.3.579.[id number] 2.0.1.709809.3.579.[id number] 2.840.1.951810.3.579.[id number] 2.0.1.323001.3.579.2.46722-12-1903Biwxhad Health [id number] [id number] 2.0.1.939066.3.579.2.531 Social History DateTypeDetailFacilityStart: 01-01-2024 End: 47-07-0869Kwjkule smoking status NHISNever smoked tobaccoNODE Healthcare Start: 05-06-2024 End: 27-72-1264Hwgbdzkbc beverage intakeCurrent drinker of alcohol (finding)NOMS HealthcareStart: 01-01-2024 End: 80-24-4054Gcfqwqrxb beverage intakeNOMS HealthcareStart: 01-01-2024 End: 90-40-9988Ggjbpcu use panelHUNTSMAN MENTAL HEALTH INSTITUTE HealthcareStart: 60-59-7653Reu assigned at birthNot on fileHUNTSMAN MENTAL HEALTH INSTITUTE HealthcareStart: 32-76-5035Pjcwzdh smoking statusNever [facility] Hospitalexual Orientation [facility] SexMale (finding)[facility] HospitalTobacc smoking status NHISTobacco smoking consumption unknownResearch Medical Center-Brookside CampusNEGATED: Highlighted rowStart: NINFHistory of tobacco usePassive smokerResearch Medical Center-Brook[facility] Campus Medical Equipment Procedure CodeEquipment CodeEquipment Original TextEquipment IdentifierDates [id number]: 11-28-2022 End: 81-92-9296Txsryo 1 Lancet under the skin 4 (four) times a day as needed (Hyperglycemia)[id number]: 05-31-2024 Functional Status QpkyJkhcmclsmfHqihuiHuukwzwu94-17-8866Dtkosrc Health Questionnaire 2 item (PHQ- 2) [Reported][facility] Clinical Notes 04-21-2024 to 06-13-2025 Note Date & RjfpVsioYmrvpycu76-36-0522 Evaluation + Plan note Future Scheduled Tests Radiology* XR Abdomen 1 View 06/13/25 * US Renal 06/13/25 [facility] 10-27-2025 Hospital Discharge instructions Patient Education 06/13/2025 09:59:50 Kidney Stones, Puhx-zq-Tfxk Kidney Stones Kidney stones are rock-like masses that form inside of the kidneys. Kidneys are organs that make pee (urine). A kidney stone may move into other parts of the urinary tract, including: The tubes that connect the kidneys to the bladder (ureters). The bladder. The tube that carries urine out of the body (urethra). Kidney stones can cause very bad pain and can block the flow of pee. The stone usually leaves your body through your pee. A doctor may need to take out the stone. What are the causes? Kidney stones may be caused by: Too much calcium in the body. This may be caused by too much parathyroid hormone in the blood. Uric acid crystals in the bladder. The body makes uric acid when you eat certain foods. Narrowing of one or both of the ureters. A kidney blockage that you were born with. Past surgery on the kidney or the ureters. What increases the risk? You are more likely to develop this condition if: You have had a kidney stone in the past. Other people in your family have had kidney stones. You do not drink enough water. You eat a diet that is high in protein, salt (sodium), or sugar. You are very overweight (obese). What are the signs or symptoms? Symptoms of a kidney stone may include: Pain in the side of the belly, right below the ribs. Pain usually spreads to the groin. Needing to pee often or right away. Pain when peeing. Blood in your pee. Feeling like you may vomit (nauseous). Vomiting. Fever and chills. How is this treated? Treatment depends on the size, location, and makeup of the kidney stones. The stones will often pass out of the body when you pee. You may need to: Drink more fluid to help pass the stone. ?In some cases, you may be given fluids through an IV tube at the hospital. Take medicine for pain. Change your diet to help keep kidney stones from coming back. Sometimes, you may need: A procedure to break up kidney stones using a beam of light (laser) or shock waves. Surgery to remove the kidney stones. Follow these instructions at home: Medicines Take izlj-acp-qeylbha and prescription medicines only as told by your doctor. Ask your doctor if the medicine prescribed to you requires you to avoid driving or using machinery. Eating and drinking Drink enough fluid to keep your pee pale yellow. ?You may be told to drink at least 8 10 glasses of water each day. This will help you pass the stone. If told by your doctor, change your diet. You may be told to: ?Limit how much salt you eat. ?Eat more fruits and vegetables. ?Limit how much meat, poultry, fish, and eggs you eat. Follow instructions from your doctor about what you may eat and drink. General instructions Collect pee samples as told by your doctor. You may need to collect a pee sample: ?24 hours after a stone comes out. ?8 12 weeks after a stone comes out, and every 6 12 months after that. Strain your pee every time you pee. Use the strainer that your doctor recommends. Do not throw out the stone. Keep it so that it can be tested by your doctor. Keep all follow-up visits. You may need X-rays and ultrasounds to make sure the stone has come out. How is this prevented? To prevent another kidney stone: Drink enough fluid to keep your pee pale yellow. This is the best way to prevent kidney stones. Eat healthy foods. Avoid certain foods as told by your doctor. You may be told to eat less protein. Stay at a healthy weight. Where to find more information National Kidney Foundation (NKF): kidney.org U[employer] Care Foundation (UCF): urologyhealth.org Contact a doctor if: You have pain that gets worse or does not get better with medicine. Get help right away if: You have a fever or chills. You get very bad pain. You get new pain in your belly. You faint. You cannot pee. This information is not intended to replace advice given to you by your health care provider. Make sure you discuss any questions you have with your health care provider. Document Revised: 03/28/2023 Document Reviewed: 03/28/2023 [employer] Patient Education 2023 [employer]. Follow Up Care 05/12/2025 13:05:51 With:Reji EVANS, Ana Lilia Marroquin, URL Address: When: Unknown Comments:pending DEISY/BOOM [facility] 10-27-2025 NotePatient Education Urology Kidney Stones Kidney stones are rock-like masses that form inside of the kidneys. Kidneys are organs that make pee (urine). A kidney stone may move into other parts of the urinary tract, including: ??? The tubes that connect the kidneys to the bladder (ureters). ??? The bladder. ??? The tube that carries urine out of the body (urethra). Kidney stones can cause very bad pain and can block the flow of pee. The stone usually leaves your body through your pee. A doctor may need to take out the stone. What are the causes? Kidney stones may be caused by: ??? Too much calcium in the body. This may be caused by too much parathyroid hormone in the blood. ??? Uric acid crystals in the bladder. The body makes uric acid when you eat certain foods. ??? Narrowing of one or both of the ureters. ??? A kidney blockage that you were born with. ??? Past surgery on the kidney or the ureters. What increases the risk? You are more likely to develop this condition if: ??? You have had a kidney stone in the past. ??? Other people in your family have had kidney stones. ??? You do not drink enough water. ??? You eat a diet that is high in protein, salt (sodium), or sugar. ??? You are very overweight (obese). What are the signs or symptoms? Symptoms of a kidney stone may include: ??? Pain in the side of the belly, right below the ribs. Pain usually spreads to the groin. ??? Needing to pee often or right away. ??? Pain when peeing. ??? Blood in your pee. ??? Feeling like you may vomit (nauseous). ??? Vomiting. ??? Fever and chills. How is this treated? Treatment depends on the size, location, and makeup of the kidney stones. The stones will often pass out of the body when you pee. You may need to: ??? Drink more fluid to help pass the stone. ? In some cases, you may be given fluids through an IV tube at the hospital. ??? Take medicine for pain. ??? Change your diet to help keep kidney stones from coming back. Sometimes, you may need: ??? A procedure to break up kidney stones using a beam of light (laser) or shock waves. ??? Surgery to remove the kidney stones. Follow these instructions at home: Medicines ??? Take uudh-ldi-ofqhhew and prescription medicines only as told by your doctor. ??? Ask your doctor if the medicine prescribed to you requires you to avoid driving or using machinery. Eating and drinking ??? Drink enough fluid to keep your pee pale yellow. ? You may be told to drink at least 8?10 glasses of water each day. This will help you pass the stone. ??? If told by your doctor, change your diet. You may be told to: ? Limit how much salt you eat. ? Eat more fruits and vegetables. ? Limit how much meat, poultry, fish, and eggs you eat. ??? Follow instructions from your doctor about what you may eat and drink. General instructions ??? Collect pee samples as told by your doctor. You may need to collect a pee sample: ? 24 hours after a stone comes out. ? 8?12 weeks after a stone comes out, and every 6?12 months after that. ??? Strain your pee every time you pee. Use the strainer that your doctor recommends. ??? Do not throw out the stone. Keep it so that it can be tested by your doctor. ??? Keep all follow-up visits. You may need X-rays and ultrasounds to make sure the stone has come out. How is this prevented? To prevent another kidney stone: ??? Drink enough fluid to keep your pee pale yellow. This is the best way to prevent kidney stones. ??? Eat healthy foods. ??? Avoid certain foods as told by your doctor. You may be told to eat less protein. ??? Stay at a healthy weight. Where to find more information ??? National Kidney Foundation (NKF): kidney.org ??? [facility] (U[facility]): urologyhealth.org Contact a doctor if: ??? You have pain that gets worse or does not get better with medicine. Get help right away if: ??? You have a fever or chills. ??? You get very bad pain. ??? You get new pain in your belly. ??? You faint. ??? You cannot pee. This information is not intended to replace advice given to you by your health care provider. Make sure you discuss any questions you have with your health care provider. Document Revised: 03/28/2023 Document Reviewed: 03/28/2023 [employer] Patient Education ? 2023 [employer] 01-21-2025 History of Present illness Narrative* Luther Church MD - 01/21/2025 9:40 AM EDTAssociated Problem(s): Type 2 diabetes mellitus without complication, with long-term current use ofinsulin Not checking BS and due for A1C. Stick to ADA diet and limit carbs. * Luther Church MD - 01/21/2025 9:40 AM EDTAssociated Problem(s): Lumbar spondylosis Pain unchanged and try robaxin PRN. Use heat and massage PRN. Continue home PT exercises. * Luther Church MD - 01/21/2025 9:39 AM EDTAssociated Problem(s): Gastroesophageal reflux disease without esophagitis Symptoms controlled with omeprazole and continue. * Luther Church MD - 01/21/2025 9:39 AM EDTAssociated Problem(s): Essential (primary) hypertension (CMS/HCC) BP elevated but controlled at home and monitor PRN. * Luther Church MD - 01/21/2025 9:00 AM EDT Images from the original note were not included. Subjective Patient ID: Yessenia Haro is a 59 y.o. male who presents for Follow-up (3m ) and Back Pain. Follow up DM, HTN, back pain, and GERD. Patient stable today. Not checking BS often and did not have A1C drawn. Tries to eat well and stick to ADA diet but occasional splurges. Denies signs of elevated BS such as polyuria, polyphagia or polydipsia. Checking BP PRN and typically controlled. BP elevated today but did not take medication yet. Taking medication daily and tolerating without side effects. Back pain unchanged. Pain in right lower back and across top hips. No radiation into gluteal region or down legs. 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 Increased pain in upper back between scapula. Stiff and sore in am but improved once up and moving. Tried zanaflex but dry mouth and stopped. Has TENS unit. GERD controlled with omeprazole. Denies epigastric pain or burning and not waking up with symptoms. Back Pain Pertinent negatives include no abdominal pain, chest pain or dysuria. Review of Systems Constitutional: Negative for fatigue. Respiratory: Negative for cough, shortness of breath and wheezing. Cardiovascular: Negative for chest pain and palpitations. Gastrointestinal: Negative for abdominal pain, diarrhea, nausea and vomiting. Genitourinary: Negative for dysuria. Musculoskeletal: Positive for back pain. Objective Physical Exam Constitutional: General: He is not in acute distress. Appearance: Normal appearance. HENT: Head: Normocephalic. Right Ear: Tympanic membrane and ear canal normal. Left Ear: Tympanic membrane and ear canal normal. Eyes: Extraocular Movements: Extraocular movements intact. Pupils: Pupils are equal, round, and reactive to light. Cardiovascular: Rate and Rhythm: Normal rate and regular rhythm. Heart sounds: No murmur heard. No friction rub. No gallop. Pulmonary: Breath sounds: Normal breath sounds. No wheezing, rhonchi or rales. Abdominal: General: Bowel sounds are normal. There is no distension. Palpations: Abdomen is soft. Tenderness: There is no abdominal tenderness. There is no guarding or rebound. Musculoskeletal: Left lower leg: No edema. Neurological: Mental Status: He is alert. Assessment/Plan Problem List Items Addressed This Visit Essential (primary) hypertension (CMS/[facility]) BP elevated but controlled at home and monitor PRN. Type 2 diabetes mellitus without complication, with long-term current use of insulin - Primary Not checking BS and due for A1C. Stick to ADA diet and limit carbs. Relevant Orders Hemoglobin A1c Gastroesophageal reflux disease without esophagitis Symptoms controlled with omeprazole and continue. Lumbar spondylosis Pain unchanged and try robaxin PRN. Use heat and massage PRN. Continue home PT exercises. Relevant Medications methocarbamol (Robaxin) 750 MG tablet documented in this encounterResearch Medical Center-Brookside [id number] History of Present illness Narrative* Josselin Amaya, - 12/03/2024 11:30 AM EDT Images from the original note were not included. Assessment/Plan Diagnoses and all orders for this visit: Pseudophakia - s/p CE OS (POD #4): Patient provided with post-op form. Instructed to continue drops as well as shield. Instructed to call immediately with increased pain, redness, decreased vision, questions or concerns. - status post (s/p) Hydrus stent placement. Cont Latanoprost left eye (OS) at bedtime. Intraocular pressure (IOP) slightly higher this afternoon, 28. This is likely 2/2 RBCs in the anterior chamber (AC). This will clear. Avoid sleeping on the right side if possible. documented in this [facility]04-16-2025 History of Present illness Narrative* Josselin Amaya DO - 12/01/2024 2:30 PM EDT Images from the original note were not included. Assessment/Plan Diagnoses and all orders for this visit: Pseudophakia - s/p CE OS (POD #1): Patient provided with post-op form. Instructed to continue drops as well as shield. Instructed to call immediately with increased pain, redness, decreased vision, questions or concerns. - status post (s/p) Hydrus stent placement. Cont Latanoprost left eye (OS) at bedtime. Intraocular pressure (IOP) slightly higher this afternoon, 28. This is likely 2/2 RBCs in the anterior chamber (AC). This will clear. Avoid sleeping on the right side if possible. documented in this encounterResearch Medical Center-Brookside [id number] History of Present illness Narrative* Luther Church MD - 10/19/2024 9:58 AM ESTAssociated Problem(s): Type 2 diabetes mellitus with polyneuropathy (CMS/HCC) Follow with podiatry. * Luther Church MD - 10/19/2024 9:57 AM ESTAssociated Problem(s): Type 2 diabetes mellitus without complication, with long-term current use ofinsulin ([facility]) BS variable and due for A1C. Stick to ADA diet and limit carbs. * Luther Church MD - 10/19/2024 9:57 AM ESTAssociated Problem(s): Lumbar spondylosis Pain unchanged and start celebrex daily. Use zanaflex PRN. Use heat and massage PRN. Continue home PT exercises. * Luther Church MD - 10/19/2024 9:56 AM ESTAssociated Problem(s): Gastroesophageal reflux disease without esophagitis Symptoms controlled with omeprazole and continue. * Luther Church MD - 10/19/2024 9:56 AM ESTAssociated Problem(s): Essential (primary) hypertension ([facility]) BP controlled and monitor PRN. * Luther Church MD - 10/19/2024 9:15 AM EST Images from the original note were not included. Subjective Patient ID: Yessenia Haro is a 59 y.o. male who presents for Follow-up (3 m) and Back Pain. Follow up DM, HTN, back pain, and GERD. Patient stable today. Reports BS variable and 140-200. Tries to eat well and stick to ADA diet but occasional splurges. Denies signs of elevated BS such as polyuria, polyphagia or polydipsia. Checking BP PRN and typically controlled. BP okay today. Taking medi cation daily and tolerating without side effects. Back pain stable. Pain in right lower back and across top hips. No radiation into gluteal region or down legs. 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 Stiff and sore in am but improved once up and moving. MRI showed mild arthritis changed. Seen by pain management but refused injections. Baclofen not helping. GERD controlled with omeprazole. Denies epigastric pain or burning and not waking up with symptoms. Review of Systems Constitutional: Negative for fatigue. Respiratory: Negative for cough, shortness of breath and wheezing. Cardiovascular: Negative for chest pain and palpitations. Gastrointestinal: Negative for abdominal pain, diarrhea, nausea and vomiting. Genitourinary: Negative for dysuria. Objective Physical Exam Constitutional: General: He is not in acute distress. Appearance: Normal appearance. HENT: Head: Normocephalic. Right Ear: Tympanic membrane and ear canal normal. Left Ear: Tympanic membrane and ear canal normal. Eyes: Extraocular Movements: Extraocular movements intact. Pupils: Pupils are equal, round, and reactive to light. Cardiovascular: Rate and Rhythm: Normal rate and regular rhythm. Heart sounds: No murmur heard. No friction rub. No gallop. Pulmonary: Breath sounds: Normal breath sounds. No wheezing, rhonchi or rales. Abdominal: General: Bowel sounds are normal. There is no distension. Palpations: Abdomen is soft. Tenderness: There is no abdominal tenderness. There is no guarding or rebound. Musculoskeletal: Left lower leg: No edema. Neurological: Mental Status: He is alert. Assessment/Plan Problem List Items Addressed This Visit Essential (primary) hypertension (CMS/HCC) BP controlled and monitor PRN. Type 2 diabetes mellitus without complication, with long-term current use of insulin (CMS/HCC) - Primary BS variable and due for A1C. Stick to ADA diet and limit carbs. Relevant Orders Hemoglobin A1c Gastroesophageal reflux disease without esophagitis Symptoms controlled with omeprazole and continue. Lumbar spondylosis Pain unchanged and start celebrex daily. Use zanaflex PRN. Use heat and massage PRN. Continue home PT exercises. Relevant Medications celecoxib (CeleBREX) 200 MG capsule tiZANidine (Zanaflex) 4 MG tablet documented in this encounterResearch Medical Center-Brookside [id number] History of Present illness Narrative* Josselin Amaya, - 09/21/2024 2:15 PM EST Images from the original note were not included. Subjective Patient ID: Yessenia Haro is a 59 y.o. male. Chief Complaint Cataract HPI Cataract In both eyes. Associated symptoms include blurred vision, glare and haloes. Severity is moderate. Onset was gradual. Frequency is constant. Context: mid- range vision, near vision, reading, computer work and night driving. Since onset it is gradually worsening. Affected activities include working onthe computer and night driving. Treatments tried include eye drops and glasses. Response to treatment was mild improvement. Comments Pt presents for Cataract Evaluation referred by [facility] Dr. Fernandes. Pt uses current progressive glassesfull time, states he is seeing cloudy/blurred out of left eye (OS), pt states nighttime driving is becoming harder. Pts last A1C: 6.4 (07/11) Blood sugar his AM: 140, Sees Dr. Hayward in [place] for diabetic care. Pt uses Latanoprost in both eyes (OU) for high intraocular pressure (IOP) was prescribed drops. No Flomax No Latex allergies No Pacemaker or Defib Pt with a history glaucoma and concerned about intraocular pressure (IOP) and progression of primary open angle glaucoma (POAG). He states having difficulty getting drops (gtts) in daily. Last edited by Josselin Amaya DO on 09/21/2024 2:26 PM. Current Outpatient Medications (Ophthalmic Agents) Medication Sig Dispense Refill latanoprost (Xalatan) 0.005 % ophthalmic solution Administer 1 drop into both eyes at bedtime Wxmlbzgweuh-Guvrbzbt-Hignpbkvl 1-0.5-0.075 % solution Administer 1 drop into affected eye(s) in themorning and 1 drop at noon and 1 drop in the evening and 1 drop before bedtime. 10 mL 1 No current facility-administered medications for this visit. (Ophthalmic Agents) Current Outpatient Medications (Other) Medication Sig Dispense Refill amLODIPine (Norvasc) 10 MG tablet Take 1 tablet (10 mg) by mouth Daily 30 tablet 11 atorvastatin (Lipitor) 40 MG tablet TAKE 1 TABLET BY MOUTH EVERY DAY 90 tablet 0 insulin aspart (NovoLOG FLEXPEN) 100 UNIT/ML pen Inject 10 Units under the skin in the morning and 10 Units at noon and 10 Units in the evening. Inject before meals. (Max daily 45 units/day; add 2 units 151-200; 4 units 201-250; 6 units 251-300; 8 units 301-350). 10 mL 2 insulin glargine (Lantus SoloStar) 100 UNIT/ML pen Inject 40 Units under the skin at bedtime 36 mL 1 insulin pen needle (B-D UF III MINI PEN NEEDLES) 31G x 5 mm misc Inject 1 each under the skin in the morning and 1 each at noon and 1 each in the evening and 1 each before bedtime. 100 each 3 losartan-hydroCHLOROthiazide (Hyzaar) 100-25 MG tablet Take 1 tablet by mouth Daily 90 tablet 1 Microlet Lancets misc Inject 1 Lancet under the skin 4 (four) times a day as needed (Hyperglycemia)100 each 3 omeprazole (PriLOSEC) [address] capsule Take 1 capsule (40 mg) by mouth in the morning. Take before meals. Do not crush or chew.. 90 capsule 1 semaglutide (Rybelsus) 7 MG tablet Take 1 tablet (7 mg) by mouth in the morning. Take before meals.Do not eat for 30 minutes after using the medications. 90 tablet 0 No current facility-administered medications for this visit. (Other) Past Medical History: Diagnosis Date Acute non intractable tension-type headache Pt states he is having tension YANG. Stress is high in his life. He states the pain is global. This is not new for him, but he has more YANG recently. He states the OTC meds hel Anemia Back pain, lumbosacral Excessive daytime sleepiness Doing better. Sleeping through the day as he works nights. Declines testing at this time. Previous Hx as below Pt states he fell asleep at a stop light the other night. He states he has more YANG. He states he snores alot. GERD without esophagitis Glaucoma (CMS/HCC) HLD (hyperlipidemia) (CMS/HCC) HTN (hypertension), benign (CMS/HCC) Reports home BP readings are usually 130-140. Hypertriglyceridemia (CMS/HCC) Obesity with body mass index (BMI) of 30.0 to 39.9 RUQ pain Patient reports he experiences RUQ pain intermittently that is very sharp, lasts for an hour or so and associated with nausea. He has not noticed any relationship to food. he also did not notice change in bowel habits. Tinea pedis of both feet Pt states he had some improvement. But he stopped the penlac. Previous Hx as below Pt is still having issues with his toe fungus. He states that he took the medications, but it did not help. Type 2 diabetes mellitus with complication (CMS/HCC) Poor insight, non compliant and poorly controlled. Uses Novolog more or less daily w/o checking hisblood glucose. Has not experienced hypoglycemia No Known Allergies Review of Systems Constitutional: Negative. HENT: Negative. Eyes: Negative. Respiratory: Negative. Cardiovascular: Negative. Gastrointestinal: Negative. Genitourinary: Negative. Musculoskeletal: Negative. Skin: Negative. Neurological: Negative. Psychiatric/Behavioral: Negative. Hematological: Negative. Endocrine: Negative. Allergic/Immunologic: Negative. Objective Base Eye Exam Visual Acuity (Snellen - Linear) Right Left Dist cc 20/30 20/50 Correction: Glasses Tonometry (Applanation, 2:28 PM) Right Left Pressure 21 22 Pupils Pupils Right PERRL Left PERRL Visual Andrews Left Right Full Full Extraocular Movement Right Left Full, Ortho Full, Ortho Neuro/Psych Oriented x3: Yes Dilation Both eyes: 1.0% Mydriacyl @ 1:58 PM Additional Tests Keratometry K1 [place] K2 [place] Right 43.50 92 45.75 2 Left 43.50 69 44.75 159 Glare Testing High Right 20/70 Left 20/400 Slit Lamp and Fundus Exam External Exam Right Left External Rosacea Rosacea Slit Lamp Exam Right Left Lids/Lashes Blepharitis, Dermatochalasis - upper lid Blepharitis, Dermatochalasis - upper lid, Chalazion: upper lid Conjunctiva/Sclera White and quiet White and quiet Cornea Decreased tear film Decreased tear film Anterior Chamber Deep and quiet Deep and quiet Iris Round and reactive Round and reactive Lens 2+ Nuclear sclerosis, 1+ Cortical cataract 2+ Nuclear sclerosis, 2+ Cortical cataract, 3+ Posterior subcapsular cataract Anterior Vitreous Normal Normal Fundus Exam Right Left Disc Normal Normal C/D Ratio 0.65 0.65 Macula Normal Normal Vessels Normal Normal Periphery Normal Normal Refraction Wearing Rx Sphere Cylinder [place] Add Right -0.50 -3.75 090 +2.50 Left -2.25 -2.00 062 +2.50 Manifest Refraction Sphere Cylinder [place] Right -0.25 -3.25 090 Left -2.75 -2.50 071 Final Rx Sphere Cylinder [place] Dist VA Right -0.25 -3.25 090 20/40 Left -2.75 -2.50 065 20/50 Expiration Date: 09/21/2025 Assessment/Plan Age-related nuclear cataract of both eyes - Visually Significant Cataract, OU: I discussed the risks, benefits, alternatives, and expectations of cataract surgery. A complete ophthalmic exam was performed and it was determined that the cataracts were a primary source of vision decline, affecting activities of daily living, necessitating removal. Limited vision post-surgery may occur with pre-existing conditions affecting other areas of the eye or the brain was explained and the patient displayed an understanding. The overall objective is to improve ADLs, not eliminate glasses or restore vision to 20/20. Tests were reviewed - the different lens options were explained including the ahj-do-kxzseu fees for any upgrades. Intraocular lens (IOL) selection may be altered either prior to or during the procedure based on the doctor's discretion including reverting to a traditional intraocular lens (IOL). They understood that there will exist the potential of glasses prescription need post surgery for near, distance or possibly both. The patient stated a full understanding and a desire to proceed with the procedure. The patient received cataract measurements and had any additional questions answered. - A complete exam was performed including a physical exam: General: AAOx3 and NAD, Lungs: Clear, Heart: RRR, Abdomen: S/NT/ND, Extremities: no pitting edema. - Coordination of care will be shared with Dr. Tate. Cataract Surgery for OS will take place - 11/22 and OD - 11/29. Primary open angle glaucoma (POAG) of both eyes, mild stage (CMS/HCC) - The patient demonstrates mild to moderate severity of open angle glaucoma as well as a visually significant cataract(s). They are also currenlty treated with ocular - hypotensive medication. In conjunction with the planned cataract removal, it has been recommended that they receive a Hydrus Stentinsertion to better control/stabilize their sight threatening condition. R/B/A/E provided for the procedures listed above. This is deemed medically necessary due to their poor compliance and concern with progression of disease. They also state that their topical medication creates side effects thatforces them to remain poorly compliant. documented in this encounterResearch Medical Center-Brookside [id number] History of Present illness Narrative* Francia Hayward NP - 07/21/2024 8:21 AM ESTAssociated Problem(s): Type 2 diabetes mellitus without complication, with long-term current use ofinsulin (CMS/HCC) A1C needs completed Novolog 10units TID Lantus [...] persistent hypoglycemia/hyperglycemia on home glucose monitoring noted. * Francia Hayward NP - 07/21/2024 8:21 AM ESTAssociated Problem(s): Other hyperlipidemia ([facility]/HCC) Currently taking Atorvastatin 40mg Denies any myalgias. Continue current regimen. * Francia Hayward NP - 07/21/2024 8:21 AM ESTAssociated Problem(s): Essential (primary) hypertension ([facility]/HCC) Labs need completed Currently taking Amlodipine 5mg Losartan- hydrochlorothiazide 25-100mg Checks BP at home; Averages are 130's-150's. Denies orthostatic changes, dizziness, cough, shortness of breath, swelling in extremities. Will increase amlodipine to 10mg today * Francia Hayward NP - 07/21/2024 8:00 AM EST Subjective Patient ID: Yessenia Haro is a 59 y.o. male who [...] ALBUMIN GLOBULIN RATIO 0.9 0.9 Resulting Agency [facility] DMII: A1C needs completed Novolog 10units TID [...] Neurological: Negative for dizziness, tremors, syncope, weakness, light- headedness and headaches. Psychiatric/Behavioral: Negative for decreased concentration and suicidal ideas. The patient is notnervous/anxious. Hematological: Does not bruise/bleed easily. Endocrine: Negative [...] Items Addressed This Visit Essential (primary) hypertension (CMS/HCC) - Primary Labs need completed Currently taking Amlodipine 5mg Losartan- hydrochlorothiazide 25-100mg Checks BP at home; Averages are 130's-150's. Denies orthostatic changes, dizziness, cough, shortness of breath, swelling in extremities. Will increase amlodipine to 10mg today Relevant Medications amLODIPine (Norvasc) 10 MG tablet Other hyperlipidemia ([facility]) Currently taking Atorvastatin 40mg Denies any myalgias. Continue current regimen. Type 2 diabetes mellitus without complication, with long-term current use of insulin ([facility]) A1C needs completed Novolog 10units TID Lantus [...] referral to Pain Medicine documented in this encounterResearch Medical Center-Brookside [id number] History of Present illness Narrative* Odilon Kaur, VALERIO - 05/06/2024 9:00 AM EDT Patient: Yessenia Haro : 1965 PCP: Luther Church MD SUBJECTIVE This is a 59 y.o. male that presents today with a CC of elongated, thick nails. Pt states nails have been elongated and thick for many years and cause pain with ambulation in shoegear. Pt has tried previous treatment with minimal relief. Pt presents today for nail care and treatment. Patient is DM2 Pt also presents today of complaints of itching to feet and toes. They state they have tried treatments of periodic antifungals with some improvement and tends to have dry peeling skin between the toes from time to time. Allergies: No Known Allergies Past Medical History: Past Medical History: Diagnosis Date Acute non intractable tension-type headache Pt states he is having tension YANG. Stress is high in his life. He states the pain is global. This is not new for him, but he has more YANG recently. He states the OTC meds hel Anemia Back pain, lumbosacral Excessive daytime sleepiness Doing better. Sleeping through the day as he works nights. Declines testing at this time. Previous Hx as below Pt states he fell asleep at a stop light the other night. He states he has more YANG. He states he snores alot. GERD without esophagitis HLD (hyperlipidemia) (CMS/HCC) HTN (hypertension), benign (CMS/HCC) Reports home BP readings are usually 130-140. Hypertriglyceridemia (CMS/HCC) Obesity with body mass index (BMI) of 30.0 to 39.9 RUQ pain Patient reports he experiences RUQ pain intermittently that is very sharp, lasts for an hour or so and associated with nausea. He has not noticed any relationship to food. he also did not notice change in bowel habits. Tinea pedis of both feet Pt states he had some improvement. But he stopped the penlac. Previous Hx as below Pt is still having issues with his toe fungus. He states that he took the medications, but it did not help. Type 2 diabetes mellitus with complication (CMS/HCC) Poor insight, non compliant and poorly controlled. Uses Novolog more or less daily w/o checking hisblood glucose. Has not experienced hypoglycemia Medications: Current Outpatient Medications: amLODIPine (Norvasc) 5 MG tablet, Take 1 tablet by mouth in the morning., Disp: , Rfl: atorvastatin (Lipitor) 40 MG tablet, Take 1 tablet by mouth in the morning., Disp: , Rfl: B-D UF III MINI PEN NEEDLES 31G X 5 MM [facility] [place], Inject 1 each under the skin if needed, Disp: , Rfl: insulin glargine (Lantus SoloStar) 100 UNIT/ML pen, Inject 40 Units under the skin at bedtime, Disp: 36 mL, Rfl: 1 latanoprost (Xalatan) 0.005 % ophthalmic solution, Administer 1 drop into both eyes at bedtime, Disp: , Rfl: losartan-hydroCHLOROthiazide (Hyzaar) 100-25 MG tablet, TAKE 1 TABLET BY MOUTH EVERY DAY, Disp: 90 tablet, Rfl: 1 Microlet Lancets misc, Inject 1 Lancet under the skin 4 (four) times a day as needed, Disp: , Rfl: NovoLOG FLEXPEN 100 UNIT/ML pen, Inject 10 Units under the skin in the morning and 10 Units at noonand 10 Units in the evening. Inject before meals. (Max daily 45 units/day; add 2 units 151-200; 4 units 201-250; 6 units 251-300; 8 units 301-350)., Disp: , Rfl: omeprazole (PriLOSEC) [address] capsule, Take 1 capsule (40 mg) by mouth in the morning. Take beforemeals. Do not crush or chew.., Disp: 90 capsule, Rfl: 1 semaglutide (Rybelsus) 7 MG tablet, Take 1 tablet (7 mg) by mouth in the morning. Take before meals. Do not eat for 30 minutes after using the medications., Disp: 90 tablet, Rfl: 0 Social History: Social History Socioeconomic History Marital status: Unmarried Spouse name: Not on file Number of children: Not on file Years of education: Not on file Highest education level: Not on file Occupational History Not on file Tobacco Use Smoking status: Never Passive exposure: Never Smokeless tobacco: Not on file Vaping Use Vaping status: Never Used Substance and Sexual Activity Alcohol use: Yes Alcohol/week: 24.0 standard drinks of alcohol Types: 24 Cans of beer per week Drug use: Never Sexual activity: Defer Other Topics Concern Not on file Social History Narrative Not on file Social Determinants of Health Financial Resource Strain: Not on file Food Insecurity: Not on file Transportation Needs: Not on file Physical Activity: Not on file Stress: Not on file Social Connections: Not on file Intimate Partner Violence: Not on file Housing Stability: Not on file ROS: General: denies fever, chills, fatigue, malaise Gastrointestinal: denies abdominal pain, ulcers, or changes in appetite or bowel habits Musculoskeletal: denies arthritis, denies loss of strength, pain to hip, knees, back Cardiovascular: denies CP, palpitations, irregular rhythms OBJECTIVE LE EXAM: DERM: Elongated thick yellow crumbly nails digits 1 through 10. Negative hair growth with thin shiny atrophic skin bilaterally Notable peeling dry scaly skin with maceration in the interdigital spaces bilaterally between toes VASC: Palpable pedal pulses bilaterally NEURO: 5.07 [place] monofilament test diminished to digits and forefoot bilaterally 125Hz tuning fork diminished to 1st MPJ bilaterally ORTHO: Positive pain on palpation to nails 1 through 10 ASSESSMENT 1. 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 Type 2 diabetes mellitus without complication, with long-term current use of insulin ([facility]) 3. Onychomycosis 4. Toe pain, bilateral 5. Tinea pedis, unspecified laterality PLAN Discussed proper foot care with patient today. Debride nails in length and thickness digits 1 through 10 Patient education concerning tinea infection. Discussed use of antifungal cream and foot powders aswell as good foot hygiene and prevention measures. Patient was offered a prescription today for antifungal but states he still has for tubes of this at home Patient educated today on proper diabetic foot care including monitoring feet daily for any signs of infection openings in the skin or irregularities to both feet. Patient had a diabetic neurologicalexam today to both their feet and discussed proper shoe gear. Odilon Kaur DPM documented in this encounterResearch [facility] [id number] History of Present illness Narrative* Francia Hayward NP - 04/21/2024 8:18 AM EDTAssociated Problem(s): Gastroesophageal reflux disease without esophagitis On Omeprazole 40mg Daily. Reports symptoms feel well controlled at this time. Continue current regimen. * Francia Hayward NP - 04/21/2024 8:17 AM EDTAssociated Problem(s): Type 2 diabetes mellitus without complication, with long-term current use ofinsulin ([facility]) A1C needs completed Novolog 10units TID Lantus [...] home glucose monitoring noted. Continue current regimen * Francia Hayward NP - 04/21/2024 8:14 AM EDTAssociated Problem(s): Other hyperlipidemia (CMS/HCC) Currently taking Atorvastatin 40mg Denies any myalgias. Continue current regimen. Lipid panel needs completed * Francia Hayward NP - 04/21/2024 8:14 AM EDTAssociated Problem(s): Primary hypertension (CMS/HCC) Labs need completed Currently taking Amlodipine 5mg Losartan- hydrochlorothiazide 25-100mg Checks BP at home; Averages are 130's-150's. Denies orthostatic changes, dizziness, cough, shortness of breath, swelling in extremities. Continue current regimen. * Francia Hayward NP - 04/21/2024 8:00 AM EDT Images from the original note were not included. Subjective Patient ID: Yessenia Haro is a 59 y.o. male who presents for Diabetes and Hypertension. HPI HTN: Labs need completed Currently taking Amlodipine 5mg Losartan- hydrochlorothiazide 25-100mg Checks BP at home; Averages are 130's-150's. Denies orthostatic changes, dizziness, cough, shortness of breath, swelling in extremities. Continue current regimen. HLD: Currently taking Atorvastatin 40mg Denies any myalgias. Continue current regimen. Lipid panel needs completed DMII: A1C needs completed Novolog 10units TID [...] persistent hypoglycemia/hyperglycemia on home glucose monitoring noted. Diabetic foot exam: Left: Reflexes 2+ Vibratory sensation normal Proprioception normal Sharp/dull discrimination normal Filament test present Right: Reflexes 2+ Vibratory sensation normal Proprioception normal Sharp/dull discrimination normal Filament test present DM Eye Exam: 6 months ago Review of Systems Constitutional: Negative for activity change, appetite change, chills, diaphoresis, fatigue, fever and unexpected weight change. HENT: Negative for congestion, ear pain, rhinorrhea, sinus pressure, sinus pain, sneezing, sore throat, trouble swallowing and voice change. Eyes: Negative for visual disturbance. Respiratory: Negative for cough, chest tightness, shortness of breath and wheezing. Cardiovascular: Negative for chest pain, palpitations and leg swelling. Gastrointestinal: Positive for diarrhea. Negative for abdominal distention, abdominal pain, blood in stool, constipation, nausea and vomiting. Genitourinary: Negative for decreased urine volume, dysuria, flank pain, frequency, hematuria and urgency. Musculoskeletal: Positive for back pain. Negative for arthralgias, gait problem, joint swelling andmyalgias. Skin: Negative for rash. Neurological: Negative for dizziness, tremors, syncope, weakness, light- headedness and headaches. Psychiatric/Behavioral: Negative for decreased concentration and suicidal ideas. The patient is notnervous/anxious. Hematological: Does not bruise/bleed easily. Endocrine: Negative [...] motion. Cervical back: Normal range of motion. Feet: Right foot: Toenail Condition: Right toenails are abnormally thick. Fungal disease present. Left foot: Toenail Condition: Left toenails are abnormally thick. Fungal disease present. Skin: General: Skin is warm and dry. Capillary Refill: Capillary refill takes less than 2 seconds. Neurological: General: No focal deficit present. Mental Status: He is alert and oriented to person, place, and time. Psychiatric: Mood and Affect: Mood normal. Behavior: Behavior normal. Assessment/Plan Problem List Items Addressed This Visit Primary hypertension ([facility]) - Primary Labs need completed Currently taking Amlodipine 5mg Losartan- hydrochlorothiazide 25-100mg Checks BP at home; Averages are 130's-150's. Denies orthostatic changes, dizziness, cough, shortness of breath, swelling in extremities. Continue current regimen. Other hyperlipidemia ([facility]) Currently taking Atorvastatin 40mg Denies any myalgias. Continue current regimen. Lipid panel needs completed Type 2 diabetes mellitus without complication, with long-term current use of insulin ([facility]) A1C needs completed Novolog 10units TID Lantus [...] home glucose monitoring noted. Continue current regimen Relevant Medications semaglutide (Rybelsus) 7 MG tablet Other Relevant Orders Ambulatory referral to Podiatry Gastroesophageal reflux disease without esophagitis On Omeprazole 40mg Daily. Reports symptoms feel well controlled at this time. Continue current regimen. Screening for colon cancer Relevant Orders Ambulatory referral to Gastroenterology Other Visit Diagnoses Lumbar back pain Relevant Orders XR LUMBAR SPINE AP/LAT/FLEX/EXT/OBLIQUES documented in this [facility]09-04-2024 Instructions* Patient Instructions* Francia Hayward NP - 04/21/2024 8:00 AM EDT Your blood pressure is GOOD in the office today. Check your blood pressure at home 3 times per week, preferably in the afternoon. Goal <130/90. Record results in blood pressure log. Bring back with you to your next visit. Referral sent to podiatry- they will call you! Referral sent to GI for Colonoscopy- They will call you! FASTING labs ordered. Nothing to eat or drink for 12 hours prior to blood draw. Water and black coffee ok. Education: Check blood sugars daily, notify if <70 or >200. Take medications (pills or insulin) as directed. Monitor for s/s of hypoglycemia (sweaty, dizziness, nausea, vomiting, or shakiness). Watch for increase in thirst, urination, or appetite. Inspect feet frequently monitoring for open wounds , andalso recommend yearly eye exam. Pt should attempt to remain as physically active as chronic conditions allow, as well as trying to follow a diet low in carbohydrates, and simple sugars. [facility] Primary hypertension (CMS/HCC)- Primary Unspecified essential [...] complication, with long-term current use of insulin ([facility]/HCC) Essential (primary) hypertension (CMS/HCC) Unspecified essential hypertension Benign essential hypertension ([facility]/HCC) Essential hypertension, benign Gastroesophageal reflux disease without esophagitis Esophageal reflux documented in this encounter [facility] HealthcareEvaluation [facility]* Diagnosis Primary hypertension (CMS/HCC)- Primary Unspecified essential [...] complication, with long-term current use of insulin ([facility]/HCC) Primary hypertension ([facility]/HCC) Unspecified essential hypertension Chronic right-sided low back pain without sciatica Lumbar arthropathy Lumbosacral spondylosis without myelopathy Tinea pedis, unspecified laterality- Primary Diabetes mellitus due to underlying condition with diabetic polyneuropathy, 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 ([facility]) Onychomycosis Dermatophytosis of nail Toe pain, left Pain in soft tissues of limb Toe pain, right Pain in soft tissues of limb documented in this encounter [facility] HealthcareEvaluation note* Diagnosis Primary hypertension ([facility]/HCC)- Primary Unspecified essential hypertension Gastroesophageal reflux disease without esophagitis Esophageal reflux Type 2 diabetes mellitus without complication, with long-term current use of insulin ([facility]/HCC) Other hyperlipidemia ([facility]/HCC) Screening for colon cancer Special screening for malignant neoplasms, colon Lumbar back pain Lumbago documented in this encounter [facility] HealthcareEvaluation note* Diagnosis Tinea pedis, unspecified laterality- Primary Type 2 diabetes mellitus without complication, with long-term current use of insulin ([facility]) Diabetes mellitus due to underlying condition with diabetic polyneuropathy, unspecified whether intermediate insulin use ([facility]) Onychomycosis Dermatophytosis of nail Toe pain, bilateral documented in this encounter [facility] HealthcareEvaluation note* Diagnosis Primary hypertension ([facility]/HCC)- Primary Unspecified essential hypertension Gastroesophageal reflux disease without esophagitis Esophageal reflux Type 2 diabetes mellitus without complication, with long-term current use of insulin ([facility]/HCC) Other hyperlipidemia (CMS/HCC) Esophageal dysphagia Dysphagia, pharyngoesophageal phase Chronic right-sided low back pain without sciatica Reducible right inguinal hernia Primary hypertension (CMS/HCC)- Primary Unspecified essential hypertension Gastroesophageal reflux disease without esophagitis Esophageal reflux Reducible right inguinal hernia Type 2 diabetes mellitus without complication, with long-term current use of insulin ([facility]/HCC) Other hyperlipidemia ([facility]/HCC) Rash Rash and other nonspecific skin eruption Primary hypertension (CMS/HCC)- Primary Unspecified essential hypertension Gastroesophageal reflux disease without esophagitis Esophageal reflux Type 2 diabetes mellitus without complication, with long-term current use of insulin (CMS/HCC) Other hyperlipidemia ([facility]/HCC) Screening for colon cancer Special screening for malignant neoplasms, colon Lumbar back pain Lumbago Flu vaccine need- Primary Essential (primary) hypertension (CMS/HCC) Unspecified essential hypertension Other hyperlipidemia (CMS/HCC) Type 2 diabetes mellitus without complication, with long-term current use of insulin ([facility]/HCC) Primary hypertension (CMS/HCC) Unspecified essential hypertension Chronic right-sided low back pain without sciatica Lumbar arthropathy Lumbosacral spondylosis without myelopathy Other hyperlipidemia (CMS/HCC) documented in this encounter [facility] HealthcareEvaluation [facility]* Diagnosis Primary hypertension (CMS/HCC)- Primary Unspecified essential hypertension Gastroesophageal reflux disease without esophagitis Esophageal reflux Type 2 diabetes mellitus without complication, with long-term current use of insulin ([facility]/HCC) Other hyperlipidemia ([facility]/HCC) Esophageal dysphagia Dysphagia, pharyngoesophageal phase Chronic right-sided [...] sciatica Lumbar arthropathy Lumbosacral spondylosis without myelopathy Age-related nuclear cataract of both eyes- Primary Primary open angle glaucoma (POAG) of both eyes, mild stage (CMS/HCC) documented in this encounter [facility] HealthcareEvaluation [facility]* Diagnosis Primary hypertension (CMS/HCC)- Primary Unspecified essential [...] sciatica Lumbar arthropathy Lumbosacral spondylosis without myelopathy Essential (primary) hypertension (CMS/HCC) Unspecified essential hypertension Benign essential hypertension (CMS/HCC) Essential hypertension, benign documented in this encounter [facility] HealthcareEvaluation note* Diagnosis Primary hypertension (CMS/HCC)- Primary Unspecified essential [...] sciatica Lumbar arthropathy Lumbosacral spondylosis without myelopathy Type 2 diabetes mellitus without complication, with long-term current use of insulin (CMS/HCC)- Primary Essential (primary) hypertension (CMS/HCC) Unspecified essential hypertension Lumbar spondylosis Lumbosacral spondylosis without myelopathy Gastroesophageal reflux disease without esophagitis Esophageal reflux Hypertriglyceridemia (CMS/HCC) Pure hyperglyceridemia Type 2 diabetes mellitus with polyneuropathy (CMS/[facility]) Type II or unspecified type diabetes mellitus with neurological manifestations, not stated as uncontrolled Type 2 diabetes mellitus with diabetic cataract ([facility]) Type II or unspecified type diabetes mellitus with ophthalmic manifestations, not stated as uncontrolled Type 2 diabetes mellitus with other specified complication (CMS/HCC) documented in this encounter [facility] HealthcareEvaluation note* Diagnosis Primary hypertension (CMS/HCC)- Primary Unspecified essential hypertension Gastroesophageal reflux disease without esophagitis Esophageal reflux Type 2 diabetes mellitus without complication, with long-term current use of insulin Other hyperlipidemia Esophageal dysphagia Dysphagia, pharyngoesophageal phase Chronic right-sided low back pain without sciatica Reducible right inguinal hernia Primary hypertension (CMS/HCC)- Primary Unspecified essential hypertension Gastroesophageal reflux disease without esophagitis Esophageal reflux Reducible right inguinal hernia Type 2 diabetes mellitus without complication, with long-term current use of insulin Other hyperlipidemia Rash Rash and other nonspecific skin eruption Primary hypertension (CMS/HCC)- Primary Unspecified essential hypertension Gastroesophageal reflux disease without esophagitis Esophageal reflux Type 2 diabetes mellitus without complication, with long-term current use of insulin Other hyperlipidemia Screening for colon cancer Special screening for malignant neoplasms, colon Lumbar back pain Lumbago Flu vaccine need- Primary Essential (primary) hypertension ([facility]/HCC) Unspecified essential hypertension Other hyperlipidemia Type 2 diabetes mellitus without complication, with long-term current use of insulin Primary hypertension ([facility]/HCC) Unspecified essential hypertension Chronic right-sided low back pain without sciatica Lumbar arthropathy Lumbosacral spondylosis without myelopathy Type 2 diabetes mellitus without complication, with long-term current use of insulin- Primary Essential (primary) hypertension ([facility]/HCC) Unspecified essential hypertension Lumbar spondylosis Lumbosacral spondylosis without myelopathy Gastroesophageal reflux disease without esophagitis Esophageal reflux Hypertriglyceridemia ([facility]) Pure hyperglyceridemia Type 2 diabetes mellitus with polyneuropathy ([facility]) Type II or unspecified type diabetes mellitus with neurological manifestations, not stated as uncontrolled Type 2 diabetes mellitus with diabetic cataract ([facility]) Type II or unspecified type diabetes mellitus with ophthalmic manifestations, not stated as uncontrolled Type 2 diabetes mellitus with other specified complication Pseudophakia- Primary Lens replaced by other means documented in this encounter [facility] HealthcareEvaluation note* Diagnosis Primary hypertension (CMS/HCC)- Primary Unspecified essential hypertension Gastroesophageal reflux disease without esophagitis Esophageal reflux Type 2 diabetes mellitus without complication, with long-term current use of insulin Other hyperlipidemia Esophageal dysphagia Dysphagia, pharyngoesophageal phase Chronic right-sided low back pain without sciatica Reducible right inguinal hernia Primary hypertension (CMS/HCC)- Primary Unspecified essential hypertension Gastroesophageal reflux disease without esophagitis Esophageal reflux Reducible right inguinal hernia Type 2 diabetes mellitus without complication, with long-term current use of insulin Other hyperlipidemia Rash Rash and other nonspecific skin eruption Primary hypertension (CMS/HCC)- Primary Unspecified essential hypertension Gastroesophageal reflux disease without esophagitis Esophageal reflux Type 2 diabetes mellitus without complication, with long-term current use of insulin Other hyperlipidemia Screening for colon cancer Special screening for malignant neoplasms, colon Lumbar back pain Lumbago Flu vaccine need- Primary Essential (primary) hypertension (CMS/HCC) Unspecified essential hypertension Other hyperlipidemia Type 2 diabetes mellitus without complication, with long-term current use of insulin Primary hypertension (CMS/HCC) Unspecified essential hypertension Chronic right-sided low back pain without sciatica Lumbar arthropathy Lumbosacral spondylosis without myelopathy Type 2 diabetes mellitus without complication, with long-term current use of insulin- Primary Essential (primary) hypertension (CMS/HCC) Unspecified essential hypertension Lumbar spondylosis Lumbosacral spondylosis without myelopathy Gastroesophageal reflux disease without esophagitis Esophageal reflux Hypertriglyceridemia (CMS/HCC) Pure hyperglyceridemia Type 2 diabetes mellitus with polyneuropathy (CMS/HCC) Type II or unspecified type diabetes mellitus with neurological manifestations, not stated as uncontrolled Type 2 diabetes mellitus with diabetic cataract (CMS/HCC) Type II or unspecified type diabetes mellitus with ophthalmic manifestations, not stated as uncontrolled Type 2 diabetes mellitus with other specified complication Pseudophakia- Primary Lens replaced by other means documented in this encounter [facility]* Diagnosis Primary hypertension (CMS/HCC)- Primary Unspecified essential hypertension Gastroesophageal reflux disease without esophagitis Esophageal reflux Type 2 diabetes mellitus without complication, with long-term current use of insulin Other hyperlipidemia Esophageal dysphagia Dysphagia, pharyngoesophageal phase Chronic right-sided low back pain without sciatica Reducible right inguinal hernia Primary hypertension (CMS/HCC)- Primary Unspecified essential hypertension Gastroesophageal reflux disease without esophagitis Esophageal reflux Reducible right inguinal hernia Type 2 diabetes mellitus without complication, with long-term current use of insulin Other hyperlipidemia Rash Rash and other nonspecific skin eruption Primary hypertension (CMS/HCC)- Primary Unspecified essential hypertension Gastroesophageal reflux disease without esophagitis Esophageal reflux Type 2 diabetes mellitus without complication, with long-term current use of insulin Other hyperlipidemia Screening for colon cancer Special screening for malignant neoplasms, colon Lumbar back pain Lumbago Flu vaccine need- Primary Essential (primary) hypertension (CMS/HCC) Unspecified essential hypertension Other hyperlipidemia Type 2 diabetes mellitus without complication, with long-term current use of insulin Primary hypertension (CMS/HCC) Unspecified essential hypertension Chronic right-sided low back pain without sciatica Lumbar arthropathy Lumbosacral spondylosis without myelopathy Type 2 diabetes mellitus without complication, with long-term current use of insulin- Primary Essential (primary) hypertension (CMS/HCC) Unspecified essential hypertension Lumbar spondylosis Lumbosacral spondylosis without myelopathy Gastroesophageal reflux disease without esophagitis Esophageal reflux Hypertriglyceridemia (CMS/HCC) Pure hyperglyceridemia Type 2 diabetes mellitus with polyneuropathy (CMS/HCC) Type II or unspecified type diabetes mellitus with neurological manifestations, not stated as uncontrolled Type 2 diabetes mellitus with diabetic cataract (CMS/HCC) Type II or unspecified type diabetes mellitus with ophthalmic manifestations, not stated as uncontrolled Type 2 diabetes mellitus with other specified complication Type 2 diabetes mellitus without complication, with long-term current use of insulin- Primary Essential (primary) hypertension (CMS/HCC) Unspecified essential hypertension Lumbar spondylosis Lumbosacral spondylosis without myelopathy Gastroesophageal reflux disease without esophagitis Esophageal reflux documented in this encounter [facility] Narrative No data available for this section [facility] Progress note No data available for this section [facility] Reason for referral (narrative)* Consultation (Routine) - Pending ReviewSpecialtyDiagnoses / ProceduresReferred By ContactReferred To ContactGastroenterology Diagnoses Screening for colon cancer Procedures [place] OFFICE/OUTPATIENT [facility] 60 MINUTES Francia Hayward NP [address] [place] [phone] Carlos Escobedo MD [address] [place] [phone] Referral IDStatusReasonStart DateExpiration DateVisits RequestedVisits [id number] Review Specialty Services Required / * Consultation (Routine) - AuthorizedSpecialtyDiagnoses / ProceduresReferred By ContactReferred To ContactPodiatry Diagnoses Type 2 diabetes mellitus without complication, with long-term current use of insulin ([facility]) Procedures [place] OFFICE/OUTPATIENT NEW HIGH MDM 60 MINUTES Francia Hayward NP [address] [place] [address] Odilon Kaur DPM [address] [facility] [address] [place] [address] Referral IDStatusReasonStart DateExpiration DateVisits RequestedVisits [id number] Specialty Services Required / [facility] Summary Purpose Family History No Family History Records FoundNo Family History Records FoundNo Family History Records Found No data available for this section No Family History Records Found Advance Directives No Advanced Directives Records FoundNo Advanced Directives Records FoundNo Advanced Directives Records FoundNo Advanced Directives Records Found Additional Source Comments (unrecognized sect ion and content) No Status Records FoundNo Status Records FoundNo Status Records FoundNo Status Records Found INFORMATION SOURCE (unrecogn ized section and content) DATE CREATED AUTHOR 06/10/2022 [facility] DATE CREATED AUTHOR AUTHOR'S ORGANIZ ATION 08/13/2024 [facility] DATE CREATED AUTHOR AUTHOR'S ORGANIZ ATION 01/22/2025 [facility] DATE CREATED AUTHOR AUTHOR'S ORGANIZ ATION 06/25/2025 [facility] Care Teams (unrecognized sec tion and content) Team MemberRelationshipSpecialtyStart DateEnd Date Shaikh Marquez MD [address] [place] [address] PCP - [facility]11/17/23 Luther Church MD [address] [place] [address] [facility] Francia Hayward NP [address] [place] [address] [facility]04/08/24Team MemberRelationshipSpecialtyStart DateEnd Date Shaikh Marquez MD [address] [place] [address] PCP - [facility]11/17/23 Luther Church MD [address] [place] [address] PCP - [facility]04/08/24 Francia Hayward NP [address] [place] [address] [facility]04/08/24Team MemberRelationshipSpecialtyStart DateEnd Date Shaikh Marquez MD [address] [place] [address] PCP - [facility]11/17/23 Luther Church MD [address] [place] [address] PCP - [facility]04/08/24 Francia Hayward NP [address] [place] [address] [facility]04/08/24Te MemberRelationshipSpecialtyStart DateEnd Date Shaikh Marquez MD [address] [place] [address] PCP - [facility]11/17/23 Luther Church MD [address] [place] [address] [facility]04/08/24 Francia Hayward NP [address] [place] [address] [facility]04/08/24Te MemberRelationshipSpecialtyStart DateEnd Date Shaikh Marquez MD [address] [place] [address] PCP - [facility]11/17/23 Luther Church MD [address] [place] [address] [facility]04/08/24 Francia Hayward, YARELY [address] [place] [address] [facility]04/08/24Te MemberRelationshipSpecialtyStart DateEnd Date Shaikh Marquez MD [address] [place] [address] PCP - [facility]11/17/23 Luther Church MD [address] [place] [address] PCP - [facility] Medicine04/08/24 Francia Hayward NP [address] [place] [address] [facility]04/08/24Team MemberRelationshipSpecialtyStart DateEnd Date Shaikh Marquez MD [address] [place] [address] PCP - [facility]11/17/23 Luther Church MD [address] [place] [address] PCP - [facility]04/08/24 Francia Hayward, BULL RIVETER [address] [place] [address] [facility]04/08/24Team MemberRelationshipSpecialtyStart DateEnd Date Shaikh Marquez MD [address] [place] [address] PCP - [facility]11/17/23 Luther Church MD [address] [place] [address] PCP - [facility]04/08/24 Francia Hayward NP [address] [place] [address] [facility]04/08/24Team MemberRelationshipSpecialtyStart DateEnd Date Shaikh Marquez MD [address] [place] [address] PCP - [facility]11/17/23 Luther Church MD [address] [place] [address] [facility]/08/24 Francia Hayward NP [address] [place] [address] [facility]04/08/24Team MemberRelationshipSpecialtyStart DateEnd Date Shaikh Marquez MD [address] [place] [address] PCP - [facility]11/17/23 Luther Church MD [address] [place] [address] [facility]04/08/24 Francia Hayward NP [address] [place] [address] [facility]04/08/24Team MemberRelationshipSpecialtyStart DateEnd Date Shaikh Marquez MD [address] [place] [address] PCP - [facility]11/17/23 Luther Church MD [address] [place] [address] [facility] Francia Hayward NP [address] [place] [address] [facility]04/08/24 Carmela Tate, VANITA [address] [place] [address] Referring PhysicianOptometry09/21/24Team MemberRelationshipSpecialtyStart DateEnd Date Shaikh Marquez MD [address] [place] [address] PCP - [facility]11/17/23 Luther Church MD [address] [place] [address] P[facility] - [facility]04/08/24 Francia Hayward NP [address] [place] [address] [facility]04/08/24 Carmela Tate OD [address] [place] [address] Referring PhysicianOptometry09/21/24Team MemberRelationshipSpecialtyStart DateEnd Date Shaikh Marquez MD [address] [place] [address] PCP - [facility]11/17/23 Luther Church MD [address] [place] [address] P[facility] - [facility]04/[facility]/24 Francia Hayward NP [address] [place] [address] [facility]04/08/24 Carmela Tate OD [address] [place], [place] [phone] Referring PhysicianOptometry09/21/24Team MemberRelationshipSpecialtyStart DateEnd Date Shaikh Marquez MD [address] [place] [address] PCP - [facility]11/17/23 Luther Church MD [address] [place] [address] PCP - [facility]04/08/24 Carmela Tate OD [address] [place], [place] [phone] Referring PhysicianOptometry09/21/24Team MemberRelationshipSpecialtyStart DateEnd Date Shaikh Marquez MD [address] [place] [address] PCP - [facility]11/17/23 Luther Church MD [address] [place] [address] PCP - GeneralFamily Medicine04/08/24 Carmela Tate OD [address] [place] [address] Referring PhysicianOptometry09/21/24Team MemberRelationshipSpecialtyStart DateEnd Date Shaikh Marquez MD [address] [place] [address] PCP - [facility]11/17/23 Luther Church MD [address] [place] [address] PCP - GeneralFamily Medicine04/08/24 Carmela Tate OD [address] [place] [address] Referring PhysicianOptometry09/21/24Team MemberRelationshipSpecialtyStart DateEnd Date Shaikh Marquez MD [address] [place] [address] PCP - [facility]11/17/23 Luther Church MD [address] [place] [address] PCP - GeneralFamily Medicine12/29/24 Carmela Tate OD [address] [facility] [place] [address] Referring PhysicianOptometry09/21/24Team MemberRelationshipSpecialtyStart DateEnd Date Shaikh Marquez MD [address] [place] [address] PCP - [facility]11/17/23 Luther Church MD [address] [place] [address] PCP - GeneralFamily Medicine12/29/24 Carmela Tate OD [address] [place] [address] Referring PhysicianOptometry09/21/24Team MemberRelationshipSpecialtyStart DateEnd Date Shaikh Marquez MD [address] [place] [address] PCP - [facility]11/17/23 Luther Church MD [address] [place] [address] PCP - GeneralFamily Medicine Luther Church MD [address] [place] [address] PCP - GeneralFamily Medicine12/29/24 Francia Hayward NP [address] [place] [address] Nurse Practitionermily Medicine Carmela Tate OD [address] [facility], [place] [address] Referring PhysicianOptometry09/21/24Team MemberRelationshipSpecialtyStart DateEnd Date Shaikh Marquez MD [address] [place] [address] PCP - [facility]11/17/23 Luther Church MD [address] [place] [address] PCP - [facility] Luther Church MD [address] [place] [address] PCP - GeneralFamily Medicine12/29/24 Francia Hayward NP [address] [place] [address] Nurse PractitionerF[facility] Medicine Carmela Tate, OD [address] [facility] [place] [address] Referring PhysicianOptometry09/21/24Te MemberRelationshipSpecialtyStart DateEnd Date Shaikh Marquez MD PCP - GeneralInternal Medicine Shaikh Marquez MD PCP - GeneralInternal Medicine Shaikh Marquez MD [address] [place] [address] PCP - [facility]11/17/23 Luther Church MD [address] [place] [address] [facility] Luther Church MD [address] [place] [address] PCP - [facility]12/29/24 Francia Hayward NP [address] [place] [address] Nurse Pract[facility]Fa[facility] Medicine04/08/ Carmela Tate OD [address] [place] [address] Referring PhysicianOptometry09/21/24 Reason for Visit (unrecogniz ed section and content) ReasonCommentsFollow-upHypertensionHyperlipidemiaReasonCommentsDiabetes HypertensionReasonCommentsDM Foot CareDm nail careSpecialtyDiagnoses / ProceduresReferred By ContactReferred To ContactPodiatry Diagnoses Type 2 diabetes mellitus without complication, with long-term current use of insulin ([facility]) Procedures [place] OFFICE/OUTPATIENT NEW HIGH MDM 60 MINUTES Francia Hayward NP [address] [place] [address] Odilon Kaur DPM [address] [place] [address] Referral IDStatusReasonStart DateExpiration DateVisits RequestedVisits [id number] Specialty Services Required [id number] RefillReasonCommentsCataractReasonComments Follow-up3 mBack PainReasonCommentsBlurred DhpiuiAbvx-wiGdhxdpGyvmxxgtOsdm-wl ReasonCommentsFollow-il9xGsog Pain FOR RECORDS PERTAINING TO PATIENTS WHO ARE [...] BE BASED ON THE PRIMARY CLINICAL RECORDS. [employer] [facility]. provides no warranty or guarantee of the accuracy or completeness of information in this document.
[2025-08-17 07:52] LABS: Hematocrit 40.7 % (42.0-54.0); Hemoglobin 14.0 g/dL (14.0-18.0); Immature Granulocytes Abs Auto 0.01 10^3/uL (0.00-0.03); Immature Granulocytes Pct Auto 0.2 % (0.0-0.5); Lymphocytes Absolute Auto 1.7 10^3/uL (1.2-3.8); Mean Corpuscular HGB Conc 34.4 g/dL (29.9-35.2); Mean Corpuscular Hemoglobin 32.2 pg (25.9-34.0); Mean Corpuscular Volume 93.6 fL (80.0-94.0); Platelet Count 183 10^3/uL (150-450); Red Blood Count 4.35 10^6/uL (4.70-6.10); White Blood Count 5.1 10^3/uL (4.0-11.0)
[2025-08-17 08:23] LABS: Alanine Aminotransferase 36 U/L (16-63); Albumin Globulin Ratio 1.0; Albumin Level 3.9 g/dL (3.4-5.0); Alkaline Phosphatase 61 U/L (46-116); Anion Gap 16.2; Aspartate Amino Transferase 19 U/L (15-37); Blood Urea Nitrogen 24.0 mg/dL (7.0-18.0); Calcium 9.5 mg/dL (8.5-10.1); Carbon Dioxide 27.9 mmol/L (21.0-32.0); Chloride 101 mmol/L (98-107); Cholesterol 174 mg/dL (<=200); Estimated GFR (African America >60 (>=60 mL/min/1.73m^2); Estimated GFR (Non-African Ame 56 (>=60 mL/min/1.73m^2); Globulin 3.8 g/dL; Glucose 154 mg/dL (74-106); HDL Cholesterol 35 mg/dL (40-60); Potassium 4.1 mmol/L (3.5-5.1); Sodium 141 mmol/L (136-145); Thyroid Stimulating Hormone 3.389 uIU/mL (0.358-3.740); Total Protein 7.7 g/dL (6.4-8.2); Triglycerides 930 mg/dL (<=150); VLDL CHOLESTEROL 186.0 mg/dL
== END 2025-08-17 07:16 | disposition home or self-care (01) ==
LOC: LAB 07:17
PROVIDERS: PCP Family Medicine; Visit Provider Family Medicine
DX: Z00.00 Encounter for general adult medical examination without abnormal findings (principal); E11.9 Type 2 diabetes mellitus without complications; Z79.4 Long term (current) use of insulin; Z12.5 Encounter for screening for malignant neoplasm of prostate; E11.65 Type 2 diabetes mellitus with hyperglycemia
CPT/HCPCS: 36415; 80053; 80061; 82043; 82570; 83036; 83721; 84443; 85025; G0103